=== PATIENT | male | born 1950 | race African-American/Black ===

== ENCOUNTER → 2016-07-10 | Outpatient (CLI) | payer BC ==
[~2016-07-10] MED LIST: ACET-1256 PO; ALBUAER INH; ATOR10TA88 PO; CHOL100010 PO; CLL250 PO; CMD5 PO; FAMO40TA6 PO; FSM70 PO; FSMD/70 PO; LEVAAER2 INH; LEVE500T26 PO; MCRK20 PO; MOME50SP5 NAE; OXGN; PANT40TA PO; PRED-301 PO; QUIN1CAP5 PO; SYMIN160 INH; TAMS0.4C38 PO
== END | disposition home or self-care (01) ==
LOC: C.MAMM 15:05
PROVIDERS: ATTEND Family Medicine
DX: M81.0 Age-related osteoporosis without current pathological fracture (principal)

== ENCOUNTER 2017-03-11 13:14 | Inpatient (IN) | payer BC, OTHER ==
[~2017-03-11] VITALS: Ht 182.9 cm; Wt 90.9 kg
[~2017-03-11 13:14] MED LIST changes: +ATOR10TA82 PO; -ATOR10TA88 PO; -FSMD/70 PO
--- NOTE | 2017-03-11 13:55 | EMERGENCY ROOM VISIT NOTE ---
History Report prepared by Josef: Darlene Fuchs Under the Supervision of: Dr. Charlie Causey D.O. First contact with patient: 13:22 Chief Complaint: REFERRED BY DOCTOR Stated Complaint: SOB, POSSIBLY SEPTIC History of Present Illness The patient is a 66 year old male who presents to the Emergency Room with complaints of a worsening illness beginning yesterday morning. The patient states that he started to not feel well yesterday. Throughout the day he became more lethargic and tired. He was feeling cold and developed low-grade fevers with a temperature of 99.7. Throughout the night he developed increased urinary frequency and decreased urinary output. He reports a history of an enlarged prostate but denies any history of prostatitis. The patient has been taking Tylenol for his symptoms. He rates his current pain as a 4/10 in severity. He has a history of asthma and idiopathic pulmonary fibrosis. He reports tightness in his chest and some shortness of breath. He is on 1L of NC/O2 at all times. The patient denies headache, back pain, hematuria, and pain or swelling in his legs. He denies any personal history of kidney stones. He denies any recent trauma, injury, or falls. He went to see his PCP, Dr. Villalobos, today and was sent to the ED for further evaluation. states that Dr. Villalobos was concerned for sepsis. The patient is on Coumadin for clots. Source of History: patient, spouse/significant other Onset: yesterday morning Position: other (global) Symptom Intensity: 4/10 Quality: other (illness) Timing: worsening Modifying Factors (Relieving): tylenol Associated Symptoms: + fevers, + SOB, + urinary symptoms, + fatigue, No headache, No back pain Review of Systems See HPI for pertinent positives & negatives. A total of 10 systems reviewed and were otherwise negative. Past Medical & Surgical Medical Problems: (1) ANTICOAGULANTS,LT,CURRENT USE (2) 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 (3) Demyelinating disease of central nervous system (4) Fibrosis of lung (5) Prostatic hypertrophy Family History Diabetes mellitus FH: cancer FATHER MOTHER FH: lung disease Hypertension Seizures Social History Smoking Status: Former Smoker Smokeless Tobacco Use: No Alcohol Use: occasionally Drug Use: none Marital Status: Housing Status: lives with significant other Occupation Status: retired Current/Historical Medications Scheduled Atorvastatin (Lipitor), 10 MG PO DAILY Budesonide/Formoterol Fumarate (Symbicort 160/4.5 Inhaler ), 2 PUFFS INH BID Cholecalciferol (D-5000), 1 TAB PO DAILY Famotidine (Pepcid), 40 MG PO HS Home O2 Therapy (Oxygen), 1 LITER NA DAILY Levalbuterol Hcl (Levalbuterol Hcl), 1 VIAL NEB QID Levetiracetam (Keppra), 2 TAB PO BID Mycophenolate Mofetil (Cellcept), 2 TAB PO BID Pantoprazole (Protonix), 40 MG PO QAM Potassium Ext Rel (Klor-Con), 20 MEQ PO TID Prednisone (Prednisone), 6 MG PO DAILY Quinidine Gluconate (Quinidine Gluconate Er), 1 TAB PO BID Tamsulosin Hcl (Flomax), 0.4 MG PO DAILY Warfarin Sod (Coumadin), 2.5 MG PO WK Warfarin Sodium (Coumadin), 5 MG PO [id number] Scheduled PRN Acetaminophen (Tylenol), 500 MG PO Q4 PRN for Pain or Fever Albuterol Sulfate (Proventil Hfa), 2 PUFFS INH Q4H PRN for SOB/Wheezing Allergies Coded Allergies: Iodine (Verified Allergy, Mild, PT. DOESN'T REMEMBER REACTION, 03/11/17) Quinolones (Verified Allergy, Mild, ? REACTION-HAD AVELOX AND CIPRO W/O PROBLEM, 03/11/17) Dust (Verified Allergy, Unknown, SEASONAL ALLERGIES, 03/11/17) Iodinated Contrast Media (Verified Allergy, Unknown, PATIENT DOESN'T REMEMBER, 03/11/17) Molds and Smuts (Verified Allergy, Unknown, SEASONAL ALLERGIES, 03/11/17) Ofloxacin (Verified Allergy, Unknown, "pt does not remember", 03/11/17) POLLEN (Verified Allergy, Unknown, SEASONAL ALLERGIES, 03/11/17) Penicillins (Verified Allergy, Unknown, NOTED ON ALLERGY TEST, 03/11/17) CAN TAKE ROCEPHIN Phenytoin (Verified Allergy, Unknown, MYOPATHY, 03/11/17) Fentanyl (Verified Adverse Reaction, Mild, PATIENT DOESN'T REMEMBER REACTION, 03/11/17) Physical Exam Vital Signs Date Time Temp Pulse Resp B/P (MAP) Pulse Ox O2 Delivery O2 Flow Rate FiO2 03/11/17 18:31 74 18 128/78 98 Room Air 03/11/17 18:10 75 03/11/17 17:49 80 23 96 03/11/17 17:34 75 25 97 03/11/17 17:19 93 19 03/11/17 17:17 117/71 03/11/17 17:15 79 16 117/71 99 Room Air 03/11/17 16:49 74 21 98 03/11/17 16:34 76 24 98 03/11/17 16:19 76 31 98 03/11/17 16:04 78 22 99 03/11/17 15:49 83 25 120/81 98 03/11/17 15:44 76 25 120/81 99 03/11/17 15:29 80 27 97 03/11/17 15:14 79 17 100 03/11/17 15:00 110/72 03/11/17 14:59 78 23 99 03/11/17 14:14 83 20 98 03/11/17 14:05 77 25 107/66 96 Room Air 03/11/17 14:05 107/66 03/11/17 14:04 96 Nasal Cannula 03/11/17 14:02 84 03/11/17 13:16 36.7 82 20 129/69 93 Nasal Cannula 1.0 Physical Exam GENERAL: Patient is awake, alert, and in no acute distress. Patient is resting comfortably and showing no signs of anxiety EYES: The conjunctivae are clear. The pupils are round and reactive. EARS, NOSE, MOUTH AND THROAT: The nose is without any evidence of any deformity. Mucous membranes are moist tongue is midline NECK: The neck is nontender and supple. RESPIRATORY: Lung sounds diminished throughout, scattered rales, no tachypnea or conversational dyspnea. Normal respiratory effort is noted CARDIOVASCULAR: Regular rate and rhythm noted there no murmurs rubs or gallops normal S1 normal S2 GASTROINTESTINAL: The abdomen is soft. Bowel sounds are present in all quadrants. Abdomen is nontender PELVIS: The Pelvis is stable. No tenderness to palpation is noted. BACK: No midline tenderness or or step-off noted range of motion in flexion extension as well as rotation no signs of muscle spasm noted MUSCULOSKELETAL/EXTREMITIES: There is no evidence of gross deformity full range of motion is noted in the hips and shoulders SKIN: Trace pedal edema bilaterally. There is no obvious evidence of any rash. There are no petechiae, pallor or cyanosis noted. NEUROLOGIC: Patient is awake alert and oriented x3 Medical Decision & Procedures ER Provider Diagnostic Interpretation: Radiology results as stated below per my review and radiologist interpretation: CHEST ONE VIEW PORTABLE HISTORY: Sepsis COMPARISON: Chest 01/24/2016. FINDINGS: Diffuse interstitial thickening demonstrating a peripheral and basilar predominance. This favors fibrotic change. This is similar to the prior study. The heart is top normal in size. No pleural effusions. No pneumothorax. No definite new focal lung consolidations. No evidence for pulmonary edema. IMPRESSION: 1. No significant change in the chronic interstitial thickening suggestive of fibrotic change. 2. No definite new focal lung consolidations. Electronically signed by: Cody Painter M.D. 03/11/2017 1:53 PM Dictated Date/Time: 03/11/2017 1:50 PM ABD/PELVIS NO IV OR ORAL CONT CLINICAL HISTORY: 66 years-old Male presenting with hematuria. TECHNIQUE: Multidetector CT of the abdomen and pelvis was performed without the use of intravenous contrast. IV contrast: None. A dose lowering technique was used consistent with the principles of ALARA (as low as reasonably achievable). COMPARISON: PET/CT from 07/14/2011. CT DOSE (mGy.cm): The estimated cumulative dose is 673.59 mGy.cm. FINDINGS: Picker Feeder topogram: Bilateral total hip arthroplasties. Reticular opacities at the lung bases. Lung bases: Extensive reticulation at the lung bases with numerous foci of punctate calcification. Mild bronchiectasis suggested diffusely. No gross evidence of honeycombing. Pleural thickening noted bilaterally. Multichamber enlargement of the heart. Coronary artery and aortic valve calcification. Trace pericardial effusion. Liver: Normal morphology. Density consistent with hepatic steatosis. Biliary: No gross biliary ductal dilatation allowing for noncontrast technique. Normal gallbladder. Pancreas: Normal noncontrast appearance. Spleen: Normal noncontrast appearance. Adrenal glands: Normal noncontrast appearance. Kidneys and ureters: No nephrolithiasis. No hydronephrosis. Normal ureters. Bladder: Allowing for underdistention, suggestion of circumferential bladder wall thickening. Pelvic organs: Extensive streak artifact limits evaluation. Bowel: Limited diverticulosis in the descending colon. Normal appendix. No bowel obstruction. Peritoneal cavity: Minimal infiltration of the small bowel mesentery with associated prominent but subcentimeter lymph nodes, possibly mild mesenteric panniculitis. No free fluid or gas. Lymph nodes: No gross lymphadenopathy allowing for noncontrast technique. Vasculature: Atherosclerosis of the normal caliber abdominal aorta. Abdominal wall: Small fat-containing umbilical hernia. Musculoskeletal: Degenerative changes of the spine. Bilateral total hip arthroplasties with regional streak artifact. Radiolucency surrounds the superiorly directed right iliac screw. Osteopenia. IMPRESSION: 1. No nephrolithiasis or evidence of obstruction. 2. Extensive fibrotic changes at the lung bases. 3. Circumferential bladder wall thickening suggest chronic bowel obstruction. 4. Radiolucency surrounding the superiorly directed right iliac screw as part of the right total hip arthroplasty. This raises concern for loosening or infection. Electronically signed by: Jerad Tobias M.D. 03/11/2017 2:56 PM Dictated Date/Time: 03/11/2017 2:48 PM Laboratory Results 03/11/17 13:40 Red Blood Count 4.43, Mean Corpuscular Volume 89.8, Mean Corpuscular Hemoglobin 30.5, Mean Corpuscular Hemoglobin Concent 33.9, Mean Platelet Volume 9.4, Neutrophils (%) (Auto) 82.9, Lymphocytes (%) (Auto) 5.8, Monocytes (%) (Auto) 10.1, Eosinophils (%) (Auto) 0.7, Basophils (%) (Auto) 0.2, Neutrophils # (Auto ) 11.36, Lymphocytes # (Auto) 0.80, Monocytes # (Auto) 1.38, Eosinophils # (Auto ) 0.10, Basophils # (Auto) 0.03 03/11/17 13:40 Test 03/11/17 13:40 03/11/17 13:50 03/11/17 14:19 03/11/17 15:31 White Blood Count 13.71 K/uL (4.8-10.8) Red Blood Count 4.43 M/uL (4.7-6.1) Hemoglobin 13.5 g/dL (14.0-18.0) Hematocrit 39.8 % (42-52) Mean Corpuscular Volume 89.8 fL (80-100) Mean Corpuscular Hemoglobin 30.5 pg (25-34) Mean Corpuscular Hemoglobin Concent 33.9 g/dl (32-36) Platelet Count 171 K/uL (130-400) Mean Platelet Volume 9.4 fL (7.4-10.4) Neutrophils (%) (Auto) 82.9 % Lymphocytes (%) (Auto) 5.8 % Monocytes (%) (Auto) 10.1 % Eosinophils (%) (Auto) 0.7 % Basophils (%) (Auto) 0.2 % Neutrophils # (Auto) 11.36 K/uL (1.4-6.5) Lymphocytes # (Auto) 0.80 K/uL (1.2-3.4) Monocytes # (Auto) 1.38 K/uL (0.11-0.59) Eosinophils # (Auto) 0.10 K/uL (0-0.5) Basophils # (Auto) 0.03 K/uL (0-0.2) RDW Standard Deviation 49.3 fL (36.4-46.3) RDW Coefficient of Variation 15.0 % (11.5-14.5) Immature Granulocyte % (Auto) 0.3 % Immature Granulocyte # (Auto) 0.04 K/uL (0.00-0.02) Erythrocyte Sedimentation Rate 26 mm/hr (0-14) Anion Gap 7.0 mmol/L (3-11) Est Creatinine Clear Calc Drug Dose 49.8 ml/min Estimated GFR () 52.1 Estimated GFR (Non- 45.0 BUN/Creatinine Ratio 12.4 (10-20) Calcium Level 8.9 mg/dl (8.5-10.1) Phosphorus Level 2.1 mg/dl (2.5-4.9) Magnesium Level 1.8 mg/dl (1.8-2.4) Total Bilirubin 1.2 mg/dl (0.2-1) Aspartate Amino Transf (AST/SGOT) 17 U/L (15-37) Alanine Aminotransferase (ALT/SGPT) 13 U/L (12-78) Alkaline Phosphatase 101 U/L (45-117) Total Creatine Kinase 177 U/L (39-308) Creatine Kinase MB 0.6 ng/ml (0.5-3.6) Creatine Kinase MB Ratio 0.3 (0-3.0) Troponin I < 0.015 ng/ml (0-0.045) C-Reactive Protein 6.90 mg/dl (0-0.29) Pro-B-Type Natriuretic Peptide 408 pg/ml (0-900) Total Protein 7.1 gm/dl (6.4-8.2) Albumin 3.7 gm/dl (3.4-5.0) Globulin 3.4 gm/dl (2.5-4.0) Albumin/Globulin Ratio 1.1 (0.9-2) Lipase 163 U/L (73-393) Bedside Lactic Acid Venous 0.99 mmol/L (0.90-1.70) Venous Blood pH 7.42 (7.36-7.41) Venous Blood Partial Pressure CO2 40 mmHg (38.0-50.0) Venous Blood Partial Pressure O2 45 mmHg Venous Blood HCO3 25 mmol/L Venous Blood Oxygen Saturation 80.1 % Venous Blood Base Excess 0.6 mEq/L Prothrombin Time 21.8 SECONDS (9.0-12.0) Prothromb Time International Ratio 2.0 (0.9-1.1) Activated Partial Thromboplast Time 46.5 SECONDS (21.0-31.0) Partial Thromboplastin Ratio 1.8 Test 03/11/17 15:33 03/11/17 16:17 Urine Color ORANGE Urine Appearance CLOUDY (CLEAR) Urine pH 5.0 (4.5-7.5) Urine Specific [place] 1.027 (1.000-1.030) Urine Protein TRACE (NEG) Urine Glucose (UA) NEG (NEG) Urine Ketones TRACE (NEG) Urine Occult Blood 3+ (NEG) Urine Nitrite POS (NEG) Urine Bilirubin NEG (NEG) Urine Urobilinogen NEG (NEG) Urine Leukocyte Esterase LARGE (NEG) Urine WBC (Auto) >30 /hpf (0-5) Urine RBC (Auto) 10-30 /hpf (0-4) Urine Hyaline Casts (Auto) 0 /lpf (0-5) Urine Epithelial Cells (Auto) 0-5 /lpf (0-5) Urine Bacteria (Auto) 4+ (NEG) Urine Yeast (Auto) (NONE PRSENT) Laboratory results per my review. Medications Administered Medications (Trade) Dose Ordered Sig/Stefanie Route Start Time Stop Time Status Last Admin Dose Admin Sodium Chloride 1,000 ml @ 999 mls/hr Q1H1M STAT IV 03/11/17 15:36 03/11/17 16:36 DC 03/11/17 15:41 999 MLS/HR Ceftriaxone Sodium (Rocephin Inj) 1 gm NOW STAT IV 03/11/17 15:36 03/11/17 15:37 DC 03/11/17 15:46 1 GM ECG Indication: SOB/dyspnea Rate (beats per minute): 81 Rhythm: normal sinus Findings: no acute ischemic change, no ectopy, other (LVH by voltage criteria) Comparison ECG Date: 01/21/16 Change: no significant change ED Course 1322: The patient was evaluated in room B5. A complete history and physical examination were performed. 1536: Rocephin 1 gm IV, NSS 1000 ml @ 999 mls/hr IV 162: I reassessed the patient at this time. He is resting comfortably. I discussed the results and treatment plan with the patient. I answered all pertaining questions that he had. He expressed understanding and verbalized agreement. 162: I spoke with Dr. Hudson. We discussed the patients case. The patient will be evaluated by the [facility] for further management. Medical Decision Differential diagnosis: Etiologies such as viral syndrome, otitis, pharyngitis, pneumonia, influenza, meningitis, urinary tract infection, sepsis, bacteremia, as well as others were entertained. Nursing notes reviewed. Additional history is obtained from the patient's family members. The patient is a 66-year-old male who presented to the emergency department for an evaluation of illness. The patient was found have signs of urinary tract infection an elevated white blood cell count. He has some degree of immunosuppression because of his medications. This reason I discussed his case with the on-call [facility] hospitalist. The patient was treated with IV fluids and IV antibiotics. I reviewed the patient's previous urine cultures as well as his antibiotic allergy list. The patient is feeling much better on subsequent reevaluation. Medication Reconcilliation Current Medication List: was personally reviewed by me Blood Pressure Screening Patient's blood pressure: Normal blood pressure Consults Time Called: 1620 Consulting Physician: Dr. Hudson Returned Call: [address] Hudson. We discussed the patients case. The patient will be evaluated by the [facility] for further management. Impression Primary Impression: Pyelonephritis Additional Impressions: UTI (urinary tract infection) Elevated WBC count Scribe Attestation The scribe's documentation has been prepared under my direction and personally reviewed by me in its entirety. I confirm that the note above accurately reflects all work, treatment, procedures, and medical decision making performed by me. Departure Information Dispostion Being Evaluated By Hospitalist Referrals Yusuf Villalobos M.D. (PCP) Patient Instructions My [facility] Problem Qualifiers Additional Impressions: UTI (urinary tract infection) Urinary tract infection type: acute pyelonephritis Qualified Codes: N10 - Acute pyelonephritis Elevated WBC count Leukocytosis type: unspecified Qualified Codes: D72.829 - Elevated white blood cell count, unspecified
[2017-03-11 14:11] LABS: BASO % 0.2 %; BASO ABS # 0.03 K/uL (0-0.2); COMPLETE YES; EOS % 0.7 %; HEMATOCRIT 39.8 % (42-52); IG% 0.3 %; LYMPH % 5.8 %; MEAN CELL VOLUME 89.8 fL (80-100); MEAN CORPUSCULAR HEMOGLOBIN 30.5 pg (25-34); MEAN CORPUSCULAR HGB CONC 33.9 g/dl (32-36); MEAN PLATELET VOLUME 9.4 fL (7.4-10.4); MONO % 10.1 %; NEUT % 82.9 %; PLATELET COUNT 171 K/uL (130-400); RED BLOOD COUNT 4.43 M/uL (4.7-6.1); WHITE BLOOD COUNT 13.71 K/uL (4.8-10.8)
[2017-03-11 14:29] LABS: ALT/SGPT 13 U/L (12-78); AST/SGOT 17 U/L (15-37); BLOOD UREA NITROGEN 19 mg/dl (7-18); BUN/CREATININE RATIO 12.4 (10-20); CALCIUM 8.9 mg/dl (8.5-10.1); CARBON DIOXIDE 27 mmol/L (21-32); CHLORIDE 106 mmol/L (98-107); CREATININE 1.56 mg/dl (0.60-1.40); GLUCOSE 84 mg/dl (70-99); MAGNESIUM 1.8 mg/dl (1.8-2.4); POTASSIUM 3.7 mmol/L (3.5-5.1); SODIUM 140 mmol/L (136-145)
[2017-03-11 14:33] LABS: ALB/GLOB RATIO 1.1 (0.9-2); ALKALINE PHOSPHATASE 101 U/L (45-117); CKMB/CK RATIO 0.3 (0-3.0); PHOSPHORUS 2.1 mg/dl (2.5-4.9)
[2017-03-11 14:35] LABS: VEN BLD GAS O2 SATURATION 80.1 %; VEN BLOOD GAS BASE EXCESS 0.6 mEq/L
--- NOTE | 2017-03-11 14:58 | DIAGNOSTIC IMAGING REPORT ---
ABD/PELVIS NO IV OR ORAL CONT CLINICAL HISTORY: 66 years-old Male presenting with hematuria. TECHNIQUE: Multidetector CT of the abdomen and pelvis was performed without the use of intravenous contrast. IV contrast: None. A dose lowering technique was used consistent with the principles of ALARA (as low as reasonably achievable). COMPARISON: PET/CT from 07/14/2011. CT DOSE (mGy.cm): The estimated cumulative dose is 673.59 mGy.cm. FINDINGS: Cotton Ginner topogram: Bilateral total hip arthroplasties. Reticular opacities at the lung bases. Lung bases: Extensive reticulation at the lung bases with numerous foci of punctate calcification. Mild bronchiectasis suggested diffusely. No gross evidence of honeycombing. Pleural thickening noted bilaterally. Multichamber enlargement of the heart. Coronary artery and aortic valve calcification. Trace pericardial effusion. Liver: Normal morphology. Density consistent with hepatic steatosis. Biliary: No gross biliary ductal dilatation allowing for noncontrast technique. Normal gallbladder. Pancreas: Normal noncontrast appearance. Spleen: Normal noncontrast appearance. Adrenal glands: Normal noncontrast appearance. Kidneys and ureters: No nephrolithiasis. No hydronephrosis. Normal ureters. Bladder: Allowing for underdistention, suggestion of circumferential bladder wall thickening. Pelvic organs: Extensive streak artifact limits evaluation. Bowel: Limited diverticulosis in the descending colon. Normal appendix. No bowel obstruction. Peritoneal cavity: Minimal infiltration of the small bowel mesentery with associated prominent but subcentimeter lymph nodes, possibly mild mesenteric panniculitis. No free fluid or gas. Lymph nodes: No gross lymphadenopathy allowing for noncontrast technique. Vasculature: Atherosclerosis of the normal caliber abdominal aorta. Abdominal wall: Small fat-containing umbilical hernia. Musculoskeletal: Degenerative changes of the spine. Bilateral total hip arthroplasties with regional streak artifact. Radiolucency surrounds the superiorly directed right iliac screw. Osteopenia. IMPRESSION: 1. No nephrolithiasis or evidence of obstruction. 2. Extensive fibrotic changes at the lung bases. 3. Circumferential bladder wall thickening suggest chronic bowel obstruction. 4. Radiolucency surrounding the superiorly directed right iliac screw as part of the right total hip arthroplasty. This raises concern for loosening or infection. Electronically signed by: Jerad Tobias M.D. 03/11/2017 2:56 PM Dictated Date/Time: 03/11/2017 2:48 PM
[2017-03-11] MEDS ORDERED: LEVE500T13 PO (15:10)
[2017-03-11] MEDS ORDERED: ALBUAER INH (15:10)
[2017-03-11] MEDS ORDERED: MYCO500T4 PO (15:10)
[2017-03-11] MEDS ORDERED: LEVA1.258 NEB (15:10)
[2017-03-11] MEDS ORDERED: CHOLTAB11 PO (15:10)
[2017-03-11] MEDS ORDERED: WARF5TAB90 PO (15:10)
[2017-03-11] MEDS ORDERED: QUIN1TAB PO (15:10)
[2017-03-11] MEDS ORDERED: POTA20TA16 PO (15:10)
[2017-03-11] MEDS ORDERED: CEFTRIAXONE SOD INJ 1 GM ADDVIAL IV STA (15:36)
[2017-03-11] MEDS ORDERED: SODIUM CHLORIDE 0.9% 1000ML 1,000 ML IV STA (15:36)
[2017-03-11 15:49] LABS: URINE APPEARANCE CLOUDY (CLEAR); URINE BILIRUBIN NEG (NEG); URINE COLOR ORANGE; URINE EPITHELIAL CELL AUTO 0-5 /lpf (0-5); URINE NITRITE POS (NEG); URINE SPECIFIC GRAVITY 1.027 (1.000-1.030); UROBILINOGEN NEG (NEG); ZZUR CULT IF INDIC CLEAN CATCH YES
[2017-03-11 15:57] LABS: MANUAL MICROSCOPIC REQUIRED? NO; REVIEW REQ? YES
[2017-03-11 16:26] LABS: PARTIAL THROMBOPLASTIN RATIO 1.8; PROTHROMBIN TIME (PATIENT) 21.8 SECONDS (9.0-12.0)
--- NOTE | 2017-03-11 16:55 | History and Physical ---
History & Physical Date & Time of Service: Mar 11, 2017 at 16:53 Chief Complaint: Sob, Possibly Septic Primary Care Physician: Yusuf Villalobos M.D. History of Present Illness Mr. Tirado is a 66 year old man presenting for low grade fever, increased urinary hesitancy, and chills starting yesterday. He was sent to the ED from Dr. Strauss's office. No n/v/d. Chest tightness with some sob yesterday, no cough, he had to increase his oxygen from 1L to 2L. He is currently sating 99% on 2L. 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 Past Medical/Surgical History Medical Problems: (1) ANTICOAGULANTS,LT,CURRENT USE Status: Chronic (2) 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 Status: Chronic (3) Demyelinating disease of central nervous system Status: Chronic (4) Fibrosis of lung Status: Chronic (5) Prostatic hypertrophy Status: Chronic Family History Diabetes mellitus FH: cancer FATHER MOTHER FH: lung disease Hypertension Seizures Social History Smoking Status: Former Smoker Smokeless Tobacco Use: No Alcohol Use: none Drug Use: none Marital Status: Housing status: lives with family Occupational Status: retired Immunizations History of Influenza Vaccine: No Influenza Vaccine Date: Jan 19, 2009 History of Tetanus Vaccine?: Yes History of Pneumococcal: Yes Pneumococcal Date: Oct 20, 2007 History of Hepatitis B Vaccine: No Multi-Drug Resistant Organisms History of MDRO: No Allergies Coded Allergies: Iodine (Verified Allergy, Mild, PT. DOESN'T REMEMBER REACTION, 03/11/17) Quinolones (Verified Allergy, Mild, ? REACTION-HAD AVELOX AND CIPRO W/O PROBLEM, 03/11/17) Dust (Verified Allergy, Unknown, SEASONAL ALLERGIES, 03/11/17) Iodinated Contrast Media (Verified Allergy, Unknown, PATIENT DOESN'T REMEMBER, 03/11/17) Molds and Smuts (Verified Allergy, Unknown, SEASONAL ALLERGIES, 03/11/17) Ofloxacin (Verified Allergy, Unknown, "pt does not remember", 03/11/17) POLLEN (Verified Allergy, Unknown, SEASONAL ALLERGIES, 03/11/17) Penicillins (Verified Allergy, Unknown, NOTED ON ALLERGY TEST, 03/11/17) CAN TAKE ROCEPHIN Phenytoin (Verified Allergy, Unknown, MYOPATHY, 03/11/17) Fentanyl (Verified Adverse Reaction, Mild, PATIENT DOESN'T REMEMBER REACTION, 03/11/17) Home Medications Scheduled Atorvastatin (Lipitor), 10 MG PO DAILY Budesonide/Formoterol Fumarate (Symbicort 160/4.5 Inhaler ), 2 PUFFS INH BID Cholecalciferol (D-5000), 1 TAB PO DAILY Famotidine (Pepcid), 40 MG PO HS Home O2 Therapy (Oxygen), 1 LITER NA DAILY Levalbuterol Hcl (Levalbuterol Hcl), 1 VIAL NEB QID Levetiracetam (Keppra), 2 TAB PO BID Mycophenolate Mofetil (Cellcept), 2 TAB PO BID Pantoprazole (Protonix), 40 MG PO QAM Potassium Ext Rel (Klor-Con), 20 MEQ PO TID Prednisone (Prednisone), 6 MG PO DAILY Quinidine Gluconate (Quinidine Gluconate Er), 1 TAB PO BID Tamsulosin Hcl (Flomax), 0.4 MG PO DAILY Warfarin Sod (Coumadin), 2.5 MG PO WK Warfarin Sodium (Coumadin), 5 MG PO [id number] Scheduled PRN Acetaminophen (Tylenol), 500 MG PO Q4 PRN for Pain or Fever Albuterol Sulfate (Proventil Hfa), 2 PUFFS INH Q4H PRN for SOB/Wheezing Review of Systems Constitutional: + fever, + chills Respiratory: + shortness of breath, No cough Cardiovascular: No chest pain Abdomen: No pain, No nausea, No vomiting, No diarrhea Hematologic / Lymphatic: No abnormal bleeding/bruising Physical Exam Vital Signs Date Time Temp Pulse Resp B/P (MAP) Pulse Ox O2 Delivery O2 Flow Rate FiO2 03/11/17 15:44 76 25 120/81 99 03/11/17 15:29 80 27 97 03/11/17 15:14 79 17 100 03/11/17 15:00 110/72 03/11/17 14:59 78 23 99 03/11/17 14:14 83 20 98 03/11/17 14:05 77 25 107/66 96 Room Air 03/11/17 14:05 107/66 03/11/17 14:04 96 Nasal Cannula 03/11/17 14:02 84 03/11/17 13:16 36.7 82 20 129/69 93 Nasal Cannula 1.0 Diagnostics Laboratory Results Results Past 24 Hours Test 03/11/17 13:40 03/11/17 13:50 03/11/17 14:19 03/11/17 15:31 Range/Units White Blood Count 13.71 4.8-10.8 K/uL Red Blood Count 4.43 4.7-6.1 M/uL Hemoglobin 13.5 14.0-18.0 g/dL Hematocrit 39.8 42-52 % Mean Corpuscular Volume 89.8 80-100 fL Mean Corpuscular Hemoglobin 30.5 25-34 pg Mean Corpuscular Hemoglobin Concent 33.9 32-36 g/dl Platelet Count 171 130-400 K/uL Mean Platelet Volume 9.4 7.4-10.4 fL Neutrophils (%) (Auto) 82.9 % Lymphocytes (%) (Auto) 5.8 % Monocytes (%) (Auto) 10.1 % Eosinophils (%) (Auto) 0.7 % Basophils (%) (Auto) 0.2 % Neutrophils # (Auto) 11.36 1.4-6.5 K/uL Lymphocytes # (Auto) 0.80 1.2-3.4 K/uL Monocytes # (Auto) 1.38 0.11-0.59 K/uL Eosinophils # (Auto) 0.10 0-0.5 K/uL Basophils # (Auto) 0.03 0-0.2 K/uL RDW Standard Deviation 49.3 36.4-46.3 fL RDW Coefficient of Variation 15.0 11.5-14.5 % Immature Granulocyte % (Auto) 0.3 % Immature Granulocyte # (Auto) 0.04 0.00-0.02 K/uL Erythrocyte Sedimentation Rate 26 0-14 mm/hr Sodium Level 140 136-145 mmol/L Potassium Level 3.7 3.5-5.1 mmol/L Chloride Level 106 98-107 mmol/L Carbon Dioxide Level 27 21-32 mmol/L Anion Gap 7.0 3-11 mmol/L Blood Urea Nitrogen 19 7-18 mg/dl Creatinine 1.56 0.60-1.40 mg/dl Est Creatinine Clear Calc Drug Dose 49.8 ml/min Estimated GFR () 52.1 Estimated GFR (Non- 45.0 BUN/Creatinine Ratio 12.4 10-20 Random Glucose 84 70-99 mg/dl Calcium Level 8.9 8.5-10.1 mg/dl Phosphorus Level 2.1 2.5-4.9 mg/dl Magnesium Level 1.8 1.8-2.4 mg/dl Total Bilirubin 1.2 0.2-1 mg/dl Aspartate Amino Transf (AST/SGOT) 17 15-37 U/L Alanine Aminotransferase (ALT/SGPT) 13 12-78 U/L Alkaline Phosphatase 101 45-117 U/L Total Creatine Kinase 177 39-308 U/L Creatine Kinase MB 0.6 0.5-3.6 ng/ml Creatine Kinase MB Ratio 0.3 0-3.0 Troponin I < 0.015 0-0.045 ng/ml C-Reactive Protein 6.90 0-0.29 mg/dl Pro-B-Type Natriuretic Peptide 408 0-900 pg/ml Total Protein 7.1 6.4-8.2 gm/dl Albumin 3.7 3.4-5.0 gm/dl Globulin 3.4 2.5-4.0 gm/dl Albumin/Globulin Ratio 1.1 0.9-2 Lipase 163 73-393 U/L Bedside Lactic Acid Venous 0.99 0.90-1.70 mmol/L Venous Blood pH 7.42 7.36-7.41 Venous Blood Partial Pressure CO2 40 38.0-50.0 mmHg Venous Blood Partial Pressure O2 45 mmHg Venous Blood HCO3 25 mmol/L Venous Blood Oxygen Saturation 80.1 % Venous Blood Base Excess 0.6 mEq/L Prothrombin Time 21.8 9.0-12.0 SECONDS Prothromb Time International Ratio 2.0 0.9-1.1 Activated Partial Thromboplast Time 46.5 21.0-31.0 SECONDS Partial Thromboplastin Ratio 1.8 Test 03/11/17 15:33 03/11/17 16:17 Range/Units Urine Color ORANGE Urine Appearance CLOUDY CLEAR Urine pH 5.0 4.5-7.5 Urine Specific [employer] 1.027 1.000-1.030 Urine Protein TRACE NEG Urine Glucose (UA) NEG NEG Urine Ketones TRACE NEG Urine Occult Blood 3+ NEG Urine Nitrite POS NEG Urine Bilirubin NEG NEG Urine Urobilinogen NEG NEG Urine Leukocyte Esterase LARGE NEG Urine WBC (Auto) >30 0-5 /hpf Urine RBC (Auto) 10-30 0-4 /hpf Urine Hyaline Casts (Auto) 0 0-5 /lpf Urine Epithelial Cells (Auto) 0-5 0-5 /lpf Urine Bacteria (Auto) 4+ NEG Urine Yeast (Auto) NONE PRSENT Microbiology Results 03/11/17 Blood Culture, Received Pending 03/11/17 Blood Culture, Received Pending 03/11/17 Urine Culture, Received Pending Diagnostic Radiology ABD/PELVIS NO IV OR ORAL CONT CLINICAL HISTORY: 66 years-old Male presenting with hematuria. TECHNIQUE: Multidetector CT of the abdomen and pelvis was performed without the use of intravenous contrast. IV contrast: None. A dose lowering technique was used consistent with the principles of ALARA (as low as reasonably achievable). COMPARISON: PET/CT from 07/14/2011. CT DOSE (mGy.cm): The estimated cumulative dose is 673.59 mGy.cm. FINDINGS: Tuber Operator topogram: Bilateral total hip arthroplasties. Reticular opacities at the lung bases. Lung bases: Extensive reticulation at the lung bases with numerous foci of punctate calcification. Mild bronchiectasis suggested diffusely. No gross evidence of honeycombing. Pleural thickening noted bilaterally. Multichamber enlargement of the heart. Coronary artery and aortic valve calcification. Trace pericardial effusion. Liver: Normal morphology. Density consistent with hepatic steatosis. Biliary: No gross biliary ductal dilatation allowing for noncontrast technique. Normal gallbladder. Pancreas: Normal noncontrast appearance. Spleen: Normal noncontrast appearance. Adrenal glands: Normal noncontrast appearance. Kidneys and ureters: No nephrolithiasis. No hydronephrosis. Normal ureters. Bladder: Allowing for underdistention, suggestion of circumferential bladder wall thickening. Pelvic organs: Extensive streak artifact limits evaluation. Bowel: Limited diverticulosis in the descending colon. Normal appendix. No bowel obstruction. Peritoneal cavity: Minimal infiltration of the small bowel mesentery with associated prominent but subcentimeter lymph nodes, possibly mild mesenteric panniculitis. No free fluid or gas. Lymph nodes: No gross lymphadenopathy allowing for noncontrast technique. Vasculature: Atherosclerosis of the normal caliber abdominal aorta. Abdominal wall: Small fat-containing umbilical hernia. Musculoskeletal: Degenerative changes of the spine. Bilateral total hip arthroplasties with regional streak artifact. Radiolucency surrounds the superiorly directed right iliac screw. Osteopenia. IMPRESSION: 1. No nephrolithiasis or evidence of obstruction. 2. Extensive fibrotic changes at the lung bases. 3. Circumferential bladder wall thickening suggest chronic bowel obstruction. 4. Radiolucency surrounding the superiorly directed right iliac screw as part of the right total hip arthroplasty. This raises concern for loosening or infection. CHEST ONE VIEW PORTABLE HISTORY: Sepsis COMPARISON: Chest 01/24/2016. FINDINGS: Diffuse interstitial thickening demonstrating a peripheral and basilar predominance. This favors fibrotic change. This is similar to the prior study. The heart is top normal in size. No pleural effusions. No pneumothorax. No definite new focal lung consolidations. No evidence for pulmonary edema. IMPRESSION: 1. No significant change in the chronic interstitial thickening suggestive of fibrotic change. 2. No definite new focal lung consolidations. EKG Normal sinus rhythm Moderate voltage criteria for LVH, may be normal variant Nonspecific T wave abnormality Abnormal ECG When compared with ECG of 24-JAN-2016 15:17, Nonspecific T wave abnormality now evident in Anterolateral leads Confirmed by MISTY SANDERSON ([id number]) on 03/11/2017 3:40:23 PM Impression Assessment and Plan Mr. Tirado is a 66 year old man here for UTI in the setting of immunosuppressive therapy. He has a past medical history. 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 UTI - admit med surg - Rocephin - straight cath for urinary retention - Previous creatinine was 1.4, now 1.5 - continue IVF NSS @ 100 ml/hr - cbc, prp in am Pulmonary Fibrosis - titrate O2, 1L at home, now requiring 2L - continue home nebs - continue Cellcept PMR - continue prednisone HLD - continue statin GERD - continue famotidine and protonix BPH - continue flomax DVT prophylaxis - coumadin Full resuscitation [employer] Physician Supervision Note: I interviewed and examined the patient. Discussed with Loretta Adair [employer] and agree with findings and plan as documented in the note. Any exceptions or clarifications are listed here: None Patient presents with urinary symptoms and concern for worsening infection he is immune suppressed with both prednisone and CellCept therapy for which she takes them as treatment of polymyalgia rheumatica and pulmonary fibrosis patient 's had preceding symptoms and did see his primary care provider was recommended admission. Patient's had no flareup of his polymalgia rheumatica lately and his pulmonary fibrosis he says has been stable over the last 2 years he's having some dysuria general body aches and did have a measurable temperature at home Vital signs showed him to be afebrile in the ER other vitals are reviewed and stable Cardiac exam is regular lungs have fine dry crackles in both lung prince he has no CVA angle tenderness E some mild suprapubic fullness Patient presents with UTI possible early service given his immune suppression will have the patient admitted for facility hydrate him and initiate intravenous antibiotic therapy of Rocephin as was started in the ER For his adrenal axis suppression with prednisone we will use his home dose but watch for signs of needing stress dose coverage with hydrocortisone likewise maintaining his CellCept for his pulmonary fibrosis with supplement oxygen Documented By: Nader Hudson Advanced Directives Existing Advance Directive: Yes Existing Living Will: Yes Existing Power of [employer]ospace [employer] Sales Engineer: Yes Existing Health Care Proxy: Yes () Resuscitation Status FULL RESUSCITATION VTE Prophylaxis VTE Risk Assessment Done? Y/N: Yes Risk Level: Moderate
[2017-03-11] MEDS ORDERED: ONDANSETRON INJ 2 MG/ML 2 ML VIAL IV PRN (18:45)
[2017-03-11] MEDS ORDERED: ACETAMINOPHEN 325 MG TAB PO PRN (18:45)
[2017-03-11] MEDS ORDERED: ALUMINUM/MAGNESIUM/SIMETH (MAALOX MAX) 30 ML UDC PO PRN (18:45)
[2017-03-11] MEDS ORDERED: ALBUTEROL HFA 8 GM INHALER INH PRN (19:00)
[2017-03-11] MEDS ORDERED: ACETAMINOPHEN 500 MG TAB PO PRN (19:00)
[2017-03-11] MEDS: LEVALBUTEROL 1.25MG/3ML NEB INH SCH (20:32)
[2017-03-11 20:34] VITALS: PULSE 81; O2SAT 96
[2017-03-11] MEDS: LEVETIRACETAM 500 MG TAB PO SCH (21:01)
[2017-03-11] MEDS: BUDESONIDE/FORMOTEROL FUMARATE 160/4.5 60 PUFFS/INHALER INH SCH (21:01)
[2017-03-11] MEDS: POTASSIUM CHLORIDE 20 MEQ TABCR PO SCH (21:02)
[2017-03-11] MEDS: FAMOTIDINE 20 MG TAB PO SCH (21:02)
[2017-03-11] MEDS: MYCOPHENOLATE MOFETIL 250 MG CAP (CELLCEPT) PO SCH (21:05)
[2017-03-11] MEDS: SODIUM CHLORIDE 0.9% 1000ML 1,000 ML IV SCH (21:09)
[2017-03-11 21:24] VITALS: BP 144/78; PULSE 72; TEMP 36.9; O2SAT 98; Ht 182.9 cm; Wt 90.9 kg
[2017-03-11] MEDS: QUINIDINE GLUCONATE 324 MG PO SCH (22:04)
[2017-03-11 23:50] VITALS: BP 113/62; PULSE 77; TEMP 36.3; O2SAT 96
[2017-03-12] VITALS (8 sets, daily range): BP systolic 110–134; BP diastolic 66–78; PULSE 61–79; TEMP 36.6–36.9; O2SAT 95–100
[2017-03-12] MEDS: SODIUM CHLORIDE 0.9% 1000ML 1,000 ML IV SCH ×2 (06:04→16:09)
[2017-03-12] MEDS: LEVALBUTEROL 1.25MG/3ML NEB INH SCH ×4 (06:51→19:16)
[2017-03-12] MEDS: QUINIDINE GLUCONATE 324 MG PO SCH ×2 (07:38→20:14)
[2017-03-12] MEDS: BUDESONIDE/FORMOTEROL FUMARATE 160/4.5 60 PUFFS/INHALER INH SCH ×2 (07:38→20:13)
[2017-03-12] MEDS: TAMSULOSIN HCL 0.4 MG CAP PO SCH (07:39)
[2017-03-12] MEDS: PANTOprazole SOD 40 MG TAB PO SCH (07:39)
[2017-03-12] MEDS: ATORVASTATIN 10 MG TAB PO SCH (07:39)
[2017-03-12] MEDS: POTASSIUM CHLORIDE 20 MEQ TABCR PO SCH ×3 (07:39→20:13)
[2017-03-12] MEDS: LEVETIRACETAM 500 MG TAB PO SCH ×2 (07:40→16:18)
[2017-03-12] MEDS: MYCOPHENOLATE MOFETIL 250 MG CAP (CELLCEPT) PO SCH ×2 (07:40→16:17)
[2017-03-12 08:05] LABS: HEMATOCRIT 34.5 % (42-52); MEAN CELL VOLUME 89.8 fL (80-100); MEAN CORPUSCULAR HEMOGLOBIN 29.9 pg (25-34); MEAN CORPUSCULAR HGB CONC 33.3 g/dl (32-36); MEAN PLATELET VOLUME 9.7 fL (7.4-10.4); PLATELET COUNT 153 K/uL (130-400); RED BLOOD COUNT 3.84 M/uL (4.7-6.1); WHITE BLOOD COUNT 11.52 K/uL (4.8-10.8)
[2017-03-12 08:16] LABS: INR 2.1 (0.9-1.1)
[2017-03-12 08:30] LABS: CREATININE 1.29 mg/dl (0.60-1.40)
[2017-03-12 08:31] LABS: BUN/CREATININE RATIO 13.8 (10-20); CALCIUM 7.9 mg/dl (8.5-10.1)
--- NOTE | 2017-03-12 12:44 | Hospitalist Progress Note ---
Hospitalist Progress Note Date of Service Mar 12, 2017. Subjective Pt evaluation today including: conversation w/ patient, physical exam, lab review, review of studies, review of inpatient medication list Voiding: no voiding problems Patient laying in bed. States he is feeling significantly improved since admission. +fever and chills since Thursday- denies any overnight. Urinary frequency and hesitancy has improved. Eating and drinking OK. He notes a h/o uncomplicated UTIs. Patient denies any fever, chills, sweats, lightheadedness, dizziness, vision changes, CP, palpitations, edema, SOB, wheezing, cough, abdominal pain, nausea, vomiting, diarrhea, urinary symptoms, melena, numbness/tingling, weakness, muscle/joint pain, anxiety/depression, active bleeding, or new skin discoloration/changes. Medications Current Inpatient Medications Medications (Trade) Dose Ordered Sig/Stefanie Route Start Time Stop Time Status Last Admin Dose Admin Acetaminophen (Tylenol Tab) 650 mg Q4H PRN PO 03/11/17 18:45 04/10/17 18:44 03/11/17 19:08 650 MG Al Hydrox/Mg Hydrox/Simethicone (Maalox Max Susp) 15 ml Q4H PRN PO 03/11/17 18:45 04/10/17 18:44 Ondansetron HCl (Zofran Inj) 4 mg Q6H PRN IV 03/11/17 18:45 04/10/17 18:44 Ceftriaxone Sodium 1 gm/ Dextrose 50 ml @ 100 mls/hr DAILY@1600 IV 03/12/17 16:00 03/16/17 15:59 Albuterol (Ventolin Hfa Inhaler) 2 puffs Q4H PRN INH 03/11/17 19:00 04/10/17 18:59 Atorvastatin Calcium (Lipitor Tab) 10 mg DAILY PO 03/12/17 08:00 04/11/17 08:59 03/12/17 07:39 10 MG Budesonide/ Formoterol Fumarate (Symbicort 160/ 4.5 Inh) 2 puffs BID INH 03/11/17 20:11 04/10/17 20:59 03/12/17 07:38 2 PUFFS Famotidine (Pepcid Tab) 40 mg HS PO 03/11/17 21:00 04/10/17 20:59 03/11/17 21:02 40 MG Levalbuterol (Xopenex 1.25MG/ 3ML Neb) 1.25 mg QIDR INH 03/11/17 21:00 04/10/17 20:59 03/12/17 11:30 1.25 MG Levetiracetam (Keppra Tab) 1,000 mg BID PO 03/11/17 20:11 04/10/17 20:59 03/12/17 07:40 1,000 MG Mycophenolate Mofetil (Cellcept Cap) 1,000 mg BID PO 03/11/17 20:11 04/10/17 20:59 03/12/17 07:40 1,000 MG Pantoprazole Sodium (Protonix Tab) 40 mg QAM PO 03/12/17 08:00 04/11/17 08:59 03/12/17 07:39 40 MG Potassium Chloride (Klor-Con Tab) 20 meq TID PO 03/11/17 20:11 04/10/17 20:59 03/12/17 07:39 20 MEQ Prednisone (PredniSONE TAB) 6 mg DAILY PO 03/12/17 08:00 04/11/17 08:59 03/12/17 07:39 6 MG Quinidine Gluconate ([place] Duratab) 324 mg BID PO 03/11/17 20:11 04/10/17 20:59 03/12/17 07:38 324 MG Tamsulosin HCl (Flomax Cap) 0.4 mg DAILY PO 03/12/17 08:00 04/11/17 08:59 03/12/17 07:39 0.4 MG Warfarin Sodium (Coumadin Tab) 2.5 mg Mo@1600 PO 03/16/17 16:00 04/15/17 15:59 Warfarin Sodium (Coumadin Tab) 5 mg SuTuWeThFrSa@1600 PO 03/12/17 16:00 04/11/17 15:59 Sodium Chloride 1,000 ml @ 100 mls/hr Q10H IV 03/11/17 19:15 04/10/17 19:14 03/12/17 06:04 100 MLS/HR Objective Vital Signs Date Time Temp Pulse Resp B/P (MAP) Pulse Ox O2 Delivery O2 Flow Rate FiO2 03/12/17 11:31 75 14 97 Room Air 03/12/17 08:15 Room Air 03/12/17 07:03 36.6 67 18 120/78 (92) 100 2.0 03/12/17 06:51 76 14 96 Nasal Cannula 1.0 03/12/17 00:00 98 Nasal Cannula 1.0 03/11/17 23:50 36.3 77 20 113/62 (79) 96 1.0 03/11/17 21:24 36.9 72 18 144/78 98 Nasal Cannula 1.0 03/11/17 21:24 36.9 72 18 144/78 (100) 98 03/11/17 20:34 81 14 96 Nasal Cannula 1.0 03/11/17 19:59 37.5 71 16 118/66 98 Nasal Cannula 1.0 03/11/17 19:03 37.5 82 72 162/100 97 Nasal Cannula 1.0 03/11/17 18:31 74 18 128/78 98 Room Air 03/11/17 18:10 75 03/11/17 17:49 80 23 96 03/11/17 17:34 75 25 97 03/11/17 17:19 93 19 03/11/17 17:17 117/71 03/11/17 17:15 79 16 117/71 99 Room Air 03/11/17 16:49 74 21 98 03/11/17 16:34 76 24 98 03/11/17 16:19 76 31 98 03/11/17 16:04 78 22 99 03/11/17 15:49 83 25 120/81 98 03/11/17 15:44 76 25 120/81 99 03/11/17 15:29 80 27 97 03/11/17 15:14 79 17 100 03/11/17 15:00 110/72 03/11/17 14:59 78 23 99 03/11/17 14:14 83 20 98 03/11/17 14:05 77 25 107/66 96 Room Air 03/11/17 14:05 107/66 03/11/17 14:04 96 Nasal Cannula 03/11/17 14:02 84 03/11/17 13:16 36.7 82 20 129/69 93 Nasal Cannula 1.0 Physical Exam General Appearance: no apparent distress, + pertinent finding (O2 1L NC) Eyes: normal inspection, PERRL ENT: hearing grossly normal Neck: supple Respiratory/Chest: lungs clear, no respiratory distress, no accessory muscle use Cardiovascular: regular rate, rhythm Abdomen: normal bowel sounds, non tender, soft Extremities: no pedal edema, no calf tenderness Neurologic/Psychiatric: alert, normal mood/affect, oriented x 3 Skin: normal color, warm/dry, no rash Laboratory Results Last 24 Hours Test 03/11/17 13:40 03/11/17 13:50 03/11/17 14:19 03/11/17 15:31 White Blood Count 13.71 K/uL Red Blood Count 4.43 M/uL Hemoglobin 13.5 g/dL Hematocrit 39.8 % Mean Corpuscular Volume 89.8 fL Mean Corpuscular Hemoglobin 30.5 pg Mean Corpuscular Hemoglobin Concent 33.9 g/dl Platelet Count 171 K/uL Mean Platelet Volume 9.4 fL Neutrophils (%) (Auto) 82.9 % Lymphocytes (%) (Auto) 5.8 % Monocytes (%) (Auto) 10.1 % Eosinophils (%) (Auto) 0.7 % Basophils (%) (Auto) 0.2 % Neutrophils # (Auto) 11.36 K/uL Lymphocytes # (Auto) 0.80 K/uL Monocytes # (Auto) 1.38 K/uL Eosinophils # (Auto) 0.10 K/uL Basophils # (Auto) 0.03 K/uL RDW Standard Deviation 49.3 fL RDW Coefficient of Variation 15.0 % Immature Granulocyte % (Auto) 0.3 % Immature Granulocyte # (Auto) 0.04 K/uL Erythrocyte Sedimentation Rate 26 mm/hr Sodium Level 140 mmol/L Potassium Level 3.7 mmol/L Chloride Level 106 mmol/L Carbon Dioxide Level 27 mmol/L Anion Gap 7.0 mmol/L Blood Urea Nitrogen 19 mg/dl Creatinine 1.56 mg/dl Est Creatinine Clear Calc Drug Dose 49.8 ml/min Estimated GFR () 52.1 Estimated GFR (Non- 45.0 BUN/Creatinine Ratio 12.4 Random Glucose 84 mg/dl Calcium Level 8.9 mg/dl Phosphorus Level 2.1 mg/dl Magnesium Level 1.8 mg/dl Total Bilirubin 1.2 mg/dl Aspartate Amino Transf (AST/SGOT) 17 U/L Alanine Aminotransferase (ALT/SGPT) 13 U/L Alkaline Phosphatase 101 U/L Total Creatine Kinase 177 U/L Creatine Kinase MB 0.6 ng/ml Creatine Kinase MB Ratio 0.3 Troponin I < 0.015 ng/ml C-Reactive Protein 6.90 mg/dl Pro-B-Type Natriuretic Peptide 408 pg/ml Total Protein 7.1 gm/dl Albumin 3.7 gm/dl Globulin 3.4 gm/dl Albumin/Globulin Ratio 1.1 Lipase 163 U/L Hepatitis C Antibody Screen NEG Bedside Lactic Acid Venous 0.99 mmol/L Venous Blood pH 7.42 Venous Blood Partial Pressure CO2 40 mmHg Venous Blood Partial Pressure O2 45 mmHg Venous Blood HCO3 25 mmol/L Venous Blood Oxygen Saturation 80.1 % Venous Blood Base Excess 0.6 mEq/L Prothrombin Time 21.8 SECONDS Prothromb Time International Ratio 2.0 Activated Partial Thromboplast Time 46.5 SECONDS Partial Thromboplastin Ratio 1.8 Test 03/11/17 15:33 03/11/17 16:17 03/12/17 07:44 Urine Color ORANGE Urine Appearance CLOUDY Urine pH 5.0 Urine Specific [place] 1.027 Urine Protein TRACE Urine Glucose (UA) NEG Urine Ketones TRACE Urine Occult Blood 3+ Urine Nitrite POS Urine Bilirubin NEG Urine Urobilinogen NEG Urine Leukocyte Esterase LARGE Urine WBC (Auto) >30 /hpf Urine RBC (Auto) 10-30 /hpf Urine Hyaline Casts (Auto) 0 /lpf Urine Epithelial Cells (Auto) 0-5 /lpf Urine Bacteria (Auto) 4+ Urine Yeast (Auto) White Blood Count 11.52 K/uL Red Blood Count 3.84 M/uL Hemoglobin 11.5 g/dL Hematocrit 34.5 % Mean Corpuscular Volume 89.8 fL Mean Corpuscular Hemoglobin 29.9 pg Mean Corpuscular Hemoglobin Concent 33.3 g/dl RDW Standard Deviation 49.5 fL RDW Coefficient of Variation 15.1 % Platelet Count 153 K/uL Mean Platelet Volume 9.7 fL Prothrombin Time 23.0 SECONDS Prothromb Time International Ratio 2.1 Sodium Level 143 mmol/L Potassium Level 4.0 mmol/L Chloride Level 112 mmol/L Carbon Dioxide Level 21 mmol/L Anion Gap 10.0 mmol/L Blood Urea Nitrogen 18 mg/dl Creatinine 1.29 mg/dl Est Creatinine Clear Calc Drug Dose 60.2 ml/min Estimated GFR () 65.6 Estimated GFR (Non- 56.6 BUN/Creatinine Ratio 13.8 Random Glucose 93 mg/dl Calcium Level 7.9 mg/dl Assessment and Plan Mr. Tirado is a 66 year old man here for UTI in the setting of immunosuppressive therapy. He has a past medical history. 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 UTI- gram negative bacilli: - Admitted to med/surg - IV Rocephin pending final UCx and sensitives- started on 03/11 - BCx pending - Leukocytosis- RESOLVING Pulmonary fibrosis- on chronic 1L: - O2 protocol - Continue home inhalers and CellCept h/o VTE: Continue Coumadin- follow PT/INR and adjust dose PRN for INR goal of 2- 3 PMR: Continue Prednisone HLD: Continue Lipitor BPH: Continue Flomax Seizure disorder: - Continue Keppra - Keppra level pending GERD: Continue Famotidine and Protonix DVT prophylaxis: Coumadin Code Status: LEVEL I, FULL Dispo: Discharge to home once medically stable- likely tomorrow- no discharge needs anticipated
[2017-03-12] MEDS ORDERED: CEFTRIAXONE SOD INJ 1 GM in DEXTROSE 5% ADD-VANTAGE 50ML 50 ML IV SCH (16:00)
[2017-03-12] MEDS ORDERED: WARFARIN SOD 5 MG TAB PO SCH (16:00)
[2017-03-12] MEDS: FAMOTIDINE 20 MG TAB PO SCH (20:14)
[2017-03-12] MEDS ORDERED: NURSING VERBAL MED ORDER ONE (20:45)
[2017-03-13] VITALS: O2SAT 97
[2017-03-13] MEDS: SODIUM CHLORIDE 0.9% 1000ML 1,000 ML IV SCH (02:38)
[2017-03-13 07:06] VITALS: PULSE 61; O2SAT 96
[2017-03-13] MEDS: LEVALBUTEROL 1.25MG/3ML NEB INH SCH ×3 (07:06→14:51)
[2017-03-13 07:10] VITALS: BP 154/80; PULSE 51; TEMP 36.4; O2SAT 100
[2017-03-13] MEDS: TAMSULOSIN HCL 0.4 MG CAP PO SCH (07:39)
[2017-03-13] MEDS: BUDESONIDE/FORMOTEROL FUMARATE 160/4.5 60 PUFFS/INHALER INH SCH (07:39)
[2017-03-13] MEDS: QUINIDINE GLUCONATE 324 MG PO SCH (07:39)
[2017-03-13] MEDS: POTASSIUM CHLORIDE 20 MEQ TABCR PO SCH (07:40)
[2017-03-13] MEDS: ATORVASTATIN 10 MG TAB PO SCH (07:40)
[2017-03-13] MEDS: PANTOprazole SOD 40 MG TAB PO SCH (07:40)
[2017-03-13 07:50] LABS: HEMATOCRIT 31.3 % (42-52); MEAN CELL VOLUME 89.7 fL (80-100); MEAN CORPUSCULAR HEMOGLOBIN 29.5 pg (25-34); MEAN CORPUSCULAR HGB CONC 32.9 g/dl (32-36); MEAN PLATELET VOLUME 9.6 fL (7.4-10.4); PLATELET COUNT 149 K/uL (130-400); RED BLOOD COUNT 3.49 M/uL (4.7-6.1); WHITE BLOOD COUNT 7.54 K/uL (4.8-10.8)
[2017-03-13 08:00] LABS: INR 1.8 (0.9-1.1); PROTHROMBIN TIME (PATIENT) 19.9 SECONDS (9.0-12.0)
[2017-03-13] MEDS ORDERED: LEVETIRACETAM 500 MG TAB PO SCH (08:00)
[2017-03-13] MEDS ORDERED: MYCOPHENOLATE MOFETIL 250 MG CAP (CELLCEPT) PO SCH (08:00)
[2017-03-13 08:15] LABS: BUN/CREATININE RATIO 12.9 (10-20); CALCIUM 7.6 mg/dl (8.5-10.1); CREATININE 1.19 mg/dl (0.60-1.40); POTASSIUM 3.8 mmol/L (3.5-5.1)
[2017-03-13] MEDS ORDERED: CEPH-571 PO (10:16)
--- NOTE | 2017-03-13 10:17 | Discharge Instructions ---
Discharge Instructions Date of Service Mar 13, 2017. Admission Reason for Admission: UTI Discharge Discharge Diagnosis / Problem: UTI Discharge Goals Goal(s): Decrease discomfort, Improve function, Learn about illness, Diagnostic testing, Therapeutic intervention, Prevent Disease Progression Activity Recommendations Activity Limitations: resume your previous activity . Instructions / Follow-Up Instructions / Follow-Up Urinary tract infection: Keflex 500 mg twice per day until prescription is complete- begin this medication tonight (03/13) Resume all other regular home medications FOLLOW-UPS: Please follow-up with your PCP within 5-7 days Please follow-up/keep all of your subspecialty appointments Current Hospital Diet Patient's current hospital diet: Regular Diet Discharge Diet Recommended Diet: Regular Diet Pending Studies Studies pending at discharge: no Medical Emergencies . Who to Call and When: Medical Emergencies: If at any time you feel your situation is an emergency, please call 911 immediately. . Non-Emergent Contact Non-Emergency issues call your: Primary Care Provider . . "Provider Documentation" section prepared by Ellyn Aguilar. . VTE Core Measure Inpt VTE Proph given/why not?: Warfarin (Coumadin)
--- NOTE | 2017-03-13 10:22 | Discharge Summary ---
Discharge Summary Date of Service Mar 13, 2017. Discharge Summary Admission Date: Mar 11, 2017 at 18:54 Discharge Date: Mar 13, 2017 Discharge Disposition: Home Principal Diagnosis: UTI Problems/Secondary Diagnoses: Pulmonary fibrosis- on chronic 1L PMR HLD BPH Seizure disorder GERD Immunizations: Have You Had Influenza Vaccine: No Influenza Vaccine Date: Jan 19, 2009 History of Tetanus Vaccine?: Yes History of Pneumococcal: Yes Pneumococcal Date: Oct 20, 2007 History of Hepatitis B Vaccine: No Procedures: CHEST ONE VIEW PORTABLE HISTORY: Sepsis COMPARISON: Chest 01/24/2016. FINDINGS: Diffuse interstitial thickening demonstrating a peripheral and basilar predominance. This favors fibrotic change. This is similar to the prior study. The heart is top normal in size. No pleural effusions. No pneumothorax. No definite new focal lung consolidations. No evidence for pulmonary edema. IMPRESSION: 1. No significant change in the chronic interstitial thickening suggestive of fibrotic change. 2. No definite new focal lung consolidations. Electronically signed by: Cody Painter M.D. 03/11/2017 1:53 PM Dictated Date/Time: 03/11/2017 1:50 PM The status of this report is Signed. Draft = Not yet reviewed or approved by Radiologist. Signed = Reviewed and approved by Radiologist. ABD/PELVIS NO IV OR ORAL CONT CLINICAL HISTORY: 66 years-old Male presenting with hematuria. TECHNIQUE: Multidetector CT of the abdomen and pelvis was performed without the use of intravenous contrast. IV contrast: None. A dose lowering technique was used consistent with the principles of ALARA (as low as reasonably achievable). COMPARISON: PET/CT from 07/14/2011. CT DOSE (mGy.cm): The estimated cumulative dose is 673.59 mGy.cm. FINDINGS: Lock Master topogram: Bilateral total hip arthroplasties. Reticular opacities at the lung bases. Lung bases: Extensive reticulation at the lung bases with numerous foci of punctate calcification. Mild bronchiectasis suggested diffusely. No gross evidence of honeycombing. Pleural thickening noted bilaterally. Multichamber enlargement of the heart. Coronary artery and aortic valve calcification. Trace pericardial effusion. Liver: Normal morphology. Density consistent with hepatic steatosis. Biliary: No gross biliary ductal dilatation allowing for noncontrast technique. Normal gallbladder. Pancreas: Normal noncontrast appearance. Spleen: Normal noncontrast appearance. Adrenal glands: Normal noncontrast appearance. Kidneys and ureters: No nephrolithiasis. No hydronephrosis. Normal ureters. Bladder: Allowing for underdistention, suggestion of circumferential bladder wall thickening. Pelvic organs: Extensive streak artifact limits evaluation. Bowel: Limited diverticulosis in the descending colon. Normal appendix. No bowel obstruction. Peritoneal cavity: Minimal infiltration of the small bowel mesentery with associated prominent but subcentimeter lymph nodes, possibly mild mesenteric panniculitis. No free fluid or gas. Lymph nodes: No gross lymphadenopathy allowing for noncontrast technique. Vasculature: Atherosclerosis of the normal caliber abdominal aorta. Abdominal wall: Small fat-containing umbilical hernia. Musculoskeletal: Degenerative changes of the spine. Bilateral total hip arthroplasties with regional streak artifact. Radiolucency surrounds the superiorly directed right iliac screw. Osteopenia. IMPRESSION: 1. No nephrolithiasis or evidence of obstruction. 2. Extensive fibrotic changes at the lung bases. 3. Circumferential bladder wall thickening suggest chronic bowel obstruction. 4. Radiolucency surrounding the superiorly directed right iliac screw as part of the right total hip arthroplasty. This raises concern for loosening or infection. Electronically signed by: Jerad Tobias M.D. 03/11/2017 2:56 PM Dictated Date/Time: 03/11/2017 2:48 PM The status of this report is Signed. Draft = Not yet reviewed or approved by Radiologist. Signed = Reviewed and approved by Radiologist. Medication Reconciliation New Medications: Cephalexin (Keflex) 500 Mg Cap 1 CAP PO BID for 7 Days, #14 CAP Continued Medications: Acetaminophen (Tylenol) 500 Mg Tab 500 MG PO Q4 PRN for Pain or Fever Albuterol Sulfate (Proventil Hfa) 108 Mcg/Act Aer 2 PUFFS INH Q4H PRN for SOB/Wheezing Atorvastatin (Lipitor) 10 Mg Tab 10 MG PO DAILY, TAB Budesonide/Formoterol Fumarate (Symbicort 160/4.5 Inhaler ) Aero 2 PUFFS INH BID Cholecalciferol (D-5000) 5,000 Unit Tab 1 TAB PO DAILY, TAB Famotidine (Pepcid) 40 Mg Tab 40 MG PO HS, TAB Home O2 Therapy (Oxygen) Gas 1 LITER NA DAILY Levalbuterol Hcl (Levalbuterol Hcl) 1.25 Mg/3 Ml Neb 1 VIAL NEB QID Levetiracetam (Keppra) 500 Mg Tab 2 TAB PO BID, TAB Mycophenolate Mofetil (Cellcept) 500 Mg Tab 2 TAB PO BID, TAB Pantoprazole (Protonix) 40 Mg Tab 40 MG PO QAM Potassium Ext Rel (Klor-Con) 20 Meq Tabcr 20 MEQ PO TID, TAB Prednisone (Prednisone) 5 Mg Tab 6 MG PO DAILY, MG VARIES DEPENDING ON LUNG DISEASE Quinidine Gluconate (Quinidine Gluconate Er) 324 Mg Tab 1 TAB PO BID Tamsulosin Hcl (Flomax) 0.4 Mg Cap 0.4 MG PO DAILY, CAP Warfarin Sod (Coumadin) 5 Mg Tab 2.5 MG PO WK Thursday Warfarin Sodium (Coumadin) 5 Mg Tab 5 MG PO [id number], TAB Discharge Exam Review of Systems: Constitutional: No fever, No chills, No sweats, No weakness, No fatigue Eyes: No worsening of vision ENT: No hearing loss Respiratory: No cough, No shortness of breath Cardiovascular: No chest pain, No edema, No palpitations Abdomen: No pain, No nausea, No vomiting, No diarrhea, No constipation Musculoskeletal: No joint pain, No muscle pain, No swelling, No calf pain Genitourinary - Male: No hematuria, No dysuria, No urinary frequency, No urinary urgency, No urinary hesitancy, No urinary retention, No urinary incontinence Neurologic: No weakness, No numbness/tingling Psychiatric: No depression symptoms, No anxiety Endocrine: No fatigue Hematologic / Lymphatic: No abnormal bleeding/bruising Integumentary: No rash, No itch, No new/changing skin lesions Physical Exam: General Appearance: no apparent distress, + pertinent finding (O2 1L NC ) Eyes: normal inspection, PERRL ENT: hearing grossly normal Neck: supple Respiratory/Chest: lungs clear, no respiratory distress, no accessory muscle use Cardiovascular: regular rate, rhythm Abdomen / GI: normal bowel sounds, non tender, soft Extremities: no calf tenderness, no pedal edema Neurologic/Psychiatric: alert, normal mood/affect, oriented x 3 Skin: normal color, warm/dry, no rash Hospital Course Admission HPI: Mr. Tirado is a 66 year old man presenting for low grade fever, increased urinary hesitancy, and chills starting yesterday. He was sent to the ED from Dr. Strauss's office. No n/v/d. Chest tightness with some sob yesterday, no cough, he had to increase his oxygen from 1L to 2L. He is currently sating 99% on 2L. 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 Hospital Course: Mr. Tirado is a 66 year old man here for UTI in the setting of immunosuppressive therapy. He has a past medical history. 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 UTI- Klebsiella pneumoniae: - Admitted to med/surg - IV Rocephin- transition to PO Keflex 500 mg BID - BCx NGTD - Leukocytosis- RESOLVED Pulmonary fibrosis- on chronic 1L: - O2 protocol- on 1L - Continue home inhalers and CellCept h/o VTE: Continue Coumadin- follow PT/INR and adjust dose PRN for INR goal of 2- 3 PMR: Continue Prednisone HLD: Continue Lipitor BPH: Continue Flomax Seizure disorder: - Continue Keppra - Keppra level pending GERD: Continue Famotidine and Protonix DVT prophylaxis: Coumadin Code Status: LEVEL I, FULL Dispo: Discharge to home Total Time Spent: Greater than 30 minutes This includes examination of the patient, discharge planning, medication reconciliation, and communication with other providers. Discharge Instructions Please refer to the electronic Patient Visit Report (Discharge Instructions) for additional information. Follow-Up Please follow-up with your PCP within 5-7 days Please follow-up/keep all of your subspecialty appointments Additional Copies To Yusuf Villalobos M.D.
--- NOTE | 2017-03-13 10:40 | Clinical Documentation Query ---
CLINICAL DOCUMENTATION QUERY A 66 yo male admitted with UTI. In your clinical opinion is this patient being managed for: ( x ) Acute kidney failure, resolved ( ) Not Agree ( ) Other explanation of clinical findings (Please Explain) ( ) Unable to determine (Please Define) ( ) Need to Discuss The medical record reflects the following clinical findings, treatment, and risk factors. Clinical Indicators: Creatinine 1.56 trending down to 1.19, GFR 45 trending up to 62.4 Treatment: IV hydration, serial PRP's Risk Factors: Gram negative bacilli UTI Please clarify and document your clinical opinion in the progress notes and discharge summary. Terms such as "probable", "suspected", "likely", "questionable", "possible", or "still to be ruled out" are acceptable. IF IN AGREEMENT, YOU MUST DOCUMENT ABOVE DIAGNOSTIC STATEMENT IN DAILY PROGRESS NOTES AND DISCHARGE SUMMARY. This document is not part of the patient's record. Thank You, Shahida Ruiz RN [phone]
[2017-03-13] MEDS ORDERED: CEPHALEXIN MONOHYDRATE 250 MG CAP PO ONE (10:45)
[2017-03-13 12:06] VITALS: BP 154/80; PULSE 51; TEMP 36.4; O2SAT 100
[2017-03-16] MEDS ORDERED: WARFARIN SOD 2.5 MG TAB PO SCH (16:00)
== END 2017-03-13 15:10 | disposition home or self-care (01) | DRG 690 ==
LOC: C.EDB 13:16 → C.MS4W 18:54 → ENRESERV 19:23
PROVIDERS: ADMIT Internal Medicine; ATTEND Internal Medicine
DX: N39.0 Urinary tract infection, site not specified (principal); B96.1 Klebsiella pneumoniae [K. pneumoniae] as the cause of diseases classified elsewhere; J84.10 Pulmonary fibrosis, unspecified; Z99.81 Dependence on supplemental oxygen; M35.3 Polymyalgia rheumatica; E78.5 Hyperlipidemia, unspecified; N40.0 Benign prostatic hyperplasia without lower urinary tract symptoms; K21.9 Gastro-esophageal reflux disease without esophagitis; G40.909 Epilepsy, unspecified, not intractable, without status epilepticus; Z87.440 Personal history of urinary (tract) infections; Z86.718 Personal history of other venous thrombosis and embolism; Z96.643 Presence of artificial hip joint, bilateral; Z87.891 Personal history of nicotine dependence; Z79.01 Long term (current) use of anticoagulants; Z79.52 Long term (current) use of systemic steroids; Z79.899 Other long term (current) drug therapy; Z88.0 Allergy status to penicillin; Z88.1 Allergy status to other antibiotic agents; Z91.041 Radiographic dye allergy status; Z83.6 Family history of other diseases of the respiratory system; Z82.49 Family history of ischemic heart disease and other diseases of the circulatory system; Z83.3 Family history of diabetes mellitus; Z82.0 Family history of epilepsy and other diseases of the nervous system

== ENCOUNTER → 2017-04-02 | Outpatient (CLI) | payer BC ==
[~2017-04-02] MED LIST changes: -CHOL100010 PO; +CHOLTAB11 PO; -CLL250 PO; -FSM70 PO; +LEVA1.258 NEB; -LEVAAER2 INH; +LEVE500T13 PO; -LEVE500T26 PO; -MCRK20 PO; -MOME50SP5 NAE; +MYCO500T4 PO; +POTA20TA16 PO; -QUIN1CAP5 PO; +QUIN1TAB PO; +WARF5TAB90 PO
== END | disposition home or self-care (01) ==
LOC: C.LABSPEC 10:15
PROVIDERS: ATTEND Family Medicine
DX: N39.0 Urinary tract infection, site not specified (principal)

== ENCOUNTER → 2017-05-08 | Outpatient (CLI) | payer BC ==
[~2017-05-08] MED LIST changes: +CLAR500T38 PO; +HYDR5SYP11 PO; +PRED20TA PO; -WARF5TAB90 PO
--- NOTE | 2017-05-08 14:16 | DIAGNOSTIC IMAGING REPORT ---
CHEST 2 VIEWS ROUTINE CLINICAL HISTORY: PNEUMONIA dyspnea COMPARISON STUDY: 03/11/2017 FINDINGS: Stable findings of chronic fibrotic change of the mid and lower lung regions bilaterally. Asymmetric interstitial change bilaterally is also stable. Pulmonary apices are generally are clear. Mild stable cardiomegaly. Diaphragms are smooth. IMPRESSION: Chronic fibrotic and interstitial change. Mild stable cardiomegaly. No acute process. The above report was generated using voice recognition software. It may contain grammatical, syntax or spelling errors. Electronically signed by: Migel Luis M.D. 05/08/2017 2:14 PM Dictated Date/Time: 05/08/2017 2:13 PM
== END | disposition home or self-care (01) ==
LOC: C.RAD 13:08
PROVIDERS: ATTEND Family Medicine
DX: J94.9 Pleural condition, unspecified (principal)

== ENCOUNTER → 2017-05-13 | Outpatient (CLI) | payer BC ==
[~2017-05-13] MED LIST changes: -ATOR10TA82 PO; -PRED-301 PO; +lasix
--- NOTE | 2017-05-13 16:34 | DIAGNOSTIC IMAGING REPORT ---
CT SCAN OF THE CHEST WITHOUT IV CONTRAST CLINICAL HISTORY: Interstitial pneumonitis. COMPARISON STUDY: Chest x-ray dated 05/08/2017. Chest CT scans dated 01/17/2016 and 08/17/2009. TECHNIQUE: CT scan of the thorax was performed from the thoracic inlet to the upper abdomen. Images are reviewed in the axial, sagittal, and coronal planes. IV contrast was not administered for this examination as per the referring clinician. A dose lowering technique was utilized adhering to the principles of ALARA. CT DOSE: 404.25 mGycm FINDINGS: Thyroid: Imaged portions of the thyroid gland are normal in size and attenuation. Thoracic aorta: The thoracic aorta is normal in caliber and demonstrates standard 3-vessel arch anatomy. Heart: The heart is enlarged and there is a moderate pericardial effusion. The coronary arteries are densely calcified. The pulmonary trunk is dilated, measuring 3.5 cm in transverse diameter. This is greater in caliber than the thoracic aorta and suggests pulmonary artery hypertension. Lungs and pleural spaces: There is extensive subpleural reticulation with a lower lobe predominance. Groundglass change associated intralobular septal thickening and traction bronchiectasis is present in the lower lobes, greatest at the lung bases. No honeycombing is seen. Mild interstitial changes are present in the upper lobes. There are numerous small calcified granulomas. There is no evidence of superimposed pneumonia or pleural effusion. The trachea and central airways are patent. Mediastinum: Prominent mediastinal lymph nodes measure up to 11 mm short axis. These are likely related to chronic lung disease. Lore: Not well assessed without IV contrast. Axillae: There is no axillary lymphadenopathy. Upper abdomen: Partially visualized upper abdominal viscera is within normal limits. Skeletal structures: The skeletal structures are osteopenic. No lytic or blastic bony lesions are seen. There are healed bilateral rib fractures. IMPRESSION: 1. Changes of chronic interstitial lung disease demonstrating a presumed UIP pattern are similar in appearance to prior examinations. 2. There is no evidence of superimposed airspace consolidation or pleural effusion. 3. Cardiomegaly with evidence of pulmonary artery hypertension as well as a moderate pericardial effusion. 4. Additional findings as above. Electronically signed by: Orlando Snell M.D. 05/13/2017 4:33 PM Dictated Date/Time: 05/13/2017 4:25 PM
== END | disposition home or self-care (01) ==
LOC: C.CTS 15:59
PROVIDERS: ATTEND Family Medicine
DX: J84.114 Acute interstitial pneumonitis (principal); R09.02 Hypoxemia

== ENCOUNTER → 2017-05-15 | Outpatient (CLI) | payer BC ==
--- NOTE | 2017-05-15 16:10 | ECHOCARDIOGRAM REPORT ---
*NOTICE TO RECEIVING [employer] This information is strictly Confidential and protected under [place] law. [place] law prohibits you from making any further disclosure of this information unless further disclosure is expressly permitted by the written consent of the person to whom it pertains or is authorized by law. A general authorization for the release of medical or other information is not sufficient for this purpose. Hospital accepts no responsibility if the information is made available to any other person, INCLUDING THE PATIENT. Interpretation Summary * Name: JONELLE RAMACHANDRAN JR Study Date: 05/15/2017 01:01 PM BP: 128/76 mmHg * Patient Location: [facility], [place] HR: 67 * : 1950 (M/d/yyyy) Gender: Male Height: 71 in * Age: 66 yrs Ethnicity: AA Weight: 211 lb * Ordering Physician: Yusuf Villalobos * Referring Physician: Yusuf Villalobos * Performed By: Clementine Vázquez RDCS * * Reason For Study: CARDIOMEGALY, PERICARDITIS W/PULM HTN * BSA: 2.2 m2 * -- Conclusions -- * 1. Normal LV size. Mild concentric LVH. * 2. Normal LV systolic function. LVEF 60-65%. No regional wall motion abnormalities. * 3. Normal RV size and function. * 4. Mild mitral regurgitation. * 5. TraceTR. Mild pulmonary hypertension, PASP >36 mmHg. * 6. Small pericardial effusion. No evidence of tamponade. * 7. Compared with prior study on 04/17/2015: Pericardial effusion is slightly larger than prior. Procedure Details * A complete two-dimensional transthoracic echocardiogram was performed (2D, M-mode, Doppler and color flow Doppler). Left Ventricle * The left ventricle is grossly normal size. * There is mild concentric left ventricular hypertrophy. * Ejection Fraction = 60-65%. Right Ventricle * The right ventricle is grossly normal size. * The right ventricular systolic function is normal as assessed by tricuspid annular plane systolic excursion (TAPSE) (normal >1.5 cm). Atria * The left atrial size is normal. * Right atrial size is normal. * No ASD detected; PFO is not assessed. Mitral Valve * The mitral valve is grossly normal. * There is no mitral valve stenosis. * There is mild mitral regurgitation. Tricuspid Valve * The tricuspid valve is not well visualized, but is grossly normal. * There is trace tricuspid regurgitation. Aortic Valve * The aortic valve opens well. * The aortic valve is trileaflet. * No hemodynamically significant valvular aortic stenosis. * There is no significant aortic regurgitation. Pulmonic Valve * The pulmonary valve is inadequately visualized, but the Doppler data is adequate for interpretation. * There is no pulmonic valvular stenosis. * Trace pulmonic valvular regurgitation. Great Vessels * The aortic root and proximal ascending aorta are normal sized. Pericardium/Pleural * Small pericardial effusion. * There are no echocardiographic indications of cardiac tamponade. MMode 2D Measurements and Calculations IVSd 1.2 cm IVSs 1.5 cm LVIDd 5.4 cm LVIDs 3.3 cm LVPWd 1.1 cm LVPWs 2.0 cm IVS/LVPW 1.1 FS 38.2 % EDV(Teich) 138.5 ml ESV(Teich) 44.4 ml EF(Teich) 67.9 % EDV(cubed) 153.4 ml ESV(cubed) 36.2 ml EF(cubed) 76.4 % % IVS thick 28.8 % % LVPW thick 80.8 % LV mass(C)d 244.6 grams LV mass(C)dI 113.4 grams/m\S\2 LV mass(C)s 236.2 grams LV mass(C)sI 109.5 grams/m\S\2 SV(Teich) 94.1 ml SI(Teich) 43.6 ml/m\S\2 SV(cubed) 117.1 ml SI(cubed) 54.3 ml/m\S\2 Ao root diam 3.6 cm Ao root area 10.1 cm\S\2 LA dimension 4.5 cm LA/Ao 1.3 LVAd ap4 27.9 cm\S\2 LVLd ap4 7.7 cm EDV(MOD-sp4) 84.3 ml EDV(sp4-el) 85.8 ml LVAs ap4 15.1 cm\S\2 LVLs ap4 6.1 cm ESV(MOD-sp4) 31.1 ml ESV(sp4-el) 31.6 ml EF(MOD-sp4) 63.2 % EF(sp4-el) 63.2 % LVAd ap2 30.0 cm\S\2 LVLd ap2 8.3 cm EDV(MOD-sp2) 92.3 ml EDV(sp2-el) 91.7 ml LVAs ap2 15.5 cm\S\2 LVLs ap2 6.9 cm ESV(MOD-sp2) 32.8 ml ESV(sp2-el) 29.6 ml EF(MOD-sp2) 64.4 % EF(sp2-el) 67.7 % LVLd %diff 7.5 % EDV(MOD-bp) 90.5 ml LVLs %diff 12.1 % ESV(MOD-bp) 33.7 ml EF(MOD-bp) 62.7 % SV(MOD-sp4) 53.3 ml SI(MOD-sp4) 24.7 ml/m\S\2 SV(MOD-sp2) 59.5 ml SI(MOD-sp2) 27.6 ml/m\S\2 SV(MOD-bp) 56.8 ml SI(MOD-bp) 26.3 ml/m\S\2 SV(sp4-el) 54.2 ml SI(sp4-el) 25.1 ml/m\S\2 SV(sp2-el) 62.1 ml SI(sp2-el) 28.8 ml/m\S\2 Doppler Measurements and Calculations MV E max samantha 66.9 cm/sec MV A max samantha 90.2 cm/sec MV E/A 0.74 MV dec time 0.32 sec Ao V2 max 131.7 cm/sec Ao max PG 6.9 mmHg Ao max PG (full) 1.7 mmHg LV V1 max PG 5.2 mmHg LV V1 max 114.3 cm/sec MR max samantha 470.2 cm/sec MR max PG 88.4 mmHg TR max samantha 299.0 cm/sec
== END | disposition home or self-care (01) ==
LOC: C.CPL 12:47
PROVIDERS: ATTEND Family Medicine
DX: I31.9 Disease of pericardium, unspecified (principal); I27.20 Pulmonary hypertension, unspecified; I51.7 Cardiomegaly; I34.0 Nonrheumatic mitral (valve) insufficiency; J90 Pleural effusion, not elsewhere classified

== ENCOUNTER 2020-02-01 14:53 | Inpatient (IN) ==
[2020-02-01] MEDS ORDERED: ONDANSETRON INJ 2 MG/ML 2 ML VIAL IV STA (15:28)
[2020-02-01] MEDS ORDERED: MoRPHine SULFATE 4 MG/ML 1 ML CARP\\VIAL IV STA (15:28)
[2020-02-01] MEDS ORDERED: SODIUM CHLORIDE 0.9% 500 ML IV SCH (15:30)
--- NOTE | 2020-02-01 15:38 | Emergency Department Note ---
Impression & Plan Incarcerated hernia, SBO (small bowel obstruction), Vomiting ED Provider Note NAME: JONELLE RAMACHANDRAN JR AGE: 69 SEX: M : 1950 ARRIVES VIA: Walk-In INFORMANT: Patient, ED PROVIDER(S): Jesus Banuelos MD Chief Complaint: Abdominal pain, nausea vomiting HPI: Patient does present with the above complaints. Patient states that they have been protracted ongoing since Thursday and constant. The patient states he has had slight periods where he does not vomit but the pain is been fairly constant. The patient is also noticed that an area of likely umbilical herniation does not seem to recede as it typically had in the past. The patient has noticed this area to be hard. The patient does complain of pain that it is sharp primarily over that area. Patient has tried [id number] remedies as well as pushing liquids at home but has been on but unable to tolerate to the liquids or foods by mouth. The patient has been able to take some of his daily medications. Patient denies any recent fevers or chills. The patient does wear oxygen does have a history of an occasionally productive cough which is chronic for the patient's history of pulmonary fibrosis. Patient denies any recent travel. ROS: See HPI for pertinent positives and negatives. A total of 10 systems were reviewed and otherwise negative. Past medical history: See below Surgical history: See below Social history: See below Physical Exam: GENERAL: Wearing glasses and a mask. NAD, non-toxic. EYE EXAM: Normal conjunctiva. PERRL, no anisocoria and EOM's grossly intact w/o pain. NECK: Supple, no nuchal rigidity, no adenopathy, non-tender. No signs of meningismus. LUNGS: Clear to auscultation. Normal chest wall mechanics. HEART: NSR, no MRG. ABDOMEN: Abdomen soft, mild tender and red nonreducible umbilical hernia without peritonitis, normo-active bowel sounds, no masses, no rebound or guarding. BACK: No CVA TTP. SKIN: No rashes and no bruising. UPPER EXTREMITIES: Upper extremities are grossly normal. LOWER EXTREMITIES: Grossly normal, no edema. NEURO EXAM: A&O x3, cranial nerves II-XII grossly intact, normal speech, moves all 4 extremities on command w/o issue. Differential diagnoses: Appendicitis, testicular torsion, infections, diverticulitis, UTI, obstruction, mesenteric ischemia, aortic pathology, inflammatory bowel disease, renal colic, PUD, pancreatitis, biliary pathology, hernia, volvulus, constipation, as well as other pathologies. Course: Patient was seen and evaluated the bedside. Full history physical exam was performed. EKG: Indication: Nausea vomiting Normal sinus rhythm, rate of 60, normal intervals, left axis deviation, T wave inversion in lead III no obvious ST changes. Imaging Studies: Radiology results as stated below per my review in the radiologist's interpretation: CLINICAL HISTORY: Abdominal pain and vomiting. Umbilical hernia. COMPARISON STUDY: March 2019 TECHNIQUE: A dose lowering technique was utilized adhering to the principles of ALARA. CT DOSE: 541.19 mGy.cm FINDINGS: Lower chest: There is extensive chronic interstitial lung disease similar to the preceding study. The heart is enlarged with coronary calcifications. There is a small amount of pericardial fluid present. There is dilatation centrally artery suggesting pulmonary arterial hypertension. Is a trace right pleural effusion. Liver: There is a too small to characterize right hepatic lobe hypodensity. There is perihepatic fluid. Gallbladder: Mildly distended. No calculi identified Spleen: Normal in size and attenuation. Pancreas: Unremarkable. Adrenal glands: Unremarkable. Kidneys: There are bilateral renal hypodensities, consistent with cysts Bowel: There are multiple dilated small bowel loops consistent with a small bowel obstruction. The obstruction is secondary to a small bowel loop within an umbilical hernia. There is no pneumatosis. There is no portal venous gas. There is no evidence of acute appendicitis. There is no evidence of acute diverticulitis. Peritoneum: There is a small amount of ascites. There is mild small bowel mesenteric edema. Vasculature: The abdominal aorta is normal in course and caliber. Adenopathy: There is no pathologic adenopathy Pelvic viscera: Portions the pelvis are secured due to artifact from bilateral hip arthroplasties. There is suspected mild prostatomegaly. Skeletal structures: No destructive osseous lesions are seen. IMPRESSION: 1. Small bowel obstruction secondary to an incarcerated umbilical hernia. There is mild small bowel mesenteric edema, and there is a small amount of ascites. There is no pneumatosis and no portal venous gas. Surgical consultation is recommended 2. Advanced chronic interstitial lung disease. ACT 112: Negative or not required by law. Electronically signed by: Nitin Meza M.D. 02/01/2020 5:08 PM Dictated: 02/01/201701 Transcribed: 02/01/201701 Cardiac monitoring: An order was placed for continuous cardiac monitoring. The monitor shows a rate of 72 with sinus rhythm. MDM: Patient was seen due to concern for abdominal pain nausea vomiting. Patient did have blood work completed along with CT of the abdomen pelvis EKG and troponin. Patient was treated IV fluids pain medication antiemetics. Patient does have a normal white count but with slight anemia and normal platelet count. The patient's kidney function is unremarkable. The patient does not have an elevated troponin normal LFTs and lipase. CT down pelvis does show an SBO secondary to incarcerated umbilical hernia. Surgery was paged. I did reevaluate the patient after discussing the case with the on-call general surgeon Dr. Velazquez. INR was ordered given the patient's Coumadin use. The patient was feeling improved after medication management. Did speak with the on-call general surgery team and the patient was evaluated. The hernia was able to be reduced. After discussion with the patient and after discussion with Dr. Velazquez the patient would like to have this surgically repaired tomorrow. The patient has had no vomiting and pain is improved. Do not believe the patient requires an NG at this time. Was ordered a COVID preop test, vitamin K. Patient was subsequently admitted to the medicine service under Dr. Cleary. 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) Prostatic hypertrophy UIP (usual interstitial pneumonitis) Surgical History (Updated 02/01/20 @ 20:18 by Clementine Cleary DO) History of bilateral hip replacements Family History (Updated 02/01/20 @ 20:19 by Clementine Cleary DO) Father Cancer Mother Cancer Social History (Updated 02/01/20 @ 20:19 by Clementine Cleary DO) Smoking Status: Former smoker Tobacco Type: Cigarettes and Cigars Hx Alcohol Use: Yes Alcohol type: wine Alcohol Intake Frequency: Monthly or Less Hx Substance Use: No Preferred Language: Palau[place] marital status: current occupational status: retired Feels Safe at Home: Yes Allergies Allergies Allergy/AdvReac Type Severity Reaction Status Date / Time Iodinated Contrast Media Allergy Intermediate Unknown Verified 02/01/20 18:29 iodine Allergy Mild Unknown Verified 02/01/20 18:29 Quinolones Allergy Mild Unknown Verified 02/01/20 18:29 house dust Allergy Unknown Allergy Verified 02/01/20 18:29 symptoms mold Allergy Unknown SEASONAL Verified 02/01/20 18:23 ALLERGIES ofloxacin Allergy Unknown Unknown Verified 02/01/20 18:29 Penicillins Allergy Unknown Unknown Verified 02/01/20 18:29 phenytoin Allergy Unknown MYOPATHY Verified 02/01/20 18:23 pollen extracts Allergy Unknown SEASONAL Verified 02/01/20 18:23 ALLERGIES fentanyl AdvReac Mild Unknown Verified 02/01/20 18:29 Home Meds Home Medications Medication Instructions Recorded Confirmed pantoprazole [Protonix] 40 mg PO QAM #0 03/05/09 02/01/20 budesonide-formoterol [Symbicort] 2 puff INHALATION BID #0 10/18/09 02/01/20 famotidine [Pepcid] 40 mg PO HS #0 tab 08/24/12 02/01/20 acetaminophen 500 mg PO Q4H PRN #0 01/24/16 02/01/20 tamsulosin [Flomax] 0.4 mg PO QAM #0 cap 03/30/16 02/01/20 albuterol sulfate [Proventil HFA] 2 puff INHALATION Q4H PRN #0 03/11/17 02/01/20 cholecalciferol (vitamin D3) 5,000 mg PO QAM #0 tab 03/11/17 02/01/20 [Vitamin D3] levalbuterol HCl [Xopenex] 1 vial NEB QID #0 03/11/17 02/01/20 levetiracetam [Keppra] 1,000 mg PO BID #0 tab 03/11/17 02/01/20 mycophenolate mofetil [CellCept] 1,000 mg PO BID #0 tab 03/11/17 02/01/20 quinidine gluconate 324 mg PO BID #0 03/11/17 02/01/20 potassium chloride 20 mEq 20 meq PO BID tab 12/30/17 02/01/20 tablet,extended release warfarin 5 mg tablet See Rx Instructions .ROUTE 08/16/18 02/01/20 .COMPLEX tab prednisone 5 mg tablet 5 mg PO QAM 11/24/18 02/01/20 clindamycin HCl 150 mg capsule See Rx Instructions .ROUTE 03/07/19 02/01/20 .COMPLEX PRN cap benzonatate 100 mg capsule 100 mg PO TID PRN 01/05/20 02/01/20 Results & Data (ED) Vital Signs Vital Signs - 24 hr 02/01/20 14:56 02/01/20 15:30 02/01/20 16:00 Temperature 36.8 C Temperature Source Oral Pulse Rate 75 65 Pulse Rate [Apical] 69 Pulse Rate from SpO2 Sensor 65 Pulse Rhythm Regular Pulse Strength Normal Respiratory Rate 16 22 19 Respiratory Effort / Characteristics Non-Labored Non-Labored Spontaneous Respiratory Depth Normal Normal Respiratory Pattern Regular Regular Blood Pressure 137/84 131/82 Blood Pressure [Left Arm] 138/87 Blood Pressure Mean 101 95 Blood Pressure Mean [Left Arm] 104 Blood Pressure Position Sitting Pulse Oximetry 96 96 94 Oxygen Delivery Method Room Air Room Air Room Air Oxygen Flow Rate 1 Sepsis Recent Fever Within 48 Hours No Sepsis New/Unexplained Change in Mental Status N/A Sepsis Action Taken by Nursing No Action Required 02/01/20 16:30 02/01/20 17:01 02/01/20 17:30 Temperature Temperature Source Pulse Rate 65 78 68 Pulse Rate [Apical] Pulse Rate from SpO2 Sensor 65 76 66 Pulse Rhythm Pulse Strength Respiratory Rate 16 12 16 Respiratory Effort / Characteristics Respiratory Depth Respiratory Pattern Blood Pressure 131/83 149/82 H 149/94 H Blood Pressure [Left Arm] Blood Pressure Mean 89 111 124 Blood Pressure Mean [Left Arm] Blood Pressure Position Pulse Oximetry 94 95 94 Oxygen Delivery Method Room Air Oxygen Flow Rate Sepsis Recent Fever Within 48 Hours Sepsis New/Unexplained Change in Mental Status Sepsis Action Taken by Nursing 02/01/20 18:00 02/01/20 18:30 02/01/20 19:00 Temperature Temperature Source Pulse Rate 75 68 74 Pulse Rate [Apical] Pulse Rate from SpO2 Sensor 75 68 74 Pulse Rhythm Pulse Strength Respiratory Rate 21 21 18 Respiratory Effort / Characteristics Respiratory Depth Respiratory Pattern Blood Pressure 143/92 H 160/98 H 146/86 H Blood Pressure [Left Arm] Blood Pressure Mean 95 110 97 Blood Pressure Mean [Left Arm] Blood Pressure Position Pulse Oximetry 95 94 95 Oxygen Delivery Method Room Air Oxygen Flow Rate Sepsis Recent Fever Within 48 Hours Sepsis New/Unexplained Change in Mental Status Sepsis Action Taken by Nursing 02/01/20 19:30 02/01/20 20:00 02/01/20 20:30 Temperature Temperature Source Pulse Rate 69 86 66 Pulse Rate [Apical] Pulse Rate from SpO2 Sensor 69 85 63 Pulse Rhythm Pulse Strength Respiratory Rate 17 18 28 H Respiratory Effort / Characteristics Respiratory Depth Respiratory Pattern Blood Pressure 141/88 H 139/87 146/84 H Blood Pressure [Left Arm] Blood Pressure Mean 93 94 94 Blood Pressure Mean [Left Arm] Blood Pressure Position Pulse Oximetry 93 95 98 Oxygen Delivery Method Room Air Nasal Cannula Nasal Cannula Oxygen Flow Rate 1 1 Sepsis Recent Fever Within 48 Hours Sepsis New/Unexplained Change in Mental Status Sepsis Action Taken by [facility] Medications Current Medication List: was personally reviewed by me Laboratory Data Attestation: I reviewed the patient's lab results. Result diagrams: 02/01/20 15:40 02/01/20 15:40 Lab Results 02/01/20 02/01/20 02/01/20 Range/Units 15:40 15:40 15:40 WBC 8.77 (4.8-10.8) K/uL RBC 4.22 L (4.7-6.1) M/uL Hgb 12.7 L (14.0-18.0) g/dL POC Hgb (14.0-18.0) g/dl Hct 38.2 L (42-52) % POC Hct (42-52) % MCV 90.5 (80-100) fL MCH 30.1 (25-34) pg MCHC 33.2 (32-36) g/dL RDW Std Deviation 47.7 H (36.4-46.3) fL RDW Coeff of Kim 14.4 (11.5-14.5) % Plt Count 203 (130-400) K/uL MPV 9.6 (7.4-10.4) fL Immature Gran % (Auto) 0.1 % Neut % (Auto) 75.0 % Lymph % (Auto) 12.9 % [place] % (Auto) 10.5 % Eos % (Auto) 1.4 % Baso % (Auto) 0.1 % Neut # (Auto) 6.58 H (1.4-6.5) K/uL Lymph # (Auto) 1.13 L (1.2-3.4) K/uL [place] # (Auto) 0.92 H (0.11-0.59) K/uL Eos # (Auto) 0.12 (0-0.5) K/uL Baso # (Auto) 0.01 (0-0.2) K/uL Immature Gran # (Auto) 0.01 (0.00-0.02) K/uL PT 17.6 H (9.0-12.0) Seconds INR 1.7 H (0.9-1.1) APTT 34.6 H (21.0-31.0) Seconds PTT Ratio 1.2 POC Sodium (135-144) mmol/L Sodium 141 (136-145) mmol/L POC Potassium (3.3-5.0) mmol/L Potassium 3.8 (3.5-5.1) mmol/L POC Chloride (101-112) mmol/L Chloride 107 (98-107) mmol/L Carbon Dioxide 26 (21-32) mmol/L POC Total CO2 (24-31) mmol/L Anion Gap 8.0 (3-11) POC Anion Gap (16-25) mmol/L POC BUN (7-18) mg/dl BUN 17 (7-18) mg/dl Creatinine 1.39 (0.6-1.4) mg/dl POC Creatinine (0.6-1.3) mg/dl Est Cr Clr Drug Dosing 51.9 ml/min Est GFR ( Amer) 58.7 Est GFR (Non-Af Amer) 50.6 BUN/Creatinine Ratio 11.9 (10-20) Glucose 84 (70-99) mg/dl POC Glucose (other) (70-99) mg/dl Calcium 8.9 (8.5-10.1) mg/dl POC Ioniz Calcium Torrie (1.12-1.32) mmol/l Total Bilirubin 0.7 (0.2-1) mg/dl AST 16 (15-37) U/L ALT 12 (12-78) U/L Alkaline Phosphatase 106 (45-117) U/L Troponin I < 0.015 (0-0.045) ng/ml Total Protein 7.0 (6.4-8.2) gm/dl Albumin 3.4 (3.4-5.0) gm/dl Globulin 3.6 (2.5-4.0) gm/dl Albumin/Globulin Ratio 0.9 (0.9-2) Lipase 113 (73-393) U/L Urine Color Urine Appearance (Clear) Urine pH (4.5-7.5) Ur Specific [place] (1.000-1.030) Urine Protein (Negative) Urine Glucose (UA) (Negative) Urine Ketones (Negative) Urine Blood (Negative) Urine Nitrite (Negative) Urine Bilirubin (Negative) Urine Urobilinogen (Negative) Ur Leukocyte Esterase (Negative) Urine WBC (Auto) (0-5) /hpf Urine RBC (Auto) (0-4) /hpf U Hyaline Cast (Auto) (0-5) /lpf U Epithel Cells (Auto) (0-5) /lpf Urine Bacteria (Auto) (Negative) COVID-19 Eval Order 02/01/20 02/01/20 02/01/20 Range/Units 15:51 18:51 19:51 WBC (4.8-10.8) K/uL RBC (4.7-6.1) M/uL Hgb (14.0-18.0) g/dL POC Hgb 13.3 L (14.0-18.0) g/dl Hct (42-52) % POC Hct 39 L (42-52) % MCV (80-100) fL MCH (25-34) pg MCHC (32-36) g/dL RDW Std Deviation (36.4-46.3) fL RDW Coeff of Kim (11.5-14.5) % Plt Count (130-400) K/uL MPV (7.4-10.4) fL Immature Gran % (Auto) % Neut % (Auto) % Lymph % (Auto) % [place] % (Auto) % Eos % (Auto) % Baso % (Auto) % Neut # (Auto) (1.4-6.5) K/uL Lymph # (Auto) (1.2-3.4) K/uL [place] # (Auto) (0.11-0.59) K/uL Eos # (Auto) (0-0.5) K/uL Baso # (Auto) (0-0.2) K/uL Immature Gran # (Auto) (0.00-0.02) K/uL PT (9.0-12.0) Seconds INR (0.9-1.1) APTT (21.0-31.0) Seconds PTT Ratio POC Sodium 139 (135-144) mmol/L Sodium (136-145) mmol/L POC Potassium 3.8 (3.3-5.0) mmol/L Potassium (3.5-5.1) mmol/L POC Chloride 104 (101-112) mmol/L Chloride (98-107) mmol/L Carbon Dioxide (21-32) mmol/L POC Total CO2 26 (24-31) mmol/L Anion Gap (3-11) POC Anion Gap 14.0 L (16-25) mmol/L POC BUN 17 (7-18) mg/dl BUN (7-18) mg/dl Creatinine (0.6-1.4) mg/dl POC Creatinine 1.4 H (0.6-1.3) mg/dl Est Cr Clr Drug Dosing ml/min Est GFR ( Amer) Est GFR (Non-Af Amer) BUN/Creatinine Ratio (10-20) Glucose (70-99) mg/dl POC Glucose (other) 86 (70-99) mg/dl Calcium (8.5-10.1) mg/dl POC Ioniz Calcium [place] 1.21 (1.12-1.32) mmol/l Total Bilirubin (0.2-1) mg/dl AST (15-37) U/L ALT (12-78) U/L Alkaline Phosphatase (45-117) U/L Troponin I (0-0.045) ng/ml Total Protein (6.4-8.2) gm/dl Albumin (3.4-5.0) gm/dl Globulin (2.5-4.0) gm/dl Albumin/Globulin Ratio (0.9-2) Lipase (73-393) U/L Urine Color Yellow Urine Appearance Clear (Clear) Urine pH 5.0 (4.5-7.5) Ur Specific [place] > 1.045 H (1.000-1.030) Urine Protein Negative (Negative) Urine Glucose (UA) Negative (Negative) Urine Ketones 2+ H (Negative) Urine Blood 3+ H (Negative) Urine Nitrite Negative (Negative) Urine Bilirubin Negative (Negative) Urine Urobilinogen Negative (Negative) Ur Leukocyte Esterase Negative (Negative) Urine WBC (Auto) 1-5 (0-5) /hpf Urine RBC (Auto) 10-30 H (0-4) /hpf U Hyaline Cast (Auto) 0 (0-5) /lpf U Epithel Cells (Auto) 0-5 (0-5) /lpf Urine Bacteria (Auto) Negative (Negative) COVID-19 [email or web address] Administered Medications Discontinued Medications Diphenhydramine HCl (Diphenhydramine Hcl 50 Mg/Ml Vial) 12.5 mg IV NOW STA Stop: 02/01/20 16:27 Last Admin: 02/01/20 16:43 Dose: 12.5 mg Documented by: [id number] Sodium Chloride (Nss) 500 mls @ 999 mls/hr IV .Q31M DIANE Stop: 02/01/20 16:00 Last Infusion: 02/01/20 16:14 Dose: 0 mls/hr Documented by: [id number] Admin: 02/01/20 15:43 Dose: 999 mls/hr Documented by: [id number] Phytonadione 5 mg/ Sodium (Chloride) 50.5 mls @ 101 mls/hr IV ONE ONE Stop: 02/01/20 20:03 Last Infusion: 02/01/20 20:37 Dose: 0 mls/hr Documented by: [id number] Admin: 02/01/20 20:07 Dose: 101 mls/hr Documented by: [id number] Ioversol (Ioversol 100ml) 94 ml IV ONCE ONE Stop: 02/01/20 16:54 Last Admin: 02/01/20 16:54 Dose: 94 ml Documented by: [id number] Methylprednisolone (Methylprednisolone 40 Mg/Ml Vial) 40 mg IV NOW STA Stop: 02/01/20 16:27 Last Admin: 02/01/20 16:43 Dose: 40 mg Documented by: [id number] Morphine Sulfate (Morphine Sulfate 4 Mg/Ml 1 Ml Carp\Vial) 4 mg IV NOW STA Stop: 02/01/20 15:29 Last Admin: 02/01/20 15:52 Dose: 4 mg Documented by: [id number] Ondansetron HCl (Ondansetron Inj 2 Mg/Ml 2 Ml Vial) 4 mg IV NOW STA Stop: 02/01/20 15:29 Last Admin: 10/07/20 15:52 Dose: 4 mg Documented by: [id number] Discharge Plan Visit Data Chief Complaint: Vomiting Stated Complaint: VOMITING, BELLY BUTTON HARD ED Provider: Jesus Banuelos Discharge Problem: Incarcerated hernia, SBO (small bowel obstruction), Vomiting Forms Stand Alone Forms: [facility] Prescriptions Prescriptions: No Action prednisone 5 mg tablet 5 mg PO QAM RF: 0 benzonatate 100 mg capsule 100 mg PO TID PRN (Reason: Cough) RF: 0 potassium chloride 20 mEq tablet extended release 20 meq PO BID RF: 0 warfarin 5 mg tablet See Rx Instructions .ROUTE .COMPLEX RF: 0 pantoprazole [Protonix] 40 mg Tablet,Delayed Release (Dr/Ec) 40 mg PO QAM Qty: 0 RF: 0 budesonide-formoterol [Symbicort] 160-4.5 mcg/actuation Hfa Aerosol Inhaler 2 puff Inhalation BID Qty: 0 RF: 0 famotidine [Pepcid] 40 mg Tablet 40 mg PO HS Qty: 0 RF: 0 acetaminophen 500 mg Tablet 500 mg PO Q4H PRN (Reason: Headache) Qty: 0 RF: 0 tamsulosin [Flomax] 0.4 mg Capsule 0.4 mg PO QAM Qty: 0 RF: 0 levetiracetam [Keppra] 500 mg Tablet 1,000 mg PO BID Qty: 0 RF: 0 mycophenolate mofetil [CellCept] 500 mg Tablet 1,000 mg PO BID Qty: 0 RF: 0 quinidine gluconate 324 mg Tablet Extended Release 324 mg PO BID Qty: 0 RF: 0 levalbuterol HCl [Xopenex] 1.25 mg/3 mL Solution For Nebulization 1 vial NEB QID Qty: 0 RF: 0 albuterol sulfate [Proventil HFA] 90 mcg/actuation Hfa Aerosol Inhaler 2 puff Inhalation Q4H PRN (Reason: Shortness Of Breath Or Wheezing) Qty: 0 RF: 0 cholecalciferol (vitamin D3) [Vitamin D3] 5,000 unit Tablet 5,000 mg PO QAM Qty: 0 RF: 0 clindamycin HCl 150 mg capsule See Rx Instructions .ROUTE .COMPLEX PRN (Reason: Dental Procedures) RF: 0 Discharge Problem: Vomiting Qualifiers: Vomiting type: unspecified Vomiting Intractability: non-intractable Nausea presence: with nausea Qualified Code(s): R11.2 - Nausea with vomiting, unspecified
[2020-02-01 16:00] LABS: Basophils # (auto) 0.01 K/uL (0-0.2); Basophils % (auto) 0.1 %; Eosinophils # (auto) 0.12 K/uL (0-0.5); Eosinophils % (auto) 1.4 %; Hematocrit (blood only) 38.2 % (42-52); Hemoglobin 12.7 g/dL (14.0-18.0); Immature Granulocytes # (auto) 0.01 K/uL (0.00-0.02); Immature Granulocytes % (auto) 0.1 %; Lymphocytes # (auto) 1.13 K/uL (1.2-3.4); Lymphocytes % (auto) 12.9 %; Mean Corpuscular Hemoglobin 30.1 pg (25-34); Mean Corpuscular Hgb Conc 33.2 g/dL (32-36); Mean Corpuscular Volume 90.5 fL (80-100); Mean Platelet Volume 9.6 fL (7.4-10.4); Monocytes # (auto) 0.92 K/uL (0.11-0.59); Monocytes % (auto) 10.5 %; Neutrophils # (auto) 6.58 K/uL (1.4-6.5); Platelet Count 203 K/uL (130-400); RDW Coefficient of Variation 14.4 % (11.5-14.5); RDW Standard Deviation 47.7 fL (36.4-46.3); Red Blood Count 4.22 M/uL (4.7-6.1); White Blood Count 8.77 K/uL (4.8-10.8)
[2020-02-01 16:07] LABS: iSTAT Creatinine 1.4 mg/dl (0.6-1.3); iSTAT Hemoglobin 13.3 g/dl (14.0-18.0); iSTAT Ionized Calcium 1.21 mmol/l (1.12-1.32); iSTAT Potassium 3.8 mmol/L (3.3-5.0)
[2020-02-01 16:20] LABS: Alanine Aminotransferase 12 U/L (12-78); Albumin Level 3.4 gm/dl (3.4-5.0); Aspartate Aminotransferase 16 U/L (15-37); BUN Creatinine Ratio 11.9 (10-20); Blood Urea Nitrogen 17 mg/dl (7-18); Calcium 8.9 mg/dl (8.5-10.1); Carbon Dioxide 26 mmol/L (21-32); Chloride 107 mmol/L (98-107); Creatinine Clr Calc Pharmacy 51.9 ml/min; Est GFR (African American) 58.7; Est GFR (Non-African American) 50.6; Glucose 84 mg/dl (70-99); Lipase 113 U/L (73-393); Potassium 3.8 mmol/L (3.5-5.1); Sodium 141 mmol/L (136-145)
[2020-02-01 16:25] LABS: Albumin Globulin Ratio 0.9 (0.9-2); Alkaline Phosphatase 106 U/L (45-117); Bilirubin,Total 0.7 mg/dl (0.2-1); Globulin 3.6 gm/dl (2.5-4.0); Troponin I < 0.015 ng/ml (0-0.045)
[2020-02-01] MEDS ORDERED: diphenhydrAMINE 50 MG/ML VIAL IV STA (16:26)
[2020-02-01] MEDS ORDERED: IOVERSOL 100ml IV ONE (16:53)
--- NOTE | 2020-02-01 17:09 | CT Scan Report ---
CT abd pelvis IV con only CLINICAL HISTORY: Abdominal pain and vomiting. Umbilical hernia. COMPARISON STUDY: March 2019 TECHNIQUE: A dose lowering technique was utilized adhering to the principles of ALARA. CT DOSE: 541.19 mGy.cm FINDINGS: Lower chest: There is extensive chronic interstitial lung disease similar to the preceding study. The heart is enlarged with coronary calcifications. There is a small amount of pericardial fluid present . There is dilatation centrally artery suggesting pulmonary arterial hypertension. Is a trace right p leural effusion. Liver: There is a too small to characterize right hepatic lobe hypodensity. There is perihepatic flui d. Gallbladder: Mildly distended. No calculi identified Spleen: Normal in size and attenuation. Pancreas: Unremarkable. Adrenal glands: Unremarkable. Kidneys: There are bilateral renal hypodensities, consistent with cysts Bowel: There are multiple dilated small bowel loops consistent with a small bowel obstruction. The ob struction is secondary to a small bowel loop within an umbilical hernia. There is no pneumatosis. The re is no portal venous gas. There is no evidence of acute appendicitis. There is no evidence of acute diverticulitis. Peritoneum: There is a small amount of ascites. There is mild small bowel mesenteric edema. Vasculature: The abdominal aorta is normal in course and caliber. Adenopathy: There is no pathologic adenopathy Pelvic viscera: Portions the pelvis are secured due to artifact from bilateral hip arthroplasties. Th ere is suspected mild prostatomegaly. Skeletal structures: No destructive osseous lesions are seen. IMPRESSION: 1. Small bowel obstruction secondary to an incarcerated umbilical hernia. There is mild small bowel m esenteric edema, and there is a small amount of ascites. There is no pneumatosis and no portal venous gas. Surgical consultation is recommended 2. Advanced chronic interstitial lung disease. ACT 112: Negative or not required by law. Electronically signed by: Nitin Meza M.D. 02/01/2020 5:08 PM
[2020-02-01 18:11] LABS: INR 1.7 (0.9-1.1); Partial Thromboplastin Ratio 1.2; Partial Thromboplastin Time 34.6 Seconds (21.0-31.0); Prothrombin Time 17.6 Seconds (9.0-12.0)
[2020-02-01 19:03] LABS: Appearance Urine Clear (Clear); Bacteria Urine Automated Negative (Negative); Bilirubin Urine Negative (Negative); Blood Urine 3+ (Negative); Cast Urine Automated 0 /lpf (0-5); Color Urine Yellow; Epithelial Cell Urine Auto 0-5 /lpf (0-5); Glucose Urine UA Negative (Negative); Ketones Urine 2+ (Negative); Leukocyte Esterase Urine Negative (Negative); Nitrite Urine Negative (Negative); Protein Urine Negative (Negative); Specific Gravity Urine > 1.045 (1.000-1.030); Urobilinogen Urine Negative (Negative)
--- NOTE | 2020-02-01 19:05 | Surgery Consultation ---
Date of Consultation February 01, 2020 Assessment & Plan (1) Incarcerated umbilical hernia: 69-year-old male presented with incarcerated umbilical hernia and small bowel obstruction. CT confirmed the findings but showed no evidence of strangulation. I was able to reduce the hernia at the bedside and the patient experienced relief and much of his symptoms. We discussed his options to include discharge to home with close interval follow-up and plan for elective umbilical hernia repair versus admission to the medicine service and surgery in the next day or 2. The patient seems to be leaning toward surgery. I discussed with the emergency room staff and if the patient decides on admission he will be admitted to the medicine service with plans for surgery in the morning. He will need preop risk assessment from the medicine team as well as reversal of his anticoagulation. He would also need a COVID test prior to surgery. Plan for open umbilical hernia repair The risk of the procedure were discussed to include but not limited to bleeding, infection, recurrence, damage surrounding structures, need for future more extensive surgery, pain, and the risk of anesthesia Patient will need reversal of his Coumadin He will also need a COVID test and preop risk assessment If the patient is admitted then he will need a preoperative COVID test If he is discharged we educated him on the signs and symptoms of incarceration, strangulation, and obstruction and told him to report to emergency part of these develop. He will follow-up in the clinic and we will plan for surgery in the near future The diagnosis, details the procedure and recovery, and plan of care were discussed with the patient and his spouse, all questions were answered, the patient expressed understanding agrees with plan of care as stated (2) SBO (small bowel obstruction): (3) Polymyositis: (4) History of DVT (deep vein thrombosis): (5) [facility] (current) use of anticoagulants: History of Present Illness History of Present Illness 69-year-old male presented to the emergency department with abdominal bulge and vomiting. He thinks he may have had a hernia at his bellybutton for many years but is never bothered him. On Thursday he started noticing increased discomfort in the area as well as swelling around his bellybutton. He also started having some nausea and vomiting. His pain continued to progress. He was unable to sleep on his belly. The patient has a history of epilepsy. He also has a history of DVTs and is currently on Coumadin, his last dose was last night. He also takes 5 mg of prednisone for history of polymyositis. No cardiac history. He denies any prior abdominal surgery or hernia repairs. He had a CT scan performed which showed an incarcerated umbilical hernia with a small bowel obstruction and no evidence of strangulation. Allergies Allergy/AdvReac Type Severity Reaction Status Date / Time Iodinated Contrast Media Allergy Intermediate Unknown Verified 02/01/20 18:29 iodine Allergy Mild Unknown Verified 02/01/20 18:29 Quinolones Allergy Mild Unknown Verified 02/01/20 18:29 house dust Allergy Unknown Allergy Verified 02/01/20 18:29 symptoms mold Allergy Unknown SEASONAL Verified 02/01/20 18:23 ALLERGIES ofloxacin Allergy Unknown Unknown Verified 02/01/20 18:29 Penicillins Allergy Unknown Unknown Verified 02/01/20 18:29 phenytoin Allergy Unknown MYOPATHY Verified 02/01/20 18:23 pollen extracts Allergy Unknown SEASONAL Verified 02/01/20 18:23 ALLERGIES fentanyl AdvReac Mild Unknown Verified 02/01/20 18:29 Home Medications Home Medications Medication Instructions Recorded Confirmed Type pantoprazole [Protonix] 40 mg PO QAM #0 03/05/09 02/01/20 History budesonide-formoterol [Symbicort] 2 puff INHALATION BID #0 10/18/09 02/01/20 History famotidine [Pepcid] 40 mg PO HS #0 tab 08/24/12 02/01/20 History acetaminophen 500 mg PO Q4H PRN #0 01/24/16 02/01/20 History tamsulosin [Flomax] 0.4 mg PO QAM #0 cap 03/30/16 02/01/20 History albuterol sulfate [Proventil HFA] 2 puff INHALATION Q4H PRN #0 03/11/17 02/01/20 History cholecalciferol (vitamin D3) 5,000 mg PO QAM #0 tab 03/11/17 02/01/20 History [Vitamin D3] levalbuterol HCl [Xopenex] 1 vial NEB QID #0 03/11/17 02/01/20 History levetiracetam [Keppra] 1,000 mg PO BID #0 tab 03/11/17 02/01/20 History mycophenolate mofetil [CellCept] 1,000 mg PO BID #0 tab 03/11/17 02/01/20 History quinidine gluconate 324 mg PO BID #0 03/11/17 02/01/20 History potassium chloride 20 mEq 20 meq PO BID tab 12/30/17 02/01/20 History tablet,extended release warfarin 5 mg tablet See Rx Instructions .ROUTE 08/16/18 02/01/20 History .COMPLEX tab prednisone 5 mg tablet 5 mg PO QAM 11/24/18 02/01/20 History clindamycin HCl 150 mg capsule See Rx Instructions .ROUTE 03/07/19 02/01/20 History .COMPLEX PRN cap benzonatate 100 mg capsule 100 mg PO TID PRN 01/05/20 02/01/20 History Patient History Medical History 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/04/11) Demyelinating disease of central nervous system (06/04/11) 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 Pneumonia 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) Prostatic hypertrophy Pyelonephritis UTI (urinary tract infection) Surgical History No significant past surgical history Social History Smoking Status: Former smoker Tobacco Type: Cigarettes and Cigars Preferred Language: [place]ymra[place] marital status: current occupational status: retired Feels Safe at Home: Yes Review of Systems Review of Systems: All systems reviewed & are unremarkable except as noted in HPI & below Physical Exam Constitutional: WD/WN, vitals as above Eyes: PERRL, conjunctivae normal, anicteric sclerae ENMT: external ear and nose normal, oropharynx normal Neck: trachea midline, no thyromegaly Respiratory: normal respiratory effort, lungs clear to auscultation Cardiovascular: RRR, no murmur, no edema Gastrointestinal (Abdomen): Inspection/Auscultation: + visible herniation Percussion/Palpation: + abdomen tender, abdomen soft and + hernia (Umbilical hernia that was tender to palpation with no overlying skin changes. After several minutes I was able to reduce the hernia and the patient experienced relief of most of his pain.); no guarding and abdomen not rigid Results & Data ([place]) Vital Signs (Past 12 Hours) Vital Signs Temp Pulse Pulse Resp BP BP Pulse Ox 02/01/20 18:30 68 21 160/98 H 94 02/01/20 18:00 75 21 143/92 H 95 02/01/20 17:30 68 16 149/94 H 94 02/01/20 17:01 78 12 149/82 H 95 02/01/20 16:30 65 16 131/83 94 02/01/20 16:00 65 19 131/82 94 02/01/20 15:30 69 22 138/87 96 02/01/20 14:56 36.8 C 75 16 137/84 96 Laboratory Results Laboratory Results - last 24 hr 02/01/20 02/01/20 02/01/20 15:40 15:40 15:40 WBC 8.77 RBC 4.22 L Hgb 12.7 L POC Hgb Hct 38.2 L POC Hct MCV 90.5 MCH 30.1 MCHC 33.2 RDW Std Deviation 47.7 H RDW Coeff of Kim 14.4 Plt Count 203 MPV 9.6 Immature Gran % (Auto) 0.1 Neut % (Auto) 75.0 Lymph % (Auto) 12.9 [place] % (Auto) 10.5 Eos % (Auto) 1.4 Baso % (Auto) 0.1 Neut # (Auto) 6.58 H Lymph # (Auto) 1.13 L [place] # (Auto) 0.92 H Eos # (Auto) 0.12 Baso # (Auto) 0.01 Immature Gran # (Auto) 0.01 PT 17.6 H INR 1.7 H APTT 34.6 H PTT Ratio 1.2 POC Sodium Sodium 141 POC Potassium Potassium 3.8 POC Chloride Chloride 107 Carbon Dioxide 26 POC Total CO2 Anion Gap 8.0 POC Anion Gap POC BUN BUN 17 Creatinine 1.39 POC Creatinine Est Cr Clr Drug Dosing 51.9 Est GFR ( Amer) 58.7 Est GFR (Non-Af Amer) 50.6 BUN/Creatinine Ratio 11.9 Glucose 84 POC Glucose (other) Calcium 8.9 POC Ioniz Calcium Torrie Total Bilirubin 0.7 AST 16 ALT 12 Alkaline Phosphatase 106 Troponin I < 0.015 Total Protein 7.0 Albumin 3.4 Globulin 3.6 Albumin/Globulin Ratio 0.9 Lipase 113 Urine Color Urine Appearance Urine pH Ur Specific [place] Urine Protein Urine Glucose (UA) Urine Ketones Urine Blood Urine Nitrite Urine Bilirubin Urine Urobilinogen Ur Leukocyte Esterase 02/01/20 02/01/20 15:51 18:51 WBC RBC Hgb POC Hgb 13.3 L Hct POC Hct 39 L MCV MCH MCHC RDW Std Deviation RDW Coeff of Kim Plt Count MPV Immature Gran % (Auto) Neut % (Auto) Lymph % (Auto) [place] % (Auto) Eos % (Auto) Baso % (Auto) Neut # (Auto) Lymph # (Auto) [place] # (Auto) Eos # (Auto) Baso # (Auto) Immature Gran # (Auto) PT INR APTT PTT Ratio POC Sodium 139 Sodium POC Potassium 3.8 Potassium POC Chloride 104 Chloride Carbon Dioxide POC Total CO2 26 Anion Gap POC Anion Gap 14.0 L POC BUN 17 BUN Creatinine POC Creatinine 1.4 H Est Cr Clr Drug Dosing Est GFR ( Amer) Est GFR (Non-Af Amer) BUN/Creatinine Ratio Glucose POC Glucose (other) 86 Calcium POC Ioniz Calcium [place] 1.21 Total Bilirubin AST ALT Alkaline Phosphatase Troponin I Total Protein Albumin Globulin Albumin/Globulin Ratio Lipase Urine Color Pending Urine Appearance Pending Urine pH Pending Ur Specific [place] Pending Urine Protein Pending Urine Glucose (UA) Pending Urine Ketones Pending Urine Blood Pending Urine Nitrite Pending Urine Bilirubin Pending Urine Urobilinogen Pending Ur Leukocyte Esterase Pending Diagnostic Findings CT abd pelvis IV con only CLINICAL HISTORY: Abdominal pain and vomiting. Umbilical hernia. COMPARISON STUDY: March 2019 TECHNIQUE: A dose lowering technique was utilized adhering to the principles of ALARA. CT DOSE: 541.19 mGy.cm FINDINGS: Lower chest: There is extensive chronic interstitial lung disease similar to the preceding study. The heart is enlarged with coronary calcifications. There is a small amount of pericardial fluid present. There is dilatation centrally artery suggesting pulmonary arterial hypertension. Is a trace right pleural effusion. Liver: There is a too small to characterize right hepatic lobe hypodensity. There is perihepatic fluid. Gallbladder: Mildly distended. No calculi identified Spleen: Normal in size and attenuation. Pancreas: Unremarkable. Adrenal glands: Unremarkable. Kidneys: There are bilateral renal hypodensities, consistent with cysts Bowel: There are multiple dilated small bowel loops consistent with a small bowel obstruction. The obstruction is secondary to a small bowel loop within an umbilical hernia. There is no pneumatosis. There is no portal venous gas. There is no evidence of acute appendicitis. There is no evidence of acute diverticulitis. Peritoneum: There is a small amount of ascites. There is mild small bowel mesenteric edema. Vasculature: The abdominal aorta is normal in course and caliber. Adenopathy: There is no pathologic adenopathy Pelvic viscera: Portions the pelvis are secured due to artifact from bilateral hip arthroplasties. There is suspected mild prostatomegaly. Skeletal structures: No destructive osseous lesions are seen. IMPRESSION: 1. Small bowel obstruction secondary to an incarcerated umbilical hernia. There is mild small bowel mesenteric edema, and there is a small amount of ascites. There is no pneumatosis and no portal venous gas. Surgical consultation is recommended 2. Advanced chronic interstitial lung disease. PG Care Time/CCT Total # of Minutes Spent Total Time Spent with Patient: Total time spent is greater than 50% in coordination of care (as documented) at patient's floor/unit and/or counseling patient: Coding Level of Care Code 55958 OBS Care - Level 2 Diagnoses Incarcerated umbilical hernia K42.0 SBO (small bowel obstruction) K56.609 Polymyositis M33.20 History of DVT (deep vein thrombosis) Z86.718 [facility] (current) use of anticoagulants Z79.01
[2020-02-01] MEDS ORDERED: PHYTONADIONE 5 MG in SODIUM CHLORIDE 0.9% 50 ML IV ONE (19:34)
--- NOTE | 2020-02-01 20:21 | History & Physical Report ---
Date of Service February 01, 2020 Assessment & Plan (1) Incarcerated umbilical hernia: 69yo AA male presenting with days of nausea, post-prandial vomiting and abdominal pain. Found to have a small bowel obstruction secondary to an incarcerated umbilical hernia. Patient with small bowel mesenteric edema. No pneumatosis and no portal venous gas. General Surgery was consulted and has seen the patient in the ER. Dr. Velazquez was able to reduce the umbilical hernia at bedside with improvement in symptoms. Patient wishes to have the hernia surgically repaired. -Admit to medical floor -NPO except medications -LR at 100mL/hr x 2 liters -Zofran as needed for nausea -Morphine as needed for pain -Pre-operative Covid-19 testing sent from ER, results pending -Patient on chronic Coumadin therapy for history of unprovoked DVT/PE. INR =1.7. He was given 5mg Vitamin K in the ER. 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 He may increase to 2 or 3L as needed with exertion. Echocardiogram 05/12/19: Normal LV size and function with EF of 55-60%, no regional WMA. Borderline dilated RV with normal RV function. Mild MR, TR, trace pericardial effusions unchanged from 2014 and 2017 Catheterization 11/2015 - minimal nonobstructive CAD Patient is medically optimized to proceed with surgery in AM. No additional testing needed at this time. 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 He follows regularly with Pulmonary at [facility]. He is doing well on home O2, 1L up to 3L as needed. No cough, wheeze or worsening SOB. -Continue Prednisone 5mg po daily -Hold Cell Cept for now, may resume postoperatively -Continue supplemental O2 -Continue Symbicort -Continue Xopenex -Continue Tessalon as needed for cough -Albuterol nebs q 2 hours PRN -Duonebs q 4 hours PRN -Closely monitor respiratory status Present on Admission?: Yes (3) Polymyositis: Chronic. Stable -Continue Prednisone -Hold Cell Cept for now -Hold quinidine which patient takes for leg cramps Present on Admission?: Yes (4) Epilepsy: Chronic. Stable. No recent seizure -Continue Keppra 100mg po BID Present on Admission?: Yes (5) History of DVT (deep vein thrombosis): Patient had an unprovoked DVT appx 15 years ago. He is currenlty on Coumadin, INR=1.7. -Vitamin K given in ER -Repeat INR in AM Present on Admission?: Yes (6) Prostatic hypertrophy: Chronic -Continue Flomax F/E/N - LR at 100mL/hr, monitor electrolytes, check Mg and PO4 and replete as needed, hold PO K supplement, NPO Ppx - SCDs, continue home Protonix Code - Full per discussion with patient Dispo - Admit to medical floor Present on Admission?: Yes History of Present Illness Chief Complaint: nausea, vomiting, abdominal pain Primary Care Provider: Yusuf Villalobos MD Mr. Tirado is a pleasant 69yo AA male with history of UIP/PF, 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 therapy, Polymyositis and Epilepsy. He presents to [facility] today with complaint of nausea, post-prandial vomiting ongoing for the last 5 days. Patient unable to tolerate PO intake. Also with decreased BM, mid-abdominal pain and protruding umbilical hernia with firmness. No additional complaints at this time - patient denies CP/palpitations/fevers/chills/dysuria. No exposure to Covid-19. He has history of PF/UIP - follows with Pulmonary at [facility]. He is on 1L O2 by [place]. Reports that his respiratory status is stable with no increased SOB. He does have occasional coughing spells, especially after laughing. ER Course: Benadryl, Solumedrol, Morphine, Zofran , NSS Allergies Allergy/AdvReac Type Severity Reaction Status Date / Time Iodinated Contrast Media Allergy Intermediate Unknown Verified 02/01/20 18:29 iodine Allergy Mild Unknown Verified 02/01/20 18:29 Quinolones Allergy Mild Unknown Verified 02/01/20 18:29 house dust Allergy Unknown Allergy Verified 02/01/20 18:29 symptoms mold Allergy Unknown SEASONAL Verified 02/01/20 18:23 ALLERGIES ofloxacin Allergy Unknown Unknown Verified 02/01/20 18:29 Penicillins Allergy Unknown Unknown Verified 02/01/20 18:29 phenytoin Allergy Unknown MYOPATHY Verified 02/01/20 18:23 pollen extracts Allergy Unknown SEASONAL Verified 02/01/20 18:23 ALLERGIES fentanyl AdvReac Mild Unknown Verified 02/01/20 18:29 Home Medications Home Medications Medication Instructions Recorded Confirmed Type pantoprazole [Protonix] 40 mg PO QAM #0 03/05/09 02/01/20 History budesonide-formoterol [Symbicort] 2 puff INHALATION BID #0 10/18/09 02/01/20 History famotidine [Pepcid] 40 mg PO HS #0 tab 08/24/12 02/01/20 History acetaminophen 500 mg PO Q4H PRN #0 01/24/16 02/01/20 History tamsulosin [Flomax] 0.4 mg PO QAM #0 cap 03/30/16 02/01/20 History albuterol sulfate [Proventil HFA] 2 puff INHALATION Q4H PRN #0 03/11/17 02/01/20 History cholecalciferol (vitamin D3) 5,000 mg PO QAM #0 tab 03/11/17 02/01/20 History [Vitamin D3] levalbuterol HCl [Xopenex] 1 vial NEB QID #0 03/11/17 02/01/20 History levetiracetam [Keppra] 1,000 mg PO BID #0 tab 03/11/17 02/01/20 History mycophenolate mofetil [CellCept] 1,000 mg PO BID #0 tab 03/11/17 02/01/20 History quinidine gluconate 324 mg PO BID #0 03/11/17 02/01/20 History potassium chloride 20 mEq 20 meq PO BID tab 12/30/17 02/01/20 History tablet,extended release warfarin 5 mg tablet See Rx Instructions .ROUTE 08/16/18 02/01/20 History .COMPLEX tab prednisone 5 mg tablet 5 mg PO QAM 11/24/18 02/01/20 History clindamycin HCl 150 mg capsule See Rx Instructions .ROUTE 03/07/19 02/01/20 History .COMPLEX PRN cap benzonatate 100 mg capsule 100 mg PO TID PRN 01/05/20 02/01/20 History Past Med/Surg History Medical History (Updated 02/01/20 @ 20:44 by Clementine Cleary DO) 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/04/11) Demyelinating disease of central nervous system (06/04/11) Epilepsy History of DVT (deep vein thrombosis) 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) Prostatic hypertrophy UIP (usual interstitial pneumonitis) Surgical History (Updated 02/01/20 @ 20:18 by Clementine Cleary DO) History of bilateral hip replacements Family History (Updated 02/01/20 @ 20:19 by Clementine Cleary DO) Father Cancer Mother Cancer Social History (Updated 02/01/20 @ 20:19 by Clementine Cleary DO) Smoking Status: Former smoker Tobacco Type: Cigarettes and Cigars Hx Alcohol Use: Yes Alcohol type: wine Alcohol Intake Frequency: Monthly or Less Hx Substance Use: No Preferred Language: Telugu marital status: current occupational status: retired Feels Safe at Home: Yes Review of Systems Review of Systems: All systems reviewed & are unremarkable except as noted in HPI & below Physical Exam Physical Exam: General: patient resting comfortably, NAD, non-toxic in appearance, AA&O x 4, mask in place Skin: warm, dry, intact, no rashes or lesions HEENT: NC/AT, PERRL, EOMI, anicteric sclera, conjunctiva without injection, external ear normal to inspection and nontender, nares patent, moist mucus membranes, dentition intact, no oropharyngeal lesions, neck supple, trachea midline, no LAD, no thyromegaly, no JVD Heart: +S1/S2, regular, no m/r/g Lungs: equal air entry bilaterally, no rales/rhonchi/wheezes, supplemental O2 1L Abd: +BS, diminished, soft, NT/ND, +umbilical hernia - soft/reducible Ext: warm, 2+ pulses in UE/LE bilaterally, no clubbing/cyanosis or edema Neuro: nonfocal, patient AA&O x 4, speech intact, no facial droop, moving all extremities on command with equal strength 5/5 Results & Data Results & Data ([facility]) Vital Signs (Past 12 Hours) Vital Signs Temp Pulse Pulse Resp BP BP Pulse Ox 02/01/20 20:00 86 18 139/87 95 02/01/20 19:30 69 17 141/88 H 93 02/01/20 19:00 74 18 146/86 H 95 10/07/20 18:30 68 21 160/98 H 94 02/01/20 18:00 75 21 143/92 H 95 02/01/20 17:30 68 16 149/94 H 94 02/01/20 17:01 78 12 149/82 H 95 02/01/20 16:30 65 16 131/83 94 02/01/20 16:00 65 19 131/82 94 02/01/20 15:30 69 22 138/87 96 02/01/20 14:56 36.8 C 75 16 137/84 96 Laboratory Results Lab Results 02/01/20 02/01/20 02/01/20 Range/Units 15:40 15:40 15:40 WBC 8.77 (4.8-10.8) K/uL RBC 4.22 L (4.7-6.1) M/uL Hgb 12.7 L (14.0-18.0) g/dL POC Hgb (14.0-18.0) g/dl Hct 38.2 L (42-52) % POC Hct (42-52) % MCV 90.5 (80-100) fL MCH 30.1 (25-34) pg MCHC 33.2 (32-36) g/dL RDW Std Deviation 47.7 H (36.4-46.3) fL RDW Coeff of Kim 14.4 (11.5-14.5) % Plt Count 203 (130-400) K/uL MPV 9.6 (7.4-10.4) fL Immature Gran % (Auto) 0.1 % Neut % (Auto) 75.0 % Lymph % (Auto) 12.9 % Archer % (Auto) 10.5 % Eos % (Auto) 1.4 % Baso % (Auto) 0.1 % Neut # (Auto) 6.58 H (1.4-6.5) K/uL Lymph # (Auto) 1.13 L (1.2-3.4) K/uL Archer # (Auto) 0.92 H (0.11-0.59) K/uL Eos # (Auto) 0.12 (0-0.5) K/uL Baso # (Auto) 0.01 (0-0.2) K/uL Immature Gran # (Auto) 0.01 (0.00-0.02) K/uL PT 17.6 H (9.0-12.0) Seconds INR 1.7 H (0.9-1.1) APTT 34.6 H (21.0-31.0) Seconds PTT Ratio 1.2 POC Sodium (135-144) mmol/L Sodium 141 (136-145) mmol/L POC Potassium (3.3-5.0) mmol/L Potassium 3.8 (3.5-5.1) mmol/L POC Chloride (101-112) mmol/L Chloride 107 (98-107) mmol/L Carbon Dioxide 26 (21-32) mmol/L POC Total CO2 (24-31) mmol/L Anion Gap 8.0 (3-11) POC Anion Gap (16-25) mmol/L POC BUN (7-18) mg/dl BUN 17 (7-18) mg/dl Creatinine 1.39 (0.6-1.4) mg/dl POC Creatinine (0.6-1.3) mg/dl Est Cr Clr Drug Dosing 51.9 ml/min Est GFR ( Amer) 58.7 Est GFR (Non-Af Amer) 50.6 BUN/Creatinine Ratio 11.9 (10-20) Glucose 84 (70-99) mg/dl POC Glucose (other) (70-99) mg/dl Calcium 8.9 (8.5-10.1) mg/dl POC Ioniz Calcium Torrie (1.12-1.32) mmol/l Total Bilirubin 0.7 (0.2-1) mg/dl AST 16 (15-37) U/L ALT 12 (12-78) U/L Alkaline Phosphatase 106 (45-117) U/L Troponin I < 0.015 (0-0.045) ng/ml Total Protein 7.0 (6.4-8.2) gm/dl Albumin 3.4 (3.4-5.0) gm/dl Globulin 3.6 (2.5-4.0) gm/dl Albumin/Globulin Ratio 0.9 (0.9-2) Lipase 113 (73-393) U/L Urine Color Urine Appearance (Clear) Urine pH (4.5-7.5) Ur Specific Flint (1.000-1.030) Urine Protein (Negative) Urine Glucose (UA) (Negative) Urine Ketones (Negative) Urine Blood (Negative) Urine Nitrite (Negative) Urine Bilirubin (Negative) Urine Urobilinogen (Negative) Ur Leukocyte Esterase (Negative) Urine WBC (Auto) (0-5) /hpf Urine RBC (Auto) (0-4) /hpf U Hyaline Cast (Auto) (0-5) /lpf U Epithel Cells (Auto) (0-5) /lpf Urine Bacteria (Auto) (Negative) COVID-19 Eval Order 02/01/20 02/01/20 02/01/20 Range/Units 15:51 18:51 19:51 WBC (4.8-10.8) K/uL RBC (4.7-6.1) M/uL Hgb (14.0-18.0) g/dL POC Hgb 13.3 L (14.0-18.0) g/dl Hct (42-52) % POC Hct 39 L (42-52) % MCV (80-100) fL MCH (25-34) pg MCHC (32-36) g/dL RDW Std Deviation (36.4-46.3) fL RDW Coeff of Kim (11.5-14.5) % Plt Count (130-400) K/uL MPV (7.4-10.4) fL Immature Gran % (Auto) % Neut % (Auto) % Lymph % (Auto) % Archer % (Auto) % Eos % (Auto) % Baso % (Auto) % Neut # (Auto) (1.4-6.5) K/uL Lymph # (Auto) (1.2-3.4) K/uL Archer # (Auto) (0.11-0.59) K/uL Eos # (Auto) (0-0.5) K/uL Baso # (Auto) (0-0.2) K/uL Immature Gran # (Auto) (0.00-0.02) K/uL PT (9.0-12.0) Seconds INR (0.9-1.1) APTT (21.0-31.0) Seconds PTT Ratio POC Sodium 139 (135-144) mmol/L Sodium (136-145) mmol/L POC Potassium 3.8 (3.3-5.0) mmol/L Potassium (3.5-5.1) mmol/L POC Chloride 104 (101-112) mmol/L Chloride (98-107) mmol/L Carbon Dioxide (21-32) mmol/L POC Total CO2 26 (24-31) mmol/L Anion Gap (3-11) POC Anion Gap 14.0 L (16-25) mmol/L POC BUN 17 (7-18) mg/dl BUN (7-18) mg/dl Creatinine (0.6-1.4) mg/dl POC Creatinine 1.4 H (0.6-1.3) mg/dl Est Cr Clr Drug Dosing ml/min Est GFR ( Amer) Est GFR (Non-Af Amer) BUN/Creatinine Ratio (10-20) Glucose (70-99) mg/dl POC Glucose (other) 86 (70-99) mg/dl Calcium (8.5-10.1) mg/dl POC Ioniz Calcium Torrie 1.21 (1.12-1.32) mmol/l Total Bilirubin (0.2-1) mg/dl AST (15-37) U/L ALT (12-78) U/L Alkaline Phosphatase (45-117) U/L Troponin I (0-0.045) ng/ml Total Protein (6.4-8.2) gm/dl Albumin (3.4-5.0) gm/dl Globulin (2.5-4.0) gm/dl Albumin/Globulin Ratio (0.9-2) Lipase (73-393) U/L Urine Color Yellow Urine Appearance Clear (Clear) Urine pH 5.0 (4.5-7.5) Ur Specific Flint > 1.045 H (1.000-1.030) Urine Protein Negative (Negative) Urine Glucose (UA) Negative (Negative) Urine Ketones 2+ H (Negative) Urine Blood 3+ H (Negative) Urine Nitrite Negative (Negative) Urine Bilirubin Negative (Negative) Urine Urobilinogen Negative (Negative) Ur Leukocyte Esterase Negative (Negative) Urine WBC (Auto) 1-5 (0-5) /hpf Urine RBC (Auto) 10-30 H (0-4) /hpf U Hyaline Cast (Auto) 0 (0-5) /lpf U Epithel Cells (Auto) 0-5 (0-5) /lpf Urine Bacteria (Auto) Negative (Negative) COVID[facility] abd [facility] IV con only CLINICAL HISTORY: Abdominal pain and vomiting. Umbilical hernia. COMPARISON STUDY: March 2019 TECHNIQUE: A dose lowering technique was utilized adhering to the principles of ALARA. CT DOSE: 541.19 mGy.cm FINDINGS: Lower chest: There is extensive chronic interstitial lung disease similar to the preceding study. The heart is enlarged with coronary calcifications. There is a small amount of pericardial fluid present. There is dilatation centrally artery suggesting pulmonary arterial hypertension. Is a trace right pleural effusion. Liver: There is a too small to characterize right hepatic lobe hypodensity. There is perihepatic fluid. Gallbladder: Mildly distended. No calculi identified Spleen: Normal in size and attenuation. Pancreas: Unremarkable. Adrenal glands: Unremarkable. Kidneys: There are bilateral renal hypodensities, consistent with cysts Bowel: There are multiple dilated small bowel loops consistent with a small bowel obstruction. The obstruction is secondary to a small bowel loop within an umbilical hernia. There is no pneumatosis. There is no portal venous gas. There is no evidence of acute appendicitis. There is no evidence of acute diverticulitis. Peritoneum: There is a small amount of ascites. There is mild small bowel mesenteric edema. Vasculature: The abdominal aorta is normal in course and caliber. Adenopathy: There is no pathologic adenopathy Pelvic viscera: Portions the pelvis are secured due to artifact from bilateral hip arthroplasties. There is suspected mild prostatomegaly. Skeletal structures: No destructive osseous lesions are seen. IMPRESSION: 1. Small bowel obstruction secondary to an incarcerated umbilical hernia. There is mild small bowel mesenteric edema, and there is a small amount of ascites. There is no pneumatosis and no portal venous gas. Surgical consultation is recommended 2. Advanced chronic interstitial lung disease. ACT 112: Negative or not required by law. Electronically signed by: Nitin Meza M.D. 02/01/2020 5:08 PM Dictated: 02/01/201701 Transcribed: 02/01/201701 ECG Additional Comments: EKG wtih NSR at 60bpm, FP=582, QRS=88, YAa=883, ?LVH Code Status & VTE Plan Code Status Full VTE Prophylaxis Plan VTE Prophylaxis will be ordered: Yes PG Care Time/CCT Total # of Minutes Spent Total Time Spent with Patient: Total time spent is greater than 50% in coordination of care (as documented) at patient's floor/unit and/or counseling patient: Coding Level of Care Code 80012 Initial Inpt Care Lvl 3 Diagnoses Incarcerated umbilical hernia K42.0 UIP (usual interstitial pneumonitis) J84.112 Polymyositis M33.20 Epilepsy G40.909 Epilepsy type: unspecified Intractability: not intractable Status epilepticus: without status epilepticus History of DVT (deep vein thrombosis) Z86.718 Prostatic hypertrophy N40.0 (1) Epilepsy Epilepsy type: unspecified Intractability: not intractable Status epilepticus: without status epilepticus Qualified Code(s): G40.909 - Epilepsy, unspecified, not intractable, without status epilepticus
[2020-02-01] MEDS ORDERED: ACETAMINOPHEN 500 MG TAB PO PRN (21:47)
[2020-02-01] MEDS ORDERED: BENZONATATE 100 MG CAPSULE PO PRN (21:47)
[2020-02-01] MEDS ORDERED: ALBUTEROL 0.5% NEB SOLN 2.5 MG/0.5 ML VIAL NEB PRN (21:47)
[2020-02-01] MEDS ORDERED: ALBUT/IPRATROP 3MG/0.5MG NEB 3 ML VIAL NEB PRN (21:47)
[2020-02-01] MEDS ORDERED: ONDANSETRON INJ 2 MG/ML 2 ML VIAL IV PRN (21:47)
[2020-02-01] MEDS: LACTATED RINGER'S 1,000 ML IV SCH (22:19)
[2020-02-01] MEDS: MoRPHine SULFATE 2 MG/ML CARP IV PRN (22:20)
[2020-02-01 22:33] LABS: Magnesium 2.1 mg/dl (1.8-2.4); Phosphorus 2.5 mg/dl (2.5-4.9)
[2020-02-01] MEDS: FAMOTIDINE 40 MG TABLET PO SCH (22:33)
[2020-02-01] MEDS: levETIRAcetam 500 MG TAB PO SCH (22:34)
[2020-02-01] MEDS: LEVALBUTEROL HCL 1.25 MG/3 ML NEB NEB SCH (22:40)
[2020-02-02] MEDS: MoRPHine SULFATE 2 MG/ML CARP IV PRN (05:21)
[2020-02-02] MEDS ORDERED: CLINDAMYCIN 600 MG/54 ML BAG IV SCH (06:00)
[2020-02-02 06:48] LABS: Hematocrit (blood only) 35.7 % (42-52); Hemoglobin 11.3 g/dL (14.0-18.0); Immature Granulocytes # (auto) 0.01 K/uL (0.00-0.02); Immature Granulocytes % (auto) 0.2 %; Lymphocytes # (auto) 0.83 K/uL (1.2-3.4); Lymphocytes % (auto) 16.4 %; Mean Corpuscular Hemoglobin 28.8 pg (25-34); Mean Corpuscular Hgb Conc 31.7 g/dL (32-36); Mean Corpuscular Volume 91.1 fL (80-100); Monocytes # (auto) 0.57 K/uL (0.11-0.59); Monocytes % (auto) 11.3 %; Neutrophils # (auto) 3.64 K/uL (1.4-6.5); Neutrophils % (auto) 72.1 %; Platelet Count 195 K/uL (130-400); RDW Coefficient of Variation 14.4 % (11.5-14.5); Red Blood Count 3.92 M/uL (4.7-6.1); White Blood Count 5.05 K/uL (4.8-10.8)
[2020-02-02 06:50] LABS: INR 1.3 (0.9-1.1)
[2020-02-02 07:13] LABS: BUN Creatinine Ratio 17.2 (10-20); Calcium 8.5 mg/dl (8.5-10.1); Creatinine Clr Calc Pharmacy 54.3 ml/min; Est GFR (African American) 61.9; Est GFR (Non-African American) 53.4; Potassium 4.3 mmol/L (3.5-5.1)
[2020-02-02] MEDS: LEVALBUTEROL HCL 1.25 MG/3 ML NEB NEB SCH ×5 (07:13→19:13)
--- NOTE | 2020-02-02 07:25 | XRay Report ---
SINGLE VIEW CHEST CLINICAL HISTORY: Preoperative examination. Pulmonary fibrosis. FINDINGS: An AP, portable, upright chest radiograph is compared to study dated 03/11/2017 and correla peggy with chest CT dated 04/05/2019. The examination is degraded by portable technique and patient rot ation. The heart is enlarged. The pulmonary vasculature is noncongested. Diffuse interstitial thicken ing with subpleural reticulation and bilateral airspace opacities are consistent with the history of chronic interstitial lung disease/pulmonary fibrosis. There is no clear radiographic evidence of supe rimposed airspace consolidation. No large pleural effusion or pneumothorax is seen. The skeletal stru ctures are osteopenic. The bony thorax is grossly intact. IMPRESSION: 1. Cardiomegaly without radiographic evidence of congestive failure. 2. Chronic parenchymal changes with changes of interstitial lung disease/pulmonary fibrosis again not ed. 3. There is no clear evidence of superimposed airspace consolidation or large pleural effusion. ACT 112: Negative or not required by law. Electronically signed by: Orlando Snell M.D. 02/02/2020 7:24 AM
--- NOTE | 2020-02-02 07:27 | Hospitalist Progress Note ---
Date of Service February 02, 2020 Assessment & Plan (1) Incarcerated umbilical hernia: 69yo AA male presenting with days of nausea, post-prandial vomiting and abdominal pain. Found to have a small bowel obstruction secondary to an incarcerated umbilical hernia. Patient with small bowel mesenteric edema. No pneumatosis and no portal venous gas. General Surgery was consulted and has seen the patient in the ER. Dr. Velazquez was able to reduce the umbilical hernia at bedside with improvement in symptoms. Patient wishes to have the hernia surgically repaired. -Pre-operative Covid-19 testing sent from ER, results pending -Patient on chronic Coumadin therapy for history of unprovoked DVT/PE. INR =1.3 in the a.m. of 02/01. He was given 5mg Vitamin K in the ER 01/31. 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 He may increase to 2 or 3L as needed with exertion. Echocardiogram 05/12/19: Normal LV size and function with EF of 55-60%, no regional WMA. Borderline dilated RV with normal RV function. Mild MR, TR, trace pericardial effusions unchanged from 2014 and 2017 Catheterization 11/2015 - minimal nonobstructive CAD Patient is medically optimized to proceed with surgery in AM. No additional testing needed at this time. 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 He follows regularly with Pulmonary at [facility]. He is doing well on home O2, 1L up to 3L as needed. No cough, wheeze or worsening SOB. -Continue Prednisone 5mg po daily -Hold Cell Cept for now, may resume postoperatively will target 02/02 -Continue supplemental O2 -Continue Symbicort -Continue Xopenex -Continue Tessalon as needed for cough -Albuterol nebs q 2 hours PRN -Duonebs q 4 hours PRN (3) Polymyositis: Chronic. Stable -Continue Prednisone -Hold Cell Cept for now - quinidine which patient takes for leg cramps (4) Epilepsy: Chronic. Stable. No recent seizure -Continue Keppra 100mg po BID (5) History of DVT (deep vein thrombosis): Patient had an unprovoked DVT appx 15 years ago. -Vitamin K given in ER -We will institute Coumadin once patient's hemostasis is confident likely 24 hours postoperatively (6) Prostatic hypertrophy: Chronic -Continue Flomax Ppx - SCDs, continue home Protonix Code - Full per discussion with patient Admission and Anticipated Discharge Date Admission Date: February 01, 2020 Subjective Patient seen postoperatively he says his abdominal pain is minor but much imp roved and previous. He has no chest pain pressure or shortness of breath Review of Systems Review of Systems: Mild distress and fatigue no headache, blurry or double vision no speech or swallowing issues no chest pain, pressure or palpitations no shortness of breath, cough or wheezes Periumbilical abdominal pain without nausea or vomiting no dysuria, hematuria or frequency no focal joint pain or swelling no back pain, CVA tenderness or radicular pain no bruising, bleeding or rashes no focal signs of weakness or numbness or altered sensation no complaints of anxiety or depression. Physical Exam Physical Exam: The patient appeared well nourished and normally developed. Vital signs as documented. Head exam is normocephalic atraumatic no scleral icterus Neck is without JVD, thyromegaly, or carotid bruits. Lungs are baseline bibasilar rales no wheezes or focal air loss Cardiac exam, Rhythm is regular.. No murmurs, rubs or gallops. Abdominal exam reveals hypoactive bowel sounds soft minor tenderness Extremities are nonedematous and both pedal pulses are present Neurologic exam is alert and oriented, no focal loss of strength or sensation Skin is without bruises or rashes Psychologically is without concerns for anxiety or depression. Results & Data Results & Data ([facility]) Vital Signs (Past 12 Hours) Vital Signs Temp Pulse Pulse Pulse Resp BP BP 02/02/20 07:16 60 18 02/01/20 23:37 97.7 F 75 16 02/01/20 22:43 67 16 02/01/20 21:48 98.4 F 82 20 148/87 H 02/01/20 21:31 76 17 136/87 02/01/20 21:00 75 19 140/85 02/01/20 20:30 66 28 H 146/84 H 02/01/20 20:00 86 18 139/87 02/01/20 19:30 69 17 141/88 H BP Pulse Ox 02/02/20 07:16 97 02/01/20 23:37 121/69 96 02/01/20 22:43 97 02/01/20 21:48 95 02/01/20 21:31 97 02/01/20 21:00 97 02/01/20 20:30 98 02/01/20 20:00 95 02/01/20 19:30 93 PG Care Time/CCT Total # of Minutes Spent Total Time Spent with Patient: Total time spent is greater than 50% in coordination of care (as documented) at patient's floor/unit and/or counseling patient: Coding Level of Care Code 98317 Subseq Hosp Care Lvl 3 Diagnoses Incarcerated umbilical hernia K42.0 UIP (usual interstitial pneumonitis) J84.112 Polymyositis M33.20 Epilepsy G40.909 Epilepsy type: unspecified Intractability: not intractable Status epilepticus: without status epilepticus History of DVT (deep vein thrombosis) Z86.718 Prostatic hypertrophy N40.0 (1) Epilepsy Epilepsy type: unspecified Intractability: not intractable Status epilepticus: without status epilepticus Qualified Code(s): G40.909 - Epilepsy, unspecified, not intractable, without status epilepticus
[2020-02-02] MEDS: LACTATED RINGER'S 1,000 ML IV SCH (07:54)
[2020-02-02] MEDS: levETIRAcetam 500 MG TAB PO SCH ×2 (08:05→21:33)
[2020-02-02] MEDS: predniSONE 5 MG TAB PO SCH (08:06)
[2020-02-02] MEDS: PANTOprazole 40 MG TAB PO SCH (08:06)
[2020-02-02] MEDS: TAMSULOSIN HCL 0.4 MG CAP PO SCH (08:06)
[2020-02-02] MEDS: FLUTICASONE/VILANTEROL 200/25MCG 14 PUFFS/INHALER INH SCH (08:11)
[2020-02-02] MEDS ORDERED: BUPIVACAINE 0.5 % 5 MG/1 ML MPF 30ML VIAL ONE (08:44)
[2020-02-02] MEDS ORDERED: MIDAZOLAM HCL 1 MG/ML 2ML VIAL ONE (09:18)
[2020-02-02] MEDS ORDERED: MoRPHine SULFATE 2 MG/ML CARP ONE (09:19)
--- NOTE | 2020-02-02 09:20 | Surgery Progress Note ---
Date of Service February 02, 2020 Assessment & Plan (1) Incarcerated umbilical hernia: 69-year-old male admitted with incarcerated umbilical hernia and small bowel obstruction, which was reduced last night. He elected to be admitted, and we are planning for umbilical hernia repair today. INR is normal. Plan for open umbilical hernia repair, possible diagnostic laparoscopy The risk the procedure were discussed to include but not limited to bleeding, infection, recurrence, damage surrounding structures, need for future more extensive surgery, pain, and the risk of anesthesia Clindamycin preop COVID negative Diagnosis, details the procedure and recovery, and plan of care were discussed with the patient, all questions were answered, the patient expressed understanding agrees the plan of care as stated (2) History of DVT (deep vein thrombosis): (3) SBO (small bowel obstruction): Admission and Anticipated Discharge Date Admission Date: February 01, 2020 Subjective 69-year-old male admitted with small bowel obstruction associated with a incarcerated medical hernia that I was able to reduce in the emergency room last night. He had preop risk assessment from the admitting hospitalist and was deemed to be an appropriate risk for surgery and did not need any further work- up. His INR is 1.3 this morning. Overall he feels much better, still little bit of pain at his bellybutton, but no vomiting or abdominal discomfort. Physical Exam Constitutional: WD/WN, vitals as above Gastrointestinal (Abdomen): Inspection/Auscultation: abdomen not distended (Distention improved) Percussion/Palpation: + abdomen tender (Minimal tenderness at his umbilicus with reduction of the hernia, significantly improved), abdomen soft and + hernia (Easily reducible umbilical hernia); no guarding and abdomen not rigid Results & Data ([facility]) Vital Signs (Past 12 Hours) Vital Signs Temp Pulse Pulse Pulse Resp BP BP 02/02/20 07:16 60 18 02/02/20 07:14 36.6 C 51 L 16 02/01/20 23:37 36.5 C 75 16 02/01/20 22:43 67 16 02/01/20 21:48 36.9 C 82 20 148/87 H 02/01/20 21:31 76 17 136/87 BP Pulse Ox 02/02/20 07:16 97 02/02/20 07:14 146/79 H 97 02/01/20 23:37 121/69 96 02/01/20 22:43 97 02/01/20 21:48 95 02/01/20 21:31 97 Laboratory Results Laboratory Results - last 24 hr 02/01/20 02/01/20 02/01/20 15:40 15:40 15:40 WBC 8.77 RBC 4.22 L Hgb 12.7 L POC Hgb Hct 38.2 L POC Hct MCV 90.5 MCH 30.1 MCHC 33.2 RDW Std Deviation 47.7 H RDW Coeff of Kim 14.4 Plt Count 203 MPV 9.6 Immature Gran % (Auto) 0.1 Neut % (Auto) 75.0 Lymph % (Auto) 12.9 Sunflower % (Auto) 10.5 Eos % (Auto) 1.4 Baso % (Auto) 0.1 Neut # (Auto) 6.58 H Lymph # (Auto) 1.13 L Sunflower # (Auto) 0.92 H Eos # (Auto) 0.12 Baso # (Auto) 0.01 Immature Gran # (Auto) 0.01 PT 17.6 H INR 1.7 H APTT 34.6 H PTT Ratio 1.2 POC Sodium Sodium 141 POC Potassium Potassium 3.8 POC Chloride Chloride 107 Carbon Dioxide 26 POC Total CO2 Anion Gap 8.0 POC Anion Gap POC BUN BUN 17 Creatinine 1.39 POC Creatinine Est Cr Clr Drug Dosing 51.9 Est GFR ( Amer) 58.7 Est GFR (Non-Af Amer) 50.6 BUN/Creatinine Ratio 11.9 Glucose 84 POC Glucose (other) Calcium 8.9 POC Ioniz Calcium Torrie Phosphorus Magnesium Total Bilirubin 0.7 AST 16 ALT 12 Alkaline Phosphatase 106 Troponin I < 0.015 Total Protein 7.0 Albumin 3.4 Globulin 3.6 Albumin/Globulin Ratio 0.9 Lipase 113 Urine Color Urine Appearance Urine pH Ur Specific Rayne Urine Protein Urine Glucose (UA) Urine Ketones Urine Blood Urine Nitrite Urine Bilirubin Urine Urobilinogen Ur Leukocyte Esterase Urine WBC (Auto) Urine RBC (Auto) U Hyaline Cast (Auto) U Epithel Cells (Auto) Urine Bacteria (Auto) COVID-19 Eval Order SARS-CoV-2, RNA, NAAT 02/01/20 02/01/20 02/01/20 15:40 15:51 18:51 WBC RBC Hgb POC Hgb 13.3 L Hct POC Hct 39 L MCV MCH MCHC RDW Std Deviation RDW Coeff of Kim Plt Count MPV Immature Gran % (Auto) Neut % (Auto) Lymph % (Auto) Sunflower % (Auto) Eos % (Auto) Baso % (Auto) Neut # (Auto) Lymph # (Auto) Sunflower # (Auto) Eos # (Auto) Baso # (Auto) Immature Gran # (Auto) PT INR APTT PTT Ratio POC Sodium 139 Sodium POC Potassium 3.8 Potassium POC Chloride 104 Chloride Carbon Dioxide POC Total CO2 26 Anion Gap POC Anion Gap 14.0 L POC BUN 17 BUN Creatinine POC Creatinine 1.4 H Est Cr Clr Drug Dosing Est GFR ( Amer) Est GFR (Non-Af Amer) BUN/Creatinine Ratio Glucose POC Glucose (other) 86 Calcium POC Ioniz Calcium Torrie 1.21 Phosphorus 2.5 Magnesium 2.1 Total Bilirubin AST ALT Alkaline Phosphatase Troponin I Total Protein Albumin Globulin Albumin/Globulin Ratio Lipase Urine Color Yellow Urine Appearance Clear Urine pH 5.0 Ur Specific Rayne > 1.045 H Urine Protein Negative Urine Glucose (UA) Negative Urine Ketones 2+ H Urine Blood 3+ H Urine Nitrite Negative Urine Bilirubin Negative Urine Urobilinogen Negative Ur Leukocyte Esterase Negative Urine WBC (Auto) 1-5 Urine RBC (Auto) 10-30 H U Hyaline Cast (Auto) 0 U Epithel Cells (Auto) 0-5 Urine Bacteria (Auto) Negative COVID-19 Eval Order SARS-CoV-2, RNA, NAAT 02/01/20 02/01/20 02/02/20 19:51 19:51 06:27 WBC 5.05 RBC 3.92 L Hgb 11.3 L POC Hgb Hct 35.7 L POC Hct MCV 91.1 MCH 28.8 MCHC 31.7 L RDW Std Deviation 48.0 H RDW Coeff of Kim 14.4 Plt Count 195 MPV 9.0 Immature Gran % (Auto) 0.2 Neut % (Auto) 72.1 Lymph % (Auto) 16.4 Sunflower % (Auto) 11.3 Eos % (Auto) 0.0 Baso % (Auto) 0.0 Neut # (Auto) 3.64 Lymph # (Auto) 0.83 L Sunflower # (Auto) 0.57 Eos # (Auto) 0.00 Baso # (Auto) 0.00 Immature Gran # (Auto) 0.01 PT INR APTT PTT Ratio POC Sodium Sodium POC Potassium Potassium POC Chloride Chloride Carbon Dioxide POC Total CO2 Anion Gap POC Anion Gap POC BUN BUN Creatinine POC Creatinine Est Cr Clr Drug Dosing Est GFR ( Amer) Est GFR (Non-Af Amer) BUN/Creatinine Ratio Glucose POC Glucose (other) Calcium POC Ioniz Calcium Torrie Phosphorus Magnesium Total Bilirubin AST ALT Alkaline Phosphatase Troponin I Total Protein Albumin Globulin Albumin/Globulin Ratio Lipase Urine Color Urine Appearance Urine pH Ur Specific Rayne Urine Protein Urine Glucose (UA) Urine Ketones Urine Blood Urine Nitrite Urine Bilirubin Urine Urobilinogen Ur Leukocyte Esterase Urine WBC (Auto) Urine RBC (Auto) U Hyaline Cast (Auto) U Epithel Cells (Auto) Urine Bacteria (Auto) COVID-19 Eval [facility] SARS-CoV-2, RNA, NAAT NEGATIVE 02/02/20 02/02/20 06:27 06:27 WBC RBC Hgb POC Hgb Hct POC Hct MCV MCH MCHC RDW Std Deviation RDW Coeff of Kim Plt Count MPV Immature Gran % (Auto) Neut % (Auto) Lymph % (Auto) Sunflower % (Auto) Eos % (Auto) Baso % (Auto) Neut # (Auto) Lymph # (Auto) Sunflower # (Auto) Eos # (Auto) Baso # (Auto) Immature Gran # (Auto) PT 14.0 H INR 1.3 H APTT PTT Ratio POC Sodium Sodium 140 POC Potassium Potassium 4.3 POC Chloride Chloride 108 H Carbon Dioxide 26 POC Total CO2 Anion Gap 6.0 POC Anion Gap POC BUN BUN 23 H Creatinine 1.33 POC Creatinine Est Cr Clr Drug Dosing 54.3 Est GFR ( Amer) 61.9 Est GFR (Non-Af Amer) 53.4 BUN/Creatinine Ratio 17.2 Glucose 94 POC Glucose (other) Calcium 8.5 POC Ioniz Calcium Torrie Phosphorus Magnesium Total Bilirubin AST ALT Alkaline Phosphatase Troponin I Total Protein Albumin Globulin Albumin/Globulin Ratio Lipase Urine Color Urine Appearance Urine pH Ur Specific Rayne Urine Protein Urine Glucose (UA) Urine Ketones Urine Blood Urine Nitrite Urine Bilirubin Urine Urobilinogen Ur Leukocyte Esterase Urine WBC (Auto) Urine RBC (Auto) U Hyaline Cast (Auto) U Epithel Cells (Auto) Urine Bacteria (Auto) COVID-19 Eval Order SARS-CoV-2, RNA, NAAT PG Care Time/CCT Total # of Minutes Spent Total Time Spent with Patient: Total time spent is greater than 50% in coordination of care (as documented) at patient's floor/unit and/or counseling patient: Coding Level of Care Code 14719 Inpt Consult Level 3 Diagnoses Incarcerated umbilical hernia K42.0 History of DVT (deep vein thrombosis) Z86.718 SBO (small bowel obstruction) K56.609
--- NOTE | 2020-02-02 09:36 | Anesthesiology Consultation ---
Date of Service February 02, 2020 Assessment & Plan Chart Review Chart Review: Acceptable Risk for Surgery Consults Requested none History Surgery Operation Date: 02/02/20 08:20 Proposed Procedures p Umbilical Hernia Repair - Amado Velazquez DO, FACS Height/Weight Height: 5 ft 11 in Weight: 86.2 kg Allergies Allergy/AdvReac Type Severity Reaction Status Date / Time Iodinated Contrast Media Allergy Intermediate Unknown Verified 02/01/20 18:29 iodine Allergy Mild Unknown Verified 02/01/20 18:29 Quinolones Allergy Mild Unknown Verified 02/01/20 18:29 house dust Allergy Unknown Allergy Verified 02/01/20 18:29 symptoms mold Allergy Unknown SEASONAL Verified 02/01/20 18:23 ALLERGIES ofloxacin Allergy Unknown Unknown Verified 02/01/20 18:29 Penicillins Allergy Unknown Unknown Verified 02/01/20 18:29 phenytoin Allergy Unknown MYOPATHY Verified 02/01/20 18:23 pollen extracts Allergy Unknown SEASONAL Verified 02/01/20 18:23 ALLERGIES fentanyl AdvReac Mild Unknown Verified 02/01/20 18:29 Medications Home Medications Medication Instructions Recorded Confirmed Last Taken pantoprazole [Protonix] 40 mg PO QAM #0 03/05/09 02/01/20 02/01/20 budesonide-formoterol [Symbicort] 2 puff INHALATION BID #0 10/18/09 02/01/20 04/04/19 famotidine [Pepcid] 40 mg PO HS #0 tab 08/24/12 02/01/20 04/04/19 acetaminophen 500 mg PO Q4H PRN #0 01/24/16 02/01/20 Unknown tamsulosin [Flomax] 0.4 mg PO QAM #0 cap 03/30/16 02/01/20 04/04/19 albuterol sulfate [Proventil HFA] 2 puff INHALATION Q4H PRN #0 03/11/17 02/01/20 04/04/19 21:00 cholecalciferol (vitamin D3) 5,000 mg PO QAM #0 tab 03/11/17 02/01/20 04/04/19 [Vitamin D3] levalbuterol HCl [Xopenex] 1 vial NEB QID #0 03/11/17 02/01/20 04/04/19 levetiracetam [Keppra] 1,000 mg PO BID #0 tab 03/11/17 02/01/20 02/01/20 12:00 mycophenolate mofetil [CellCept] 1,000 mg PO BID #0 tab 03/11/17 02/01/20 02/01/20 12:00 quinidine gluconate 324 mg PO BID #0 03/11/17 02/01/20 04/04/19 potassium chloride 20 mEq 20 meq PO BID tab 12/30/17 02/01/20 04/04/19 tablet,extended release warfarin 5 mg tablet See Rx Instructions .ROUTE 08/16/18 02/01/20 01/31/20 .COMPLEX tab 5 MG prednisone 5 mg tablet 5 mg PO QAM 11/24/18 02/01/20 04/04/19 clindamycin HCl 150 mg capsule See Rx Instructions .ROUTE 03/07/19 02/01/20 Unknown .COMPLEX PRN cap benzonatate 100 mg capsule 100 mg PO TID PRN 01/05/20 02/01/20 Unknown Active Medications Generic Name Dose Route Start Last Admin Trade Name Taeq PRN Reason Stop Dose Admin Famotidine 40 mg 02/01/20 21:47 02/01/20 22:33 Famotidine 40 Mg Tablet PO 03/02/20 21:46 40 mg HS DIANE Administration Fluticasone/Vilanterol 1 puffs 02/02/20 09:00 02/02/20 08:11 Fluticasone/Vilanterol 200/25mcg 14 Puffs/Inhaler INH 03/03/20 08:59 1 puffs DAILY DIANE Administration Lactated Ringer's 1,000 mls @ 100 mls/hr 02/01/20 21:47 02/02/20 07:54 Lr IV 02/02/20 17:46 100 mls/hr .Q10H DIANE Administration Clindamycin Phosphate 600 mg in 54 mls @ 100 mls/hr 02/02/20 06:00 02/02/20 09:34 Cleocin IV 02/02/20 18:00 100 mls/hr PREOP DIANE Administration Levalbuterol HCl 1.25 mg 02/01/20 21:47 02/02/20 07:13 Levalbuterol Hcl 1.25 Mg/3 Ml Neb NEB 03/02/20 21:46 1.25 mg QIDR DIANE Administration Levetiracetam 1,000 mg 02/01/20 21:47 02/02/20 08:05 Levetiracetam 500 Mg Tab PO 03/02/20 21:46 1,000 mg BID DIANE Administration Morphine Sulfate 2 mg 02/01/20 21:47 02/02/20 05:21 Morphine Sulfate 2 Mg/Ml Carp IV 02/15/20 21:46 2 mg Q2H PRN Administration Pain Pantoprazole Sodium 40 mg 02/02/20 09:00 02/02/20 08:06 Pantoprazole 40 Mg Tab PO 03/03/20 08:59 40 mg QAM DIANE Administration Prednisone 5 mg 02/02/20 09:00 02/02/20 08:06 Prednisone 5 Mg Tab PO 03/03/20 08:59 5 mg QAM DIANE Administration Tamsulosin HCl 0.4 mg 02/02/20 09:00 02/02/20 08:06 Tamsulosin Hcl 0.4 Mg Cap PO 03/03/20 08:59 0.4 mg QAM DIANE Administration NPO Date Last Intake of Fluids: 02/01/20 Time Last Intake of Fluids: 23:55 Last Intake of Fluids Comment: sips this morning at 0830 with meds Date Last Intake of Solids: 02/01/20 Time Last Intake of Solids: 23:55 Past Medical History Medical History 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/04/11) Demyelinating disease of central nervous system (06/04/11) Epilepsy History of DVT (deep vein thrombosis) 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) Prostatic hypertrophy UIP (usual interstitial pneumonitis) Past Family History Family History Father Cancer Mother Cancer Past Surgical History Surgical History History of bilateral hip replacements Social History Smoking Status: Former smoker Smoking End Date: 1975 Hx Alcohol Use: Yes Alcohol type: wine alcohol intake frequency: holidays/special occasions only Hx Substance Use: No Physical Exam Vital Signs Last Vital Signs Temp 36.6 C 02/02/20 09:09 Pulse 98 H 02/02/20 09:09 Resp 20 02/02/20 09:09 BP 134/74 02/02/20 09:09 Pulse Ox 99 02/02/20 09:09 Testing Laboratory Results 02/02/20 06:27 02/02/20 06:27 PT 14.0 Seconds (9.0-12.0) H 02/02/20 06:27 INR 1.3 (0.9-1.1) H 02/02/20 06: APTT 34.6 Seconds (21.0-31.0) H 02/01/20 15:40 Urine Color Yellow 02/01/20 18:51 Urine Appearance Clear (Clear) 02/01/20 18:51 Urine pH 5.0 (4.5-7.5) 02/01/20 18:51 Ur Specific Dawn > 1.045 (1.000-1.030) H 02/01/20 18:51 Urine Protein Negative (Negative) 02/01/20 18:51 Urine Glucose (UA) Negative (Negative) 02/01/20 18:51 Urine Ketones 2+ (Negative) H 02/01/20 18:51 Urine Nitrite Negative (Negative) 02/01/20 18:51 Ur Leukocyte Esterase Negative (Negative) 02/01/20 18:51 Urine WBC (Auto) 1-5 /hpf (0-5) 02/01/20 18:51 Urine RBC (Auto) 10-30 /hpf (0-4) H 02/01/20 18:51 U Hyaline Cast (Auto) 0 /lpf (0-5) 02/01/20 18:51 U Epithel Cells (Auto) 0-5 /lpf (0-5) 02/01/20 18:51 Urine Bacteria (Auto) Negative (Negative) 02/01/20 18:51
[2020-02-02] MEDS ORDERED: ePHEDrine sulfate 50 MG/ML AMP IV PRN (09:37)
[2020-02-02] MEDS ORDERED: ONDANSETRON INJ 2 MG/ML 2 ML VIAL IV PRN (09:37)
[2020-02-02] MEDS ORDERED: ATROPINE SULFATE 0.1 MG/ML 10ML SYR IV PRN (09:37)
[2020-02-02] MEDS ORDERED: PROMETHAZINE HCL 12.5 MG in SODIUM CHLORIDE 0.9% 50 ML IV PRN (09:37)
[2020-02-02] MEDS ORDERED: METOCLOPRAMIDE HCL INJ 5 MG/ML 2 ML VIAL IV PRN (09:37)
[2020-02-02] MEDS ORDERED: HYDROmorphone INJ 2 MG/ML SYR/VIAL IV PRN (09:37)
[2020-02-02] MEDS ORDERED: MoRPHine SULFATE 10 MG/ML CARP/VIAL IV PRN (09:37)
[2020-02-02] MEDS ORDERED: HYDROmorphone INJ 2 MG/ML SYR/VIAL ONE (09:50)
[2020-02-02] MEDS ORDERED: LIDOCAINE HCL 2% 2 ML VIAL/AMP(20MG/ML) INFIL ONE (10:18)
[2020-02-02] MEDS ORDERED: ONDANSETRON INJ 2 MG/ML 2 ML VIAL ONE (10:18)
[2020-02-02] MEDS ORDERED: PROPOFOL IV EMULSION 10 MG/ML 20 ML VIAL IV ONE (10:18)
[2020-02-02] MEDS ORDERED: DEXAMETHASONE SOD INJ 4 MG/ML VIAL ONE (10:18)
[2020-02-02] MEDS ORDERED: ePHEDrine sulfate 50 MG/ML SYR ONE (10:18)
[2020-02-02] MEDS ORDERED: PHENYLEPHRINE 100MCG/ML 5ML SYR ONE (10:18)
--- NOTE | 2020-02-02 10:37 | Operative Report ---
PG Post Operative Report Pre & Post Diagnosis Operation Date: 02/02/20 08:20 Pre-Op Diagnosis: Incarcerated Umbilical Hernia Post-Op Diagnosis: Incarcerated Umbilical Hernia I identified the patient and participated in the time-out.: Yes Procedure Operation Date: 02/02/20 08:20 Actual Procedures p Open Umbilical Hernia Repair with Mesh(Not Applicable) - Amado Velazquez DO, EAN Surgeon Amado Velazquez DO, EAN Client Care Manager Aditya Feng Estimated Blood Loss 5 Findings Consistent with Post-Op Diagnosis 2.5 cm defect with chronic incarcerated hernia reduced. 4.3 cm ventralex circular mesh sewn into place using interrupted 0 Nurolon sutures. Specimens None Anesthesia Type General Complications none Disposition Accompanied Patient To Recovery: No Disposition: Recovery Room Indications 69-year-old male presented to the emergency department yesterday with 3 to 4 days of increasing bulge at his umbilicus and CT scan that showed small bowel obstruction with incarcerated umbilical hernia. I was able to reduce this in the emergency department, the patient was admitted and his INR was reversed he was optimized for surgery. Plan for open umbilical hernia repair, possible diagnostic laparoscopy. The risks of the procedure were discussed, all questions were answered, and the patient agreed to proceed with surgery as planned. Description of Procedure The patient was properly identified, consented, and taken to the operating room where he was placed in the supine position. General endotracheal anesthesia was induced. SCDs and a safety belt were placed. Preoperative antibiotics were administered. The patient's abdomen was prepped and draped in the standard sterile fashion. Surgical timeout was performed and all parties were in agreement that this was the correct patient and procedure to be performed and we continued as planned. A curvilinear infraumbilical incision was made and deepened down to the fascia with blunt dissection. The umbilical stalk was circumferentially dissected with a Jessica, and divided below the level of the skin. A 2.5 cm fascial defect was encountered. The hernia was reduced. The fascia anteriorly and posteriorly was cleared of investing tissue for several centimeters. Hemostasis was achieved within the wound. A 4.3 cm piece of ventralex mesh was sown into place with interrupted 0 Nurolon sutures. The wound was irrigated and hemostasis confirmed. The umbilicus was tacked down to the fascia with 3-0 Vicryl sutures. Local anesthetic in the form of 0.5% Marcaine was injected in the fascia and along the skin incision. The skin was closed with interrupted 3-0 Vicryl deep dermal sutures, followed by 4-0 Monocryl running subcuticular suture. Dermabond was placed over the wound. The patient was extubated in the operating room and taken to the PACU where he recovered without apparent incident. All sponge, instrument and needle counts were correct at the conclusion of the procedure. The patient tolerated the procedure well. The physician's after school program assistant was present and scrubbed for the entire to the case. He was critical in positioning the patient, prepping and draping, retraction and exposure, repair the hernia, closure the incisions, and placement of the dressings. I attest to the content of the Intraoperative Record and any orders documented therein. Any exceptions are noted below.
[2020-02-02] MEDS ORDERED: MoRPHine SULFATE 4 MG/ML 1 ML CARP\\VIAL IV PRN (11:39)
[2020-02-02] MEDS ORDERED: oxyCODONE/ACETAMINOPHEN 5mg/325mg TAB PO PRN (11:39)
--- NOTE | 2020-02-02 11:41 | Anesthesiology Progress Note ---
Date of Service February 02, 2020 Anesthesia Post Procedure Vital Signs Vital Signs: Temp Pulse Pulse Pulse Pulse Resp BP 02/02/20 11:15 37.1 C 79 14 02/02/20 11:05 82 19 02/02/20 10:55 83 17 02/02/20 10:49 37.1 C 91 H 15 02/02/20 09:09 36.6 C 98 H 20 02/02/20 07:16 60 18 02/02/20 07:14 36.6 C 51 L 16 02/01/20 23:37 36.5 C 75 16 02/01/20 22:43 67 16 02/01/20 21:48 36.9 C 82 20 02/01/20 21:31 76 17 136/87 02/01/20 21:00 75 19 140/85 02/01/20 20:30 66 28 H 146/84 H 02/01/20 20:00 86 18 139/87 02/01/20 19:30 69 17 141/88 H 02/01/20 19:00 74 18 146/86 H 02/01/20 18:30 68 21 160/98 H 02/01/20 18:00 75 21 143/92 H 02/01/20 17:30 68 16 149/94 H 02/01/20 17:01 78 12 149/82 H 02/01/20 16:30 65 16 131/83 02/01/20 16:00 65 19 131/82 02/01/20 15:30 69 22 02/01/20 14:56 36.8 C 75 16 137/84 BP BP Pulse Ox 02/02/20 11:15 133/78 96 02/02/20 11:05 136/79 100 02/02/20 10:55 131/79 100 02/02/20 10:49 146/70 H 98 02/02/20 09:09 134/74 99 02/02/20 07:16 97 02/02/20 07:14 146/79 H 97 02/01/20 23:37 121/69 96 02/01/20 22:43 97 02/01/20 21:48 148/87 H 95 02/01/20 21:31 97 02/01/20 21:00 97 02/01/20 20:30 98 02/01/20 20:00 95 02/01/20 19:30 93 02/01/20 19:00 95 02/01/20 18:30 94 02/01/20 18:00 95 02/01/20 17:30 94 02/01/20 17:01 95 02/01/20 16:30 94 02/01/20 16:00 94 02/01/20 15:30 138/87 96 02/01/20 14:56 96 Pain Intensity Abdomen: Pain Intensity: 10 Transfer of Care Handoff Completed per policy Notes Mental Status: alert / awake / arousable and participated in evaluation Patient Amnestic to Procedure: Yes Nausea / Vomiting: adequately controlled Pain: adequately controlled Airway Patency, RR, SpO2: stable & adequate BP & HR: stable & adequate Hydration State: stable & adequate Anesthetic Complications: no major complications apparent
--- NOTE | 2020-02-02 17:38 | Electrocardiogram Report ---
Test Reason : Blood Pressure : / mmHG Vent. Rate : 060 BPM Atrial Rate : 060 BPM P-R Int : 196 ms QRS Dur : 088 ms QT Int : 404 ms P-R-T Axes : 027 -26 016 degrees QTc Int : 404 ms Normal sinus rhythm Voltage criteria for left ventricular hypertrophy Abnormal ECG When compared with ECG of 05-APR-2019 08:26, Vent. rate has decreased BY 36 BPM Confirmed by Hima Khalil ([id number]) on 02/02/2020 5:38:04 PM Referred By: REFERRED SELF Confirmed By:Thony Khalil
[2020-02-02] MEDS: FAMOTIDINE 40 MG TABLET PO SCH (21:33)
[2020-02-02] MEDS: QUINIDINE GLUCONATE 324 MG PO SCH (21:34)
[2020-02-02] MEDS: oxyCODONE/ACETAMINOPHEN 5mg/325mg TAB PO PRN (21:48)
[2020-02-03] MEDS: oxyCODONE/ACETAMINOPHEN 5mg/325mg TAB PO PRN (03:13)
[2020-02-03] MEDS: LEVALBUTEROL HCL 1.25 MG/3 ML NEB NEB SCH ×4 (07:18→19:15)
[2020-02-03] MEDS: FLUTICASONE/VILANTEROL 200/25MCG 14 PUFFS/INHALER INH SCH (08:28)
[2020-02-03] MEDS: levETIRAcetam 500 MG TAB PO SCH ×2 (08:29→20:51)
[2020-02-03] MEDS: TAMSULOSIN HCL 0.4 MG CAP PO SCH (08:29)
[2020-02-03] MEDS: PANTOprazole 40 MG TAB PO SCH (08:29)
[2020-02-03] MEDS: QUINIDINE GLUCONATE 324 MG PO SCH ×2 (08:29→20:51)
[2020-02-03] MEDS: predniSONE 5 MG TAB PO SCH (08:29)
--- NOTE | 2020-02-03 08:31 | Surgery Progress Note ---
Date of Service February 03, 2020 Assessment & Plan (1) Incarcerated umbilical hernia: POD 1 repair umbilical hernia INR pending, dispo per medicine remove bandage Thursday after shower f/u in approx 10 days [facility] surgery covering the weekend if there are any concerns Admission and Anticipated Discharge Date Admission Date: February 01, 2020 Supervising Physician Co-Signing Physician Notes Patient seen and examined, agree with above. POD #1 incarcerated umbilical hernia repair with mesh for small bowel obstruction. Doing well this morning, little soreness umbilicus but controlled with meds. Passing gas and having bowel movements and tolerating his diet. Incision healing well, no evidence of infection. Abdomen soft, appropriately tender to palpation. Diet as tolerated, okay to discharge to home from general surgery standpoint. Need to continue anticoagulation. Follow-up in 2 weeks in the general surgery clinic. Wound car e instructions and activity restrictions reviewed. Subjective little soreness from surgery, no nausea Physical Exam Gastrointestinal (Abdomen): Inspection/Auscultation: + abdominal surgical incision (dressing clean/dry); abdomen not distended Percussion/Palpation: abdomen soft Results & Data ([facility]) Vital Signs (Past 12 Hours) Vital Signs Temp Pulse Resp BP Pulse Ox 02/03/20 07:36 36.4 C L 61 18 130/78 97 02/03/20 07:20 72 18 98 02/03/20 04:28 36.5 C 61 16 114/63 98 02/02/20 23:56 36.7 C 69 16 116/78 98 PG Care Time/CCT Total # of Minutes Spent Total Time Spent with Patient: Total time spent is greater than 50% in coordination of care (as documented) at patient's floor/unit and/or counseling patient: Coding Level of Care Code None Diagnoses Incarcerated umbilical hernia K42.0
--- NOTE | 2020-02-03 19:41 | Hospitalist Progress Note ---
Date of Service February 03, 2020 Assessment & Plan (1) Incarcerated umbilical hernia: 69yo AA male presenting with days of nausea, post-prandial vomiting and abdominal pain. Found to have a small bowel obstruction secondary to an incarcerated umbilical hernia. Patient with small bowel mesenteric edema. No pneumatosis and no portal venous gas. General Surgery was consulted and performed open umbilical hernia repair with mesh on 02/02/2020 -Pre-operative Covid-19 testing negative -Patient on chronic Coumadin therapy for history of unprovoked DVT/PE. INR =1.3 in the a.m. of 02/01. He was given 5mg Vitamin K in the ER 01/31. Will resume once postoperative Patient with history of UIP/PF on home O2 1L at baseline. He may increase to 2 or 3L as needed with exertion. Echocardiogram 05/12/19: Normal LV size and function with EF of 55-60%, no regional WMA. Borderline dilated RV with normal RV function. 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 He follows regularly with Pulmonary at [facility]. He is doing well on home O2, 1L up to 3L as needed. No cough, wheeze or worsening SOB. -Continue Prednisone 5mg po daily -Hold Cell Cept for now, may resume postoperatively will target 02/02 -Continue supplemental O2 -Continue Symbicort -Continue Xopenex -Continue Tessalon as needed for cough -Albuterol nebs q 2 hours PRN -Duonebs q 4 hours PRN (3) Polymyositis: Chronic. Stable -Continue Prednisone -Hold Cell Cept for now - quinidine which patient takes for leg cramps (4) Epilepsy: Chronic. Stable. No recent seizure -Continue Keppra 100mg po BID (5) History of DVT (deep vein thrombosis): Patient had an unprovoked DVT appx 15 years ago. -Vitamin K given in ER -We will institute Coumadin (6) Prostatic hypertrophy: Chronic -Continue Flomax Ppx - SCDs, continue home Protonix Code - Full per discussion with patient Admission and Anticipated Discharge Date Admission Date: February 01, 2020 Subjective Patient feels some tenderness in the periumbilical region after surgery otherwise he is having no complaints or problems did have some flatus she is tolerating oral intake is not any more short of breath than his baseline Review of Systems Review of Systems: Mild distress and fatigue no headache, blurry or double vision no speech or swallowing issues no chest pain, pressure or palpitations Patient has baseline shortness of breath Periumbilical abdominal pain without nausea or vomiting no dysuria, hematuria or frequency no focal joint pain or swelling no back pain, CVA tenderness or radicular pain no bruising, bleeding or rashes no focal signs of weakness or numbness or altered sensation no complaints of anxiety or depression. Physical Exam Physical Exam: The patient appeared well nourished and normally developed. Vital signs as documented. Head exam is normocephalic atraumatic no scleral icterus Neck is without JVD, thyromegaly, or carotid bruits. Lungs are baseline bibasilar rales no wheezes or focal air loss Cardiac exam, Rhythm is regular.. No murmurs, rubs or gallops. Abdominal exam reveals hypoactive bowel sounds soft minor tenderness Extremities are nonedematous and both pedal pulses are present Neurologic exam is alert and oriented, no focal loss of strength or sensation Skin is without bruises or rashes Psychologically is without concerns for anxiety or depression. Results & Data Results & Data ([facility]) Vital Signs (Past 12 Hours) Vital Signs Temp Pulse Resp BP Pulse Ox 02/03/20 19:18 82 18 94 02/03/20 16:14 98.2 F 78 18 116/63 97 02/03/20 15:22 79 18 96 02/03/20 11:25 66 18 98 PG Care Time/CCT Total # of Minutes Spent Total Time Spent with Patient: Total time spent is greater than 50% in coordination of care (as documented) at patient's floor/unit and/or counseling patient: Coding Level of Care Code 28522 Subseq Hosp Care Lvl 2 Diagnoses Incarcerated umbilical hernia K42.0 UIP (usual interstitial pneumonitis) J84.112 Polymyositis M33.20 Epilepsy G40.909 Epilepsy type: unspecified Intractability: not intractable Status epilepticus: without status epilepticus History of DVT (deep vein thrombosis) Z86.718 Prostatic hypertrophy N40.0 (1) Epilepsy Epilepsy type: unspecified Intractability: not intractable Status epilepticus: without status epilepticus Qualified Code(s): G40.909 - Epilepsy, unspecified, not intractable, without status epilepticus
[2020-02-03] MEDS: FAMOTIDINE 40 MG TABLET PO SCH (20:51)
[2020-02-04] MEDS: oxyCODONE/ACETAMINOPHEN 5mg/325mg TAB PO PRN
[2020-02-04] MEDS: LEVALBUTEROL HCL 1.25 MG/3 ML NEB NEB SCH ×3 (07:01→15:19)
[2020-02-04 08:16] LABS: INR 1.2 (0.9-1.1); Prothrombin Time 12.2 Seconds (9.0-12.0)
[2020-02-04] MEDS: QUINIDINE GLUCONATE 324 MG PO SCH (08:49)
[2020-02-04] MEDS: FLUTICASONE/VILANTEROL 200/25MCG 14 PUFFS/INHALER INH SCH (08:49)
[2020-02-04] MEDS: TAMSULOSIN HCL 0.4 MG CAP PO SCH (08:49)
[2020-02-04] MEDS: levETIRAcetam 500 MG TAB PO SCH (08:49)
[2020-02-04] MEDS: predniSONE 5 MG TAB PO SCH (08:49)
[2020-02-04] MEDS: PANTOprazole 40 MG TAB PO SCH (08:50)
[2020-02-04] MEDS ORDERED: WARFARIN SOD 5 MG TAB PO SCH (16:00)
--- NOTE | 2020-02-04 17:14 | Discharge Summary ---
Date of Service February 04, 2020 Admission HPI Per Admitting Provider Mr. Tirado is a pleasant 69yo AA male with history of UIP/PF, 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 therapy, Polymyositis and Epilepsy. He presents to [facility] today with complaint of nausea, post-prandial vomiting ongoing for the last 5 days. Patient unable to tolerate PO intake. Also with decreased BM, mid-abdominal pain and protruding umbilical hernia with firmness. No additional complaints at this time - patient denies CP/palpita tions/fevers/chills/dysuria. No exposure to Covid-19. He has history of PF/UIP - follows with Pulmonary at [facility]. He is on 1L O2 by [place]. Reports that his respiratory status is stable with no increased SOB. He does have occasional coughing spells, especially after laughing. ER Course: Benadryl, Solumedrol, Morphine, Zofran , NSS Principal Diagnosis Umbilical hernia status post repair Discharge Exam The patient appeared well nourished and normally developed. Vital signs as documented. Head exam is normocephalic atraumatic no scleral icterus Neck is without JVD, thyromegaly, or carotid bruits. Lungs are clear to auscultation, no focal loss of breath sounds Cardiac exam, Rhythm is regular.. No murmurs, rubs or gallops. Abdominal exam reveals normal bowel sounds, soft helical hernia repair slightly tender but external wound looks clean dry and intact there is no drainage or discharge Extremities are nonedematous and both pedal pulses are present Neurologic exam is alert and oriented, no focal loss of strength or sensation Skin is without bruises or rashes Psychologically is without concerns for anxiety or depression. Discharge Data Allergies Allergy/AdvReac Type Severity Reaction Status Date / Time Iodinated Contrast Media Allergy Intermediate Unknown Verified 02/01/20 18:29 iodine Allergy Mild Unknown Verified 02/01/20 18:29 Quinolones Allergy Mild Unknown Verified 02/01/20 18:29 house dust Allergy Unknown Allergy Verified 02/01/20 18:29 symptoms mold Allergy Unknown SEASONAL Verified 02/01/20 18:23 ALLERGIES ofloxacin Allergy Unknown Unknown Verified 02/01/20 18:29 Penicillins Allergy Unknown Unknown Verified 02/01/20 18:29 phenytoin Allergy Unknown MYOPATHY Verified 02/01/20 18:23 pollen extracts Allergy Unknown SEASONAL Verified 02/01/20 18:23 ALLERGIES fentanyl AdvReac Mild Unknown Verified 02/01/20 18:29 Consultations 02/01/20 17:36 Consult General Surgery Stat 02/01/20 19:34 ED Decision to Admit Stat Procedures Performed Operation Date: 02/02/20 08:20 Actual Procedures p Open Umbilical Hernia Repair with Mesh(Not Applicable) - Amado Velazquez, DO, FACS Ordered Studies 02/01/20 15:28 CT abd pelvis IV con only Stat Hospital Course (1) Incarcerated umbilical hernia: 69yo AA male presenting with days of nausea, post-prandial vomiting and abdominal pain. Found to have a small bowel obstruction secondary to an incarcerated umbilical hernia. Patient with small bowel mesenteric edema. No pneumatosis and no portal venous gas. General Surgery was consulted and performed open umbilical hernia repair with mesh on 02/02/2020 -Pre-operative Covid-19 testing negative -Patient on chronic Coumadin therapy for history of unprovoked DVT/PE. INR =1.3 in the a.m. of 02/01. He was given 5mg Vitamin K in the ER 01/31. Will resume once postoperative Patient with history of UIP/PF on home O2 1L at baseline. He may increase to 2 or 3L as needed with exertion. Echocardiogram 05/12/19: Normal LV size and function with EF of 55-60%, no regional WMA. Borderline dilated RV with normal RV function. 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 He follows regularly with Pulmonary at [facility]. Patient remains stable he is doing well on home O2, 1L up to 3L as needed. No cough, wheeze or worsening SOB. -Continue Prednisone 5mg po daily -Resume cell Cept -Continue supplemental O2 -Continue Symbicort -Continue Xopenex -Continue Tessalon as needed for cough -Albuterol nebs q 2 hours PRN -Duonebs q 4 hours PRN (3) Polymyositis: Chronic. Stable -Continue Prednisone -Resume cell Cept for now - quinidine which patient takes for leg cramps (4) Epilepsy: Chronic. Stable. No recent seizure -Continue Keppra 100mg po BID (5) History of DVT (deep vein thrombosis): Patient had an unprovoked DVT appx 15 years ago. -Vitamin K given in ER -We will institute Coumadin patient was informed that this may take a few days to come up from being reversed with Coumadin he is understanding (6) Prostatic hypertrophy: Chronic -Continue Flomax Total Time Total Time Spent Total Time Spent (In Minutes): It required greater than 30 minutes to prepare this patient for discharge Discharge Plan Discharge Items Patient Disposition: Home - Self-Care Reason For Visit: SBO, INCARCERATED HERNIA, TO OR IN AM Discharge Diagnosis: umbilical hernia repair Activity: Per Instructions section Lifting: No more than 10 pounds Bathing Comment: may shower; no soaking in tubs/pools Exercise/Sports: Wait until after follow-up appointment Non-emergency contact: Primary Care Provider and Surgeon Call non-emergency contact if: you have any medication questions, your symptoms worsen, your pain is not controlled, your pain is worsening, you have a fever, your temperature is above 101.5, your wound has increased redness, your wound has increased drainage and your wound pain has increased Follow-up/Referrals: Amado Velazquez DO, EAN [Physician] - (Please call to schedule follow up in clinic within 1-2 weeks) Yusuf Villalobos MD [Primary Care Provider] - Diet: Regular Addtl Attending Provider Instructions: Shower over the bandage until Thursday, then remove bandage after shower, you can re-cover as needed for comfort or drainage if you do not have a bowel movement by thursday consider a gentle laxative, prune juice, senna or miralax Pending Studies at Discharge: No Stand-Alone Forms: My [employer], Smoking Cessation Medications and DC Order Prescriptions: New oxycodone-acetaminophen [Percocet] 5-325 mg tablet 1 - 2 tab PO Q4H PRN (Reason: pain, initial therapy, max 6 daily) Qty: 12 RF: 0 docusate sodium [Colace] 100 mg capsule 100 mg PO BID Qty: 30 RF: 0 Continued prednisone 5 mg tablet 5 mg PO QAM RF: 0 benzonatate 100 mg capsule 100 mg PO TID PRN (Reason: Cough) RF: 0 potassium chloride 20 mEq tablet extended release 20 meq PO BID RF: 0 warfarin 5 mg tablet See Rx Instructions .ROUTE .COMPLEX RF: 0 pantoprazole [Protonix] 40 mg Tablet,Delayed Release (Dr/Ec) 40 mg PO QAM Qty: 0 RF: 0 budesonide-formoterol [Symbicort] 160-4.5 mcg/actuation Hfa Aerosol Inhaler 2 puff Inhalation BID Qty: 0 RF: 0 famotidine [Pepcid] 40 mg Tablet 40 mg PO HS Qty: 0 RF: 0 acetaminophen 500 mg Tablet 500 mg PO Q4H PRN (Reason: Headache) Qty: 0 RF: 0 tamsulosin [Flomax] 0.4 mg Capsule 0.4 mg PO QAM Qty: 0 RF: 0 levetiracetam [Keppra] 500 mg Tablet 1,000 mg PO BID Qty: 0 RF: 0 mycophenolate mofetil [CellCept] 500 mg Tablet 1,000 mg PO BID Qty: 0 RF: 0 quinidine gluconate 324 mg Tablet Extended Release 324 mg PO BID Qty: 0 RF: 0 levalbuterol HCl [Xopenex] 1.25 mg/3 mL Solution For Nebulization 1 vial NEB QID Qty: 0 RF: 0 albuterol sulfate [Proventil HFA] 90 mcg/actuation Hfa Aerosol Inhaler 2 puff Inhalation Q4H PRN (Reason: Shortness Of Breath Or Wheezing) Qty: 0 RF: 0 cholecalciferol (vitamin D3) [Vitamin D3] 5,000 unit Tablet 5,000 mg PO QAM Qty: 0 RF: 0 clindamycin HCl 150 mg capsule See Rx Instructions .ROUTE .COMPLEX PRN (Reason: Dental Procedures) RF: 0 Discharge Orders: Discharge Order (Routine); Ordered 02/04/20 Ordered By: Nader Hudson Admission Data Admit Date/Time: 02/01/20 20:10 Attending Provider: Nader Hudson Admit Provider: Clementine Cleary Primary Care Provider: Yusuf Villalobos Other Providers: Solo Christiansen ; Clementine Cleary ; [facility] Other Interventions: Discharge Summary Assessment (RN) Last Done: 02/04/20 13:14 Coding Level of Care Code D/C Day Management >30 mins Diagnoses Incarcerated umbilical hernia K42.0 UIP (usual interstitial pneumonitis) J84.112 Polymyositis M33.20 Epilepsy G40.909 Epilepsy type: unspecified Intractability: not intractable Status epilepticus: without status epilepticus History of DVT (deep vein thrombosis) Z86.718 Prostatic hypertrophy N40.0
[2020-02-05] MEDS ORDERED: WARFARIN SOD 2.5 MG TAB PO SCH (16:00)
[2020-02-06] MEDS ORDERED: INFLUENZA ADMINISTRATION CHARGE ONE (09:00)
[2020-02-06] MEDS ORDERED: INFLUENZA VACCINE HIGH DOSE 65+ 0.5 ML SYR IM ONE (09:00)
== END 2020-02-04 15:39 | disposition home health service (06) | DRG 354 ==
LOC: ED 14:53 → SUATTDRO 20:10 → 3N 20:10

== ENCOUNTER 2021-04-05 12:08 | Inpatient (IN) ==
[2021-04-05] MEDS ORDERED: SODIUM CHLORIDE 0.9% 1000ML 1,000 ML IV ONE (12:17)
--- NOTE | 2021-04-05 12:22 | Emergency Department Note ---
Impression & Plan Hypoxia, Viral URI, Cough ED Provider Note NAME: JONELLE RAMACHANDRAN JR AGE: 70 SEX: M : 1950 ARRIVES VIA: Ambulance INFORMANT: Patient ED PROVIDER(S): Ramon Gomez DO CHIEF COMPLAINT: Weak HPI: Patient is a 70-year-old male who presents the ER for not feeling well which started this past Thursday. He notes it started initially with a little bit of a sore throat but that has now resolved. He felt weak and rundown. He did have some nausea but he does not have that anymore. He also had a mild headache but that has abated. He was at his PCPs office and they found him to be hypoxic in the low *0s on 1LNC. 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 EMS was called and he was placed on 6 L and transferred over. He denies any new chest pain but admits to shortness of breath. He does have a cough but does not think that this is much changed. No dysuria urgency or frequency. No other exacerbating or remitting factors. ROS: See above HPI for pertinent positives & negatives. A total of 10 systems reviewed and were otherwise negative. PAST MEDICAL HISTORY:See Below PAST SURGICAL HISTORY:See Below FAMILY HISTORY:See Below SOCIAL HISTORY:See Below HOME MEDICATIONS:See Below ALLERGIES:See Below VITALS:See Below PHYSICAL EXAMINATION: GENERAL: Sitting up in bed, alert, chronically ill-appearing, disheveled, on nasal cannula EYE EXAM: normal conjunctiva. PERRL and EOM's grossly intact. OROPHARYNX: no exudate, no erythema, lips, buccal mucosa, and tongue normal and mucous membranes are moist NECK: supple, no nuchal rigidity, no adenopathy, non-tender LUNGS: Rhonchi bilateral. Normal chest wall mechanics HEART: no murmurs, S1 normal and S2 normal ABDOMEN: abdomen soft, non-tender, normo-active bowel sounds, no masses, no re bound or guarding. UPPER EXTREMITIES: upper extremities are grossly normal. LOWER EXTREMITIES: No pitting edema. Calves are equal bilateral NEURO EXAM: Normal sensorium, cranial nerves II-XII grossly intact, normal speech, no gross weakness of arms, no weakness of legs. MEDICAL DECISION MAKING: Patient is a 70-year-old gentleman brought in by the PCPs office found to be hypoxic over there. Chronically wears 1 L and was found to be in the low 80s. Brought in by EMS on 6 L. IV was established blood work was obtained. Chronically on Coumadin and consequently PE was not explored any further. Labs show no significant leukocytosis or anemia. INR was therapeutic at 2. BMP with creatinine 1.5. LFTs troponin were unremarkable. Pro-Dennis slightly elevated. C ovid influenza and RSV were negative. Chest x-ray was clean. Patient was given steroids and neb treatments. He was updated bedside discussed with hospitalist for further evaluation. He did have new ST wave changes in the high lateral leads Triage Nursing notes reviewed. Limited review of prior medical records performed Vital Signs: reviewed and remarkable for no significant abnormalities Differential diagnosis: Differential diagnoses includes but is not limited to pneumonia, bronchitis, COPD/Asthma exacerbation, pneumothorax, pulmonary embolism, congestive heart failure, acute coronary syndrome ER treatment provided: See below Diagnostics interpreted by me: ECG: Sinus tachycardia rate of 111 Left axis No PVCs ST depressions in the high lateral leads ST wave changes are new from old Cardiac Monitoring: An order was placed for continuous cardiac monitoring. The monitor shows a rate of 102 with sinus rhythm. Laboratory studies: As stated above and show below. 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) Demyelinating disease of central nervous system (06/04/11) Epilepsy History of DVT (deep vein thrombosis) 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 retirement (current) use of anticoagulants 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) Prostatic hypertrophy UIP (usual interstitial pneumonitis) Surgical History History of bilateral hip replacements History of umbilical hernia repair (02/02/20) Open Umbilical Hernia Repair with Mesh(Not Applicable) - Amado Velazquez DO, FACS 02/02/20 Family History Father Cancer Mother Cancer Social History Smoking Status: Former smoker Tobacco Type: Cigarettes Second Hand Exposure: Yes (as a child); Hx Alcohol Use: Yes Alcohol type: wine Alcohol Intake Frequency: Monthly or Less Hx Substance Use: No Preferred Language: [place] Communication Ability: Effective Research Physician Required: No Beliefs That Will Affect Care: None marital status: Current Living Situation: Spouse current occupational status: retired Feels Safe at Home: Yes Assistive Devices: Glasses Allergies Allergies Allergy/AdvReac Type Severity Reaction Status Date / Time Iodinated Contrast Media Allergy Intermediate Unknown Verified 04/05/21 13:37 iodine Allergy Mild Unknown Verified 04/05/21 13:37 Quinolones Allergy Mild Unknown Verified 04/05/21 13:37 house dust Allergy Unknown Allergy Verified 04/05/21 13:37 symptoms mold Allergy Unknown SEASONAL Verified 04/05/21 13:37 ALLERGIES ofloxacin Allergy Unknown Unknown Verified 04/05/21 13:37 Penicillins Allergy Unknown Unknown Verified 04/05/21 13:37 phenytoin Allergy Unknown MYOPATHY Verified 04/05/21 13:37 pollen extracts Allergy Unknown SEASONAL Verified 04/05/21 13:37 ALLERGIES dextromethorphan AdvReac Mild felt weird Verified 04/05/21 13:37 [[facility] [place] fentanyl AdvReac Mild Unknown Verified 04/05/21 13:37 Home Meds Home Medications Medication Instructions Recorded Confirmed pantoprazole 40 mg tablet,delayed 40 mg PO QAM #0 03/05/09 04/05/21 release (Protonix) budesonide-formoterol HFA 160 2 puff INHALATION BID #0 10/18/09 04/05/21 mcg-4.5 mcg/actuation aerosol inhaler (Symbicort) famotidine 40 mg tablet (Pepcid) 40 mg PO HS #0 tab 08/24/12 04/05/21 tamsulosin 0.4 mg capsule (Flomax) 0.4 mg PO QAM #0 cap 03/30/16 04/05/21 albuterol sulfate 90 mcg/actuation 2 puff INHALATION Q4H PRN #0 03/11/17 04/05/21 aerosol inhaler (Proventil HFA) levalbuterol HCl 1.25 mg/3 mL 1 vial NEB QID PRN #0 03/11/17 04/05/21 solution for nebulization (Xopenex) levetiracetam 500 mg tablet 1,000 mg PO BID #0 tab 03/11/17 04/05/21 (Keppra) mycophenolate mofetil 500 mg 1,000 mg PO BID #0 tab 03/11/17 04/05/21 tablet (CellCept) quinidine gluconate 324 mg 324 mg PO BID #0 03/11/17 04/05/21 tablet,extended release atorvastatin 10 mg tablet 10 mg PO HS 11/20/20 04/05/21 ergocalciferol (vitamin D2) 50 mcg 2,000 unit PO 2XWK tab 12/07/20 04/05/21 (2,000 unit) tablet prednisone 5 mg tablet 5 mg PO QAM tab 01/04/21 04/05/21 warfarin 5 mg tablet See Rx Instructions PO UD tab 03/04/21 04/05/21 fluoride (sodium) 1.1 % dental 1 applic DENTAL HS 04/05/21 04/05/21 paste Results & Data (ED) Vital Signs Vital Signs - 24 hr 04/05/21 12:24 04/05/21 13:52 04/05/21 18:15 Temperature 37.7 C H 37.8 C H 36.8 C Temperature Source Oral Oral Oral Pulse Rate 108 H Pulse Rate [Finger] 104 H 90 Pulse Rhythm [Finger] Regular Respiratory Rate 18 22 20 Respiratory Effort / Characteristics Non-Labored Respiratory Depth Normal Respiratory Pattern Regular Blood Pressure 157/89 H Blood Pressure [Right Arm] 147/77 H 128/77 Blood Pressure Mean 111 Blood Pressure Mean [Right Arm] 100 94 Pulse Oximetry 95 97 95 Oxygen Delivery Method Nasal Cannula Nasal Cannula Nasal Cannula Oxygen Flow Rate 3 2.5 3 Sepsis Recent Fever Within 48 Hours Yes Sepsis New/Unexplained Change in Mental Status No Sepsis Action Taken by Nursing No Action Required Laboratory Data Result diagrams: 04/05/21 Unknown 04/05/21 Unknown Lab Results 04/05/21 04/05/21 04/05/21 Range/Units 12:20 15:27 Unknown WBC 7.91 (4.8-10.8) K/uL RBC 4.21 L (4.7-6.1) M/uL Hgb 12.6 L (14.0-18.0) g/dL Hct 39.1 L (42-52) % MCV 92.9 (80-100) fL MCH 29.9 (25-34) pg MCHC 32.2 (32-36) g/dL RDW Std Deviation 49.0 H (36.4-46.3) fL RDW Coeff of Kim 14.5 (11.5-14.5) % Plt Count 186 (130-400) K/uL MPV 10.2 (7.4-10.4) fL Immature Gran % (Auto) 0.1 % Neut % (Auto) 73.6 % Lymph % (Auto) 17.8 % [place] % (Auto) 7.5 % Eos % (Auto) 0.9 % Baso % (Auto) 0.1 % Neut # (Auto) 5.82 (1.4-6.5) K/uL Lymph # (Auto) 1.41 (1.2-3.4) K/uL [place] # (Auto) 0.59 (0.11-0.59) K/uL Eos # (Auto) 0.07 (0-0.5) K/uL Baso # (Auto) 0.01 (0-0.2) K/uL Immature Gran # (Auto) 0.01 (0.00-0.02) K/uL PT (9.0-12.0) Seconds INR (0.9-1.1) Sodium (136-145) mmol/L Potassium (3.5-5.1) mmol/L Chloride (98-107) mmol/L Carbon Dioxide (21-32) mmol/L Anion Gap (3-11) BUN (7-18) mg/dl Creatinine (0.6-1.4) mg/dl Est Cr Clr Drug Dosing ml/min Est GFR ( Amer) ml/min Est GFR (Non-Af Amer) ml/min BUN/Creatinine Ratio (10-20) Glucose (70-99) mg/dl Calcium (8.5-10.1) mg/dl Total Bilirubin (0.2-1) mg/dl AST (15-37) U/L ALT (12-78) Alkaline Phosphatase (45-117) U/L Troponin I (0-0.045) ng/ml Total Protein (6.4-8.2) gm/dl Albumin (3.4-5.0) gm/dl Globulin (2.5-4.0) gm/dl Albumin/Globulin Ratio (0.9-2) Lipase (73-393) U/L Procalcitonin 1.09 H (0-0.5) ng/ml SARS-CoV-2 (PCR) NEGATIVE (Negative) Influenza Type A (PCR) Negative (Neg) Influenza Type B (PCR) Negative (Neg) RSV (RT-PCR) Negative (Neg) 04/05/21 04/05/21 Range/Units Unknown Unknown WBC (4.8-10.8) K/uL RBC (4.7-6.1) M/uL Hgb (14.0-18.0) g/dL Hct (42-52) % MCV (80-100) fL MCH (25-34) pg MCHC (32-36) g/dL RDW Std Deviation (36.4-46.3) fL RDW Coeff of Kim (11.5-14.5) % Plt Count (130-400) K/uL MPV (7.4-10.4) fL Immature Gran % (Auto) % Neut % (Auto) % Lymph % (Auto) % [place] % (Auto) % Eos % (Auto) % Baso % (Auto) % Neut # (Auto) (1.4-6.5) K/uL Lymph # (Auto) (1.2-3.4) K/uL [place] # (Auto) (0.11-0.59) K/uL Eos # (Auto) (0-0.5) K/uL Baso # (Auto) (0-0.2) K/uL Immature Gran # (Auto) (0.00-0.02) K/uL PT 19.5 H (9.0-12.0) Seconds INR 2.0 H (0.9-1.1) Sodium 141 (136-145) mmol/L Potassium 3.8 (3.5-5.1) mmol/L Chloride 109 H (98-107) mmol/L Carbon Dioxide 24 (21-32) mmol/L Anion Gap 8.0 (3-11) BUN 19 H (7-18) mg/dl Creatinine 1.51 H (0.6-1.4) mg/dl Est Cr Clr Drug Dosing 48.5 ml/min Est GFR ( Amer) 52.7 ml/min Est GFR (Non-Af Amer) 45.5 ml/min BUN/Creatinine Ratio 12.6 (10-20) Glucose 90 (70-99) mg/dl Calcium 8.9 (8.5-10.1) mg/dl Total Bilirubin 0.6 (0.2-1) mg/dl AST 24 (15-37) U/L ALT 14 (12-78) Alkaline Phosphatase 94 (45-117) U/L Troponin I < 0.015 (0-0.045) ng/ml Total Protein 7.4 (6.4-8.2) gm/dl Albumin 3.6 (3.4-5.0) gm/dl Globulin 3.7 (2.5-4.0) gm/dl Albumin/Globulin Ratio 1.0 (0.9-2) Lipase 163 (73-393) U/L Procalcitonin (0-0.5) ng/ml SARS-CoV-2 (PCR) (Negative) Influenza Type A (PCR) (Neg) Influenza Type B (PCR) (Neg) RSV (RT-PCR) (Neg) Administered Medications Discontinued Medications Albuterol (Albuterol 0.083% Nebu Soln 3 Ml Vial) 5 mg NEB NOW STA Stop: 04/05/21 14:27 Last Admin: 04/05/21 14:43 Dose: 5 mg Documented by: [id number] Sodium Chloride (Nss 1000ml) 1,000 mls @ 999 mls/hr IV .Q1H1M ONE Stop: 04/05/21 13:17 Last Infusion: 04/05/21 13:55 Dose: 0 mls/hr Documented by: [id number] Admin: 04/05/21 12:46 Dose: 999 mls/hr Documented by: [id number] Methylprednisolone (Methylprednisolone 125 Mg/2 Ml Vial) 60 mg IV NOW STA Stop: 04/05/21 14:27 Last Admin: 04/05/21 14:35 Dose: 60 mg Documented by: [id number] Imaging Data Radiologist's Impression: Chest X-Ray 04/05/21 12:17 XR chest 1V portable HISTORY: 70 years-old Male Chest Pain acute atypical chest pain COMPARISON: Chest CT 11/26/2020 TECHNIQUE: Portable AP view of the chest FINDINGS: The cardiac silhouette is enlarged. No pneumothorax or large pleural effusion. Extensive bilateral reticular opacities are redemonstrated in a mid to lower lung zone prominent distribution. There is no significant change compared to prior. No new airspace consolidation. Degenerative changes of the shoulders and spine. IMPRESSION: 1. Chronic interstitial lung disease without acute process. 2. Cardiomegaly. ACT 112: Negative or not required by law. The above report was generated using voice recognition software. It may contain grammatical, syntax or spelling errors. Electronically signed by: Sam Gottlieb M.D. 04/05/2021 1:10 PM Discharge Plan Visit Data Chief Complaint: Shortness of Breath/Dyspnea ED Provider: Ramon Gomez Discharge Problem: Hypoxia, Viral URI, Cough Forms Stand Alone Forms: [facility] [place] VIAP Prescriptions Prescriptions: No Action prednisone 5 mg tablet 5 mg PO QAM RF: 0 warfarin 5 mg tablet See Rx Instructions PO UD RF: 0 ergocalciferol (vitamin D2) 50 mcg (2,000 unit) tablet 2,000 unit PO 2XWK RF: 0 pantoprazole [Protonix] 40 mg Tablet,Delayed Release (Dr/Ec) 40 mg PO QAM Qty: 0 RF: 0 budesonide-formoterol [Symbicort] 160-4.5 mcg/actuation Hfa Aerosol Inhaler 2 puff Inhalation BID Qty: 0 RF: 0 famotidine [Pepcid] 40 mg Tablet 40 mg PO HS Qty: 0 RF: 0 tamsulosin [Flomax] 0.4 mg Capsule 0.4 mg PO QAM Qty: 0 RF: 0 levetiracetam [Keppra] 500 mg Tablet 1,000 mg PO BID Qty: 0 RF: 0 mycophenolate mofetil [CellCept] 500 mg Tablet 1,000 mg PO BID Qty: 0 RF: 0 quinidine gluconate 324 mg Tablet Extended Release 324 mg PO BID Qty: 0 RF: 0 levalbuterol HCl [Xopenex] 1.25 mg/3 mL Solution For Nebulization 1 vial NEB QID PRN (Reason: Shortness Of Breath Or Wheezing) Qty: 0 RF: 0 albuterol sulfate [Proventil HFA] 90 mcg/actuation Hfa Aerosol Inhaler 2 puff Inhalation Q4H PRN (Reason: Shortness Of Breath Or Wheezing) Qty: 0 RF: 0 atorvastatin 10 mg tablet 10 mg PO HS RF: 0 fluoride (sodium) 1.1 % paste 1 applic dental HS RF: 0 Referrals Referrals: Yusuf Villalobos MD [Primary Care Provider] -
[2021-04-05 12:58] LABS: Basophils # (auto) 0.01 K/uL (0-0.2); Basophils % (auto) 0.1 %; Eosinophils # (auto) 0.07 K/uL (0-0.5); Eosinophils % (auto) 0.9 %; Hematocrit (blood only) 39.1 % (42-52); Hemoglobin 12.6 g/dL (14.0-18.0); Immature Granulocytes # (auto) 0.01 K/uL (0.00-0.02); Immature Granulocytes % (auto) 0.1 %; Lymphocytes # (auto) 1.41 K/uL (1.2-3.4); Lymphocytes % (auto) 17.8 %; Mean Corpuscular Hemoglobin 29.9 pg (25-34); Mean Corpuscular Hgb Conc 32.2 g/dL (32-36); Mean Corpuscular Volume 92.9 fL (80-100); Mean Platelet Volume 10.2 fL (7.4-10.4); Monocytes # (auto) 0.59 K/uL (0.11-0.59); Monocytes % (auto) 7.5 %; Neutrophils # (auto) 5.82 K/uL (1.4-6.5); Neutrophils % (auto) 73.6 %; Platelet Count 186 K/uL (130-400); RDW Coefficient of Variation 14.5 % (11.5-14.5); Red Blood Count 4.21 M/uL (4.7-6.1); White Blood Count 7.91 K/uL (4.8-10.8)
[2021-04-05 13:09] LABS: Prothrombin Time 19.5 Seconds (9.0-12.0)
--- NOTE | 2021-04-05 13:12 | XRay Report ---
XR chest 1V portable HISTORY: 70 years-old Male Chest Pain acute atypical chest pain COMPARISON: Chest CT 11/26/2020 TECHNIQUE: Portable AP view of the chest FINDINGS: The cardiac silhouette is enlarged. No pneumothorax or large pleural effusion. Extensive bilateral re ticular opacities are redemonstrated in a mid to lower lung zone prominent distribution. There is no significant change compared to prior. No new airspace consolidation. Degenerative changes of the shou lders and spine. IMPRESSION: 1. Chronic interstitial lung disease without acute process. 2. Cardiomegaly. ACT 112: Negative or not required by law. The above report was generated using voice recognition software. It may contain grammatical, syntax o r spelling errors. Electronically signed by: Sam Gottlieb M.D. 04/05/2021 1:10 PM
[2021-04-05 13:18] LABS: Alanine Aminotransferase 14 (12-78); Albumin Level 3.6 gm/dl (3.4-5.0); Aspartate Aminotransferase 24 U/L (15-37); BUN Creatinine Ratio 12.6 (10-20); Blood Urea Nitrogen 19 mg/dl (7-18); Calcium 8.9 mg/dl (8.5-10.1); Carbon Dioxide 24 mmol/L (21-32); Chloride 109 mmol/L (98-107); Creatinine Clr Calc Pharmacy 48.5 ml/min; Est GFR (African American) 52.7 ml/min; Est GFR (Non-African American) 45.5 ml/min; Glucose 90 mg/dl (70-99); Lipase 163 U/L (73-393); Potassium 3.8 mmol/L (3.5-5.1); Sodium 141 mmol/L (136-145)
[2021-04-05 13:22] LABS: Alkaline Phosphatase 94 U/L (45-117); Bilirubin,Total 0.6 mg/dl (0.2-1); Globulin 3.7 gm/dl (2.5-4.0); Total Protein 7.4 gm/dl (6.4-8.2); Troponin I < 0.015 ng/ml (0-0.045)
[2021-04-05 13:38] LABS: Influenza A virus by PCR Negative (Neg); Influenza B virus by PCR Negative (Neg); RSV by PCR Negative (Neg); SARS CoV2 RNA(COVID-19) InHosp NEGATIVE (Negative)
[2021-04-05] MEDS ORDERED: methylPREDNISolone 125 MG/2 ML VIAL IV STA (14:26)
[2021-04-05] MEDS ORDERED: ALBUTEROL 0.083% NEBU SOLN 3 ML VIAL NEB STA (14:26)
--- NOTE | 2021-04-05 15:20 | Electrocardiogram Report ---
Test Reason : Blood Pressure : / mmHG Vent. Rate : 111 BPM Atrial Rate : 111 BPM P-R Int : 160 ms QRS Dur : 082 ms QT Int : 290 ms P-R-T Axes : 026 -34 112 degrees QTc Int : 394 ms Poor data quality, interpretation may be adversely affected Sinus tachycardia Left axis deviation Left ventricular hypertrophy with repolarization abnormality Abnormal ECG When compared with ECG of 20-NOV-2020 18:36, Vent. rate has increased BY 49 BPM T wave inversion now evident in Lateral leads Confirmed by Charlie Elizabeth ([id number]) on 04/05/2021 3:20:09 PM Referred By: Confirmed By:Charlie Elizabeth
--- NOTE | 2021-04-05 15:58 | History & Physical Report ---
Date of Service April 05, 2021 Assessment & Plan (1) Hypoxia: (2) Pneumonia: Plan: Mr. 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 On Thursday evening patient met with some friends (none of whom were ill) and they visited for couple of hours. After his guests left, he began to note some malaise, mild sore throat, headache, and felt feverish. He did not have a thermometer to take his temperature but he kept getting the chills. He had to turn up the heat in the room and his was not pleased about that. In the ensuing hours, the patient developed a cough, increasing shortness of breath, and has had some yellow sputum production. After he arrived back to [facility] on Thursday, he contacted his PCPs office who sent him for COVID-19 and influenza testing. Both of these tests were negative. Patient continued to have his symptoms along with worsening shortness of breath. He increased his supplemental oxygen to 3 liters/minute, but that did not help his symptoms. He subsequently schedule an appointment with Dr. Villalobos this morning at 11:30 a.m., and after arriving there felt very washed out and felt like he was going to vomit. Patient was noted to be hypoxic with O2 saturations in the 80's. EMS was activated and he was transferred to the ER. His peak temperature is 37.8 centigrade in the ER. Patient continues to feel poorly. He continues to cough and feel short of breath. He is currently on supplemental O2 at 3 L per minute via nasal cannula, and his O2 saturations are in the 93% to 94% range. He did receive a single dose of Solu-Medrol IV 60 mg and he just concluded an albuterol nebulizer treatment. Recommend the following: -- Admit to Med-Surg with Telemetry. -- Sputum C&S and Gram stain. -- Check procalcitonin level. -- Daily CBC with diff, BMP, INR. -- IV Solu-Medrol 60 q 12 hours. -- IV Rocephin 1 gram q 24 hours. -- IV Azithromycin 500 mg q 24 hours. -- Continue usual inhalers. -- Hold oral prednisone. -- Continue Combivent nebulizer treatments. -- Continue supplemental O2 to maintain SpO2 > 92%. (3) Idiopathic pulmonary fibrosis: Plan: -- Manage as outlined above. -- Continue Cell-Cept. -- Check mycophenolate level. (4) History of DVT (deep vein thrombosis): Plan: -- Continue warfarin for a goal INR of 2.0 to 3.0. -- Monitor daily PT/INR. (5) Epilepsy: Plan: -- Continue Levetiracetam 1000 mg b.i.d.. History of Present Illness Chief Complaint: -- Cough, SOB. -- Fever. -- Idiopathic Pulmonary Fibrosis. -- Hypoxia. Primary Care Provider: Yusuf Villalobos MD Mr. 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 Patient was recently in [place] to see his station usher and his obiee consultant at [facility] earlier this week on Thursday and Thursday. On Thursday evening patient met with some friends (none of whom were ill) and they visited for couple of hours. After his guests left, he began to note some malaise, mild sore throat, headache, and felt feverish. He did not have a thermometer to take his temperature but he kept getting the chills. He had to turn up the heat in the room and his was not pleased about that. In the ensuing hours, the patient developed a cough, increasing shortness of breath, and has had some yellow sputum production. After he arrived back to [facility] on Thursday, he contacted his PCPs office who sent him for COVID-19 and influenza testing. Both of these tests were negative. Patient continued to have his symptoms along with worsening shortness of breath. He increased his supplemental oxygen to 3 liters/minute, but that did not help his symptoms. He subsequently schedule an appointment with Dr. Villalobos this morning at 11:30 a.m., and after arriving there felt very washed out and felt like he was going to vomit. Patient was noted to be hypoxic with O2 saturations in the 80's. EMS was activated and he was transferred to the ER. His peak temperature is 37.8 centigrade in the ER. Patient continues to feel poorly. He continues to cough and feel short of breath. He is currently on supplemental O2 at 3 L per minute via nasal cannula, and his O2 saturations are in the 93% to 94% range. He did receive a single dose of Solu-Medrol IV 60 mg and he just concluded an albuterol nebulizer treatment. Patient offers no other complaints. He denies any chest pain, heaviness, tight ness, pressure, or discomfort. He denies any nausea, vomiting, or diarrhea. He denies any headache or stiff neck at this time. He has not had any hemoptysis or pleuritic chest pain. Allergies Allergy/AdvReac Type Severity Reaction Status Date / Time Iodinated Contrast Media Allergy Intermediate Unknown Verified 04/05/21 13:37 iodine Allergy Mild Unknown Verified 04/05/21 13:37 Quinolones Allergy Mild Unknown Verified 04/05/21 13:37 house dust Allergy Unknown Allergy Verified 04/05/21 13:37 symptoms mold Allergy Unknown SEASONAL Verified 04/05/21 13:37 ALLERGIES ofloxacin Allergy Unknown Unknown Verified 04/05/21 13:37 Penicillins Allergy Unknown Unknown Verified 04/05/21 13:37 phenytoin Allergy Unknown MYOPATHY Verified 04/05/21 13:37 pollen extracts Allergy Unknown SEASONAL Verified 04/05/21 13:37 ALLERGIES dextromethorphan AdvReac Mild felt weird Verified 04/05/21 13:37 [From Delsy] fentanyl AdvReac Mild Unknown Verified 04/05/21 13:37 Home Medications Medication Instructions Recorded Confirmed Type pantoprazole 40 mg tablet,delayed 40 mg PO QAM #0 03/05/09 04/05/21 History release (Protonix) budesonide-formoterol HFA 160 2 puff INHALATION BID #0 10/18/09 04/05/21 History mcg-4.5 mcg/actuation aerosol inhaler (Symbicort) famotidine 40 mg tablet (Pepcid) 40 mg PO HS #0 tab 08/24/12 04/05/21 History tamsulosin 0.4 mg capsule (Flomax) 0.4 mg PO QAM #0 cap 03/30/16 04/05/21 Hi story albuterol sulfate 90 mcg/actuation 2 puff INHALATION Q4H PRN #0 03/11/17 04/05/21 History aerosol inhaler (Proventil HFA) levalbuterol HCl 1.25 mg/3 mL 1 vial NEB QID PRN #0 03/11/17 04/05/21 History solution for nebulization (Xopenex) levetiracetam 500 mg tablet 1,000 mg PO BID #0 tab 03/11/17 04/05/21 History (Keppra) mycophenolate mofetil 500 mg 1,000 mg PO BID #0 tab 03/11/17 04/05/21 History tablet (CellCept) quinidine gluconate 324 mg 324 mg PO BID #0 03/11/17 04/05/21 History tablet,extended release atorvastatin 10 mg tablet 10 mg PO HS 11/20/20 04/05/21 History ergocalciferol (vitamin D2) 50 mcg 2,000 unit PO 2XWK tab 12/07/20 04/05/21 History (2,000 unit) tablet prednisone 5 mg tablet 5 mg PO QAM tab 01/04/21 04/05/21 History warfarin 5 mg tablet See Rx Instructions PO UD tab 03/04/21 04/05/21 History fluoride (sodium) 1.1 % dental 1 applic DENTAL HS 04/05/21 04/05/21 History paste Past Med/Surg History Medical History 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/04/11) Demyelinating disease of central nervous system (06/04/11) Epilepsy History of DVT (deep vein thrombosis) 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 senior care (current) use of anticoagulants 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) Prostatic hypertrophy UIP (usual interstitial pneumonitis) Surgical History History of bilateral hip replacements History of umbilical hernia repair (02/02/20) Open Umbilical Hernia Repair with Mesh(Not Applicable) - Amado Velazquez DO, FACS 02/02/20 Family History Father Cancer Mother Cancer Social History Smoking Status: Never smoker Tobacco Type: Cigarettes Second Hand Exposure: Yes (as a child); Hx Alcohol Use: Yes Alcohol type: wine Alcohol Intake Frequency: Monthly or Less Hx Substance Use: No Preferred Language: Indonesian Communication Ability: Effective Repair Department Supervisor Required: No Beliefs That Will Affect Care: None marital status: Current Living Situation: Spouse current occupational status: retired Feels Safe at Home: Yes Assistive Devices: Glasses and Oxygen - Continuous Review of Systems Review of Systems: Ten point review of systems was done, and negative except as mentioned in HPI. Physical Exam Physical Exam: GENERAL: Patient in no acute distress. HEENT: Head is atraumatic, normocephalic. EOM's intact. Facies symmetric. No perioral cyanosis. NECK: No JVD. JVP is not elevated Carotid upstrokes are + 2 bilaterally without obvious bruits. CHEST/LUNGS: Diffuse bibasilar crackles and scattered wheezes. CVS: S1 and S2 are regular without obvious murmurs, gallops, or rubs. PMI is nondisplaced. No lifts, heaves, or thrills. No abdominal aortic or renal bruits. ABDOMINAL EXAM: Bowel sounds are present. No masses, organomegaly, or tenderness. EXTREMITIES: No clubbing or cyanosis. No edema. Intact posterior tibial and radial pulses bilaterally. NEUROLOGIC EXAM: Patient is awake, alert, and oriented. Pleasant and cooperative. Answers questions appropriately. Speech is clear. monitoring specialist shows sinus tachycardia at 115 beats per minute. EKG 04/05/21: -- Sinus tachycardia with left axis deviation and LVH with repolarization abnormality. -- When compared to 11/20/2020 tracing, ventricular rate has increased by 49 beats per minute, T-wave inversions are now evident in lateral leads. Results & Data Results & Data ([facility]) Vital Signs (Past 12 Hours) Vital Signs Temp Pulse Pulse Resp BP BP Pulse Ox 04/05/21 13:52 37.8 C H 104 H 22 147/77 H 97 04/05/21 12:24 37.7 C H 108 H 18 157/89 H 95 Laboratory Results Laboratory Results - last 24 hr 04/05/21 04/05/21 04/05/21 12:20 15:27 Unknown WBC 7.91 RBC 4.21 L Hgb 12.6 L Hct 39.1 L MCV 92.9 MCH 29.9 MCHC 32.2 RDW Std Deviation 49.0 H RDW Coeff of Kim 14.5 Plt Count 186 MPV 10.2 Immature Gran % (Auto) 0.1 Neut % (Auto) 73.6 Lymph % (Auto) 17.8 Otoe % (Auto) 7.5 Eos % (Auto) 0.9 Baso % (Auto) 0.1 Neut # (Auto) 5.82 Lymph # (Auto) 1.41 [place] # (Auto) 0.59 Eos # (Auto) 0.07 Baso # (Auto) 0.01 Immature Gran # (Auto) 0.01 PT INR Sodium Potassium Chloride Carbon Dioxide Anion Gap BUN Creatinine Est Cr Clr Drug Dosing Est GFR ( Amer) Est GFR (Non-Af Amer) BUN/Creatinine Ratio Glucose Calcium Total Bilirubin AST ALT Alkaline Phosphatase Troponin I Total Protein Albumin Globulin Albumin/Globulin Ratio Lipase Procalcitonin Pending SARS-CoV-2 (PCR) NEGATIVE Influenza Type A (PCR) Negative Influenza Type B (PCR) Negative RSV (RT-PCR) Negative 04/05/21 04/05/21 Unknown Unknown WBC RBC Hgb Hct MCV MCH MCHC RDW Std Deviation RDW Coeff of Kim Plt Count MPV Immature Gran % (Auto) Neut % (Auto) Lymph % (Auto) Otoe % (Auto) Eos % (Auto) Baso % (Auto) Neut # (Auto) Lymph # (Auto) [place] # (Auto) Eos # (Auto) Baso # (Auto) Immature Gran # (Auto) PT 19.5 H INR 2.0 H Sodium 141 Potassium 3.8 Chloride 109 H Carbon Dioxide 24 Anion Gap 8.0 BUN 19 H Creatinine 1.51 H Est Cr Clr Drug Dosing 48.5 Est GFR ( Amer) 52.7 Est GFR (Non-Af Amer) 45.5 BUN/Creatinine Ratio 12.6 Glucose 90 Calcium 8.9 Total Bilirubin 0.6 AST 24 ALT 14 Alkaline Phosphatase 94 Troponin I < 0.015 Total Protein 7.4 Albumin 3.6 Globulin 3.7 Albumin/Globulin Ratio 1.0 Lipase 163 Procalcitonin SARS-CoV-2 (PCR) Influenza Type A (PCR) Influenza Type B (PCR) RSV (RT-PCR) Diagnostic Findings CXR 04/05/21: The cardiac silhouette is enlarged. No pneumothorax or large pleural effusion. Extensive bilateral reticular opacities are redemonstrated in a mid to lower lung zone prominent distribution. There is no significant change compared to prior. No new airspace consolidation. Degenerative changes of the shoulders and spine. IMPRESSION: 1. Chronic interstitial lung disease without acute process. 2. Cardiomegaly. Medications Administered Medications pantoprazole 40 mg tablet,delayed release (Protonix) 40 mg PO QAM #0 03/05/09 [History Confirmed 04/05/21] budesonide-formoterol HFA 160 mcg-4.5 mcg/actuation aerosol inhaler (Symbicort) 2 puff INHALATION BID #0 10/18/09 [History Confirmed 04/05/21] famotidine 40 mg tablet (Pepcid) 40 mg PO HS #0 tab 08/24/12 [History Confirmed 04/05/21] tamsulosin 0.4 mg capsule (Flomax) 0.4 mg PO QAM #0 cap 03/30/16 [History Confirmed 04/05/21] albuterol sulfate 90 mcg/actuation aerosol inhaler (Proventil HFA) 2 puff INHALATION Q4H PRN #0 03/11/17 [History Confirmed 04/05/21] levalbuterol HCl 1.25 mg/3 mL solution for nebulization (Xopenex) 1 vial NEB QID PRN #0 03/11/17 [History Confirmed 04/05/21] levetiracetam 500 mg tablet (Keppra) 1,000 mg PO BID #0 tab 03/11/17 [History Confirmed 04/05/21] mycophenolate mofetil 500 mg tablet (CellCept) 1,000 mg PO BID #0 tab 03/11/17 [History Confirmed 04/05/21] quinidine gluconate 324 mg tablet,extended release 324 mg PO BID #0 03/11/17 [History Confirmed 04/05/21] atorvastatin 10 mg tablet 10 mg PO HS 11/20/20 [History Confirmed 04/05/21] ergocalciferol (vitamin D2) 50 mcg (2,000 unit) tablet 2,000 unit PO 2XWK tab 12/07/20 [History Confirmed 04/05/21] prednisone 5 mg tablet 5 mg PO QAM tab 01/04/21 [History Confirmed 04/05/21] warfarin 5 mg tablet See Rx Instructions PO UD tab 03/04/21 [History Confirmed 04/05/21] fluoride (sodium) 1.1 % dental paste 1 applic DENTAL HS 04/05/21 [History Confirmed 04/05/21] Home Medications Methylprednisolone (Methylprednisolone 125 Mg/2 Ml Vial) 60 mg IV BID DIANE Stop: 05/05/21 20:59 Code Status & VTE Plan Code Status Full Code VTE Prophylaxis Plan VTE Prophylaxis will be ordered: Yes Supervising Physician Co-Signing Physician Notes I personally saw and examined the patient. I verified all tan points and agree with Tian Stoll PA-C with the following exceptions and/or additions: 70 year old sent from PCP office due to increasing shortness of breath and cough. No fever or chills. Patient was seen around 9pm after being admitted. He reports feeling much improved since admission. O/E Frail appearing, No respiratory distress, no accessory muscle use, able to talk in complete sentences A/P CAP - Ceftriaxone and azithromycin Pulmonary fibrosis - agree with IV steroids as above PG Care Time/CCT Total # of Minutes Spent Total Time Spent with Patient: Total time spent is greater than 50% in coordination of care (as documented) at patient's floor/unit and/or counseling patient:40 Coding Level of Care Code 71372 Initial Inpt Care Lvl 3 Diagnoses Hypoxia R09.02 Pneumonia J18.9 Idiopathic pulmonary fibrosis J84.112 History of DVT (deep vein thrombosis) Z86.718 Epilepsy G40.909 Epilepsy type: unspecified Intractability: not intractable Status epilepticus: without status epilepticus Time Spent (min) 65 (1) Epilepsy Epilepsy type: unspecified Intractability: not intractable Status ep ilepticus: without status epilepticus Qualified Code(s): G40.909 - Epilepsy, unspecified, not intractable, without status epilepticus
[2021-04-05] MEDS ORDERED: POLYETHYLENE (MIRALAX) 17 GM PACK PO PRN (20:11)
[2021-04-05] MEDS ORDERED: NITROGLYCERIN SL 0.4 MG/TAB TAB SL PRN (20:11)
[2021-04-05] MEDS ORDERED: cefTRIAXone SODIUM 1,000 MG in DEXTROSE 5% 50 ML IV SCH (20:11)
[2021-04-05] MEDS ORDERED: ALUMINUM/MAGNESIUM SUSP 30 ML UDC PO PRN (20:11)
[2021-04-05] MEDS ORDERED: ALBUTEROL HFA 8 GM INHALER INH PRN (20:11)
[2021-04-05] MEDS ORDERED: MAGNESIUM HYDROXIDE SUSP 30 ML UDC PO PRN (20:11)
[2021-04-05] MEDS ORDERED: LEVALBUTEROL HCL 1.25 MG/3 ML NEB NEB PRN (20:11)
[2021-04-05] MEDS ORDERED: ONDANSETRON INJ 2 MG/ML 2 ML VIAL IV PRN (20:11)
[2021-04-05] MEDS ORDERED: ZOLPIDEM TARTRATE 5 MG TAB PO PRN (20:11)
[2021-04-05] MEDS ORDERED: ACETAMINOPHEN 325 MG TAB PO PRN (20:11)
[2021-04-05] MEDS: ALBUT/IPRATROP 3MG/0.5MG NEB 3 ML VIAL NEB SCH (20:49)
[2021-04-05] MEDS ORDERED: methylPREDNISolone 125 MG/2 ML VIAL IV SCH (21:00)
[2021-04-05] MEDS ORDERED: NON-FORMULARY MEDICATION (Fluoride (Sodium) 1.1 % paste) DT SCH (21:00)
[2021-04-05] MEDS: SODIUM CHLORIDE 0.9% 1000ML 1,000 ML IV SCH (22:38)
[2021-04-05] MEDS: methylPREDNISolone 60 MG in SYRINGE 0 ML IV SCH (22:39)
[2021-04-05] MEDS: cefTRIAXone SODIUM 2,000 MG in DEXTROSE 5% 50 ML IV SCH (22:44)
[2021-04-05] MEDS: AZITHROMYCIN 500 MG in DEXTROSE 5% 250 ML IV SCH (22:50)
[2021-04-05] MEDS: ATORVASTATIN 10 MG TAB PO SCH (23:50)
[2021-04-05] MEDS: MYCOPHENOLATE MOFETIL 250 MG CAP PO SCH (23:51)
[2021-04-05] MEDS: FAMOTIDINE 40 MG TABLET PO SCH (23:51)
[2021-04-05] MEDS: levETIRAcetam 500 MG TAB PO SCH (23:52)
[2021-04-06] MEDS: QUINIDINE GLUCONATE 324 MG PO SCH ×3 (00:40→21:56)
[2021-04-06 06:44] LABS: Hematocrit (blood only) 34.4 % (42-52); Hemoglobin 11.1 g/dL (14.0-18.0); Immature Granulocytes # (auto) 0.02 K/uL (0.00-0.02); Immature Granulocytes % (auto) 0.2 %; Lymphocytes # (auto) 0.78 K/uL (1.2-3.4); Lymphocytes % (auto) 8.2 %; Mean Corpuscular Hemoglobin 29.3 pg (25-34); Mean Corpuscular Hgb Conc 32.3 g/dL (32-36); Mean Corpuscular Volume 90.8 fL (80-100); Mean Platelet Volume 9.8 fL (7.4-10.4); Monocytes % (auto) 4.2 %; Neutrophils # (auto) 8.34 K/uL (1.4-6.5); Neutrophils % (auto) 87.4 %; Platelet Count 172 K/uL (130-400); RDW Coefficient of Variation 14.4 % (11.5-14.5); RDW Standard Deviation 47.7 fL (36.4-46.3); Red Blood Count 3.79 M/uL (4.7-6.1); White Blood Count 9.54 K/uL (4.8-10.8)
[2021-04-06 06:54] LABS: INR 2.5 (0.9-1.1); Prothrombin Time 23.6 Seconds (9.0-12.0)
[2021-04-06 07:01] LABS: BUN Creatinine Ratio 16.5 (10-20); Calcium 8.1 mg/dl (8.5-10.1); Creatinine Clr Calc Pharmacy 61.6 ml/min; Est GFR (African American) 70.3 ml/min; Est GFR (Non-African American) 60.7 ml/min; Potassium 4.1 mmol/L (3.5-5.1)
[2021-04-06] MEDS: ALBUT/IPRATROP 3MG/0.5MG NEB 3 ML VIAL NEB SCH ×4 (07:31→19:18)
[2021-04-06] MEDS: methylPREDNISolone 60 MG in SYRINGE 0 ML IV SCH ×2 (08:21→21:57)
[2021-04-06] MEDS: PANTOprazole 40 MG TAB PO SCH (08:21)
[2021-04-06] MEDS: MYCOPHENOLATE MOFETIL 250 MG CAP PO SCH ×2 (08:22→21:55)
[2021-04-06] MEDS: levETIRAcetam 500 MG TAB PO SCH ×2 (08:22→21:54)
[2021-04-06] MEDS: TAMSULOSIN HCL 0.4 MG CAP PO SCH (08:22)
[2021-04-06] MEDS: FLUTICASONE/VILANTEROL 200/25MCG 14 PUFFS/INHALER INH SCH (08:23)
[2021-04-06] MEDS: SODIUM CHLORIDE 0.9% 1000ML 1,000 ML IV SCH ×2 (10:31→23:19)
--- NOTE | 2021-04-06 15:51 | Hospitalist Progress Note ---
Date of Service April 06, 2021 Assessment & Plan (1) Hypoxia: Plan: Chronic hypoxia due to idiopathic pulmonary fibrosis Chronically on oxygen at home (2) Pneumonia: Plan: Lobar PNA on a background of idiopathic pulmonary fibrosis Tested negative for COVID continue empiric ceftriaxone and azithromycin await cultures (3) Idiopathic pulmonary fibrosis: Plan: -- continue home meds -- Continue Cell-Cept. -- Check mycophenolate level. (4) History of DVT (deep vein thrombosis): Plan: -- Continue warfarin for a goal INR of 2.0 to 3.0. -- Monitor daily PT/INR. (5) Epilepsy: Plan: -- Continue Levetiracetam 1000 mg b.i.d.. Admission and Anticipated Discharge Date Admission Date: April 05, 2021 Subjective patient seen and examined, improving shortness of breath Review of Systems Review of Systems: All systems reviewed are negative, apart from the ones contained in the history. Physical Exam Physical Exam: The patient is awake, alert and oriented 3, well developed and well nourished, normocephalic and atraumatic, lying in bed and in no acute distress. HEENT--PERRL, EOMI, mucous membranes and oropharynx mildly dry Neck--supple. No JVD. No bruits. Thyroid normal, trachea midline, no adenopathy. Heart--normal S1 and S2. No murmurs, rubs or gallops. Lungs--velcro likle crackles Abdomen--normal bowel sounds and soft. Mild epigastric and left sided abdominal pain Extremities--no cyanosis or clubbing. No edema. Dermatologic--normal skin turgor, normal color, no abnormal lymph nodes, no rash. Neurologic--cranial nerves II through XII grossly intact. Rheumatologic--normal range of motion. Psychiatric--normal affect. Results & Data Results & Data ([facility]) Vital Signs (Past 12 Hours) Vital Signs Pulse Pulse Pulse Resp BP BP Pulse Ox 04/06/21 14:40 86 18 93 04/06/21 10:39 77 22 107/58 L 99 04/06/21 10:38 75 18 94 04/06/21 07:31 88 21 99 04/06/21 06:16 58 L 21 99 04/06/21 05:00 60 60 17 107/63 98 12/11/21 04:00 61 20 131/81 98 PG Care Time/CCT Total # of Minutes Spent Total Time Spent with Patient: Total time spent is greater than 50% in coordination of care (as documented) at patient's floor/unit and/or counseling patient: Coding Level of Care Code 78796 Subseq Hosp Care Lvl 2 Diagnoses Hypoxia R09.02 Pneumonia J18.9 Idiopathic pulmonary fibrosis J84.112 History of DVT (deep vein thrombosis) Z86.718 Epilepsy G40.909 Epilepsy type: unspecified Intractability: not intractable Status epilepticus: without status epilepticus Time Spent (min) 35 (1) Epilepsy Epilepsy type: unspecified Intractability: not intractable Status epilepticus: without status epilepticus Qualified Code(s): G40.909 - Epilepsy, unspecified, not intractable, without status epilepticus
[2021-04-06] MEDS ORDERED: WARFARIN SOD 5 MG TAB PO SCH (16:00)
[2021-04-06] MEDS: WARFARIN SOD 5 MG TAB PO SCH ×3 (16:48→22:16)
[2021-04-06] MEDS: FAMOTIDINE 40 MG TABLET PO SCH (21:54)
[2021-04-06] MEDS: ATORVASTATIN 10 MG TAB PO SCH (21:57)
[2021-04-06] MEDS: cefTRIAXone SODIUM 2,000 MG in DEXTROSE 5% 50 ML IV SCH (22:17)
[2021-04-06] MEDS: AZITHROMYCIN 500 MG in DEXTROSE 5% 250 ML IV SCH (22:54)
[2021-04-07] MEDS: QUINIDINE GLUCONATE 324 MG PO SCH ×2 (07:23→21:34)
[2021-04-07] MEDS: FLUTICASONE/VILANTEROL 200/25MCG 14 PUFFS/INHALER INH SCH (07:23)
[2021-04-07] MEDS: methylPREDNISolone 60 MG in SYRINGE 0 ML IV SCH ×2 (07:23→21:31)
[2021-04-07] MEDS: MYCOPHENOLATE MOFETIL 250 MG CAP PO SCH ×2 (07:23→21:36)
[2021-04-07] MEDS: levETIRAcetam 500 MG TAB PO SCH ×2 (07:23→21:35)
[2021-04-07] MEDS: PANTOprazole 40 MG TAB PO SCH (07:24)
[2021-04-07] MEDS: TAMSULOSIN HCL 0.4 MG CAP PO SCH (07:24)
[2021-04-07 08:05] LABS: Hemoglobin 10.4 g/dL (14.0-18.0); Immature Granulocytes # (auto) 0.02 K/uL (0.00-0.02); Immature Granulocytes % (auto) 0.2 %; Lymphocytes # (auto) 0.67 K/uL (1.2-3.4); Lymphocytes % (auto) 7.3 %; Mean Corpuscular Hemoglobin 29.6 pg (25-34); Mean Corpuscular Hgb Conc 32.5 g/dL (32-36); Mean Corpuscular Volume 91.2 fL (80-100); Mean Platelet Volume 9.8 fL (7.4-10.4); Monocytes % (auto) 5.4 %; Neutrophils # (auto) 8.03 K/uL (1.4-6.5); Neutrophils % (auto) 87.1 %; Platelet Count 151 K/uL (130-400); RDW Coefficient of Variation 14.5 % (11.5-14.5); RDW Standard Deviation 48.1 fL (36.4-46.3); Red Blood Count 3.51 M/uL (4.7-6.1); White Blood Count 9.22 K/uL (4.8-10.8)
[2021-04-07 08:24] LABS: INR 2.7 (0.9-1.1); Prothrombin Time 24.9 Seconds (9.0-12.0)
[2021-04-07] MEDS: ALBUT/IPRATROP 3MG/0.5MG NEB 3 ML VIAL NEB SCH ×3 (08:39→17:48)
[2021-04-07 08:40] LABS: Calcium 7.7 mg/dl (8.5-10.1); Creatinine Clr Calc Pharmacy 63.7 ml/min; Est GFR (African American) 73.3 ml/min; Est GFR (Non-African American) 63.2 ml/min; Potassium 4.1 mmol/L (3.5-5.1)
[2021-04-07] MEDS: SODIUM CHLORIDE 0.9% 1000ML 1,000 ML IV SCH (12:44)
--- NOTE | 2021-04-07 14:28 | Hospitalist Progress Note ---
Date of Service April 07, 2021 Assessment & Plan (1) Hypoxia: Plan: Chronic hypoxia due to idiopathic pulmonary fibrosis Chronically on oxygen at home continue oxtgen supplementation (2) Pneumonia: Plan: Lobar PNA on a background of idiopathic pulmonary fibrosis Tested negative for COVID continue empiric ceftriaxone and azithromycin Cultures negative so far no longer having fevers and chills will de escalate antibiotics before discharge hopefully in the next 24 hrs (3) Idiopathic pulmonary fibrosis: Plan: -- continue home meds -- Continue Cell-Cept. -- Check mycophenolate level. (4) History of DVT (deep vein thrombosis): Plan: -- Continue warfarin for a goal INR of 2.0 to 3.0. -- Monitor daily PT/INR. (5) Epilepsy: Plan: -- Continue Levetiracetam 1000 mg b.i.d.. Admission and Anticipated Discharge Date Admission Date: April 05, 2021 discharge in the next 24 hrs Subjective patient seen and examined, improving shortness of breath, but still coughing up scant sputum Review of Systems Review of Systems: All systems reviewed are negative, apart from the ones contained in the history. Physical Exam Physical Exam: The patient is awake, alert and oriented 3, well developed and well nourished, normocephalic and atraumatic, lying in bed and in no acute distress. HEENT--PERRL, EOMI, mucous membranes and oropharynx mildly dry Neck--supple. No JVD. No bruits. Thyroid normal, trachea midline, no adenopathy. Heart--normal S1 and S2. No murmurs, rubs or gallops. Lungs--velcro likle crackles Abdomen--normal bowel sounds and soft. Mild epigastric and left sided abdominal pain Extremities--no cyanosis or clubbing. No edema. Dermatologic--normal skin turgor, normal color, no abnormal lymph nodes, no rash. Neurologic--cranial nerves II through XII grossly intact. Rheumatologic--normal range of motion. Psychiatric--normal affect. Results & Data Results & Data ([facility]) Vital Signs (Past 12 Hours) Vital Signs Temp Pulse Resp BP BP Pulse Ox 04/07/21 11:04 97.7 F 63 18 145/77 H 95 04/07/21 10:33 68 20 99 04/07/21 07:29 97.7 F 61 18 136/71 98 04/07/21 02:45 98.1 F 68 24 130/73 99 PG Care Time/CCT Total # of Minutes Spent Total Time Spent with Patient: Total time spent is greater than 50% in coordination of care (as documented) at patient's floor/unit and/or counseling patient: Coding Level of Care Code 58900 Subseq Hosp Care Lvl 2 Diagnoses Hypoxia R09.02 Pneumonia J18.9 Idiopathic pulmonary fibrosis J84.112 History of DVT (deep vein thrombosis) Z86.718 Epilepsy G40.909 Epilepsy type: unspecified Intractability: not intractable Status epilepticus: without status epilepticus Time Spent (min) 35 (1) Epilepsy Epilepsy type: unspecified Intractability: not intractable Status ep ilepticus: without status epilepticus Qualified Code(s): G40.909 - Epilepsy, unspecified, not intractable, without status epilepticus
[2021-04-07] MEDS ORDERED: WARFARIN SOD 2.5 MG TAB PO SCH ×2 (16:00→21:00)
[2021-04-07] MEDS: guaiFENesin/CODEINE 100MG/10MG 5ML UDC PO PRN (18:00)
[2021-04-07] MEDS: FAMOTIDINE 40 MG TABLET PO SCH (21:35)
[2021-04-07] MEDS: ATORVASTATIN 10 MG TAB PO SCH (21:36)
[2021-04-07] MEDS: cefTRIAXone SODIUM 2,000 MG in DEXTROSE 5% 50 ML IV SCH (22:08)
[2021-04-07] MEDS: BENZONATATE 100 MG CAPSULE PO SCH (22:39)
[2021-04-07] MEDS: AZITHROMYCIN 500 MG in DEXTROSE 5% 250 ML IV SCH (22:48)
[2021-04-08] MEDS: guaiFENesin/CODEINE 100MG/10MG 5ML UDC PO PRN ×2 (00:12→09:08)
[2021-04-08] MEDS: SODIUM CHLORIDE 0.9% 1000ML 1,000 ML IV SCH (01:21)
[2021-04-08 06:25] LABS: Hematocrit (blood only) 32.1 % (42-52); Hemoglobin 10.2 g/dL (14.0-18.0); Immature Granulocytes # (auto) 0.01 K/uL (0.00-0.02); Immature Granulocytes % (auto) 0.1 %; Lymphocytes # (auto) 0.53 K/uL (1.2-3.4); Lymphocytes % (auto) 6.6 %; Mean Corpuscular Hemoglobin 29.5 pg (25-34); Mean Corpuscular Hgb Conc 31.8 g/dL (32-36); Mean Corpuscular Volume 92.8 fL (80-100); Mean Platelet Volume 9.9 fL (7.4-10.4); Monocytes # (auto) 0.33 K/uL (0.11-0.59); Monocytes % (auto) 4.1 %; Neutrophils % (auto) 89.2 %; Platelet Count 149 K/uL (130-400); RDW Coefficient of Variation 14.6 % (11.5-14.5); RDW Standard Deviation 49.9 fL (36.4-46.3); Red Blood Count 3.46 M/uL (4.7-6.1); White Blood Count 7.97 K/uL (4.8-10.8)
[2021-04-08 06:48] LABS: BUN Creatinine Ratio 18.3 (10-20); Calcium 7.5 mg/dl (8.5-10.1); Creatinine Clr Calc Pharmacy 59.1 ml/min; Est GFR (African American) 66.9 ml/min; Est GFR (Non-African American) 57.7 ml/min
[2021-04-08 06:50] LABS: INR 2.8 (0.9-1.1); Prothrombin Time 26.5 Seconds (9.0-12.0)
[2021-04-08] MEDS: ALBUT/IPRATROP 3MG/0.5MG NEB 3 ML VIAL NEB SCH (08:04)
[2021-04-08] MEDS: CHOLECALCIFEROL 1,000 UNITS 25 MCG TAB PO SCH (08:59)
[2021-04-08] MEDS: methylPREDNISolone 60 MG in SYRINGE 0 ML IV SCH ×2 (08:59→19:49)
[2021-04-08] MEDS: levETIRAcetam 500 MG TAB PO SCH ×2 (08:59→19:50)
[2021-04-08] MEDS: FLUTICASONE/VILANTEROL 200/25MCG 14 PUFFS/INHALER INH SCH (08:59)
[2021-04-08] MEDS: MYCOPHENOLATE MOFETIL 250 MG CAP PO SCH ×2 (08:59→19:50)
[2021-04-08] MEDS: BENZONATATE 100 MG CAPSULE PO SCH ×3 (08:59→19:51)
[2021-04-08] MEDS: TAMSULOSIN HCL 0.4 MG CAP PO SCH (09:00)
[2021-04-08] MEDS: QUINIDINE GLUCONATE 324 MG PO SCH ×2 (09:00→19:50)
[2021-04-08] MEDS: PANTOprazole 40 MG TAB PO SCH (09:00)
[2021-04-08] MEDS ORDERED: diphenhydrAMINE 50 MG/ML VIAL IV ONE (13:46)
[2021-04-08] MEDS ORDERED: OPTIRAY 320 100ml IV ONE (14:30)
--- NOTE | 2021-04-08 14:56 | CT Scan Report ---
CHEST CT WITH CONTRAST CT DOSE: 384.55 mGy.cm HISTORY: interstitial pulm fibrosis, hematochezia TECHNIQUE: Multiaxial CT images of the chest were performed following the intravenous administration of contrast. A dose lowering technique was utilized adhering to the principles of ALARA. COMPARISON: Chest CT 11/26/2020. FINDINGS: The central airways are patent. No pneumothorax. No pleural effusions. There is chronic int erstitial thickening with groundglass densities and traction bronchiectasis again noted throughout th e lungs. There is associated mild volume loss within the lungs. This is most pronounced within the pe riphery and lung bases and is consistent with pulmonary fibrosis. Scattered subpleural calcifications are also stable and are likely chronic. No new focal lung consolidations to suggest pneumonia. There are old, healed bilateral rib fractures. No suspicious lytic or blastic osseous lesions. Stable subc entimeter hypodense lesion within the right hepatic lobe. This favors a cyst. The visualized spleen a nd adrenal glands are unremarkable. The heart remains mildly enlarged. Trace pericardial effusion, un changed. Extensive calcified plaque within the coronary arteries again noted. Normal esophagus. The m ain pulmonary artery measures up to 3.4 cm in diameter. This is consistent with pulmonary arterial hy pertension. Otherwise, the main pulmonary arteries are patent. Normal caliber thoracic aorta with no evidence for dissection. Stable prominent mediastinal and bilateral hilar lymph nodes. This is likely chronic. IMPRESSION: 1. Stable chronic interstitial lung disease as described above consistent with pulmonary fibrosis. 2. Pulmonary arterial hypertension again noted. 3. Small pericardial effusion and mild cardiomegaly persist. ACT 112: Negative or not required by law. Electronically signed by: Cody Painter M.D. 04/08/2021 2:55 PM
--- NOTE | 2021-04-08 18:19 | Hospitalist Progress Note ---
Date of Service April 08, 2021 Assessment & Plan (1) Idiopathic pulmonary fibrosis: Plan: Tye Tirado is a 70 yo male with PMHx of idiopathic pulmonary fibrosis, chronic hypoxemia (on chronic supplemental O2 via NC at 1 L/min), polymyositis, history of DVT/PE on chronic anticoagulation, BPH, nephrolithiasis, and epilepsy who was admitted to [facility] due to increased hypoxia. Acute on chronic respiratory failure due to hx of idiopathic pulmonary fibrosis - Worsened prior to admission; at baseline patient on 1L O2 via NC now requiring 4L to maintain O2 sats - Continue supplemental O2 to maintain O2 sats 90-92%; wean as able - Tested negative for COVID - Initially treated for presumed pneumonia w/ empiric ceftriaxone and azithromycin - Chest CT 04/08/21 with no signs of pneumonia. Abx therapy (ceftriaxone and azithromycin) discontinued 04/08 - Blood cultures negative to date - Sputum culture negative to date - Continue home medications for IPF including CellCept - Patient does follow with pulmonology as outpatient, Dr. Rigoberto Hernandez, [facility], [place]; last appointment was 1 week ago - Worsening hypoxia sec to ? pulmonary hypertension. Consider pulmonary consult in am if no improvement in hypoxia History of DVT/PE - On warfarin w/ goal INR 2.0 to 3.0 - INR today at goal at 2.8 - Continue to monitor INR daily Epilepsy, history of - Continue Keppra 1g BID FENGI: Regular diet DVT ppx: warfarin Dispo: medsurge/tele Code status: Full code (2) Hypoxia: (3) Hemoptysis: (4) History of DVT (deep vein thrombosis): (5) Epilepsy: Admission and Anticipated Discharge Date Admission Date: April 05, 2021 Supervising Physician Co-Signing Physician Notes Resident Physician Supervision Note: I independently interviewed and examined the patient and verified the tan history and physical, reviewed labs and image studies and agree with resident Dr. Mccoy findings and care plan. Subjective Patient seen and evaluated at bedside this morning. Complaining of persistent productive cough w/ intermittent hemoptysis; hemoptysis is noted to be improved from yesterday. He denies fever or chills. States that he is eating well. Denies abdominal pain, nausea, or vomiting. Pt also denies CP or SOB. Review of Systems Review of Systems: See HPI Physical Exam Physical Exam: GENERAL: No acute distress. Vital signs reviewed as above. EYES: EOMI. Anicteric sclerae. HENT: Moist mucous membranes. RESPIRATORY: Coarse breath sounds bilaterally. Patient with increased coughing with deep inspiration. CARDIOVASCULAR: Regular rate and rhythm. No murmurs. ABDOMEN: Soft, non-tender and non-distended. No palpable masses. Normal bowel sounds. EXTREMITIES: No edema. Non-tender. SKIN: Warm, dry. NEUROLOGIC: A/O x3. No focal neurological deficits. PSYCHIATRIC: Cooperative. Appropriate mood and affect. Results & Data Results & Data ([facility]) Vital Signs (Past 12 Hours) Vital Signs Temp Pulse Pulse Resp BP Pulse Ox 04/08/21 15:57 59 L 04/08/21 15:41 36.9 C 50 L 20 168/80 H 100 04/08/21 11:59 37.0 C 60 22 148/84 H 98 04/08/21 07:59 55 L 04/08/21 07:22 36.8 C 62 18 167/84 H 98 Laboratory Results 04/08/21 04/08/21 04/08/21 Range/Units 05:50 05:50 05:50 WBC 7.97 (4.8-10.8) K/uL RBC 3.46 L (4.7-6.1) M/uL Hgb 10.2 L (14.0-18.0) g/dL Hct 32.1 L (42-52) % MCV 92.8 (80-100) fL MCH 29.5 (25-34) pg MCHC 31.8 L (32-36) g/dL RDW Std Deviation 49.9 H (36.4-46.3) fL RDW Coeff of Kim 14.6 H (11.5-14.5) % Plt Count 149 (130-400) K/uL MPV 9.9 (7.4-10.4) fL Immature Gran % (Auto) 0.1 % Neut % (Auto) 89.2 % Lymph % (Auto) 6.6 % [place] % (Auto) 4.1 % Eos % (Auto) 0.0 % Baso % (Auto) 0.0 % Neut # (Auto) 7.10 H (1.4-6.5) K/uL Lymph # (Auto) 0.53 L (1.2-3.4) K/uL [place] # (Auto) 0.33 (0.11-0.59) K/uL Eos # (Auto) 0.00 (0-0.5) K/uL Baso # (Auto) 0.00 (0-0.2) K/uL Immature Gran # (Auto) 0.01 (0.00-0.02) K/uL PT 26.5 H (9.0-12.0) Seconds INR 2.8 H (0.9-1.1) Sodium 141 (136-145) mmol/L Potassium 4.0 (3.5-5.1) mmol/L Chloride 113 H (98-107) mmol/L Carbon Dioxide 22 (21-32) mmol/L Anion Gap 6.0 (3-11) BUN 23 H (7-18) mg/dl Creatinine 1.24 (0.6-1.4) mg/dl Est Cr Clr Drug Dosing 59.1 ml/min Est GFR ( Amer) 66.9 ml/min Est GFR (Non-Af Amer) 57.7 ml/min BUN/Creatinine Ratio 18.3 (10-20) Glucose 130 H (70-99) mg/dl Calcium 7.5 L (8.5-10.1) mg/dl Resident Activity Tracking Resident Involvement: Resident Care Provided Care Provided: Adult Hospital Medicine (1) Epilepsy Epilepsy type: unspecified Intractability: not intractable Status epi lepticus: without status epilepticus Qualified Code(s): G40.909 - Epilepsy, unspecified, not intractable, without status epilepticus
[2021-04-08] MEDS: ATORVASTATIN 10 MG TAB PO SCH (19:49)
[2021-04-08] MEDS: WARFARIN SOD 5 MG TAB PO SCH (19:49)
[2021-04-08] MEDS: FAMOTIDINE 40 MG TABLET PO SCH (19:50)
[2021-04-09 06:10] LABS: Hematocrit (blood only) 31.2 % (42-52); Immature Granulocytes # (auto) 0.02 K/uL (0.00-0.02); Immature Granulocytes % (auto) 0.3 %; Lymphocytes # (auto) 0.51 K/uL (1.2-3.4); Lymphocytes % (auto) 7.9 %; Mean Corpuscular Hemoglobin 29.1 pg (25-34); Mean Corpuscular Hgb Conc 32.1 g/dL (32-36); Mean Corpuscular Volume 90.7 fL (80-100); Mean Platelet Volume 9.4 fL (7.4-10.4); Monocytes % (auto) 7.8 %; Neutrophils # (auto) 5.39 K/uL (1.4-6.5); Platelet Count 143 K/uL (130-400); RDW Coefficient of Variation 14.6 % (11.5-14.5); RDW Standard Deviation 48.5 fL (36.4-46.3); Red Blood Count 3.44 M/uL (4.7-6.1); White Blood Count 6.42 K/uL (4.8-10.8)
[2021-04-09 06:50] LABS: BUN Creatinine Ratio 21.7 (10-20); Calcium 7.7 mg/dl (8.5-10.1); Creatinine Clr Calc Pharmacy 63.2 ml/min; Est GFR (African American) 72.5 ml/min; Est GFR (Non-African American) 62.6 ml/min; Potassium 3.9 mmol/L (3.5-5.1)
[2021-04-09] MEDS: QUINIDINE GLUCONATE 324 MG PO SCH ×2 (08:23→19:29)
[2021-04-09] MEDS: PANTOprazole 40 MG TAB PO SCH (08:24)
[2021-04-09] MEDS: BENZONATATE 100 MG CAPSULE PO SCH ×3 (08:24→19:34)
[2021-04-09] MEDS: levETIRAcetam 500 MG TAB PO SCH ×2 (08:24→19:32)
[2021-04-09] MEDS: TAMSULOSIN HCL 0.4 MG CAP PO SCH (08:26)
[2021-04-09] MEDS: FLUTICASONE/VILANTEROL 200/25MCG 14 PUFFS/INHALER INH SCH (08:26)
[2021-04-09] MEDS: methylPREDNISolone 60 MG in SYRINGE 0 ML IV SCH ×2 (08:27→19:34)
[2021-04-09] MEDS: MYCOPHENOLATE MOFETIL 250 MG CAP PO SCH ×2 (10:03→19:30)
[2021-04-09] MEDS: FAMOTIDINE 40 MG TABLET PO SCH (19:29)
[2021-04-09] MEDS: ATORVASTATIN 10 MG TAB PO SCH (19:33)
[2021-04-09] MEDS: WARFARIN SOD 5 MG TAB PO SCH (19:33)
--- NOTE | 2021-04-09 19:33 | Hospitalist Progress Note ---
Date of Service April 09, 2021 Assessment & Plan (1) Idiopathic pulmonary fibrosis: Plan: Tye Tirado is a 70 yo male with PMHx of idiopathic pulmonary fibrosis, chronic hypoxemia (on chronic supplemental O2 via NC at 1 L/min), polymyositis, history of DVT/PE on chronic anticoagulation, BPH, nephrolithiasis, and epilepsy who was admitted to [facility] due to increased hypoxia. Acute on chronic respiratory failure sec to exacerbation of idiopathic pulmonary fibrosis possibly sec to bronchitis Pulmonary hypertension - Worsened prior to admission; at baseline patient on 1L O2 via NC. Was requiring 4L to maintain O2 sats; weaning; now requiring 2L to maintain O2 sats. - Continue supplemental O2 to maintain O2 sats 90-92%; wean as able - Tested negative for COVID - Initially treated for presumed pneumonia w/ empiric ceftriaxone and azithromycin - Chest CT 04/08/21 with no signs of pneumonia. Abx therapy (ceftriaxone and azithromycin) discontinued 04/08 - Blood cultures negative to date - Sputum culture negative to date - Continue home medications for IPF including CellCept - Patient does follow with pulmonology as outpatient, Dr. Rigoberto Hernandez, [facility]; last appointment was 1 week ago - Continue IV methylprednisone - PT/OT ordered, pending History of DVT/PE - On warfarin w/ goal INR 2.0 to 3.0 - Continue to monitor INR daily Epilepsy, history of - Continue Keppra 1g BID FENGI: Regular diet DVT ppx: warfarin Dispo: medsurge/tele Code status: Full code (2) Hypoxia: (3) Hemoptysis: (4) History of DVT (deep vein thrombosis): (5) Epilepsy: Admission and Anticipated Discharge Date Admission Date: April 05, 2021 Supervising Physician Co-Signing Physician Notes Resident Physician Supervision Note: I independently interviewed and examined the patient and verified the tan history and physical, reviewed labs and image studies and agree with resident Dr. Mccoy findings and care plan. Subjective Patient seen and evaluated at bedside this morning. Reports feeling slightly better compared to yesterday. Still w/ slight productive cough but no further hemoptysis reported. States that he is eating well w/o abdominal pain, nausea, or vomiting. He denies fever, chills, CP, SOB, RUZI, lightheadedness, or dizziness. Review of Systems Review of Systems: See HPI Physical Exam Physical Exam: GENERAL: Pleasant elderly male in no acute distress. Vital signs reviewed as above. EYES: EOMI. Anicteric sclerae. HENT: Moist mucous membranes. RESPIRATORY: Coarse breath sounds bilaterally. Patient with increased coughing with deep inspiration. CARDIOVASCULAR: Regular rate and rhythm. No murmurs. ABDOMEN: Soft, non-tender and non-distended. No palpable masses. Normal bowel sounds. EXTREMITIES: No edema. Non-tender to palpation. SKIN: Warm, dry. NEUROLOGIC: A/O x3. No focal neurological deficits. PSYCHIATRIC: Cooperative. Appropriate mood and affect. Results & Data Results & Data ([facility]) Vital Signs (Past 12 Hours) Vital Signs Temp Pulse Pulse Resp BP BP Pulse Ox 04/09/21 18:35 36.8 C 52 L 20 137/74 97 04/09/21 15:25 82 04/09/21 15:23 36.6 C 56 L 22 139/82 97 04/09/21 11:19 36.7 C 60 18 146/85 H 97 Laboratory Results 04/09/21 04/09/21 Range/Units 05:52 05:52 WBC 6.42 (4.8-10.8) K/uL RBC 3.44 L (4.7-6.1) M/uL Hgb 10.0 L (14.0-18.0) g/dL Hct 31.2 L (42-52) % MCV 90.7 (80-100) fL MCH 29.1 (25-34) pg MCHC 32.1 (32-36) g/dL RDW Std Deviation 48.5 H (36.4-46.3) fL RDW Coeff of Kim 14.6 H (11.5-14.5) % Plt Count 143 (130-400) K/uL MPV 9.4 (7.4-10.4) fL Immature Gran % (Auto) 0.3 % Neut % (Auto) 84.0 % Lymph % (Auto) 7.9 % [place] % (Auto) 7.8 % Eos % (Auto) 0.0 % Baso % (Auto) 0.0 % Neut # (Auto) 5.39 (1.4-6.5) K/uL Lymph # (Auto) 0.51 L (1.2-3.4) K/uL [place] # (Auto) 0.50 (0.11-0.59) K/uL Eos # (Auto) 0.00 (0-0.5) K/uL Baso # (Auto) 0.00 (0-0.2) K/uL Immature Gran # (Auto) 0.02 (0.00-0.02) K/uL Sodium 140 (136-145) mmol/L Potassium 3.9 (3.5-5.1) mmol/L Chloride 111 H (98-107) mmol/L Carbon Dioxide 26 (21-32) mmol/L Anion Gap 3.0 (3-11) BUN 25 H (7-18) mg/dl Creatinine 1.16 (0.6-1.4) mg/dl Est Cr Clr Drug Dosing 63.2 ml/min Est GFR ( Amer) 72.5 ml/min Est GFR (Non-Af Amer) 62.6 ml/min BUN/Creatinine Ratio 21.7 H (10-20) Glucose 131 H (70-99) mg/dl Calcium 7.7 L (8.5-10.1) mg/dl Resident Activity Tracking Resident Involvement: Resident Care Provided Care Provided: Adult Hospital Medicine (1) Epilepsy Epilepsy type: unspecified Intractability: not intractable Status epilepticus: without status epilepticus Qualified Code(s): G40.909 - Epilepsy, unspecified, not intractable, without status epilepticus
[2021-04-09] MEDS: ALBUT/IPRATROP 3MG/0.5MG NEB 3 ML VIAL NEB PRN (20:51)
[2021-04-09] MEDS: guaiFENesin/CODEINE 100MG/10MG 5ML UDC PO PRN (22:09)
[2021-04-10] MEDS: BENZONATATE 100 MG CAPSULE PO SCH ×3 (08:00→20:45)
[2021-04-10] MEDS: levETIRAcetam 500 MG TAB PO SCH ×2 (08:00→20:46)
[2021-04-10] MEDS: MYCOPHENOLATE MOFETIL 250 MG CAP PO SCH ×2 (08:00→20:46)
[2021-04-10] MEDS: PANTOprazole 40 MG TAB PO SCH (08:01)
[2021-04-10] MEDS: methylPREDNISolone 60 MG in SYRINGE 0 ML IV SCH ×2 (08:01→20:43)
[2021-04-10] MEDS: CHOLECALCIFEROL 1,000 UNITS 25 MCG TAB PO SCH (08:01)
[2021-04-10] MEDS: QUINIDINE GLUCONATE 324 MG PO SCH ×2 (08:01→20:46)
[2021-04-10] MEDS: TAMSULOSIN HCL 0.4 MG CAP PO SCH (08:01)
[2021-04-10] MEDS: FLUTICASONE/VILANTEROL 200/25MCG 14 PUFFS/INHALER INH SCH (08:02)
[2021-04-10 08:21] LABS: Hematocrit (blood only) 33.1 % (42-52); Hemoglobin 10.8 g/dL (14.0-18.0); Mean Corpuscular Hemoglobin 29.4 pg (25-34); Mean Corpuscular Hgb Conc 32.6 g/dL (32-36); Mean Corpuscular Volume 90.2 fL (80-100); Mean Platelet Volume 9.5 fL (7.4-10.4); Platelet Count 163 K/uL (130-400); RDW Coefficient of Variation 14.3 % (11.5-14.5); RDW Standard Deviation 47.5 fL (36.4-46.3); Red Blood Count 3.67 M/uL (4.7-6.1); White Blood Count 6.34 K/uL (4.8-10.8)
[2021-04-10] MEDS: ALBUT/IPRATROP 3MG/0.5MG NEB 3 ML VIAL NEB PRN (08:29)
[2021-04-10 08:35] LABS: INR 2.5 (0.9-1.1); Prothrombin Time 23.2 Seconds (9.0-12.0)
[2021-04-10 08:51] LABS: BUN Creatinine Ratio 20.7 (10-20); Calcium 7.9 mg/dl (8.5-10.1); Creatinine Clr Calc Pharmacy 57.7 ml/min; Est GFR (Non-African American) 56.1 ml/min; Potassium 3.6 mmol/L (3.5-5.1)
--- NOTE | 2021-04-10 10:26 | XRay Report ---
SINGLE VIEW CHEST CLINICAL HISTORY: Hemoptysis. Hypoxia. FINDINGS: An AP, portable, upright chest radiograph is compared to study dated 04/05/2021 and correla peggy with chest CT dated 04/08/2021. The heart is enlarged. There is prominence of the pulmonary vascu lature. Findings of chronic interstitial lung disease/chronic fibrosis are similar to previous. Retic ular opacities with lower lobe predominance are unchanged. No superimposed airspace consolidation is identified. No large pleural effusion or pneumothorax is seen. The skeletal structures are osteopenic . The bony thorax is grossly intact. IMPRESSION: 1. Cardiomegaly with prominence of the pulmonary vasculature. Correlate clinically for evidence of fl uid overload/congestive failure. 2. Changes of chronic interstitial/fibrotic lung disease are similar to previous. No superimposed air space consolidation is identified.. ACT 112: Negative or not required by law. Electronically signed by: Orlando Snell M.D. 04/10/2021 10:24 AM
--- NOTE | 2021-04-10 15:28 | Hospitalist Progress Note ---
Date of Service April 10, 2021 Assessment & Plan (1) Idiopathic pulmonary fibrosis: Plan: Tye Tirado is a 70 yo male with PMHx of idiopathic pulmonary fibrosis, chronic hypoxemia (on chronic supplemental O2 via NC at 1 L/min), polymyositis, history of DVT/PE on chronic anticoagulation, BPH, nephrolithiasis, and epilepsy who was admitted to [facility] due to increased hypoxia. Acute on chronic respiratory failure due to hx of idiopathic pulmonary fibrosis - Worsened prior to admission; at baseline patient on 1L O2 via NC. Was requiring 4L to maintain O2 sats; weaning; now requiring 2L to maintain O2 sats. - Continue supplemental O2 to maintain O2 sats 90-92%; wean as able - Tested negative for COVID - Initially treated for presumed pneumonia w/ empiric ceftriaxone and azithromycin - Chest CT 04/08/21 with no signs of pneumonia. Abx therapy (ceftriaxone and azithromycin) discontinued 04/08 - Blood cultures negative to date - Sputum culture negative to date - Continue home medications for IPF including CellCept - Patient does follow with pulmonology as outpatient, Dr. Rigoberto Hernandez, [facility]; last appointment was 1 week ago - Patient w/ worsening SOB, increased O2 need and recurrent hemoptysis. Consulted pulmonology, pending. History of DVT/PE - On warfarin w/ goal INR 2.0 to 3.0 - Continue to monitor INR daily Epilepsy, history of - Continue Keppra 1g BID FENGI: Regular diet DVT ppx: warfarin Dispo: medsurge/tele. - PT/OT evaluations - PT/OT: recommending home when medically stable. No further PT or OT needs identified. Code status: Full code (2) Hypoxia: (3) Hemoptysis: (4) History of DVT (deep vein thrombosis): (5) Epilepsy: Admission and Anticipated Discharge Date Admission Date: April 05, 2021 Supervising Physician Co-Signing Physician Notes Resident Physician Supervision Note: I independently interviewed and examined the patient and verified the tan history and physical, reviewed labs and image studies and agree with resident Dr. Mccoy findings and care plan. Subjective Patient seen and evaluated at bedside this morning. Reports feeling "worse" compared to yesterday. Notes that the cough yesterday had improved but worsened again overnight; also with recurrent hemoptysis this morning. Has been trying to use the incentive spirometer. Has continued to use Robitussin AC prn w/ some benefit; also using tessalon perles w/ benefit. States that he is eating well w/o abdominal pain, nausea, or vomiting. He denies fever, chills, CP, SOB, RUIZ, lightheadedness, or dizziness. Review of Systems Review of Systems: See HPI Physical Exam Physical Exam: GENERAL: Pleasant elderly male in no acute distress. Vital signs reviewed as above. EYES: EOMI. Anicteric sclerae. HENT: Moist mucous membranes. RESPIRATORY: Coarse breath sounds bilaterally. Patient with increased coughing upon inspiration. CARDIOVASCULAR: Regular rate and rhythm. No murmurs. ABDOMEN: Soft, non-tender and non-distended. No palpable masses. Normal bowel sounds. EXTREMITIES: No edema. Non-tender to palpation. SKIN: Warm, dry. NEUROLOGIC: A/O x3. No focal neurological deficits. PSYCHIATRIC: Cooperative. Appropriate mood and affect. Results & Data Results & Data ([facility]) Vital Signs (Past 12 Hours) Vital Signs Temp Pulse Pulse Pulse Resp BP BP 04/10/21 14:57 62 04/10/21 11:45 36.5 C 62 20 173/93 H 175/86 H 04/10/21 10:54 36.7 C 62 20 136/78 04/10/21 09:34 04/10/21 08:30 79 18 04/10/21 07:48 36.6 C 79 19 161/84 H 04/10/21 07:30 36.8 C 56 L 23 144/80 H 04/10/21 07:22 50 L 04/10/21 04:00 36.7 C 61 18 152/79 H Pulse Ox 04/10/21 14:57 04/10/21 11:45 99 04/10/21 10:54 100 04/10/21 09:34 96 04/10/21 08:30 97 04/10/21 07:48 92 04/10/21 07:30 97 04/10/21 07:22 04/10/21 04:00 96 Laboratory Results 04/10/21 04/10/21 04/10/21 Range/Units 08:01 08:01 08:01 WBC 6.34 (4.8-10.8) K/uL RBC 3.67 L (4.7-6.1) M/uL Hgb 10.8 L (14.0-18.0) g/dL Hct 33.1 L (42-52) % MCV 90.2 (80-100) fL MCH 29.4 (25-34) pg MCHC 32.6 (32-36) g/dL RDW Std Deviation 47.5 H (36.4-46.3) fL RDW Coeff of Kim 14.3 (11.5-14.5) % Plt Count 163 (130-400) K/uL MPV 9.5 (7.4-10.4) fL PT 23.2 H (9.0-12.0) Seconds INR 2.5 H (0.9-1.1) Sodium 144 (136-145) mmol/L Potassium 3.6 (3.5-5.1) mmol/L Chloride 112 H (98-107) mmol/L Carbon Dioxide 24 (21-32) mmol/L Anion Gap 8.0 (3-11) BUN 26 H (7-18) mg/dl Creatinine 1.27 (0.6-1.4) mg/dl Est Cr Clr Drug Dosing 57.7 ml/min Est GFR ( Amer) 65.0 ml/min Est GFR (Non-Af Amer) 56.1 ml/min BUN/Creatinine Ratio 20.7 H (10-20) Glucose 124 H (70-99) mg/dl Calcium 7.9 L (8.5-10.1) mg/dl Diagnostic Findings SINGLE VIEW CHEST CLINICAL HISTORY: Hemoptysis. Hypoxia. FINDINGS: An AP, portable, upright chest radiograph is compared to study dated 04/05/2021 and correlated with chest CT dated 04/08/2021. The heart is enlarged. There is prominence of the pulmonary vasculature. Findings of chronic interstitial lung disease/chronic fibrosis are similar to previous. Reticular opacities with lower lobe predominance are unchanged. No superimposed airspace consolidation is identified. No large pleural effusion or pneumothorax is seen. The skeletal structures are osteopenic. The bony thorax is grossly intact. IMPRESSION: 1. Cardiomegaly with prominence of the pulmonary vasculature. Correlate clinically for evidence of fluid overload/congestive failure. 2. Changes of chronic interstitial/fibrotic lung disease are similar to p revious. No superimposed airspace consolidation is identified.. ACT 112: Negative or not required by law. Electronically signed by: Orlando Snell M.D. 04/10/2021 10:24 AM Resident Activity Tracking Resident Involvement: Resident Care Provided Care Provided: Adult Hospital Medicine (1) Epilepsy Epilepsy type: unspecified Intractability: not intractable Status epi lepticus: without status epilepticus Qualified Code(s): G40.909 - Epilepsy, unspecified, not intractable, without status epilepticus
--- NOTE | 2021-04-10 15:41 | Pulmonary Consultation ---
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 He is admitted with acute viral syndrome with symptoms which have now resolved but he remains on supplemental oxygen, slightly increased from his baseline and has had intermittent episodes of hemoptysis. I suspect the hemoptysis is likely related to the patient's anticoagulation. With regards to his anticoagulation, he reports a prior history of PE which I can find documentation for dating back to 2006. I am not sure that he requires lifelong anticoagulation as I cannot see that there was a hypercoagulable work-up performed or documentation that the patient had recurrent events. Recommendations: 1. Hemoptysis: No indication for bronchoscopy and if bronchoscopy were to be considered, the Coumadin would need to be held. At this point time I think the safest route would be to discontinue the patient's Coumadin unless there is a strong indication to continue it and anticipate the hemoptysis should resolve over time. 2. Interstitial lung disease: The patient can continue to follow with his providers at [facility]. Would continue his immunosuppressive regiment. 3. History of PE. Again the only PE I can find in the patient's chart was back in 2006. Clinical correlation is recommended. Recommend finding additional data to try to ascertain whether or not the patient needs lifelong anticoagulation. Indication for lifelong anticoagulation would be life- threatening PE which the patient does not have evidence of or to spontaneous/unprovoked thromboembolic episodes which again I cannot find documentation for but may exist as the patient's ability to provide historical details is somewhat compromised. 4. Hypoxemic respiratory failure continue supplemental oxygen titrated to keep saturations at or above 88%. The patient was advised by his lead caster at [facility] that he may need to increase his supplemental oxygen so the increase in oxygen is not necessarily a surprise or an indication to necessarily keep the patient in the hospital. We do not have data from [facility] regarding his prior PFTs to see whether or not there has been progression of disease. I would encourage him to continue to follow with the [facility] providers. Pulmonary will sign off at this point time. Feel free to contact us if the patient's hemoptysis should persist with discontinuation of the anticoagulation. As his anticoagulation is not life-threatening, I think the patient can safely be dismissed from the hospital off anticoagulation and follow-up with his outpatient pulmonary team and primary care provider. Thanks for the opportunity participating in the care of this patient. 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 History is obtained from discussion with the patient as well as review the electronic medical record. 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 He has been maintained on supplemental oxygen for several years. He is also taking CellCept and prednisone on a daily basis. The patient reports a DVT/PE in the past although he is unable to give me data. Review of his medical record reveals a PE diagnosed in 2006. The patient relates something happening around 2013 but I cannot find documentation that would support recurrent PE or DVT. Its unclear when his anticoagulation was actually started but he is remained on Coumadin managed in the Coumadin clinic. His INR is therapeutic. The patient presented to the emergency room 04/05/2021 with malaise sore throat headache and subjective fevers. He was noted to be hypoxemic. He received Solu-Medrol as well as antibiotics and admitted to the hospital service. He has had intermittent hemoptysis which has been quite scant. Pulmonary was consulted today for consideration of bronchoscopy. The patient states that his breathing is doing fairly well. He continues to expectorate some phlegm. The samples that he has currently at the bedside tray do not demonstrate any significant blood. He has not had fevers chills or night sweats since admission. Review of his medical record reveals that hemoptysis has been a problem for this patient dating back over the more than 10 years. Allergies Allergy/AdvReac Type Severity Reaction Status Date / Time Iodinated Contrast Media Allergy Intermediate Unknown Verified 04/05/21 13:37 iodine Allergy Mild Unknown Verified 04/05/21 13:37 Quinolones Allergy Mild Unknown Verified 04/05/21 13:37 house dust Allergy Unknown Allergy Verified 04/05/21 13:37 symptoms mold Allergy Unknown SEASONAL Verified 04/05/21 13:37 ALLERGIES ofloxacin Allergy Unknown Unknown Verified 04/05/21 13:37 Penicillins Allergy Unknown Unknown Verified 04/05/21 13:37 phenytoin Allergy Unknown MYOPATHY Verified 04/05/21 13:37 pollen extracts Allergy Unknown SEASONAL Verified 04/05/21 13:37 ALLERGIES dextromethorphan AdvReac Mild felt weird Verified 04/05/21 13:37 [From [facility]] fentanyl AdvReac Mild Unknown Verified 04/05/21 13:37 Home Medications Medication Instructions Recorded Confirmed Type pantoprazole 40 mg tablet,delayed 40 mg PO QAM #0 03/05/09 04/05/21 History release (Protonix) budesonide-formoterol HFA 160 2 puff INHALATION BID #0 10/18/09 04/05/21 History mcg-4.5 mcg/actuation aerosol inhaler (Symbicort) famotidine 40 mg tablet (Pepcid) 40 mg PO HS #0 tab 08/24/12 04/05/21 History tamsulosin 0.4 mg capsule (Flomax) 0.4 mg PO QAM #0 cap 03/30/16 04/05/21 History albuterol sulfate 90 mcg/actuation 2 puff INHALATION Q4H PRN #0 03/11/17 04/05/21 History aerosol inhaler (Proventil HFA) levalbuterol HCl 1.25 mg/3 mL 1 vial NEB QID PRN #0 03/11/17 04/05/21 History solution for nebulization (Xopenex) levetiracetam 500 mg tablet 1,000 mg PO BID #0 tab 03/11/17 04/05/21 History (Keppra) mycophenolate mofetil 500 mg 1,000 mg PO BID #0 tab 03/11/17 04/05/21 History tablet (CellCept) quinidine gluconate 324 mg 324 mg PO BID #0 03/11/17 04/05/21 History tablet,extended release atorvastatin 10 mg tablet 10 mg PO HS 11/20/20 04/05/21 History ergocalciferol (vitamin D2) 50 mcg 2,000 unit PO 2XWK tab 12/07/20 04/05/21 History (2,000 unit) tablet prednisone 5 mg tablet 5 mg PO QAM tab 01/04/21 04/05/21 History warfarin 5 mg tablet See Rx Instructions PO UD tab 03/04/21 04/05/21 History fluoride (sodium) 1.1 % dental 1 applic DENTAL HS 04/05/21 04/05/21 History paste Patient History Medical History 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) Demyelinating disease of central nervous system (06/04/11) Epilepsy History of DVT (deep vein thrombosis) 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 [facility] (current) use of anticoagulants 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) Prostatic hypertrophy UIP (usual interstitial pneumonitis) Surgical History History of bilateral hip replacements History of umbilical hernia repair (02/02/20) Open Umbilical Hernia Repair with Mesh(Not Applicable) - Amado Velazquez DO, FACS 02/02/20 Family History Father Cancer Mother Cancer Social History Smoking Status: Never smoker Tobacco Type: Cigarettes Second Hand Exposure: Yes (as a child); Hx Alcohol Use: Yes Alcohol type: wine Alcohol Intake Frequency: Monthly or Less Hx Substance Use: No Preferred Language: Angolan Communication Ability: Effective Director Of Radiology Required: No Beliefs That Will Affect Care: None marital status: Current Living Situation: Spouse current occupational status: retired Feels Safe at Home: No Is there a partner from a previous relationship who is making you feel unsafe now?: No Assistive Devices: Oxygen - Continuous Review of Systems Review of Systems: Please refer to admission H&P. I have no additions or deletions Physical Exam Constitutional: WD/WN, vitals as above Neck: trachea midline, no thyromegaly Respiratory: normal respiratory effort; no respiratory distress and no labored breathing Auscultation: + crackles; no wheezes Cardiovascular: RRR, no murmur, no edema Gastrointestinal (Abdomen): normal bowel sounds, soft, nontender, no hepatosplenomegaly Musculoskeletal: Extremities: extremities normal to inspection Skin: no rashes, warm and dry Neurologic: Nonfocal exam Lymphatic: no cervical lymphadenopathy Results & Data Results & Data ([facility]) Vital Signs (Past 12 Hours) Vital Signs Temp Pulse Pulse Pulse Resp BP BP 04/10/21 14:57 62 04/10/21 11:45 36.5 C 62 20 173/93 H 175/86 H 04/10/21 10:54 36.7 C 62 20 136/78 04/10/21 09:34 04/10/21 08:30 79 18 04/10/21 07:48 36.6 C 79 19 161/84 H 04/10/21 07:30 36.8 C 56 L 23 144/80 H 04/10/21 07:22 50 L 04/10/21 04:00 36.7 C 61 18 152/79 H Pulse Ox 04/10/21 14:57 04/10/21 11:45 99 04/10/21 10:54 100 04/10/21 09:34 96 04/10/21 08:30 97 04/10/21 07:48 92 04/10/21 07:30 97 04/10/21 07:22 04/10/21 04:00 96 Laboratory Results 04/10/21 08:01 04/10/21 08:01 INR 2.0 Diagnostic Findings SINGLE VIEW CHEST 04/10/2021 independently reviewed CLINICAL HISTORY: Hemoptysis. Hypoxia. FINDINGS: An AP, portable, upright chest radiograph is compared to study dated 04/05/2021 and correlated with chest CT dated 04/08/2021. The heart is enlarged. There is prominence of the pulmonary vasculature. Findings of chronic interstitial lung disease/chronic fibrosis are similar to previous. Reticular opacities with lower lobe predominance are unchanged. No superimposed airspace consolidation is identified. No large pleural effusion or pneumothorax is seen. The skeletal structures are osteopenic. The bony thorax is grossly intact. IMPRESSION: 1. Cardiomegaly with prominence of the pulmonary vasculature. Correlate clinically for evidence of fluid overload/congestive failure. 2. Changes of chronic interstitial/fibrotic lung disease are similar to previous. No superimposed airspace consolidation is identified.. Patient's prior CT scans were also extensively reviewed. There demonstrates pr ogression of the patient's underlying fibrotic disease which is fairly advanced. PG Care Time/CCT Total # of Minutes Spent Total Time Spent with Patient: Total time spent is greater than 50% in coordination of care (as documented) at patient's floor/unit and/or counseling patient: Coding Level of Care Code 77915 Initial Inpt Care Lvl 3 Diagnoses Hypoxia R09.02 Cough R05.9 [facility] (current) use of anticoagulants Z79.01 Hemoptysis R04.2
[2021-04-10] MEDS: FAMOTIDINE 40 MG TABLET PO SCH (20:45)
[2021-04-10] MEDS: ATORVASTATIN 10 MG TAB PO SCH (20:45)
[2021-04-10] MEDS: WARFARIN SOD 5 MG TAB PO SCH (20:47)
[2021-04-11 08:07] LABS: Hematocrit (blood only) 33.4 % (42-52); Hemoglobin 10.8 g/dL (14.0-18.0); Mean Corpuscular Hemoglobin 29.1 pg (25-34); Mean Corpuscular Hgb Conc 32.3 g/dL (32-36); Mean Platelet Volume 10.3 fL (7.4-10.4); Platelet Count 196 K/uL (130-400); RDW Coefficient of Variation 14.4 % (11.5-14.5); RDW Standard Deviation 47.8 fL (36.4-46.3); Red Blood Count 3.71 M/uL (4.7-6.1); White Blood Count 6.13 K/uL (4.8-10.8)
[2021-04-11 08:15] LABS: INR 2.9 (0.9-1.1); Prothrombin Time 27.3 Seconds (9.0-12.0)
[2021-04-11 08:37] LABS: BUN Creatinine Ratio 19.1 (10-20); Creatinine Clr Calc Pharmacy 54.7 ml/min; Est GFR (African American) 60.9 ml/min; Est GFR (Non-African American) 52.6 ml/min; Potassium 3.7 mmol/L (3.5-5.1)
[2021-04-11] MEDS: QUINIDINE GLUCONATE 324 MG PO SCH (09:04)
[2021-04-11] MEDS: TAMSULOSIN HCL 0.4 MG CAP PO SCH (09:04)
[2021-04-11] MEDS: MYCOPHENOLATE MOFETIL 250 MG CAP PO SCH (09:04)
[2021-04-11] MEDS: PANTOprazole 40 MG TAB PO SCH (09:04)
[2021-04-11] MEDS: BENZONATATE 100 MG CAPSULE PO SCH ×2 (09:04→14:46)
[2021-04-11] MEDS: levETIRAcetam 500 MG TAB PO SCH (09:04)
[2021-04-11] MEDS: methylPREDNISolone 60 MG in SYRINGE 0 ML IV SCH (09:04)
[2021-04-11] MEDS: FLUTICASONE/VILANTEROL 200/25MCG 14 PUFFS/INHALER INH SCH (09:05)
[2021-04-11] MEDS: ALBUT/IPRATROP 3MG/0.5MG NEB 3 ML VIAL NEB PRN (09:10)
--- NOTE | 2021-04-11 11:49 | Discharge Summary ---
Date of Service April 11, 2021 Admission HPI Per Admitting Provider Mr. 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 Patient was recently in [place] to see his casting finisher and his rail manager at [facility] earlier this week on Thursday and Thursday. On Thursday evening patient met with some friends (none of whom were ill) and they visited for couple of hours. After his guests left, he began to note some malaise, mild sore throat, headache, and felt feverish. He did not have a thermometer to take his temperature but he kept getting the chills. He had to turn up the heat in the room and his was not pleased about that. In the ensuing hours, the patient developed a cough, increasing shortness of breath, and has had some yellow sputum production. After he arrived back to [facility] on Thursday, he contacted his PCPs office who sent him for COVID-19 and influenza testing. Both of these tests were negative. Patient continued to have his symptoms along with worsening shortness of breath. He increased his supplemental oxygen to 3 liters/minute, but that did not help his symptoms. He subsequently schedule an appointment with Dr. Villalobos this morning at 11:30 a.m., and after arriving there felt very washed out and felt like he was going to vomit. Patient was noted to be hypoxic with O2 saturations in the 80's. EMS was activated and he was transferred to the ER. His peak temperature is 37.8 centigrade in the ER. Patient continues to feel poorly. He continues to cough and feel short of br eath. He is currently on supplemental O2 at 3 L per minute via nasal cannula, and his O2 saturations are in the 93% to 94% range. He did receive a single dose of Solu-Medrol IV 60 mg and he just concluded an albuterol nebulizer treatment. Patient offers no other complaints. He denies any chest pain, heaviness, tightness, pressure, or discomfort. He denies any nausea, vomiting, or diarrhea. He denies any headache or stiff neck at this time. He has not had any hemoptysis or pleuritic chest pain. Admission Exam Per Admitting Provider GENERAL: Patient in no acute distress. HEENT: Head is atraumatic, normocephalic. EOM's intact. Facies symmetric. No perioral cyanosis. NECK: No JVD. JVP is not elevated Carotid upstrokes are + 2 bilaterally without obvious bruits. CHEST/LUNGS: Diffuse bibasilar crackles and scattered wheezes. CVS: S1 and S2 are regular without obvious murmurs, gallops, or rubs. PMI is nondisplaced. No lifts, heaves, or thrills. No abdominal aortic or renal bruits. ABDOMINAL EXAM: Bowel sounds are present. No masses, organomegaly, or tenderness. EXTREMITIES: No clubbing or cyanosis. No edema. Intact posterior tibial and radial pulses bilaterally. NEUROLOGIC EXAM: Patient is awake, alert, and oriented. Pleasant and cooperative. Answers questions appropriately. Speech is clear. campus monitor shows sinus tachycardia at 115 beats per minute. EKG 04/05/21: -- Sinus tachycardia with left axis deviation and LVH with repolarization abnormality. -- When compared to 11/20/2020 tracing, ventricular rate has increased by 49 beats per minute, T-wave inversions are now evident in lateral leads. Principal Diagnosis hypoxia Discharge Exam GENERAL: Pleasant elderly male in no acute distress. Vital signs reviewed as above. EYES: EOMI. Anicteric sclerae. HENT: Moist mucous membranes. RESPIRATORY: Coarse breath sounds bilaterally w/ crackles. Patient with increased coughing upon inspiration. CARDIOVASCULAR: Regular rate and rhythm. No murmurs. ABDOMEN: Soft, non-tender and non-distended. No palpable masses. Normal bowel sounds. EXTREMITIES: No edema. Non-tender to palpation. SKIN: Warm, dry. NEUROLOGIC: A/O x3. No focal neurological deficits. PSYCHIATRIC: Cooperative. Appropriate mood and affect. Discharge Data Allergies Allergy/AdvReac Type Severity Reaction Status Date / Time Iodinated Contrast Media Allergy Intermediate Unknown Verified 04/05/21 13:37 iodine Allergy Mild Unknown Verified 04/05/21 13:37 Quinolones Allergy Mild Unknown Verified 04/05/21 13:37 house dust Allergy Unknown Allergy Verified 04/05/21 13:37 symptoms mold Allergy Unknown SEASONAL Verified 04/05/21 13:37 ALLERGIES ofloxacin Allergy Unknown Unknown Verified 04/05/21 13:37 Penicillins Allergy Unknown Unknown Verified 04/05/21 13:37 phenytoin Allergy Unknown MYOPATHY Verified 04/05/21 13:37 pollen extracts Allergy Unknown SEASONAL Verified 04/05/21 13:37 ALLERGIES dextromethorphan AdvReac Mild felt weird Verified 04/05/21 13:37 [From [facility]] fentanyl AdvReac Mild Unknown Verified 04/05/21 13:37 Consultations 04/05/21 14:26 ED Decision to Admit Stat 04/10/21 13:06 Consult Pulmonology Routine Ordered Studies 04/08/21 13:03 CT chest diagnostic w con Routine Hospital Course (1) Idiopathic pulmonary fibrosis: Tye Tirado is a 70 yo male with PMHx of idiopathic pulmonary fibrosis, chronic hypoxemia (on chronic supplemental O2 via NC at 1 L/min), polymyositis, history of DVT/PE on chronic anticoagulation, BPH, nephrolithiasis, and epilepsy who was admitted to [facility] due to increased hypoxia. Acute on chronic respiratory failure due to acute bronchitis leading to exacerbation of idiopathic pulmonary fibrosis Hemoptysis - Worsened prior to admission; at baseline patient on 1L O2 via NC. Was requiring 4L to maintain O2 sats; weaning; now requiring 2L to maintain O2 sats. - Continue supplemental O2 to maintain O2 sats 90-92%; wean as able - Tested negative for COVID - Initially treated for presumed pneumonia w/ empiric ceftriaxone and azithromycin Chest CT 04/08/21 with no signs of pneumonia. Abx therapy (ceftriaxone and azithromycin) discontinued 04/08 Blood cultures negative Sputum culture negative - Continued home medications for IPF including CellCept - Kept on IV steroids - 60mgs bid. - Pulmonology consulted during hospitalization: no indication for bronchoscopy. Recommend discontinuation of patient's coumadin at this time for hemoptysis to resolve (on anticoagulation due to PE in 2006). Continue home oxygen titration to maintain saturations > 88%. - Will plan to hold patient's coumadin as of day of discharge (04/11/21) with very close follow up with the anticoagulation clinic as well as PCP. - Patient does follow with pulmonology as outpatient, Dr. Rigoberto Hernandez, [facility]; last appointment was 1 week ago. Recommend continued outpatient f/u. - Discharged home with two days of 40mgs PO prednisone and then transition to daily 5mg dose; rx for benzonatate and Robitussin AC History of DVT/PE - On warfarin w/ goal INR 2.0 to 3.0 - Patient follows with anticoagulation clinic. - Warfarin held as of day of discharge. See above. Epilepsy, history of - Continue Keppra 1g BID - PT/OT evaluated during hospitalization and recommended home when medically stable. No further PT or OT needs identified. (2) Hypoxia: (3) Hemoptysis: (4) History of DVT (deep vein thrombosis): (5) Epilepsy: Total Time Total Time Spent Total Time Spent (In Minutes): See attending attestation Discharge Plan Discharge Items Patient Disposition: Home - Self-Care Reason For Visit: PNEUMONIA, HYPOXIA Discharge Diagnosis: hypoxia Activity: Resume your previous activity Non-emergency contact: Primary Care Provider, Specialist and Combat Engineer Call non-emergency contact if: you have any medication questions Follow-up/Referrals: Yusuf Villalobos MD [Primary Care Provider] - 04/22/21 3:45 pm Diet: Regular Addtl Attending Provider Instructions: Tye, It was our pleasure to care for you at [facility] from 04/05/21 to 04/11/21. You were initially admitted for low oxygen levels (hypoxia) and concern for pneumonia. Further studies showed that you did not have pneumonia - this is good! Your supplemental oxygen was slowly decreased and is near your baseline requirement. You were kept on IV steroids and will take 2 days of 40mgs prednisone on discharge. Due to concerns for coughing/spitting up blood, your home coumadin is being held as of the day of discharge (04/11/2021). Please continue to hold the coumadin until follow up with your primary care physician and/or the anticoagulation clinic. The anticoagulation clinic is aware of the current plan. Please CALL THE ANTICOAGULATION CLINIC DIRECTLY TO SCHEDULE AN APPOINTMENT WITH THEM EARLY NEXT WEEK (do not go through central scheduling). Follow up with your primary care doctor, Dr. Villalobos, as scheduled on 04/22/21 at 3:45pm. You should also schedule a follow up with your rail manager, Dr. Hernandez, in [place]. Please call Dr. Villalobos with any questions or concerns. Return to the emergency department for worsening or concerning symptoms including chest pain, shortness of breath, or continued coughing up blood (hemoptysis). Pending Studies at Discharge: No Stand-Alone Forms: My [facility], Smoking Cessation Medications and DC Order Prescriptions: New benzonatate 100 mg capsule 100 mg PO TID PRN (Reason: cough) Qty: 14 RF: 0 codeine-guaifenesin [Guaiatussin AC] 10-100 mg/5 mL Liquid 5 ml PO Q6H PRN (Reason: cough) Qty: 200 RF: 0 prednisone 20 mg tablet 40 mg PO DAILY 2 Days Qty: 4 RF: 0 Continued prednisone 5 mg tablet 5 mg PO QAM RF: 0 ergocalciferol (vitamin D2) 50 mcg (2,000 unit) tablet 2,000 unit PO 2XWK RF: 0 pantoprazole [Protonix] 40 mg Tablet,Delayed Release (Dr/Ec) 40 mg PO QAM Qty: 0 RF: 0 budesonide-formoterol [Symbicort] 160-4.5 mcg/actuation Hfa Aerosol Inhaler 2 puff Inhalation BID Qty: 0 RF: 0 famotidine [Pepcid] 40 mg Tablet 40 mg PO HS Qty: 0 RF: 0 tamsulosin [Flomax] 0.4 mg Capsule 0.4 mg PO QAM Qty: 0 RF: 0 levetiracetam [Keppra] 500 mg Tablet 1,000 mg PO BID Qty: 0 RF: 0 mycophenolate mofetil [CellCept] 500 mg Tablet 1,000 mg PO BID Qty: 0 RF: 0 quinidine gluconate 324 mg Tablet Extended Release 324 mg PO BID Qty: 0 RF: 0 levalbuterol HCl [Xopenex] 1.25 mg/3 mL Solution For Nebulization 1 vial NEB QID PRN (Reason: Shortness Of Breath Or Wheezing) Qty: 0 RF: 0 albuterol sulfate [Proventil HFA] 90 mcg/actuation Hfa Aerosol Inhaler 2 puff Inhalation Q4H PRN (Reason: Shortness Of Breath Or Wheezing) Qty: 0 RF: 0 atorvastatin 10 mg tablet 10 mg PO HS RF: 0 fluoride (sodium) 1.1 % paste 1 applic dental HS RF: 0 Discontinued warfarin 5 mg tablet See Rx Instructions PO UD RF: 0 Discharge Orders: Discharge Order (Routine); Ordered 04/11/21 Ordered By: Estella Woodard Admission Data Admit Date/Time: 04/05/21 15:35 Attending Provider: Estella Woodard Admit Provider: Faisal Norton Primary Care Provider: Yusuf Villalobos Other Providers: Faisal Norton ; Dave Baker ; [facility] Other Interventions: Discharge Summary Assessment (RN) Last Done: 04/11/21 14:28 Supervising Physician Co-Signing Physician Notes Resident Physician Supervision Note: I independently interviewed and examined the patient and verified the tan history and physical, reviewed labs and image studies and agree with resident Dr. Mccoy findings and care plan. Resident Activity Tracking Resident Involvement: Resident Care Provided Care Provided: Adult Hospital Medicine
[2021-04-11 23:36] LABS: Mycophenolic Acid 1.6 mcg/mL (1.0-3.5)
== END 2021-04-11 15:56 | disposition home or self-care (01) | DRG 196 ==
LOC: ED 12:08 → EDINP 15:35 → SUATTDRO 15:35 → 2N 04-06 20:25

== ENCOUNTER 2022-07-25 15:13 | Observation (INO) ==
--- NOTE | 2022-07-25 15:28 | Emergency Department Note ---
Impression & Plan Pulmonary embolism, Shortness of breath ED Provider Note NAME: JONELLE RAMACHANDRAN JR AGE: 71 SEX: M : 1950 ARRIVES VIA: Walk-In INFORMANT: Patient ED PROVIDER(S): Ramon Gomez DO CHIEF COMPLAINT: shortness of breath HPI: Patient is a 71-year-old male with a past medical history of pulmonary hypertension, hypoxia, pericardial effusion, 2 previous PE events, that presents to the ER for shortness of breath which has been present since February but got worse over the past 3 weeks. He does admit to a little bit of a cough. Notes that sometimes when he coughs he gets some chest pressure. No belly pain, nausea, vomiting, or diarrhea. No dysuria, urgency, or frequency. Seen by his PCP and had a CT performed which showed segmental and subsegmental PEs. Does chronically wear 1 L nasal cannula and will sometimes titrate this up based on how he is feeling denies any coughing of blood, vomiting blood, urinating blood or blood in his stools. No dark tarry stools. No recent trauma or surgery. PAST MEDICAL HISTORY:See Below PAST SURGICAL HISTORY:See Below FAMILY HISTORY:See Below SOCIAL HISTORY:See Below HOME MEDICATIONS:See Below ALLERGIES:See Below VITALS:See Below PHYSICAL EXAMINATION: GENERAL: Sitting up in bed, alert, well appearing, well nourished, no distress, non-toxic EYE EXAM: normal conjunctiva. PERRL and EOM's intact. OROPHARYNX: mucous membranes are moist LUNGS: Clear to auscultation. Normal chest wall mechanics HEART: no murmurs, S1 normal and S2 normal ABDOMEN: abdomen soft, non-tender, normo-active bowel sounds, no masses, no rebound or guarding. UPPER EXTREMITIES: upper extremities are grossly normal. LOWER EXTREMITIES: No pitting edema. Calves are equal bilateral NEURO EXAM: Normal sensorium, cranial nerves II-XII grossly intact, normal speech, no gross weakness of arms, no gross weakness of legs. MEDICAL DECISION MAKING: Patient is a 71-year-old male who presents ER for above-stated complaint. IV was established blood work was obtained. External records were reviewed. Currently on 1 L nasal cannula. He has been increasing this intermittently over the past several weeks. Was seen by his PCP and had an angio of the chest which showed segmental and subsegmental PEs. Upon review of his previous admissions h is previous anticoagulation was stopped as he had some hemoptysis but he had no significant intervention from what I can tell. Patient did not remember this event. He was started on heparin and not given a bolus. Labs show no significant leukocytosis. Hemoglobin 11.8 which is consistent with baseline. INR unremarkable. BMP with slightly elevated chloride. LFTs bilirubin and lipase was unremarkable. COVID-negative. CT angio was reviewed. He was updated bedside. Discussed with the hospitalist admitted for further work-up. Chest x-ray showed no focal infiltrate. Triage Nursing notes reviewed. Limited review of prior medical records performed Vital Signs: reviewed and remarkable for HTN Differential diagnosis: Differential diagnoses includes but is not limited to pneumonia, bronchitis, COPD/Asthma exacerbation, pneumothorax, pulmonary embolism, congestive heart failure, acute coronary syndrome ER treatment provided: See below Diagnostics interpreted by me include EKG and cardiac monitoring as listed below: -Cardiac Monitoring: An order was placed for continuous cardiac monitoring. The monitor shows a rate of 70 with sinus rhythm. -ECG: Sinus rhythm rate 69 Left axis No PVCs QTc 372 -Laboratory studies:Interpreted by me as stated above in MDM and shown below. Imaging studies: Xrays: As interpreted by me: Chest x-ray shows no focal infiltrate CTs show: none Consultation(s): As described in MDM Procedures:none Critical Care: I have personally spent 32 minutes of critical care time in the direct management of this patient. This includes bedside care, interpretation of diagnostic studies, and testing, discussion with consultants, patient, and family members, and other required patient management activities. This 32 minutes is in excess of all separately billable procedures. 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/04/11) Complication of catheter Congestion of nasal sinus Cough Cough Demyelinating disease of central nervous system (06/04/11) Epilepsy Hemoptysis (06/04/11) Hemoptysis History of DVT (deep vein thrombosis) 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 Hypoxia Incarcerated hernia Incarcerated umbilical hernia Incomplete emptying of bladder Kidney stone Lab test negative for COVID-19 virus 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 Lumbar disc disease Microscopic hematuria Obstruction of Da Silva catheter Pneumonia 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) Prostatic hypertrophy Pyelonephritis SBO (small bowel obstruction) Streptococcal tonsillitis (11/17/10) UIP (usual interstitial pneumonitis) Urinary frequency UTI (urinary tract infection) Viral URI Vomiting Surgical History (Updated 12/13/21 @ 09:47 by Irma Villalobos) History of bilateral hip replacements History of umbilical hernia repair (02/02/20) Open Umbilical Hernia Repair with Mesh(Not Applicable) - Amado Velazquez DO, FACS 02/02/20 No significant past surgical history S/P cardiac cath 12/17/15 WNL Family History (Updated 12/13/21 @ 09:53 by Irma Villalobos) Father , age 81 Cancer lung COPD (chronic obstructive pulmonary disease) Mother , age 75 Cancer Hypertension Diabetes TIA (transient ischemic attack) IHD (ischemic heart disease) Sister Cerebral aneurysm Brother Diabetes Social History Smoking Status: Never smoker Tobacco Type: Cigarettes Second Hand Exposure: Yes (as a child); Hx Alcohol Use: Yes Alcohol type: wine Alcohol Intake Frequency: Monthly or Less Hx Substance Use: No Preferred Language: Martiniquais Communication Ability: Effective [employer] Required: No Beliefs That Will Affect Care: None marital status: Current Living Situation: Spouse current occupational status: retired How many Children do You have: 1 How many Children do You have Comment: 1 stepson Feels Safe at Home: Yes caffeine: Yes (rarely ) Dental Care, Regularly: Yes Physical Activity Frequency: Does not Exercise Assistive Devices: Oxygen - Continuous Allergies Allergies Allergy/AdvReac Type Severity Reaction Status Date / Time Quinolones Allergy Mild Unknown Verified 07/22/22 14:33 house dust Allergy Unknown Allergy Verified 07/22/22 14:33 symptoms mold Allergy Unknown SEASONAL Verified 07/22/22 14:33 ALLERGIES ofloxacin Allergy Unknown Unknown Verified 07/22/22 14:33 Penicillins Allergy Unknown Unknown Verified 07/22/22 14:33 phenytoin Allergy Unknown MYOPATHY Verified 07/22/22 14:33 pollen extracts Allergy Unknown SEASONAL Verified 07/22/22 14:33 ALLERGIES dextromethorphan AdvReac Mild felt weird Verified 07/22/22 14:33 [From [facility]] fentanyl AdvReac Mild Unknown Verified 07/22/22 14:33 Home Meds Home Medications Medication Instructions Recorded Confirmed pantoprazole 40 mg tablet,delayed 40 mg PO QAM ##0 03/05/09 07/22/22 release (Protonix) budesonide-formoterol HFA 160 2 puff inhalation BID ##0 10/18/09 07/22/22 mcg-4.5 mcg/actuation aerosol inhaler (Symbicort) levalbuterol HCl 1.25 mg/3 mL 1 vial NEB QID PRN Shortness Of 03/11/17 07/22/22 solution for nebulization (Xopenex) Breath Or Wheezing ##0 levetiracetam 500 mg tablet 1,000 mg PO BID #0 tabs 03/11/17 07/22/22 (Keppra) mycophenolate mofetil 500 mg 1,000 mg PO BID #0 tabs 03/11/17 07/22/22 tablet (CellCept) fluoride (sodium) 1.1 % dental 1 applic dental HS 04/05/21 07/22/22 paste acetaminophen 500 mg tablet 500 mg PO QID PRN 12/05/21 07/22/22 (Tylenol Extra Strength) potassium chloride 20 mEq 20 meq PO TID 12/05/21 07/22/22 tablet,extended release ergocalciferol (vitamin D2) 50 mcg 2,000 unit PO .1XWK 05/29/22 07/22/22 (2,000 unit) tablet Previous Rx's Medication Instructions Recorded famotidine 40 mg tablet (Pepcid) 40 mg PO DAILY #90 tabs 05/13/22 atorvastatin 10 mg tablet 10 mg PO HS #90 tabs 06/09/22 prednisone 5 mg tablet 5 mg PO QAM #90 tabs 06/13/22 quinidine gluconate 324 mg 324 mg PO BID #180 tabs 06/19/22 tablet,extended release tamsulosin 0.4 mg capsule (Flomax) 0.4 mg PO DAILY #90 caps 06/24/22 hydrocodone-homatropine 5 mg-1.5 5 ml PO Q6H cough #200 mL 07/09/22 mg/5 mL (5 mL) oral syrup (Hycodan) Proventil HFA 90 mcg/actuation 1 inh inhalation QID #13.4 grams 07/22/22 aerosol inhaler (albuterol sulfate) Results & Data (ED) Vital Signs Vital Signs - 24 hr 07/25/22 15:14 07/25/22 15:49 07/25/22 15:49 Temperature 36.8 C Temperature Source Temporal Artery Scan Pulse Rate 67 63 Pulse Rate [Right Apical] 63 Pulse Rate from SpO2 Sensor Respiratory Rate 20 16 16 Respiratory Effort / Characteristics Non-Labored Non-Labored Spontaneous Respiratory Depth Normal Normal Respiratory Pattern Regular Blood Pressure 141/82 H Blood Pressure [Left Arm] 133/80 Blood Pressure Mean 101 Blood Pressure Mean [Left Arm] 97 Pulse Oximetry 97 100 100 Oxygen Delivery Method Room Air Nasal Cannula Nasal Cannula Oxygen Flow Rate 1 1 Sepsis Recent Fever Within 48 Hours No Sepsis New/Unexplained Change in Mental Status No Sepsis Action Taken by Nursing No Action Required 07/25/22 15:52 07/25/22 16:00 07/25/22 16:30 Temperature Temperature Source Pulse Rate 67 66 62 Pulse Rate [Right Apical] Pulse Rate from SpO2 Sensor 66 61 Respiratory Rate 20 24 Respiratory Effort / Characteristics Respiratory Depth Respiratory Pattern Blood Pressure 124/84 140/90 Blood Pressure [Left Arm] Blood Pressure Mean 97 106 Blood Pressure Mean [Left Arm] Pulse Oximetry 100 100 Oxygen Delivery Method Nasal Cannula Nasal Cannula Oxygen Flow Rate 1 1 Sepsis Recent Fever Within 48 Hours Sepsis New/Unexplained Change in Mental Status Sepsis Action Taken by Nursing 07/25/22 17:01 07/25/22 17:31 Temperature Temperature Source Pulse Rate 67 66 Pulse Rate [Right Apical] Pulse Rate from SpO2 Sensor 68 67 Respiratory Rate 20 24 Respiratory Effort / Characteristics Respiratory Depth Respiratory Pattern Blood Pressure 122/70 130/86 Blood Pressure [Left Arm] Blood Pressure Mean 87 100 Blood Pressure Mean [Left Arm] Pulse Oximetry 100 100 Oxygen Delivery Method Nasal Cannula Nasal Cannula Oxygen Flow Rate 1 1 Sepsis Recent Fever Within 48 Hours Sepsis New/Unexplained Change in Mental Status Sepsis Action Taken by Nursing Laboratory Data 07/25/22 15:31 07/25/22 15:31 Lab Results 07/25/22 07/25/22 07/25/22 Range/Units 15:31 15:31 15:31 WBC 6.20 (4.8-10.8) K/ul RBC 4.00 L (4.70-6.10) M/uL Hgb 11.8 L (14.0-18.0) g/dl Hct 35.2 L (42.0-52.0) % MCV 88.0 (80.0-100.0) fL MCH 29.5 (25.0-34.0) pg MCHC 33.5 (32.0-36.0) g/dL RDW Std Deviation 44.3 (36.4-46.3) fL RDW Coeff of Kim 13.7 (11.5-14.5) % Plt Count 185 (130-400) K/uL MPV 10.2 (9.4-12.4) fL Immature Gran % (Auto) 0.3 % Neut % (Auto) 78.8 % Lymph % (Auto) 13.1 % Crowley % (Auto) 6.8 % Eos % (Auto) 0.5 % Baso % (Auto) 0.5 % Neut # (Auto) 4.89 (1.40-6.50) K/uL Lymph # (Auto) 0.81 L (1.2-3.4) K/uL Crowley # (Auto) 0.42 (0.11-0.59) K/uL Eos # (Auto) 0.03 (0-0.50) K/uL Baso # (Auto) 0.03 (0-0.2) K/uL Immature Gran # (Auto) 0.02 (0.01-0.20) K/uL PT 11.0 (9.0-12.0) Seconds INR 1.0 (0.9-1.1) Sodium 140 (136-145) mmol/L Potassium 4.1 (3.5-5.1) mmol/L Chloride 109 H (98-107) mmol/L Carbon Dioxide 25 (21-32) mmol/L Anion Gap 6 (3-11) BUN 23 (6-23) mg/dl Creatinine 1.37 (0.6-1.4) mg/dl Est Cr Clr Drug Dosing 51.1 ml/min Est GFR ( Amer) 58.9 ml/min Est GFR (Non-Af Amer) 50.8 ml/min BUN/Creatinine Ratio 16.8 (10-20) Glucose 84 (70-99(Fasting)) mg/dl Calcium 8.9 (8.6-10.3) mg/dl Iron (35-175) mcg/dl TIBC (250-450) mcg/dl Unsaturated IBC (155-355) mcg/dl Transferrin % Sat (20-50) % Total Bilirubin 0.5 (0.2-1.0) mg/dl AST 14 (13-39) U/L ALT 5 L (7-52) U/L Alkaline Phosphatase 70 (34-104) U/L Troponin I High Sens 8.6 (0-20) pg/ml Total Protein 6.6 (6.0-8.3) gm/dl Albumin 3.9 (3.4-5.0) gm/dl Globulin 2.7 (2.5-4.0) gm/dl Albumin/Globulin Ratio 1.4 (0.9-2) Lipase 35 (11-82) U/L SARS-CoV-2, RNA, NAAT (NEGATIVE) 07/25/22 07/25/22 Range/Units 15:31 15:31 WBC (4.8-10.8) K/ul RBC (4.70-6.10) M/uL Hgb (14.0-18.0) g/dl Hct (42.0-52.0) % MCV (80.0-100.0) fL MCH (25.0-34.0) pg MCHC (32.0-36.0) g/dL RDW Std Deviation (36.4-46.3) fL RDW Coeff of Kim (11.5-14.5) % Plt Count (130-400) K/uL MPV (9.4-12.4) fL Immature Gran % (Auto) % Neut % (Auto) % Lymph % (Auto) % Crowley % (Auto) % Eos % (Auto) % Baso % (Auto) % Neut # (Auto) (1.40-6.50) K/uL Lymph # (Auto) (1.2-3.4) K/uL Crowley # (Auto) (0.11-0.59) K/uL Eos # (Auto) (0-0.50) K/uL Baso # (Auto) (0-0.2) K/uL Immature Gran # (Auto) (0.01-0.20) K/uL PT (9.0-12.0) Seconds INR (0.9-1.1) Sodium (136-145) mmol/L Potassium (3.5-5.1) mmol/L Chloride (98-107) mmol/L Carbon Dioxide (21-32) mmol/L Anion Gap (3-11) BUN (6-23) mg/dl Creatinine (0.6-1.4) mg/dl Est Cr Clr Drug Dosing ml/min Est GFR ( Amer) ml/min Est GFR (Non-Af Amer) ml/min BUN/Creatinine Ratio (10-20) Glucose (70-99(Fasting)) mg/dl Calcium (8.6-10.3) mg/dl Iron 80 (35-175) mcg/dl TIBC 241 L (250-450) mcg/dl Unsaturated IBC 161 (155-355) mcg/dl Transferrin % Sat 33 (20-50) % Total Bilirubin (0.2-1.0) mg/dl AST (13-39) U/L ALT (7-52) U/L Alkaline Phosphatase (34-104) U/L Troponin I High Sens (0-20) pg/ml Total Protein (6.0-8.3) gm/dl Albumin (3.4-5.0) gm/dl Globulin (2.5-4.0) gm/dl Albumin/Globulin Ratio (0.9-2) Lipase (11-82) U/L SARS-CoV-2, RNA, NAAT NEGATIVE (NEGATIVE) Administered Medications Heparin Sodium/Dextrose (Heparin Sodium/Dextrose) 25,000 units in 500 mls @ 27 mls/hr IV .[id number] DIANE; Protocol Stop: 08/24/22 15:59 Last Titration: 07/25/22 20:25 Dose: 1,350 units/hr, 27 mls/hr Documented By: SHELDON Co-signed By: JESUSITAK Admin: 07/25/22 16:22 Dose: 1,350 units/hr, 27 mls/hr Documented By: MARCIE Co-signed By: ERIC Discontinued Medications Heparin Sodium/Dextrose (Heparin Iv Adult Wt-Based Standard *No* Bolus Protocol) 1 each IV ONE ONE; Protocol Stop: 07/25/22 15:40 Last Admin: 07/25/22 16:00 Dose: Not Given Documented By: MARCIE Metoprolol Tartrate (Metoprolol Tartrate 1 Mg/Ml Vial) 5 mg IV NOW STA Stop: 07/25/22 16:31 Last Admin: 07/25/22 16:49 Dose: Not Given Documented By: S Imaging Data Radiologist's Impression: Chest X-Ray 07/25/22 15:17 XR chest 1V portable CLINICAL HISTORY: Chest pain, nonspecific TECHNIQUE: Single frontal radiograph of the chest was obtained. Comparison: Comparison is made to chest radiograph 07/02/2021 FINDINGS: No lines and tubes are seen. Cardiomegaly is noted. Reticular interstitial opacities are seen. No evidence of pleural effusion or pneumothorax. IMPRESSION: Interstitial lung disease and cardiomegaly without evidence of acute abnormality. ACT 112: Negative or not required by law. Electronically signed by: Richard Galindo M.D. 07/25/2022 4:07 PM Discharge Plan Visit Data Chief Complaint: Abnormal Labs/Diagnostic Testing Stated Complaint: ABNORMAL CT ED Provider: Ramon Gomez Discharge Problem: Pulmonary embolism, Shortness of breath Patient Disposition: Admitted As Inpatient Discharge Instructions Interventions: ED Discharge Assessment Last Done: 07/25/22 19:40
[2022-07-25] MEDS ORDERED: Heparin IV Adult Wt-Based Standard *NO* Bolus Protocol IV ONE (15:39)
[2022-07-25] MEDS ORDERED: Patient's HEIGHT &/or WEIGHT Needed SCH (15:45)
[2022-07-25 16:04] LABS: Basophils # (auto) 0.03 K/uL (0-0.2); Basophils % (auto) 0.5 %; Eosinophils # (auto) 0.03 K/uL (0-0.50); Eosinophils % (auto) 0.5 %; Hematocrit (blood only) 35.2 % (42.0-52.0); Hemoglobin 11.8 g/dl (14.0-18.0); Immature Granulocytes # (auto) 0.02 K/uL (0.01-0.20); Immature Granulocytes % (auto) 0.3 %; Lymphocytes # (auto) 0.81 K/uL (1.2-3.4); Lymphocytes % (auto) 13.1 %; Mean Corpuscular Hemoglobin 29.5 pg (25.0-34.0); Mean Corpuscular Hgb Conc 33.5 g/dL (32.0-36.0); Mean Platelet Volume 10.2 fL (9.4-12.4); Monocytes # (auto) 0.42 K/uL (0.11-0.59); Monocytes % (auto) 6.8 %; Neutrophils # (auto) 4.89 K/uL (1.40-6.50); Neutrophils % (auto) 78.8 %; Platelet Count 185 K/uL (130-400); RDW Coefficient of Variation 13.7 % (11.5-14.5); RDW Standard Deviation 44.3 fL (36.4-46.3)
--- NOTE | 2022-07-25 16:09 | XRay Report ---
XR chest 1V portable CLINICAL HISTORY: Chest pain, nonspecific TECHNIQUE: Single frontal radiograph of the chest was obtained. Comparison: Comparison is made to chest radiograph 07/02/2021 FINDINGS: No lines and tubes are seen. Cardiomegaly is noted. Reticular interstitial opacities are seen. No callie dence of pleural effusion or pneumothorax. IMPRESSION: Interstitial lung disease and cardiomegaly without evidence of acute abnormality. ACT 112: Negative or not required by law. Electronically signed by: Richard Galindo M.D. 07/25/2022 4:07 PM
--- NOTE | 2022-07-25 16:16 | Electrocardiogram Report ---
Test Reason : Blood Pressure : / mmHG Vent. Rate : 069 BPM Atrial Rate : 069 BPM P-R Int : 172 ms QRS Dur : 098 ms QT Int : 348 ms P-R-T Axes : 021 -33 057 degrees QTc Int : 372 ms Normal sinus rhythm Left axis deviation Moderate voltage criteria for LVH, may be normal variant Nonspecific T wave abnormality Abnormal ECG When compared with ECG of 05-APR-2021 12:24, Vent. rate has decreased BY 42 BPM Nonspecific T wave abnormality has replaced inverted T waves in Lateral leads Confirmed by Charlie Elizabeth ([id number]) on 07/25/2022 4:15:57 PM Referred By: Confirmed By:Charlie Elizabeth
[2022-07-25] MEDS: HEPARIN SODIUM/DEXTROSE 25,000 UNITS/500 ML BAG IV SCH (16:22)
[2022-07-25] MEDS ORDERED: METOPROLOL TARTRATE 1 MG/ML VIAL IV STA (16:30)
[2022-07-25 16:38] LABS: Albumin Globulin Ratio 1.4 (0.9-2); Albumin Level 3.9 gm/dl (3.4-5.0); BUN Creatinine Ratio 16.8 (10-20); Bilirubin,Total 0.5 mg/dl (0.2-1.0); Calcium 8.9 mg/dl (8.6-10.3); Creatinine Clr Calc Pharmacy 51.1 ml/min; Est GFR (African American) 58.9 ml/min; Est GFR (Non-African American) 50.8 ml/min; Globulin 2.7 gm/dl (2.5-4.0); Potassium 4.1 mmol/L (3.5-5.1); Total Protein 6.6 gm/dl (6.0-8.3)
[2022-07-25 16:45] LABS: Troponin I High Sensitivity 8.6 pg/ml (0-20)
--- NOTE | 2022-07-25 17:04 | History & Physical Report ---
Date of Service July 25, 2022 Assessment & Plan (1) History of pulmonary embolism: Plan: Shortness of breath 2/2 Left segmental and segmental PEs. Multifactorial contributions to shortness of breath including interstitial lung disease Patient has been off of anticoagulation due to recurrent hemoptysis Continue oxygen titrate to greater than 90% - Hgb 11.8, baseline ~11-12.0 - CTA: 1. Segmental and subsegmental pulmonary emboli in the left lower lobe without evidence of right heart strain. 2. Extensive fibrotic changes in the lungs with associated pulmonary hypertension and cardiomegaly. - Continue heparin - Pt good DOAC candidate, many years ago was on warfarin - Hx of hemoptysis, pt denies this and reports has had no issues in the last years with coughing up blood although notes he has had a cough worse in the prior month Anemia Hemoglobin at recent baseline, but diminished around 11.8 Low normal iron levels in 2019 Trend H&H, iron studies pending ILD Continue CellCept, prednisone daily - [facility] Tobacco Warehouse Agent scheduled for this Thursday - No acute change in management at this time History of epilepsy Continue Keppra 1 g twice daily - Has not had a seizure in over a decade, does well with keppra Enlarged prostate with LUTS Continue Flomax 0.4 mg daily Pulmonary hypertension Continue home medications Pericardial effusion Last seen 05/2022. Stable and unchanged since 2014, small. No acute change in management CAD Minimal nonobstructive disease noted on cath 11/2015 History of polymyositis Follows [facility] rheumatology - Stable, no recent problems per pt - Continue prednisone as noted - No recent fevers/acute outbreaks. 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 Has had slight chest pressure when he coughs, has not had abdominal pain or vomiting. While in the ER CTA PE protocol shows segmental and subsegmental PEs. Tye reports he has had blood clots in his lungs twice before. Did not feel the first episode, but did have some chest tightness while working at home and picked up PEs at that time. Was diagnosed he thinks ~[id number]. Was treated with a blood thinner but doesn't remember which. Had been gettign blood thickness checks at the time and think it may have been coumadin. Eventually had a hernia repair and discussed risks/benefits of ongoing anticoagulation and decided to stop at that time. Chart review notes he had some issues with coughing up blood, but pt denies this and does not remember any problems with this. No recent hemoptysis, but has been going a lot of the last few weeks with increased shortness of breath. Does not usually look at sputum. No leg swelling/cramps. Hx of polymyositis but reports no flares or fevers and this has been doing well on prednisone which also treats his ILD. Had a pulm followup this coming thursday. Drives [facility] for doctors appointments which he did have in the last month, no other long trips. No recent surgery. Medical History: Reviewed Medications: Reviewed Surgical History: Reviewed Family history: Reviewed Allergies: Reviewed Social History: Rare social alcohol use, denies tobacco use Code Status: Full code Allergies Allergy/AdvReac Type Severity Reaction Status Date / Time Quinolones Allergy Mild Unknown Verified 07/22/22 14:33 house dust Allergy Unknown Allergy Verified 07/22/22 14:33 symptoms mold Allergy Unknown SEASONAL Verified 07/22/22 14:33 ALLERGIES ofloxacin Allergy Unknown Unknown Verified 07/22/22 14:33 Penicillins Allergy Unknown Unknown Verified 07/22/22 14:33 phenytoin Allergy Unknown MYOPATHY Verified 07/22/22 14:33 pollen extracts Allergy Unknown SEASONAL Verified 07/22/22 14:33 ALLERGIES dextromethorphan AdvReac Mild felt weird Verified 07/22/22 14:33 [From Delsy] fentanyl AdvReac Mild Unknown Verified 07/22/22 14:33 Home Medications Medication Instructions Recorded Confirmed Type pantoprazole 40 mg tablet,delayed 40 mg PO QAM ##0 03/05/09 07/22/22 History release (Protonix) budesonide-formoterol HFA 160 2 puff inhalation BID ##0 10/18/09 07/22/22 History mcg-4.5 mcg/actuation aerosol inhaler (Symbicort) levalbuterol HCl 1.25 mg/3 mL 1 vial NEB QID PRN Shortness Of 03/11/17 07/22/22 History solution for nebulization (Xopenex) Breath Or Wheezing ##0 levetiracetam 500 mg tablet 1,000 mg PO BID #0 tabs 03/11/17 07/22/22 History (Keppra) mycophenolate mofetil 500 mg 1,000 mg PO BID #0 tabs 03/11/17 07/22/22 History tablet (CellCept) fluoride (sodium) 1.1 % dental 1 applic dental HS 04/05/21 07/22/22 History paste acetaminophen 500 mg tablet 500 mg PO QID PRN 12/05/21 07/22/22 History (Tylenol Extra Strength) potassium chloride 20 mEq 20 meq PO TID 12/05/21 07/22/22 History tablet,extended release famotidine 40 mg tablet (Pepcid) 40 mg PO DAILY #90 tabs 05/13/22 07/22/22 Rx ergocalciferol (vitamin D2) 50 mcg 2,000 unit PO .1XWK 05/29/22 07/22/22 History (2,000 unit) tablet atorvastatin 10 mg tablet 10 mg PO HS #90 tabs 06/09/22 07/22/22 Rx prednisone 5 mg tablet 5 mg PO QAM #90 tabs 06/13/22 07/22/22 Rx quinidine gluconate 324 mg 324 mg PO BID #180 tabs 06/19/22 07/22/22 Rx tablet,extended release tamsulosin 0.4 mg capsule (Flomax) 0.4 mg PO DAILY #90 caps 06/24/22 07/22/22 Rx hydrocodone-homatropine 5 mg-1.5 5 ml PO Q6H cough #200 mL 07/09/22 07/22/22 Rx mg/5 mL (5 mL) oral syrup (Hycodan) Proventil HFA 90 mcg/actuation 1 inh inhalation QID #13.4 grams 07/22/22 07/22/22 Rx aerosol inhaler (albuterol sulfate) Past Med/Surg History Medical History (Updated 07/23/22 @ 13:10 by Yusuf Villalobos MD) Abnormal CT of the abdomen normal mri of abdomen august 2021 Acute gastroenteritis Acute gastroenteritis 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/04/11) Complication of catheter Congestion of nasal sinus Cough Cough Demyelinating disease of central nervous system (06/04/11) Epilepsy Hemoptysis (06/04/11) Hemoptysis History of DVT (deep vein thrombosis) 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 Hypoxia Incarcerated hernia Incarcerated umbilical hernia Incomplete emptying of bladder Kidney stone Lab test negative for COVID-19 virus 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) use of anticoagulants senior care (current) use of anticoagulants Lumbar disc disease Microscopic hematuria Obstruction of Da Silva catheter Pneumonia 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) Prostatic hypertrophy Pyelonephritis SBO (small bowel obstruction) Streptococcal tonsillitis (11/17/10) UIP (usual interstitial pneumonitis) Urinary frequency UTI (urinary tract infection) Viral URI Vomiting Surgical History (Updated 12/13/21 @ 09:47 by Irma Villalobos) History of bilateral hip replacements History of umbilical hernia repair (02/02/20) Open Umbilical Hernia Repair with Mesh(Not Applicable) - Amado Velazquez DO, FACS 02/02/20 No significant past surgical history S/P cardiac cath 12/17/15 WNL Family History (Updated 12/13/21 @ 09:53 by Irma Villalobos) Father , age 81 Cancer lung COPD (chronic obstructive pulmonary disease) Mother , age 75 Cancer Hypertension Diabetes TIA (transient ischemic attack) IHD (ischemic heart disease) Sister Cerebral aneurysm Brother Diabetes Social History Smoking Status: Never smoker Tobacco Type: Cigarettes Second Hand Exposure: Yes (as a child); Hx Alcohol Use: Yes Alcohol type: wine Alcohol Intake Frequency: Monthly or Less Hx Substance Use: No Preferred Language: Malaysian Communication Ability: Effective Can Striper Required: No Beliefs That Will Affect Care: None marital status: Current Living Situation: Spouse current occupational status: retired How many Children do You have: 1 How many Children do You have Comment: 1 stepson Feels Safe at Home: Yes caffeine: Yes (rarely ) Dental Care, Regularly: Yes Physical Activity Frequency: Does not Exercise Assistive Devices: Oxygen - Continuous Review of Systems Review of Systems: All systems reviewed & are unremarkable except as noted in HPI & below Physical Exam Physical Exam: General: A&Ox3. NAD. Cooperative. HEENT: Atraumatic, normocephalic. Vision/hearing intact Pulm: Diminished, scattered crackles. No wheezes. Symmetrical chest rise. No increased work of breathing. No respiratory distress. Cardiac: RRR, -mrg. Radial pulses intact and symmetrical. Abdominal: Nontender, nondistended, soft. BS present. Skin: Warm, dry. Moving all extremities equally Results & Data Results & Data Vital Signs (Past 12 Hours) Vital Signs Temp Pulse Pulse Resp BP BP Pulse Ox 07/25/22 15:52 67 07/25/22 15:49 63 16 100 07/25/22 15:49 63 16 133/80 100 07/25/22 15:14 36.8 C 67 20 141/82 H 97 O2 Del Method O2 Flow Rate 07/25/22 15:52 07/25/22 15:49 Nasal Cannula 1 07/25/22 15:49 Nasal Cannula 1 07/25/22 15:14 Room Air PG Care Time/CCT Total # of Minutes Spent Total Time Spent with Patient: Total time spent is greater than 50% in coordination of care (as documented) at patient's floor/unit and/or counseling patient: Coding Level of Care Code 94988 INT INP/OBS CARE 3/75MIN Diagnoses History of pulmonary embolism Z86.711 Pericardial effusion I31.3 Idiopathic pulmonary fibrosis J84.112 History of umbilical hernia repair Z98.890; Z87.19 Interstitial lung disease J84.9 Pulmonary embolism I26.99
[2022-07-25] MEDS ORDERED: ATORVASTATIN 10 MG TAB PO SCH (21:00)
[2022-07-25] MEDS ORDERED: ACETAMINOPHEN 325 MG TAB PO PRN (21:33)
[2022-07-25] MEDS: levETIRAcetam 500 MG TAB PO SCH (21:34)
[2022-07-25] MEDS: MYCOPHENOLATE MOFETIL 250 MG CAP PO SCH (21:34)
[2022-07-25] MEDS ORDERED: HYDROcodone/HOMATROPINE SYRUP 5MG/1.5MG 5ML UDP PO PRN (21:35)
[2022-07-25] MEDS: FLUTICASONE/VILANTEROL 200/25MCG 14 PUFFS/INHALER INH SCH (21:38)
[2022-07-25] MEDS: QUINIDINE GLUCONATE 324 MG PO SCH (22:13)
[2022-07-26 00:20] LABS: Partial Thromboplastin Time 83.1 Seconds (21.0-31.0)
[2022-07-26 06:03] LABS: Basophils # (auto) 0.04 K/uL (0-0.2); Basophils % (auto) 0.8 %; Eosinophils # (auto) 0.23 K/uL (0-0.50); Eosinophils % (auto) 4.6 %; Hematocrit (blood only) 33.7 % (42.0-52.0); Hemoglobin 11.3 g/dl (14.0-18.0); Immature Granulocytes # (auto) 0.01 K/uL (0.01-0.20); Immature Granulocytes % (auto) 0.2 %; Lymphocytes # (auto) 1.52 K/uL (1.2-3.4); Lymphocytes % (auto) 30.3 %; Mean Corpuscular Hemoglobin 30.1 pg (25.0-34.0); Mean Corpuscular Hgb Conc 33.5 g/dL (32.0-36.0); Mean Corpuscular Volume 89.6 fL (80.0-100.0); Mean Platelet Volume 10.3 fL (9.4-12.4); Monocytes # (auto) 0.79 K/uL (0.11-0.59); Monocytes % (auto) 15.8 %; Neutrophils # (auto) 2.42 K/uL (1.40-6.50); Neutrophils % (auto) 48.3 %; Platelet Count 177 K/uL (130-400); RDW Coefficient of Variation 13.9 % (11.5-14.5); RDW Standard Deviation 45.5 fL (36.4-46.3); Red Blood Count 3.76 M/uL (4.70-6.10); White Blood Count 5.01 K/ul (4.8-10.8)
[2022-07-26 06:06] LABS: BUN Creatinine Ratio 17.8 (10-20); Calcium 8.6 mg/dl (8.6-10.3); Creatinine Clr Calc Pharmacy 54.3 ml/min; Est GFR (African American) 63.3 ml/min; Est GFR (Non-African American) 54.6 ml/min; Potassium 4.1 mmol/L (3.5-5.1)
[2022-07-26 06:50] LABS: Partial Thromboplastin Ratio 4.3
[2022-07-26] MEDS: QUINIDINE GLUCONATE 324 MG PO SCH (07:47)
[2022-07-26] MEDS: MYCOPHENOLATE MOFETIL 250 MG CAP PO SCH (07:48)
[2022-07-26] MEDS: levETIRAcetam 500 MG TAB PO SCH (07:48)
--- NOTE | 2022-07-26 08:00 | Hospitalist Progress Note ---
Date of Service July 26, 2022 Assessment & Plan (1) Pulmonary embolism: Plan: History of pulmonary embolism -CTA: Segmental and subsegmental pulmonary emboli in the left lower lobe without evidence of right heart strain. Extensive fibrotic changes in the lungs with associated pulmonary hypertension and cardiomegaly. -Shortness of breath 2/2 Left segmental and segmental PEs. Multifactorial contributions to shortness of breath including interstitial lung disease. -Patient has been off of anticoagulation due to recurrent hemoptysis. -Continue oxygen titrate to greater than 90% -Hgb 11.8, baseline ~11-12.0 * Continue heparin. Transition to DOAC after >72 hours. Anemia -Hemoglobin at recent baseline. Low normal iron levels in 2019. -Iron studies pending. * Trend H&H ILD -Patient follows with [facility] pulmonology. * Continue CellCept, prednisone daily * [facility] Library Aide scheduled for this Thursday Epilepsy -Seizure-free for over a decade, managed on Keppra. * Continue Keppra 1 g twice daily Enlarged prostate with LUTS * Continue Flomax 0.4 mg daily Pulmonary hypertension * Continue home medications CAD Minimal nonobstructive disease noted on cath 11/2015 Polymyositis -Follows [facility] rheumatology. Stable, no recent problems per pt. No recent fevers/acute outbreaks. * Continue prednisone as noted. * Continue outpatient followup Chronic leg cramps * Continue home quinidine DVT prophylaxis: Heparinized Disposition: Medical telemetry for multiple PEs and hypoxia, reported prior history of bleeding Diet: Heart healthy CODE STATUS: Full code (2) Pericardial effusion: (3) Idiopathic pulmonary fibrosis: (4) Interstitial lung disease: (5) Epilepsy: (6) Polymyositis: (7) Leg cramps: Admission and Anticipated Discharge Date Admission Date: July 25, 2022 Results & Data Results & Data Vital Signs (Past 12 Hours) Vital Signs Temp Pulse Pulse Resp BP Pulse Ox O2 Del Method 07/26/22 07:00 57 L 07/26/22 07:09 37.7 C H 65 20 122/76 98 Nasal Cannula 07/26/22 03:37 36.8 C 66 16 126/64 97 Nasal Cannula 07/26/22 01:44 79 07/25/22 20:08 90 07/25/22 20:29 36.3 C L 60 20 154/78 H 93 Nasal Cannula 07/26/22 01:08 Nasal Cannula 07/26/22 01:08 36.3 C L 60 20 154/78 H 93 Nasal Cannula 07/25/22 23:06 36.8 C 79 20 129/77 99 Nasal Cannula O2 Flow Rate 07/26/22 07:00 07/26/22 07:09 2 07/26/22 03:37 1 07/26/22 01:44 07/25/22 20:08 07/25/22 20:29 1 07/26/22 01:08 1 07/26/22 01:08 1 07/25/22 23:06 1 (5) Epilepsy Epilepsy type: unspecified Intractability: not intractable Status epilepticus: without status epilepticus Qualified Code(s): G40.909 - Epilepsy, unspecified, not intractable, without status epilepticus
[2022-07-26] MEDS ORDERED: TAMSULOSIN HCL 0.4 MG CAP PO SCH (09:00)
[2022-07-26] MEDS ORDERED: predniSONE 5 MG TAB PO SCH (09:00)
[2022-07-26] MEDS ORDERED: guaiFENesin 600 MG TABCR PO SCH (09:00)
[2022-07-26] MEDS ORDERED: PANTOprazole 40 MG TAB PO SCH (09:00)
[2022-07-26] MEDS ORDERED: CYANOCOBALAMIN (B-12) 500 MCG TABLET PO SCH (09:30)
[2022-07-26] MEDS: HEPARIN SODIUM/DEXTROSE 25,000 UNITS/500 ML BAG IV SCH (10:17)
[2022-07-26] MEDS: FLUTICASONE/VILANTEROL 200/25MCG 14 PUFFS/INHALER INH SCH (11:59)
--- NOTE | 2022-07-26 12:05 | Discharge Summary ---
Date of Service July 26, 2022 Admission HPI Per Admitting Provider Tye is a 71-year-old male with a past medical history of multiple DVT/PE while off anticoagulation, lung fibrosis, enlarged prostate with LUTS, idiopathic pulmonary fibrosis, LVH who presented to the ER for shortness of breath worsening over the last 3 weeks with a mild cough. Has had slight chest pressure when he coughs, has not had abdominal pain or vomiting. While in the ER CTA PE protocol shows segmental and subsegmental PEs. Tye reports he has had blood clots in his lungs twice before. Did not feel the first episode, but did have some chest tightness while working at home and picked up PEs at that time. Was diagnosed he thinks ~[id number]. Was treated with a blood thinner but doesn't remember which. Had been gettign blood thickness checks at the time and think it may have been coumadin. Eventually had a hernia repair and discussed risks/benefits of ongoing anticoagulation and decided to stop at that time. Chart review notes he had some issues with coughing up blood, but pt denies this and does not remember any problems with this. No recent hemoptysis, but has been going a lot of the last few weeks with increased shortness of breath. Does not usually look at sputum. No leg swelling/cramps. Hx of polymyositis but reports no flares or fevers and this has been doing well on prednisone which also treats his ILD. Had a pulm followup this coming thursday. Drives to [place] occasional for doctors appointments which he did have in the last month, no other long trips. No recent surgery. Medical History: Reviewed Medications: Reviewed Surgical History: Reviewed Family history: Reviewed Allergies: Reviewed Social History: Rare social alcohol use, denies tobacco use Code Status: Full code Admission Exam Per Admitting Provider General: A&Ox3. NAD. Cooperative. HEENT: Atraumatic, normocephalic. Vision/hearing intact Pulm: Diminished, scattered crackles. No wheezes. Symmetrical chest rise. No increased work of breathing. No respiratory distress. Cardiac: RRR, -mrg. Radial pulses intact and symmetrical. Abdominal: Nontender, nondistended, soft. BS present. Skin: Warm, dry. Moving all extremities equally Principal Diagnosis Segmental pulmonary embolism, subsegmental pulmonary embolism Discharge Exam General: No acute distress HEENT: PERRLA. Normal conjunctiva, anicteric sclera. Oropharynx normal. Respiratory: Normal respiratory effort, left-sided basilar lung rales. Cardiovascular: RRR without murmurs, gallops, or rubs. No edema. GI: Soft abdomen with normal bowel sounds heard on auscultation. Nontender x4 quadrants Neuro: Alert and oriented x3. Discharge Data Allergies Allergy/AdvReac Type Severity Reaction Status Date / Time Quinolones Allergy Mild Unknown Verified 07/22/22 14:33 house dust Allergy Unknown Allergy Verified 07/22/22 14:33 symptoms mold Allergy Unknown SEASONAL Verified 07/22/22 14:33 ALLERGIES ofloxacin Allergy Unknown Unknown Verified 07/22/22 14:33 Penicillins Allergy Unknown Unknown Verified 07/22/22 14:33 phenytoin Allergy Unknown MYOPATHY Verified 07/22/22 14:33 pollen extracts Allergy Unknown SEASONAL Verified 07/22/22 14:33 ALLERGIES dextromethorphan AdvReac Mild felt weird Verified 07/22/22 14:33 [From Delsy] fentanyl AdvReac Mild Unknown Verified 07/22/22 14:33 Consultations 07/25/22 16:28 ED Decision to Admit Stat Hospital Course (1) Pulmonary embolism: History of pulmonary embolism -CTA:Segmental and subsegmental pulmonary emboli in the left lower lobe without evidence of right heart strain. Extensive fibrotic changes in the lungs with associated pulmonary hypertension and cardiomegaly. -Shortness of breath 2/2 Left segmental and segmental PEs. Multifactorial contributions to shortness of breath including interstitial lung disease. -Patient has been off of anticoagulation due to recurrent hemoptysis. -Continue oxygen titrate to greater than 90% -Hgb 11.8, baseline ~11-12.0 * Continue heparin. Transitioned to Eliquis. Anemia -Hemoglobin at recent baseline. Low normal iron levels in 2019. -Iron studies pending. * Trend H&H ILD -Patient follows with [facility] pulmonology. * Continue CellCept, prednisone daily * [facility] Child Adolescent Psychiatrist scheduled for this Thursday Epilepsy -Seizure-free for over a decade, managed on Keppra. * Continue Keppra 1 g twice daily Enlarged prostate with LUTS * Continue Flomax 0.4 mg daily Pulmonary hypertension * Continue home medications CAD Minimal nonobstructive disease noted on cath 11/2015 Polymyositis -Follows [facility] rheumatology. Stable, no recent problems per pt. No recent fevers/acute outbreaks. * Continue prednisone as noted. * Continue outpatient followup Chronic leg cramps * Continue home quinidine (2) Fibrosis of lung: (3) Polymyositis: (4) Epilepsy: (5) Idiopathic pulmonary fibrosis: (6) Leg cramps: Total Time Total Time Spent Total Time Spent (In Minutes): <30 Discharge Plan Discharge Items Patient Disposition: Home - Self-Care Reason For Visit: MULTIPLE PE Discharge Diagnosis: Pulmonary embolism Activity: Per Instructions section Non-emergency contact: Primary Care Provider Call non-emergency contact if: you have any medication questions, your pain is worsening and your rectal temperature is above 100.4 Follow-up/Referrals: Yusuf Villalobos MD [Primary Care Provider] - Diet: Regular Addtl Attending Provider Instructions: Dear Tye, You came to the hospital due to worsening shortness of breath and cough. On imaging, you were found to have a pulmonary embolism, a blood clot in your lungs, and were admitted to the hospital for management. We gave you IV drugs to treat the clot and monitored you to make sure that you are stable from a hemodynamic standpoint. Now that we feel that you are, we believe that you are ready to be discharged home safely. Medications * We are sending you home on a new medication called apixaban, or Eliquis. Please take Eliquis 10 mg twice a day for 7 days. After that, you should take Eliquis 5 mg twice a day for 3 months. * We made no other changes to your medications. You may continue to take them as directed, unless otherwise instructed to by your primary care physician. Follow-up appointments -You should make an appointment to see your primary care physician, Dr. Villalobos, within a week following your discharge. In addition to ensuring your recovery after your hospital stay, your doctor will need to continue your presc ription for Eliquis after 1 month, as the amount we prescribed will only last a month. As the recommended treatment course/duration for pulmonary embolism is 3 months, your doctor will have to prescribe the remaining Eliquis doses. Concerning symptoms Should you ever experience shortness of breath or chest discomfort similar to what you felt prior to coming to the hospital in the future, you should call your PCP to be seen immediately. If they are unable to, please go to the nearest emergency room. It has been our pleasure to care for you here at [facility]. If you have any questions or concerns about your care, you may reach us at [phone]. Pending Studies at Discharge: No Stand-Alone Forms: My [facility], Smoking Cessation Medications and DC Order Prescriptions: New apixaban 5 mg (74 tabs) tablets,dose pack 5 mg PO BID Qty: 74 0RF Continued ergocalciferol (vitamin D2) 50 mcg (2,000 unit) tablet 2,000 unit PO .1XWK Rx Instructions: Thursday pantoprazole [Protonix] 40 mg Tablet,Delayed Release (Dr/Ec) 40 mg PO QAM Qty: 0 budesonide-formoterol [Symbicort] 160-4.5 mcg/actuation Hfa Aerosol Inhaler 2 puff Inhalation BID Qty: 0 levetiracetam [Keppra] 500 mg Tablet 1,000 mg PO BID Qty: 0 mycophenolate mofetil [CellCept] 500 mg Tablet 1,000 mg PO BID Qty: 0 levalbuterol HCl [Xopenex] 1.25 mg/3 mL Solution For Nebulization 1 vial NEB QID PRN (Reason: Shortness Of Breath Or Wheezing) Qty: 0 famotidine [Pepcid] 40 mg tablet 40 mg PO DAILY Qty: 90 3RF Rx Instructions: daily before a meal atorvastatin 10 mg tablet 10 mg PO HS Qty: 90 3RF prednisone 5 mg tablet 5 mg PO QAM Qty: 90 1RF quinidine gluconate 324 mg tablet extended release 324 mg PO BID Qty: 180 3RF hydrocodone-homatropine [Hycodan] 5-1.5 mg/5 mL (5 mL) syrup 5 ml PO Q6H Qty: 200 0RF tamsulosin [Flomax] 0.4 mg capsule 0.4 mg PO DAILY Qty: 90 3RF albuterol sulfate [Proventil HFA] 90 mcg/actuation HFA aerosol inhaler 1 inh inhalation QID Qty: 13.4 3RF acetaminophen [Tylenol Extra Strength] 500 mg tablet 500 mg PO QID PRN potassium chloride 20 mEq tablet extended release 20 meq PO TID fluoride (sodium) 1.1 % paste 1 applic dental HS Discharge Orders: Discharge Order (Routine); Ordered 07/26/22 Ordered By: Cyndy Wong Admission Data Admit Date/Time: 07/25/22 17:40 Attending Provider: Ramon Longo Admit Provider: Jerad Batres Primary Care Provider: Yusuf Villalobos Other Providers: Jerad Batres Other Interventions: Discharge Summary Assessment (RN) Last Done: 07/26/22 12:49 Supervising Physician Co-Signing Physician Notes I personally examined the patient and verified all tan points of history and exam, discussed case, and agree with decision making with Dr Wong Feeling okay overall and would like to go home. Was a little bit worried about low-grade tempnoting that that was a symptom he had prior to a flare of myositis before, but notes that he has none of the muscle pain or weakness that he had thenjust concerned because of the low-grade temperature. Vitals noted, in general he is awake and alert pleasant no distress. HEENT normocephalic atraumatic mucous membranes moist. Breathing unlabored no accessory muscle use good effort. Skin shows no rashes no pallor or icterus. Neuro without focal deficits. PErecurrent venous thromboembolic diseasediscussed risk of bleeding versus clotting, and right now we definitely need to treat for the PEs that he has. Discussed chronic anticoagulation, discussed possibly even lower dose prophylactic anticoagulation after treating the clot. He expresses understanding. For now Eliquis 10 mg p.o. twice daily for a week, then 5 mg twice daily thereafter. After a few months, could consider dropping to 50% dosing depending on his balance of problems with bleeding versus clotting. As it relates to his low-grade tempno signs or symptoms of infection, and also he has no muscle pain or weakness fitting with a flare of his polymyositisprobably relates to PEs, but discussed that if any new symptoms develop we would certainly want him to return for further evaluation or seek urgent care with his PCP. Otherwise as above. Resident Activity Tracking Resident Involvement: Resident Care Provided Care Provided: Adult Hospital Medicine
--- NOTE | 2022-07-26 16:54 | Billing Data ---
Date of Service July 26, 2022 Coding Level of Care Code 75645 IN/OBS DISCH 30 MIN/LESS
== END 2022-07-26 14:05 | disposition home or self-care (01) ==
LOC: ED 15:13 → 2N 17:40 → SUATTDRO 17:40 → INTOOBSV 17:40 → 2N 19:40

== ENCOUNTER 2024-05-21 13:29 | Observation (INO) ==
[2024-05-21] MEDS: ASPIRIN 81 MG CHEW PO STA (13:59)
--- NOTE | 2024-05-21 14:01 | Emergency Department Note ---
Impression & Plan Chest pain, half-way (current) use of anticoagulants, Interstitial lung disease ED Provider Note Provider: Navid Little MD CHIEF COMPLAINT: Chest discomfort to the left arm HISTORY OF PRESENT ILLNESS: Patient is a 73-year-old gentleman past medical history including seizure disorder, interstitial lung disease on 1 L of oxygen chronically and immunosuppressant, pulmonary embolism on Eliquis, pericardial effusion, polymyositis presenting here today stating around 10:30 AM to 11 AM this morning started while at rest some left-sided chest discomfort rating to left arm. Little bit of tingling down the left arm as well. Able to move it. Maybe some slight soreness to touch of the left upper arm. No new breathing issues. Has been dealing with chronic cough issues and recently seen by the primary doctor. Has been using prednisone and a course of doxycycline and recently reduced his Eliquis to 5 mg daily. Denies recent exertional symptoms. States he had a stress test he believes this past fall that was reassuring and no other significant cardiac history is reported. Follows with in [place] at [facility] for his ILD with pulmonary and rheumatology. No falls or syncope. No abdominal pain or nausea or vomiting. No pain like this previously. Pain has been consistent since it came on and if anything worsen slightly. PAST MEDICAL HISTORY: As noted above MEDICATIONS: Reviewed home medication list SOCIAL HISTORY: Non-smoker PHYSICAL EXAM: GENERAL: alert and oriented laying on stretcher appears somewhat uncomfortable Head: normocephalic and atraumatic EYES: No injection, discharge or icterus. NECK: Trachea midline. Supple. ENT: Mucous membranes pink and moist. LUNGS: Airway patent. No retractions. Breath sounds coarse bilaterally HEART: Regular rate and rhythm. No chest wall tenderness ABDOMEN: Soft and non-tender, without guarding or rebound SKIN: Acyanotic, warm, dry, without rashes EXTREMITIES: Without swelling, tenderness or deformity except for some slight discomfort in the left upper arm to touch. No redness or fluctuance or wounds noted here otherwise. 2+ left radial pulse. NEUROLOGICAL: No focal deficits. No aphasia. No facial droop or slurred speech. Good strength. Gross sensation weakness to left arm and hand normal. EK bpm. Normal sinus rhythm. No PVC or PAC. No acute ST segment elevation with some nonspecific anterior T wave inversions. QTc 435. Left axis. CONTINUOUS CARDIAC MONITORING: was ordered and showed a heart rate of 60s to 80s bpm in normal sinus rhythm Patient's laboratory studies and imaging reviewed. Differential includes Cardiac ischemia, aortic dissection, pulmonary embolism, pneumothorax, pneumonia, pericarditis, myocarditis, esophageal rupture, GERD, cholecystitis, pancreatitis, musculoskeletal, as well as other pathologies. IMPRESSION/MEDICAL DECISION MAKING: Patient given full dose aspirin. Considered add nitroglycerin dose but held as his blood pressure was borderline at 100 systolic. Patient does have maybe a little bit of reproducible left arm pain. No significant new breathing issues reported or recent cough or cold. Benign abdomen on exam. No trauma history or syncope reported. EKG without evidence of STEMI. Troponin is sent. Recently reduced his Eliquis due to hemoptysis to 5 and a gram once daily. Will complete a CTA of the chest to exclude any PE developing with the anticoagulation reduction or other occult pulmonary pathology. Lower suspicion for dissection or CVA given the pain complaint and lack of radiation of the pain to the back or significant hypertension. Benign abdomen I doubt intra-abdominal pathology. No evidence of significant swelling or other large infected wound or abscess of the left arm. Blood work here without significant leukocytosis. Stable slight anemia of 10.9 today. Normal platelet count. Stable CKD creatinine 1.5. No severe electrolyte abnormality and no significant transaminitis. Initial troponin normal. Lipase normal. CT angiogram of the chest without evidence of large PE or aortic dissection notable per radiology with chronic interstitial findings noted. On reassessment the patient states much improvement of symptoms now less than 5 out of 10 pain. Blood pressure is improved and in shared decision making we will avoid the nitroglycerin at this point. Discussed with the patient and his risk factors and finding. No significant family history or personal history of does have some points for age on the heart score. In shared decision making of the pain is not entirely resolving of the severity earlier he would prefer to be observed. Reached out and discussed with the hospitalist team. DIAGNOSIS: Left-sided chest pain DISPOSITION: Hospitalist will evaluate Patient was agreeable with this plan. Past Med/Surg History Problem List (Updated 05/21/24 @ 17:09 by Navid Little M.D.) Chest pain (Acute) Hemoptysis Epistaxis Fracture of fifth metatarsal bone of left foot Fracture of fifth metatarsal bone Knee pain, right Foot pain Fall against object Weight loss Hypoxia (Acute) Arthritis of left hip Shoulder pain Seizure disorder Cough with hemoptysis Interstitial lung disease (Acute) [facility] for Interstitial lung dz, Dr. Hernandez Pulmonary embolism (Acute 06/04/11) 01/30/07-initial CT scan, see scanned PE worksheet in transferred records scan date 12/12/21 Sinusitis Penicillin allergy Acute bronchitis due to COVID-19 virus Hypokalemia (~11/25/23) Urinary tract infection Tendinitis of right rotator cuff Weight loss due to medication Right shoulder pain Cough Nocturnal leg cramps Hyperlipidemia Severe muscle deconditioning Encounter for pre-operative examination Rectal bleeding Anemia IPMN (intraductal papillary mucinous neoplasm) Leg cramps Fatigue Sinusitis Lumbar disc disease with radiculopathy Unspecified adrenocortical insufficiency Impaired glucose metabolism steroid use Synovitis Pericardial effusion Enlarged prostate with lower urinary tract symptoms (LUTS) (Acute) Personal history of immunosuppression therapy Left ventricular hypertrophy Pulmonary hypertension Osteoporosis Pancreatic lesion half-way (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 TO HAVE FATIGUE AND SHORTNESS OF BREATH Hx of migraines On home oxygen therapy WEARS 1L O2 NC CONT. - can use 2-3 lpm prn Asthma uses daily inhaler Anal fissure Shortness of breath History of pulmonary embolism INITIALLY DX 2006>LAST DX 06/2022 ? 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) Surgical History History of colonoscopy [place] teeth removed History of total hip arthroplasty RT/LEFT S/P cardiac cath 2015>NO STENTS History of umbilical hernia repair (02/02/20) Open Umbilical Hernia Repair with Mesh(Not Applicable) - Amado Velazquez DO, FACS 02/02/20 Family History Father COPD (chronic obstructive pulmonary disease) Cancer Mother Diabetes TIA (transient ischemic attack) IHD (ischemic heart disease) Cancer Hypertension Sister Cerebral aneurysm Brother Diabetes Other No family history of adverse response to anesthesia Social History (Updated 01/14/24 @ 14:54 by Michelle Olivier) Smoking Status: Never smoker Tobacco Type: Pipe and Cigars Cigarettes Per Day: 1974 - smoked for 3 months; Second Hand Exposure: Yes ( A CHILD); Do You Dip or Chew Tobacco: No; Hx Alcohol Use: Yes Alcohol type: wine Alcohol Intake Frequency: Monthly or Less Hx Substance Use: No Preferred Language: [place] Communication Ability: Effective Visual Impairment: Limited Hearing Ability: Normal Associate Chief Nurse Required: No Beliefs That Will Affect Care: None marital status: Current Living Situation: Spouse current occupational status: retired How many Children do You have: 1 How many Children do You have Comment: 1 stepson Feels Safe at Home: Yes caffeine: Yes (rarely ) Dental Care, Regularly: Yes Physical Activity Frequency: Does not Exercise Assistive Devices: Glasses, Nebulizer and Oxygen - Continuous Allergies Allergies Allergy/AdvReac Type Severity Reaction Status Date / Time house dust Allergy Mild Allergy Verified 05/21/24 16:24 symptoms mold Allergy Mild SEASONAL Verified 05/21/24 16:24 ALLERGIES phenytoin Allergy Mild MYOPATHY Verified 05/21/24 16:24 pollen extracts Allergy Mild SEASONAL Verified 05/21/24 16:24 ALLERGIES dextromethorphan AdvReac Mild felt weird Verified 05/21/24 16:24 [From [facility]] fentanyl AdvReac Mild doesn't Verified 05/21/24 16:24 remember Home Meds Home Medications Medication Instructions Recorded Confirmed acetaminophen 500 mg tablet 500 mg PO QID PRN Pain 12/05/21 05/21/24 (Tylenol Extra Strength) multivitamin 1 tab PO QAM 09/15/22 05/21/24 apixaban 5 mg tablet (Eliquis) 5 mg PO QAM 05/21/24 05/21/24 hydrocodone-homatropine 5 mg-1.5 5 ml PO Q6H PRN cough 05/21/24 05/21/24 mg/5 mL (5 mL) oral syrup (Hycodan) prednisone 5 mg tablet 5 mg PO QAM 05/21/24 05/21/24 Previous Rx's Medication Instructions Recorded atorvastatin 10 mg tablet 10 mg PO HS #90 tabs 06/24/23 spironolactone 25 mg tablet 25 mg PO QAM #90 tabs 06/24/23 quinidine gluconate 324 mg 324 mg PO BID #180 tabs 07/02/23 tablet,extended release albuterol sulfate 90 mcg/actuation 1 inh inhalation QID PRN shortness 09/25/23 aerosol inhaler of breath or wheezing #8.5 grams pantoprazole 40 mg tablet,delayed 40 mg PO BID #180 tabs 09/25/23 release (Protonix) levetiracetam 500 mg tablet 1,000 mg (2 x 500 mg) PO BID #360 11/06/23 (Keppra) tabs mycophenolate mofetil 500 mg 1,000 mg (2 x 500 mg) PO BID #360 11/06/23 tablet (CellCept) tabs levalbuterol HCl 1.25 mg/3 mL 1.25 mg (3 mL) inhalation Q6H PRN 03/02/24 solution for nebulization Shortness Of Breath Or Wheezing #1,080 mL potassium chloride 20 mEq 20 meq PO TID #270 tabs 03/18/24 tablet,extended release tamsulosin 0.4 mg capsule (Flomax) 0.4 mg PO DAILY #90 caps 03/28/24 budesonide-formoterol HFA 160 2 puff inhalation BID #30.6 grams 04/28/24 mcg-4.5 mcg/actuation aerosol inhaler (Symbicort) codeine 10 mg-guaifenesin 100 mg/5 5 ml PO Q6H PRN cough #473 mL 05/10/24 mL oral liquid cyproheptadine 4 mg tablet 4 mg PO HS #90 tabs 05/17/24 Results & Data (ED) Vital Signs Vital Signs - 24 hr 05/21/24 13:32 05/21/24 13:50 05/21/24 13:58 Temperature 36.6 C Temperature Source Temporal Artery Scan Pulse Rate 96 H Pulse Rate [Right Finger] 78 Pulse Rhythm [Right Finger] Pulse Strength [Right Finger] Respiratory Rate 20 26 H Respiratory Effort / Characteristics Non-Labored Spontaneous Non-Labored Spontaneous Respiratory Depth Normal Normal Respiratory Pattern Regular Blood Pressure 110/77 Blood Pressure [Right Arm] 100/66 Blood Pressure Mean 88 Blood Pressure Mean [Right Arm] 77 Blood Pressure Position [Right Arm] Pulse Oximetry 95 100 Oxygen Delivery Method Nasal Cannula Room Air Nasal Cannula Oxygen Flow Rate 1 3 Sepsis Recent Fever Within 48 Hours No Sepsis New/Unexplained Change in Mental Status N/A Sepsis Action Taken by Nursing No Action Required 05/21/24 15:07 05/21/24 15:12 05/21/24 16:44 Temperature Temperature Source Pulse Rate Pulse Rate [Right Finger] 68 72 Pulse Rhythm [Right Finger] Regular Regular Pulse Strength [Right Finger] Normal Normal Respiratory Rate 16 20 Respiratory Effort / Characteristics Non-Labored Spontaneous Non-Labored Spontaneous Respiratory Depth Normal Normal Respiratory Pattern Regular Regular Blood Pressure Blood Pressure [Right Arm] 123/78 101/64 Blood Pressure Mean Blood Pressure Mean [Right Arm] 93 76 Blood Pressure Position [Right Arm] Sitting Sitting Pulse Oximetry 100 100 99 Oxygen Delivery Method Nasal Cannula Nasal Cannula Room Air Oxygen Flow Rate 2 2 Sepsis Recent Fever Within 48 Hours Sepsis New/Unexplained Change in Mental Status Sepsis Action Taken by Nursing Laboratory Data 05/21/24 13:42 05/21/24 13:42 Lab Results 05/21/24 05/21/24 05/21/24 Range/Units 13:42 13:49 14:13 WBC 6.97 (4.8-10.8) K/ul RBC 3.59 L (4.70-6.10) M/uL Hgb 10.9 L (14.0-18.0) g/dl POC Hgb 12.2 L (14.0-18.0) g/dl Hct 32.5 L (42.0-52.0) % POC Hct 36 L (42-52) % MCV 90.5 (80.0-100.0) fL MCH 30.4 (25.0-34.0) pg MCHC 33.5 (32.0-36.0) g/dL RDW Std Deviation 45.3 (36.4-46.3) fL RDW Coeff of Kim 13.6 (11.5-14.5) % Plt Count 197 (130-400) K/uL MPV 9.6 (9.4-12.4) fL Immature Gran % (Auto) 0.3 % Neut % (Auto) 63.2 % Lymph % (Auto) 21.5 % Murray % (Auto) 12.1 % Eos % (Auto) 2.3 % Baso % (Auto) 0.6 % Neut # (Auto) 4.41 (1.40-6.50) K/uL Lymph # (Auto) 1.50 (1.20-3.40) K/uL Murray # (Auto) 0.84 H (0.11-0.59) K/uL Eos # (Auto) 0.16 (0.00-0.50) K/uL Baso # (Auto) 0.04 (0.00-0.20) K/uL Immature Gran # (Auto) 0.02 (0.01-0.20) K/uL PT 11.3 (9.0-12.0) Seconds INR 1.0 (0.9-1.1) APTT 30 (21-31) Seconds PTT Ratio 1.1 POC Sodium 142 (135-144) mmol/L Sodium 140 (136-145) mmol/L POC Potassium 3.8 (3.3-5.0) mmol/L Potassium 3.9 (3.5-5.1) mmol/L POC Chloride 108 (101-112) mmol/L Chloride 108 H (98-107) mmol/L Carbon Dioxide 28 (21-32) mmol/L POC Total CO2 23 L (24-31) mmol/L Anion Gap 4 (3-11) POC Anion Gap 15.0 L (16-25) mmol/L POC BUN 16 (7-18) mg/dl BUN 18 (6-23) mg/dl Creatinine 1.51 H (0.6-1.4) mg/dl POC Creatinine 1.5 H (0.6-1.3) mg/dl Est Cr Clr Drug Dosing 43.6 ml/min eGFR 47.87 BUN/Creatinine Ratio 11.9 (10-20) Glucose 99 (70-99(Fasting)) mg/dl POC Glucose (other) 92 (70-99) mg/dl Calcium 8.3 L (8.6-10.3) mg/dl POC Ioniz Calcium Torrie 1.17 (1.12-1.32) mmol/l Magnesium 1.8 (1.7-2.4) mg/dl Total Bilirubin 0.4 (0.2-1.0) mg/dl AST 14 (13-39) U/L ALT 4 L (7-52) U/L Alkaline Phosphatase 79 (34-104) U/L Troponin I High Sens 8.7 (0-20) pg/ml Total Protein 6.5 (6.0-8.3) gm/dl Albumin 3.8 (3.4-5.0) gm/dl Globulin 2.7 (2.5-4.0) gm/dl Albumin/Globulin Ratio 1.4 (0.9-2) Lipase 39 (11-82) U/L SARS-CoV-2 (PCR) NEGATIVE (Negative) Influenza Type A (PCR) Negative (Neg) Influenza Type B (PCR) Negative (Neg) RSV (RT-PCR) Negative (Neg) 05/21/24 Range/Units 16:26 WBC (4.8-10.8) K/ul RBC (4.70-6.10) M/uL Hgb (14.0-18.0) g/dl POC Hgb (14.0-18.0) g/dl Hct (42.0-52.0) % POC Hct (42-52) % MCV (80.0-100.0) fL MCH (25.0-34.0) pg MCHC (32.0-36.0) g/dL RDW Std Deviation (36.4-46.3) fL RDW Coeff of Kim (11.5-14.5) % Plt Count (130-400) K/uL MPV (9.4-12.4) fL Immature Gran % (Auto) % Neut % (Auto) % Lymph % (Auto) % Murray % (Auto) % Eos % (Auto) % Baso % (Auto) % Neut # (Auto) (1.40-6.50) K/uL Lymph # (Auto) (1.20-3.40) K/uL Murray # (Auto) (0.11-0.59) K/uL Eos # (Auto) (0.00-0.50) K/uL Baso # (Auto) (0.00-0.20) K/uL Immature Gran # (Auto) (0.01-0.20) K/uL PT (9.0-12.0) Seconds INR (0.9-1.1) APTT (21-31) Seconds PTT Ratio POC Sodium (135-144) mmol/L Sodium (136-145) mmol/L POC Potassium (3.3-5.0) mmol/L Potassium (3.5-5.1) mmol/L POC Chloride (101-112) mmol/L Chloride (98-107) mmol/L Carbon Dioxide (21-32) mmol/L POC Total CO2 (24-31) mmol/L Anion Gap (3-11) POC Anion Gap (16-25) mmol/L POC BUN (7-18) mg/dl BUN (6-23) mg/dl Creatinine (0.6-1.4) mg/dl POC Creatinine (0.6-1.3) mg/dl Est Cr Clr Drug Dosing ml/min eGFR BUN/Creatinine Ratio (10-20) Glucose (70-99(Fasting)) mg/dl POC Glucose (other) (70-99) mg/dl Calcium (8.6-10.3) mg/dl POC Ioniz Calcium Torrie (1.12-1.32) mmol/l Magnesium (1.7-2.4) mg/dl Total Bilirubin (0.2-1.0) mg/dl AST (13-39) U/L ALT (7-52) U/L Alkaline Phosphatase (34-104) U/L Troponin I High Sens 5.8 (0-20) pg/ml Total Protein (6.0-8.3) gm/dl Albumin (3.4-5.0) gm/dl Globulin (2.5-4.0) gm/dl Albumin/Globulin Ratio (0.9-2) Lipase (11-82) U/L SARS-CoV-2 (PCR) (Negative) Influenza Type A (PCR) (Neg) Influenza Type B (PCR) (Neg) RSV (RT-PCR) (Neg) Administered Medications Discontinued Medications Aspirin (Aspirin 81 Mg Chew) 324 mg PO NOW STA Stop: 05/21/24 13:55 Last Admin: 05/21/24 13:59 Dose: 324 mg Documented By: NRB Ioversol (Optiray 320 125ml) 119 ml IV ONCE ONE Stop: 05/21/24 14:36 Last Admin: 05/21/24 14:36 Dose: 119 ml Documented By: EDK Nitroglycerin (Nitroglycerin Sl 0.4 Mg/Tab Tab) 0.4 mg SL NOW STA Stop: 05/21/24 13:54 Last Admin: 05/21/24 14:04 Dose: Not Given Documented By: SOLANGE Nitroglycerin (Nitroglycerin Sl 0.4 Mg/Tab Tab) 0.4 mg SL NOW STA Stop: 05/21/24 16:19 Last Admin: 05/21/24 16:31 Dose: 0.4 mg Documented By: [facility] Imaging Data Radiologist's Impression: Chest CTA 05/21/24 13:52 INDICATION: Chest pain. History of ILD. COMPARISON: None available. TECHNIQUE: Axial CT images of the chest were obtained following IV contrast administration, PE protocol. Multiplanar reformatted images were reviewed. FINDINGS: The vertebral evaluation of subsegmental branches most pronounced in the lung bases secondary to motion artifact with adjacent pulmonary interstitial scarring/honeycombing. Negative for central/segmental pulmonary embolism. Moderate cardiomegaly. Negative for thoracic aortic aneurysm or dissection. Trace pericardial fluid. No pleural effusion. No pneumothorax. Moderate diffuse interlobular septal thickening and honeycombing in the lower lobes. No pulmonary consolidation evident. Degenerative changes in the spine. Chronic appearing bilateral rib deformities. No acute fracture. No acute process in the upper abdomen. IMPRESSION: 1. Negative for central/segmental pulmonary embolism. 2. Findings compatible with given history of interstitial lung disease. Electronically signed by Malick Wolff 05-21-2024 3:09 PM Discharge Plan Visit Data Chief Complaint: Chest Pain Stated Complaint: CHEST PAIN, PAIN DOWN LT ARM ED Provider: Navid Little Discharge Problem: Chest pain, half-way (current) use of anticoagulants, Interstitial lung disease Patient Disposition: Being Evaluated by Hospitalist Forms Stand Alone Forms: My [facility] [employer] Prescriptions Prescriptions: No Action spironolactone 25 mg tablet 25 mg PO QAM Qty: 90 3RF atorvastatin 10 mg tablet 10 mg PO HS Qty: 90 3RF quinidine gluconate 324 mg tablet extended release 324 mg PO BID Qty: 180 3RF mycophenolate mofetil [CellCept] 500 mg tablet 1,000 mg PO BID Qty: 360 3RF levetiracetam [Keppra] 500 mg tablet 1,000 mg PO BID Qty: 360 3RF levalbuterol HCl 1.25 mg/3 mL solution for nebulization 1.25 mg inhalation Q6H PRN (Reason: Shortness Of Breath Or Wheezing) Qty: 1080 3RF potassium chloride 20 mEq tablet extended release 20 meq PO TID Qty: 270 3RF Patient Comments: currently taking bid per pcp instructions tamsulosin [Flomax] 0.4 mg capsule 0.4 mg PO DAILY Qty: 90 3RF budesonide-formoterol [Symbicort] 160-4.5 mcg/actuation HFA aerosol inhaler 2 puff Inhalation BID Qty: 30.6 3RF acetaminophen [Tylenol Extra Strength] 500 mg tablet 500 mg PO QID PRN (Reason: Pain) albuterol sulfate 90 mcg/actuation HFA aerosol inhaler 1 inh inhalation QID PRN (Reason: shortness of breath or wheezing) Qty: 8.5 3RF pantoprazole [Protonix] 40 mg tablet,delayed release (DR/EC) 40 mg PO BID Qty: 180 3RF cyproheptadine 4 mg tablet 4 mg PO HS Qty: 90 3RF codeine-guaifenesin 10-100 mg/5 mL liquid 5 ml PO Q6H PRN (Reason: cough) Qty: 473 5RF multivitamin Tablet 1 tab PO QAM prednisone 5 mg tablet 5 mg PO QAM hydrocodone-homatropine [Hycodan] 5-1.5 mg/5 mL (5 mL) syrup 5 ml PO Q6H PRN (Reason: cough) Eliquis 5 mg tablet 5 mg PO QAM Referrals Referrals: Yusuf Villalobos MD [Primary Care Provider] -
[2024-05-21] MEDS: NITROGLYCERIN SL 0.4 MG/TAB TAB SL STA ×2 (14:04→16:31)
[2024-05-21 14:08] LABS: Basophils # (auto) 0.04 K/uL (0.00-0.20); Basophils % (auto) 0.6 %; Eosinophils # (auto) 0.16 K/uL (0.00-0.50); Eosinophils % (auto) 2.3 %; Hematocrit (blood only) 32.5 % (42.0-52.0); Hemoglobin 10.9 g/dl (14.0-18.0); Immature Granulocytes # (auto) 0.02 K/uL (0.01-0.20); Immature Granulocytes % (auto) 0.3 %; Lymphocytes % (auto) 21.5 %; Mean Corpuscular Hemoglobin 30.4 pg (25.0-34.0); Mean Corpuscular Hgb Conc 33.5 g/dL (32.0-36.0); Mean Corpuscular Volume 90.5 fL (80.0-100.0); Mean Platelet Volume 9.6 fL (9.4-12.4); Monocytes # (auto) 0.84 K/uL (0.11-0.59); Monocytes % (auto) 12.1 %; Neutrophils # (auto) 4.41 K/uL (1.40-6.50); Neutrophils % (auto) 63.2 %; Platelet Count 197 K/uL (130-400); RDW Coefficient of Variation 13.6 % (11.5-14.5); RDW Standard Deviation 45.3 fL (36.4-46.3); Red Blood Count 3.59 M/uL (4.70-6.10); White Blood Count 6.97 K/ul (4.8-10.8)
[2024-05-21 14:25] LABS: Albumin Globulin Ratio 1.4 (0.9-2); Albumin Level 3.8 gm/dl (3.4-5.0); BUN Creatinine Ratio 11.9 (10-20); Bilirubin,Total 0.4 mg/dl (0.2-1.0); Calcium 8.3 mg/dl (8.6-10.3); Creatinine Clr Calc Pharmacy 43.6 ml/min; Globulin 2.7 gm/dl (2.5-4.0); Potassium 3.9 mmol/L (3.5-5.1); Total Protein 6.5 gm/dl (6.0-8.3)
[2024-05-21 14:32] LABS: Troponin I High Sensitivity 8.7 pg/ml (0-20)
[2024-05-21] MEDS: OPTIRAY 320 125ml IV ONE (14:36)
[2024-05-21 14:37] LABS: Partial Thromboplastin Ratio 1.1; Partial Thromboplastin Time 30 Seconds (21-31); Prothrombin Time 11.3 Seconds (9.0-12.0)
[2024-05-21 15:08] LABS: Influenza A virus by PCR Negative (Neg); Influenza B virus by PCR Negative (Neg); RSV by PCR Negative (Neg); SARS CoV2 RNA(COVID-19) Ceph NEGATIVE (Negative)
--- NOTE | 2024-05-21 15:10 | CT Scan Report ---
INDICATION: Chest pain. History of ILD. COMPARISON: None available. TECHNIQUE: Axial CT images of the chest were obtained following IV contrast administration, PE protocol. Multiplanar reformatted images were reviewed. FINDINGS: The vertebral evaluation of subsegmental branches most pronounced in the lung bases secondary to motion artifact with adjacent pulmonary interstitial scarring/honeycombing. Negative for central/segmental pulmonary embolism. Moderate cardiomegaly. Negative for thoracic aortic aneurysm or dissection. Trace pericardial fluid. No pleural effusion. No pneumothorax. Moderate diffuse interlobular septal thickening and honeycombing in the lower lobes. No pulmonary consolidation evident. Degenerative changes in the spine. Chronic appearing bilateral rib deformities. No acute fracture. No acute process in the upper abdomen. IMPRESSION: 1. Negative for central/segmental pulmonary embolism. 2. Findings compatible with given history of interstitial lung disease. Electronically signed by Malick Wolff 05-21-2024 3:09 PM
[2024-05-21 16:11] LABS: iSTAT Creatinine 1.5 mg/dl (0.6-1.3); iSTAT Hemoglobin 12.2 g/dl (14.0-18.0); iSTAT Ionized Calcium 1.17 mmol/l (1.12-1.32); iSTAT Potassium 3.8 mmol/L (3.3-5.0)
--- NOTE | 2024-05-21 16:48 | History & Physical Report ---
Date of Service May 21, 2024 Assessment & Plan (1) Chest pain: (2) Interstitial lung disease: (3) Pulmonary hypertension: Plan This is a 73-year-old gentleman with past medical history of interstitial lung disease, seizure disorder, PE on Eliquis, hyperlipidemia, pulmonary hypertension who presented to the emergency department on 05/21/2024 with a chief complaint of chest pain at rest. Patient w/ history of cardiac cath in 2016 that showed mild obstructive disease. #chest pain/unstable angina admit for further monitoring on telemetry ASA and Nitro provided in ED. CTA negative CBC stable. BMP w/ stable electrolytes, creatinine at baseline. Troponin 8.7, repeat pending EKG w/ normal sinus rhythm. Echo 01/22/24: EF 60-65%, mild mitral regurg, mild pulm HTN, sm pericardial effusion w/o evidence of tamponade. repeat echo pending #Interstitial lung disease chronically on 1L nasal cannula at baseline Continue mycophenolate and prednisone daily. Continue home inhalers upon admission. #History of PE Continue home Eliquis - dosage recently switched to 5mg once daily due to ongoing hemoptysis CTA repeat was negative for acute PE. Chronic conditions: Seizure disorder: levetiracetam GERD: PPI BPH: Flomax Hypokalemia: Potassium + spironolactone DVT prophylaxis: home Eliquis Code status: full Case discussed w/ Dr. Norton at time of admission History of Present Illness Primary Care Provider: Yusuf Villalobos MD This is a 73-year-old gentleman with past medical history of interstitial lung disease, seizure disorder, PE on Eliquis, hyperlipidemia, pulmonary hypertension who presented to the emergency department on 05/21/2024 with a chief complaint of chest pain. While in the emergency department, patient underwent a CTA that was negative. His CBC and BMP were stable. His troponin was 8.7. He was given aspirin. He was not given nitroglycerin due to his blood pressure being on the lower side and he refused. The patient was seen and examined at bedside. He states that last evening he slept on his couch. He states that he then woke up this morning feeling in good health. He states that he took his dog outside and then went to [employer] to get breakfast. He states that he came back and sometime around 11:30 AM he started to develop an abrupt onset of chest pain. He states that it is left- sided in nature and radiates down his left arm. He admits to numbness and tingling in his fingertips. He states that he has not lifted anything heavy recently. He denies any worsening of his shortness of breath. He does have a history of interstitial lung disease for which he is on chronic oxygen. He denied any nausea, vomiting, abdominal pain. Moving his bowels without difficulty. He denies any lower extremity edema. He denies any urinary symptoms. Patient reports this CP has never happened before. He has a history of a cardiac cath in 2016 with very minimal disease found. Allergies Allergy/AdvReac Type Severity Reaction Status Date / Time house dust Allergy Mild Allergy Verified 05/21/24 16:24 symptoms mold Allergy Mild SEASONAL Verified 05/21/24 16:24 ALLERGIES phenytoin Allergy Mild MYOPATHY Verified 05/21/24 16:24 pollen extracts Allergy Mild SEASONAL Verified 05/21/24 16:24 ALLERGIES dextromethorphan AdvReac Mild felt weird Verified 05/21/24 16:24 [From [facility]] fentanyl AdvReac Mild doesn't Verified 05/21/24 16:24 remember Home Medications Medication Instructions Recorded Confirmed Type acetaminophen 500 mg tablet 500 mg PO QID PRN Pain 12/05/21 05/21/24 History (Tylenol Extra Strength) multivitamin 1 tab PO QAM 09/15/22 05/21/24 History atorvastatin 10 mg tablet 10 mg PO HS #90 tabs 06/24/23 05/21/24 Rx spironolactone 25 mg tablet 25 mg PO QAM #90 tabs 06/24/23 05/21/24 Rx quinidine gluconate 324 mg 324 mg PO BID #180 tabs 07/02/23 05/21/24 Rx tablet,extended release albuterol sulfate 90 mcg/actuation 1 inh inhalation QID PRN shortness 09/25/23 05/21/24 Rx aerosol inhaler of breath or wheezing #8.5 grams pantoprazole 40 mg tablet,delayed 40 mg PO BID #180 tabs 09/25/23 05/21/24 Rx release (Protonix) levetiracetam 500 mg tablet 1,000 mg (2 x 500 mg) PO BID #360 11/06/23 05/21/24 Rx (Keppra) tabs mycophenolate mofetil 500 mg 1,000 mg (2 x 500 mg) PO BID #360 11/06/23 05/21/24 Rx tablet (CellCept) tabs levalbuterol HCl 1.25 mg/3 mL 1.25 mg (3 mL) inhalation Q6H PRN 03/02/24 05/21/24 Rx solution for nebulization Shortness Of Breath Or Wheezing #1,080 mL potassium chloride 20 mEq 20 meq PO TID #270 tabs 03/18/24 05/21/24 Rx tablet,extended release tamsulosin 0.4 mg capsule (Flomax) 0.4 mg PO DAILY #90 caps 03/28/24 05/21/24 Rx budesonide-formoterol HFA 160 2 puff inhalation BID #30.6 grams 04/28/24 05/21/24 Rx mcg-4.5 mcg/actuation aerosol inhaler (Symbicort) codeine 10 mg-guaifenesin 100 mg/5 5 ml PO Q6H PRN cough #473 mL 05/10/24 05/21/24 Rx mL oral liquid cyproheptadine 4 mg tablet 4 mg PO HS #90 tabs 05/17/24 05/21/24 Rx apixaban 5 mg tablet (Eliquis) 5 mg PO QAM 05/21/24 05/21/24 History hydrocodone-homatropine 5 mg-1.5 5 ml PO Q6H PRN cough 05/21/24 05/21/24 History mg/5 mL (5 mL) oral syrup (Hycodan) prednisone 5 mg tablet 5 mg PO QAM 05/21/24 05/21/24 History Past Med/Surg History Problem List (Updated 05/21/24 @ 17:09 by Navid Little M.D.) Chest pain (Acute) Hemoptysis Epistaxis Fracture of fifth metatarsal bone of left foot Fracture of fifth metatarsal bone Knee pain, right Foot pain Fall against object Weight loss Hypoxia (Acute) Arthritis of left hip Shoulder pain Seizure disorder Cough with hemoptysis Interstitial lung disease (Acute) [facility] for Interstitial lung dz, Dr. Hernandez Pulmonary embolism (Acute 06/04/11) 01/30/07-initial CT scan, see scanned PE worksheet in transferred records scan date 12/12/21 Sinusitis Penicillin allergy Acute bronchitis due to COVID-19 virus Hypokalemia (~11/25/23) Urinary tract infection Tendinitis of right rotator cuff Weight loss due to medication Right shoulder pain Cough Nocturnal leg cramps Hyperlipidemia Severe muscle deconditioning Encounter for pre-operative examination Rectal bleeding Anemia IPMN (intraductal papillary mucinous neoplasm) Leg cramps Fatigue Sinusitis Lumbar disc disease with radiculopathy Unspecified adrenocortical insufficiency Impaired glucose metabolism steroid use Synovitis Pericardial effusion Enlarged prostate with lower urinary tract symptoms (LUTS) (Acute) Personal history of immunosuppression therapy Left ventricular hypertrophy Pulmonary hypertension Osteoporosis Pancreatic lesion 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 TO HAVE FATIGUE AND SHORTNESS OF BREATH Hx of migraines On home oxygen therapy WEARS 1L O2 NC CONT. - can use 2-3 lpm prn Asthma uses daily inhaler Anal fissure Shortness of breath History of pulmonary embolism INITIALLY DX 2006>LAST DX 06/2022 ? 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) Surgical History History of colonoscopy [place] teeth removed History of total hip arthroplasty RT/LEFT S/P cardiac cath 2016>NO STENTS History of umbilical hernia repair (02/02/20) Open Umbilical Hernia Repair with Mesh(Not Applicable) - Amado Velazquez DO, FACS 02/02/20 Family History Father COPD (chronic obstructive pulmonary disease) Cancer Mother Diabetes TIA (transient ischemic attack) IHD (ischemic heart disease) Cancer Hypertension Sister Cerebral aneurysm Brother Diabetes Other No family history of adverse response to anesthesia Social History (Updated 01/14/24 @ 14:54 by Michelle Olivier) Smoking Status: Never smoker Tobacco Type: Pipe and Cigars Cigarettes Per Day: 1974 - smoked for 3 months; Second Hand Exposure: Yes (in childhood); Do You Dip or Chew Tobacco: No; Tobacco Cessation Education Requested by Patient: No Hx Alcohol Use: No Hx Substance Use: No Preferred Language: [place]an Communication Ability: Effective Visual Impairment: Limited Hearing Ability: Normal Clinical Documentation Clerk Required: No Beliefs That Will Affect Care: None marital status: Current Living Situation: Spouse current occupational status: retired How many Children do You have: 1 How many Children do You have Comment: 1 stepson Other Information That Helps Us Care for You: Yes Feels Safe at Home: Yes Safety Concerns: Feels Safe At This Time caffeine: Yes (rarely ) Dental Care, Regularly: Yes Physical Activity Frequency: Does not Exercise Assistive Devices: Glasses and Oxygen - Continuous Physical Exam Constitutional: WD/WN, vitals as above Eyes: PERRL, conjunctivae normal, anicteric sclerae Respiratory: CTA Cardiovascular: RRR, no murmur, no edema Psychiatric: A+Ox3, euthymic affect Results & Data Results & Data Vital Signs (Past 12 Hours) Vital Signs Temp Pulse Pulse Resp BP BP Pulse Ox 05/21/24 15:12 68 16 123/78 100 05/21/24 15:07 100 05/21/24 13:58 78 26 H 100/66 100 05/21/24 13:50 05/21/24 13:32 36.6 C 96 H 20 110/77 95 O2 Del Method O2 Flow Rate 05/21/24 15:12 Nasal Cannula 2 05/21/24 15:07 Nasal Cannula 2 05/21/24 13:58 Nasal Cannula 3 05/21/24 13:50 Room Air 05/21/24 13:32 Nasal Cannula 1 Code Status & VTE Plan VTE Prophylaxis Plan VTE Prophylaxis will be ordered: Yes Supervising Physician Co-Signing Physician Notes I personally saw and examined the patient. I independently reviewed the labs, EKG, imaging, problem list, medication list, past medical history and family his tory. I verified all tan points and agree with Nan Murrieta PA-C with the following exceptions and/or additions: 73 year old male presents to the ER with chest pain radiating down left arm. Started around midday. No improvement with nitroglycerin. No worse on movement, inspiration O/E HS RRR, no murmurs, Chest CTAB, Abdo SNT, normal left shoulder exam, unable to reproduce pain on palpation A/P Chest pain - I am unclear on the etiology of this. BP and radial pulse equal in both arms, continue to trend troponin although reassuringly 2 hour troponin is downtrending, unable to reproduce on shoulder exam and no back pain to consider cervico/thoracic radiculopathy. POCUS US with small pericardial effusion but no significant wall motion abnormality seen on LV and EF appears normal. PG Care Time/CCT Total # of Minutes Spent Total Time Spent with Patient: Total time spent is greater than 50% in coordination of care (as documented) at patient's floor/unit and/or counseling patient: Coding Level of Care Code 75848 INT INP/OBS CARE 2/MIN Diagnoses Chest pain R07.9 Interstitial lung disease J84.9 Pulmonary hypertension I27.20
[2024-05-21 17:01] LABS: Magnesium 1.8 mg/dl (1.7-2.4)
[2024-05-21] MEDS ORDERED: FAMOTIDINE 20MG IV PUSH 20 MG/5 ML SYR IV STA (17:10)
[2024-05-21] MEDS ORDERED: LEVALBUTEROL 1.25 MG/3 ML NEB INH PRN (17:44)
[2024-05-21] MEDS ORDERED: ALBUTEROL HFA 8 GM INHALER INH PRN (17:44)
[2024-05-21] MEDS: ALUMINUM/MAGNESIUM SUSP 30 ML UDC PO STA (19:04)
[2024-05-21 20:07] VITALS: RESP 18
[2024-05-21] MEDS: NITROGLYCERIN SL 0.4 MG/TAB TAB SL PRN (21:45)
[2024-05-21] MEDS: ATORVASTATIN 10 MG TAB PO SCH (21:47)
[2024-05-21] MEDS: CYPROHEPTADINE HCL 4 MG TAB PO SCH (21:47)
[2024-05-21] MEDS: FLUTICASONE/VILANTEROL 200/25MCG 14 PUFFS/INHALER INH SCH (21:47)
[2024-05-21] MEDS: QUINIDINE GLUCONATE 324 MG PO SCH (21:51)
[2024-05-21] MEDS: POTASSIUM CHLORIDE CRTAB 20 MEQ TABCR PO SCH (21:51)
[2024-05-21] MEDS: levETIRAcetam 500 MG TAB PO SCH (21:51)
[2024-05-21] MEDS: PANTOprazole 40 MG TAB PO SCH (21:51)
[2024-05-21] MEDS: MYCOPHENOLATE MOFETIL 250 MG CAP PO SCH (21:51)
[2024-05-22] MEDS: NITROGLYCERIN SL 0.4 MG/TAB TAB ONE (06:17)
[2024-05-22] MEDS: APIXABAN 5 MG TABLET PO SCH (08:55)
[2024-05-22] MEDS: predniSONE 5 MG TAB PO SCH (08:55)
[2024-05-22] MEDS: TAMSULOSIN HCL 0.4 MG CAP PO SCH (08:55)
[2024-05-22] MEDS: SPIRONOLACTONE 25 MG TAB PO SCH (08:55)
[2024-05-22] MEDS: guaiFENesin/CODEINE 100MG/10MG 5ML UDC PO PRN (10:40)
[2024-05-22 10:52] VITALS: BP 165/85; TEMP 98.1; O2SAT 96
--- NOTE | 2024-05-22 13:31 | Electrocardiogram Report ---
Test Reason : Blood Pressure : */* mmHG Vent. Rate : 86 BPM Atrial Rate : 86 BPM P-R Int : 182 ms QRS Dur : 84 ms QT Int : 364 ms P-R-T Axes : 42 -36 53 degrees QTcB Int : 435 ms Normal sinus rhythm Left axis deviation Incomplete right bundle branch block Moderate voltage criteria for LVH, may be normal variant ( R in aVL , [place] product ) Abnormal ECG When compared with ECG of 19-May-2023 15:21, No significant change was found Confirmed by Nola Contreras ([id number]) on 05/22/2024 1:31:22 PM Referred By: Confirmed By: Nola Contreras
--- NOTE | 2024-05-22 13:46 | Electrocardiogram Report ---
Test Reason : Blood Pressure : */* mmHG Vent. Rate : 61 BPM Atrial Rate : 61 BPM P-R Int : 190 ms QRS Dur : 96 ms QT Int : 426 ms P-R-T Axes : 48 -38 38 degrees QTcB Int : 428 ms Sinus rhythm with Premature atrial complexes Left axis deviation Left anterior fascicular block Moderate voltage criteria for LVH, may be normal variant ( R in aVL , [place] product ) Nonspecific T wave abnormality Abnormal ECG When compared with ECG of 21-May-2024 18:07, (unconfirmed) Premature atrial complexes are now Present QRS axis Shifted left Confirmed by Nola Contreras ([id number]) on 05/22/2024 1:46:16 PM Referred By: REFERRED SELF Confirmed By: Nola Contreras
--- NOTE | 2024-05-22 13:56 | Discharge Summary ---
Date of Service May 22, 2024 Admission HPI Per Admitting Provider This is a 73-year-old gentleman with past medical history of interstitial lung disease, seizure disorder, PE on Eliquis, hyperlipidemia, pulmonary hypertension who presented to the emergency department on 05/21/2024 with a chief complaint of chest pain. While in the emergency department, patient underwent a CTA that was negative. His CBC and BMP were stable. His troponin was 8.7. He was given aspirin. He was not given nitroglycerin due to his blood pressure being on the lower side and he refused. The patient was seen and examined at bedside. He states that last evening he slept on his couch. He states that he then woke up this morning feeling in good health. He states that he took his dog outside and then went to [employer] to get breakfast. He states that he came back and sometime around 11:30 AM he started to develop an abrupt onset of chest pain. He states that it is left- sided in nature and radiates down his left arm. He admits to numbness and tingling in his fingertips. He states that he has not lifted anything heavy recently. He denies any worsening of his shortness of breath. He does have a history of interstitial lung disease for which he is on chronic oxygen. He denied any nausea, vomiting, abdominal pain. Moving his bowels without difficulty. He denies any lower extremity edema. He denies any urinary symptoms. Patient reports this CP has never happened before. He has a history of a cardiac cath in 2016 with very minimal disease found. Admission Exam Per Admitting Provider Constitutional: WD/WN, vitals as above Eyes: PERRL, conjunctivae normal, anicteric sclerae Respiratory: CTA Cardiovascular: RRR, no murmur, no edema Psychiatric: A+Ox3, euthymic affect Principal Diagnosis Atypical chest pain, likely musculoskeletal in etiology Discharge Exam General: Awake, conversant Heart: S1, S2/regular rate and rhythm, no murmur rubs or gallops Lungs: Clear to auscultation bilaterally. Normal effort Abdomen: Soft/nontender/nondistended. No hepatosplenomegaly Extremities: No clubbing/cyanosis. No edema Behavior: Appropriate, cooperative Discharge Data Allergies Allergy/AdvReac Type Severity Reaction Status Date / Time house dust Allergy Mild Allergy Verified 05/21/24 16:24 symptoms mold Allergy Mild SEASONAL Verified 05/21/24 16:24 ALLERGIES phenytoin Allergy Mild MYOPATHY Verified 05/21/24 16:24 pollen extracts Allergy Mild SEASONAL Verified 05/21/24 16:24 ALLERGIES dextromethorphan AdvReac Mild felt weird Verified 05/21/24 16:24 [From [facility]] fentanyl AdvReac Mild doesn't Verified 05/21/24 16:24 remember Consultations 05/21/24 15:47 ED Decision to Admit Stat Ordered Studies Chest CTA 05/21/24 13:52 INDICATION: Chest pain. History of ILD. COMPARISON: None available. TECHNIQUE: Axial CT images of the chest were obtained following IV contrast administration, PE protocol. Multiplanar reformatted images were reviewed. FINDINGS: The vertebral evaluation of subsegmental branches most pronounced in the lung bases secondary to motion artifact with adjacent pulmonary interstitial scarring/honeycombing. Negative for central/segmental pulmonary embolism. Moderate cardiomegaly. Negative for thoracic aortic aneurysm or dissection. Trace pericardial fluid. No pleural effusion. No pneumothorax. Moderate diffuse interlobular septal thickening and honeycombing in the lower lobes. No pulmonary consolidation evident. Degenerative changes in the spine. Chronic appearing bilateral rib deformities. No acute fracture. No acute process in the upper abdomen. IMPRESSION: 1. Negative for central/segmental pulmonary embolism. 2. Findings compatible with given history of interstitial lung disease. Electronically signed by Malick Wolff 05-21-2024 3:09 PM 05/21/24 13:52 CT angio chest PE protocol Stat Hospital Course (1) Chest pain: (2) Interstitial lung disease: (3) Pulmonary hypertension: Plan This is a 73-year-old gentleman with past medical history of interstitial lung disease, seizure disorder, PE on Eliquis, hyperlipidemia, pulmonary hypertension who presented to the emergency department on 05/21/2024 with a chief complaint of chest pain at rest. Patient w/ history of cardiac cath in 2016 that showed mild obstructive disease. # Atypical chest pain CTA negative CBC stable. BMP w/ stable electrolytes, creatinine at baseline. Troponins negative EKG w/ normal sinus rhythm. Echo 01/22/24: EF 60-65%, mild mitral regurg, mild pulm HTN, sm pericardial effusion w/o evidence of tamponade. Repeat echo unremarkable Patient has pain that is reproducible. Musculoskeletal pain most likely. Cardiac pain ruled out #Interstitial lung disease chronically on 1L nasal cannula at baseline Continue mycophenolate and prednisone daily. Continue home inhalers upon admission. #History of PE Continue home Eliquis - dosage recently switched to 5mg once daily due to ongoing hemoptysis CTA repeat was negative for acute PE. Chronic conditions: Seizure disorder: levetiracetam GERD: PPI BPH: Flomax Hypokalemia: Potassium + spironolactone Discharge to home Total Time Total Time Spent Total Time Spent (In Minutes): 35 Discharge Plan Discharge Items Patient Disposition: Home - Self-Care Reason For Visit: CHEST PAIN Discharge Diagnosis: Atypical chest pain, likely musculoskeletal in etiology Activity: Resume your previous activity Non-emergency contact: Primary Care Provider Call non-emergency contact if: you have any medication questions and your symptoms worsen Follow-up/Referrals: Yusuf Villalobos MD [Primary Care Provider] - Diet: Heart Healthy Addtl Attending Provider Instructions: Advised to follow-up with PCP in 1 week Pending Studies at Discharge: No Stand-Alone Forms: My [facility] Medications and DC Order Prescriptions: Continued spironolactone 25 mg tablet 25 mg PO QAM Qty: 90 3RF atorvastatin 10 mg tablet 10 mg PO HS Qty: 90 3RF quinidine gluconate 324 mg tablet extended release 324 mg PO BID Qty: 180 3RF mycophenolate mofetil [CellCept] 500 mg tablet 1,000 mg PO BID Qty: 360 3RF levetiracetam [Keppra] 500 mg tablet 1,000 mg PO BID Qty: 360 3RF levalbuterol HCl 1.25 mg/3 mL solution for nebulization 1.25 mg inhalation Q6H PRN (Reason: Shortness Of Breath Or Wheezing) Qty: 1080 3RF potassium chloride 20 mEq tablet extended release 20 meq PO TID Qty: 270 3RF Patient Comments: currently taking bid per pcp instructions tamsulosin [Flomax] 0.4 mg capsule 0.4 mg PO DAILY Qty: 90 3RF budesonide-formoterol [Symbicort] 160-4.5 mcg/actuation HFA aerosol inhaler 2 puff Inhalation BID Qty: 30.6 3RF acetaminophen [Tylenol Extra Strength] 500 mg tablet 500 mg PO QID PRN (Reason: Pain) albuterol sulfate 90 mcg/actuation HFA aerosol inhaler 1 inh inhalation QID PRN (Reason: shortness of breath or wheezing) Qty: 8.5 3RF pantoprazole [Protonix] 40 mg tablet,delayed release (DR/EC) 40 mg PO BID Qty: 180 3RF cyproheptadine 4 mg tablet 4 mg PO HS Qty: 90 3RF codeine-guaifenesin 10-100 mg/5 mL liquid 5 ml PO Q6H PRN (Reason: cough) Qty: 473 5RF multivitamin Tablet 1 tab PO QAM prednisone 5 mg tablet 5 mg PO QAM hydrocodone-homatropine [Hycodan] 5-1.5 mg/5 mL (5 mL) syrup 5 ml PO Q6H PRN (Reason: cough) Eliquis 5 mg tablet 5 mg PO QAM Discharge Orders: Discharge Order (Routine); Ordered 05/22/24 Ordered By: Marquita Corrigan Admission Data Admit Date/Time: 05/21/24 16:24 Attending Provider: Marquita Corrigan Admit Provider: Faisal Norton Primary Care Provider: Yusuf Villalobos Other Providers: Faisal Norton
[2024-05-22 14:20] VITALS: PULSE 91
[2024-05-22] MEDS: PNEUMOCOCCAL VACCINE (PCV20) 20-VAL CONJ-DIP CRM/PF 0.5 ML SYR IM ONE (14:58)
--- NOTE | 2024-05-23 13:38 | Electrocardiogram Report ---
Test Reason : Blood Pressure : */* mmHG Vent. Rate : 61 BPM Atrial Rate : 61 BPM P-R Int : 190 ms QRS Dur : 96 ms QT Int : 426 ms P-R-T Axes : 48 -38 38 degrees QTcB Int : 428 ms Sinus rhythm with Premature atrial complexes Left axis deviation Left anterior fascicular block Moderate voltage criteria for LVH, may be normal variant ( R in aVL , [place] product ) Nonspecific T wave abnormality Abnormal ECG When compared with ECG of 21-May-2024 18:07, (unconfirmed) Premature atrial complexes are now Present QRS axis Shifted left Confirmed by Nola Contreras (Fernando) on 05/22/2024 1:46:16 PM Also confirmed by Nola Contreras ([id number]), order editor Daniel Hudson ([id number]) on 05/23/2024 1:38:17 PM Referred By: REFERRED SELF Confirmed By: Nola Contreras
== END 2024-05-22 16:40 | disposition home or self-care (01) ==
LOC: ED 13:29 → INTOOBSV 16:24 → SUATTDRO 16:24 → 4W 16:24